=== PATIENT | male | born 1980 | race Caucasian/White ===

== ENCOUNTER → 2018-06-18 16:33 | Outpatient (CLI) | payer MEDICARE, MEDICAID, SELFPAY ==
--- NOTE | 2018-06-18 16:37 | DI.RAD.S_ITS ---
PROCEDURE: XR FOOT RT MIN 3V INDICATIONS: RIGHT FOOT PAIN TECHNIQUE: 3 views of the foot were acquired. COMPARISON: None. FINDINGS: Bones: Slight cortical step-off involving the proximal phalanx of the right fifth toe near the PIP joint suggestive of fracture. However this is not well-visualized on other views and recommend correlation to point tenderness.Diffuse interphalangeal joint degeneration. Soft tissues: Scattered vascular calcifications. IMPRESSION: Possible minimally displaced fracture involving the proximal phalanx of the right fifth toe near PIP joint. Please correlate to point tenderness as discussed above Dictated by: Souleymane Jung M.D. on 06/18/2018 at 16:56 Approved by: Souleymane Jung M.D. on 06/18/2018 at 16:59
== END ==
PROVIDERS: Family Provider Family Medicine; PCP Family Medicine; Visit Provider Family Medicine
DX: M79.671 Pain in right foot (principal)
CPT/HCPCS: 73630

== ENCOUNTER 2018-07-13 20:51 | Emergency (ER) | payer MEDICARE, MEDICAID, SELFPAY ==
[2018-07-13] VITALS (8 sets, daily range): BP systolic 172–215; BP diastolic 95–187; PULSE 92–110; RESP 9–22; TEMP 36.9; O2SAT 93–100; BMI 21.1
--- NOTE | 2018-07-13 22:24 | DI.CT.S_ITS ---
PROCEDURE: CT HEAD/BRAIN WO CON INDICATIONS: HTN emergency TECHNIQUE: Noncontrast 4.5 mm thick angled axial sections acquired from the foramen magnum to the vertex, with coronal and sagittal reformats. For radiation dose reduction, the following was used: automated exposure control, adjustment of mA and/or kV according to patient size. COMPARISON: [facility], CT, CT HEAD WITHOUT CONTRAST, 03/24/2018, 21:59. FINDINGS: Image quality: Excellent. CSF spaces: Basal cisterns are patent. No extra-axial fluid collections. The ventricles are symmetric in size and shape. Brain: No intracranial bleeds or masses. There is mild cerebral volume loss for age, with resultant ventricular and sulcal prominence. There are minimal periventricular and deep white matter chronic small vessel ischemic changes. There is intracranial internal carotid artery and vertebral artery atherosclerosis. Skull and face: Calvarium and visualized facial bones appear intact, without suspicious lesions. Sinuses: Visualized sinuses and mastoids are clear. IMPRESSION: No acute intracranial disease process. Dictated by: Tierra Emmanuel MD, PhD on 07/14/2018 at 7:26 Approved by: Tierra Emmanuel MD, PhD on 07/14/2018 at 7:28
[2018-07-13 22:30] LABS: Add Manual Diff / Slide Review NO; Basophils Absolute Auto 200 /uL (0-100); Basophils Percent Auto 4.7 % (0-2); Eosinophils Absolute Auto 200 /uL (0-450); Hematocrit 38.1 % (41-53); Hemoglobin 12.7 g/dL (13.5-17.5); Lymphocytes Absolute Auto 1000 /uL (1100-4500); Lymphocytes Percent Auto 21.3 % (25-40); Mean Corpuscular HGB Conc 33.5 % (30-36); Mean Corpuscular Hemoglobin 28.9 PG (26-34); Mean Corpuscular Volume 86.3 fL (80-100); Monocytes Absolute Auto 400 /uL (0-900); Monocytes Percent Auto 9.7 % (3-14); Neutrophils Absolute Auto 2800 /uL (1500-7000); Neutrophils Percent Auto 60.3 % (50-75); Platelet Count 317 X10^3/uL (150-400); Red Blood Cell Count 4.41 X10^6/uL (4.5-5.9); Red Cell Distribution Width 15.3 % (11.6-14.8); White Blood Cell Count 4.6 X10^3/uL (4.5-11.0)
[2018-07-13] MEDS: ONDANSETRON 4 MG/2 ML INJ IV (22:33)
[2018-07-13] MEDS: LABETALOL 20 MG/4 ML SYRINGE 10 MG IV (22:33)
[2018-07-13 22:42] LABS: BUN Creatinine Ratio 5.3 (6-22); Blood Urea Nitrogen 36 mg/dL (9-20); Calcium 8.9 mg/dL (8.4-10.2); Carbon Dioxide 29 mmol/L (22-32); Chloride 94 mmol/L (98-107); Estimated Glomerular Filt Rate 9.2 mL/min (>60); Glucose 230 mg/dL (70-100); HEMOLYSIS < 15 (0-50); Potassium 3.7 mmol/L (3.4-5.1); Sodium 132 mmol/L (137-145)
[2018-07-13] MEDS: NICARDIPINE 25 MG in SODIUM CHLORIDE 0.9% 240 ML 50 ML IV (23:26)
[2018-07-14] VITALS (26 sets, daily range): BP systolic 137–189; BP diastolic 86–119; PULSE 99–113; RESP 9–20; O2SAT 95–100
[2018-07-14] MEDS: HYDROMORPHONE 1 MG INJ 0.5 MG IV (00:16)
--- NOTE | 2018-07-14 00:30 | ED.HA ---
HPI - Headache General Chief Complaint: Headache Stated Complaint: MIGRAINE Time Seen by Provider: 07/13/18 20:58 Source: patient and family Mode of arrival: ambulatory Limitations: no limitations History of Present Illness HPI Narrative: 38-year-old male nonsmoker with history of type 1 diabetes and hypertension with relatively new history of peritoneal dialysis presents with 10/10 frontal headache. He's had one headache before and this is much worse. He states it has gradually worsened over the day. He denies any injury nor fever or chills. It is worse with exertion, sitting up and bright lights. He denies any focal neurologic symptoms such as numbness, tingling or weakness. He denies missing any medications. On arrival his BP was in the 200s. His PD is managed by nephrology at [facility] Related Data Home Medications Medication Instructions Recorded Confirmed Humalog U-100 Insulin 0 units SQ SEE INSTRUCTIONS 07/14/18 07/14/18 atorvastatin 10 mg PO DAILY 07/14/18 07/14/18 buspirone 25 mg PO BID 07/14/18 07/14/18 carvedilol 12.5 mg PO BID 07/14/18 07/14/18 cetirizine [Zyrtec] 5 - 10 mg PO DAILY 07/14/18 07/14/18 cholecalciferol (vitamin D3) 5,000 unit PO DAILY 07/14/18 07/14/18 [Vitamin D3] cyclobenzaprine 10 mg PO BID PRN 07/14/18 07/14/18 diphenhydramine HCl 75 mg PO BEDTIME 07/14/18 07/14/18 docusate sodium [DOK] 100 - 200 mg PO DAILY PRN 07/14/18 07/14/18 hydralazine 50 mg PO BID 07/14/18 07/14/18 hydrocodone-acetaminophen 1 tab PO Q6H PRN 07/14/18 07/14/18 insulin lispro [Humalog KwikPen 14 units SUBCUT TID 07/14/18 Insulin] ondansetron 4 mg PO TID PRN 07/14/18 07/14/18 torsemide 40 mg PO DAILY 07/14/18 07/14/18 triamcinolone acetonide [Nasacort] 2 spray INTRANASAL BID 07/14/18 07/14/18 Previous Rx's Medication Instructions Recorded [place] 0 dev SEE INSTRUCTIONS #100 06/10/16 Glucose: Test Strips str 8 TIMES DAY #800 06/11/16 Spacer: Inhaler Spacer Device ea INH SEE INSTRUCTIONS PRN #1 04/24/17 albuterol sulfate [Ventolin HFA] 2 puff INH Q4HP PRN #1 ea 04/24/17 benzonatate 100 mg PO TIDP PRN #30 cap 04/24/17 fluticasone propionate 2 spray INTRANASAL SEE 04/24/17 INSTRUCTIONS #16 gm insulin glargine [Lantus Solostar 0 unit SQ SEE INSTRUCTIONS #1 box 05/04/17 U-100 Insulin] metoprolol succinate 50 mg PO QDAY #30 ter 07/10/17 Allergies Allergy/AdvReac Type Severity Reaction Status Date / Time insulin detemir Allergy Intermediate causes Unverified 07/15/17 12:55 [From LEVEMIR] swelling at injection site Review of Systems Constitutional Denies chills, Denies fever(s), Reports headache(s), Denies lethargy and Denies weakness Eyes Denies change in vision, Denies eye discharge, Denies irritation and Denies loss of vision ENT Ears, Nose, Mouth, and Throat: Denies change in voice, Reports headache(s), Denies neck pain and Denies sore throat Cardiovascular Denies chest pain, Denies irregular heart rhythm, Denies lightheadedness, Denies palpitations, Denies dyspnea, Denies dyspnea on exertion and Denies orthopnea Respiratory Denies cough, Denies dyspnea, Denies dyspnea on exertion and Denies wheezing Gastrointestinal Gastrointestinal: Denies abdominal pain, Denies change in bowel habits, Denies diarrhea, Denies nausea and Denies vomiting Genitourinary Denies hematuria, Denies flank pain, Denies urinary incontinence and Denies urinary urgency Musculoskeletal Denies neck pain Integumentary/Breasts Denies pruritus, Denies erythema, Denies rash and Denies wounds Neurologic Denies confusion, Reports headache(s), Denies loss of vision and Denies weakness Psychiatric Denies anxiety, Denies confusion, Denies depression, Denies homicidal ideation and Denies suicidal ideation Endocrine Denies palpitations Hematologic/Lymphatic Denies easy bruising Allergic/Immunologic Denies wheezing PFSH Surgical History History of cardiac radiofrequency ablation (RFA) History of cataract removal with insertion of prosthetic lens History of cataract removal with insertion of prosthetic lens History of third molar tooth extraction Status post appendectomy Family History (Updated 04/01/16 @ 00:00 by Conversion Provider) Father Age: 63 Diabetes mellitus Essential hypertension High cholesterol Social History Smoking Status: Never smoker Family History Father Age: 63 Diabetes mellitus Essential hypertension High cholesterol Social History Smoking Status: Never smoker Exam Narrative Exam Narrative: GENERAL: 30-year-old male, in obvious distress, moaning in pain, covering his eyes, sitting in a dark room HEAD: Atraumatic. Normocephalic. No temporal or scalp tenderness. EYES: Pupils equal round and reactive. Extraocular motions intact. No scleral icterus. No injection or drainage. ENT: Nose without bleeding, purulent drainage or septal hematoma. Throat without erythema, tonsillar hypertrophy or exudate. Uvula midline. Airway patent. NECK: Trachea midline. No JVD or lymphadenopathy. Supple, nontender, no meningeal signs. CARDIOVASCULAR: Regular rate and rhythm without murmurs, gallops, or rubs. RESPIRATORY: Clear to auscultation. Breath sounds equal bilaterally. No wheezes, rales, or rhonchi. GASTROINTESTINAL: Abdomen soft, non-tender, nondistended. No hepato-splenomegaly, or palpable masses. No guarding. EXTREMITIES: No clubbing, cyanosis, or edema. No joint tenderness, effusion, or edema noted. BACK: Nontender without deformity or crepitance. No flank tenderness. NEURO: AOx3. SKIN: No rash or erythema. Initial Vital Signs Initial Vital Signs: Vital Signs Temperature 98.5 F 07/13/18 21:22 Pulse Rate 109 H 07/13/18 21:22 Respiratory Rate 22 07/13/18 21:22 Blood Pressure 194/136 H 07/13/18 21:22 Pulse Oximetry 100 07/13/18 21:22 Course Orders Ordered: ED Orders 07/14/18 02:39 Magnesium Stat 07/14/18 07:27 Troponin I Stat 07/14/18 07:34 EKG-12 Lead Stat Nicardipine HCl 25 mg/ Sodium (Chloride) 250 mls @ 50 mls/hr IV TITRATE KARINA; Protocol Last Titration: 07/14/18 06:46 Dose: 2.5 mg/hr, 25 mls/hr Titration: 07/14/18 04:08 Dose: 0 mg/hr, 0 mls/hr Titration: 07/14/18 03:42 Dose: 2.5 mg/hr, 25 mls/hr Titration: 07/14/18 02:47 Dose: 3.5 mg/hr, 35 mls/hr Titration: 07/14/18 02:23 Dose: 2.5 mg/hr, 25 mls/hr Titration: 07/14/18 01:04 Dose: 0 mg/hr, 0 mls/hr Titration: 07/14/18 00:31 Dose: 2.5 mg/hr, 25 mls/hr Admin: 07/13/18 23:26 Dose: 5 mg/hr, 50 mls/hr Discontinued Medications Carvedilol (Coreg) 12.5 mg PO NOW ONE Stop: 07/14/18 05:12 Last Admin: 07/14/18 06:02 Dose: 12.5 mg Hydralazine HCl (Apresoline) 10 mg IV NOW ONE Stop: 07/14/18 03:16 Last Admin: 07/14/18 03:37 Dose: 10 mg Hydralazine HCl (Apresoline) 50 mg PO NOW ONE Stop: 07/14/18 05:12 Last Admin: 07/14/18 06:00 Dose: 50 mg Hydromorphone HCl (Dilaudid) 0.5 mg IV NOW ONE Stop: 07/14/18 00:16 Last Admin: 07/14/18 00:16 Dose: 0.5 mg Hydromorphone HCl (Dilaudid) 0.5 mg IV NOW ONE Stop: 07/14/18 03:08 Last Admin: 07/14/18 03:19 Dose: 0.5 mg Ketorolac Tromethamine (Toradol) 15 mg IV NOW ONE Stop: 07/14/18 02:32 Last Admin: 07/14/18 02:45 Dose: 15 mg Labetalol HCl (Trandate) 10 mg IV NOW ONE Stop: 07/13/18 22:24 Last Admin: 07/13/18 22:33 Dose: 10 mg Metoprolol Tartrate (Lopressor) 50 mg PO NOW ONE Stop: 07/14/18 00:31 Last Admin: 07/14/18 01:04 Dose: 50 mg Ondansetron HCl (Zofran) 4 mg IV NOW ONE Stop: 07/13/18 22:28 Last Admin: 07/13/18 22:33 Dose: 4 mg Ondansetron HCl (Zofran) 4 mg IV NOW ONE Stop: 07/14/18 03:17 Last Admin: 07/14/18 03:19 Dose: 4 mg Sumatriptan Succinate (Imitrex) 6 mg SUBCUT NOW ONE Stop: 07/14/18 03:08 Last Admin: 07/14/18 03:19 Dose: 6 mg Reevaluation(s) Reevaluation #1: Patient had minimal response to labetalol through the IV, given his ongoing and worsening pain in a Cardene drip ordered Reevaluation #2: Nicardipine has resulted in improved BP, gradually down to the 160s. His symptoms have improved. Drip turned down to 2.5 and then turned off. He is given metoprolol 50. Reevaluation #3: Metoprolol has been on board for 90 minutes, Nicardipine has been off, his BP is back up to the 180s/110 and his BERNAL is terrible again. Drip back on. Toradol IV given. Imitrex ordered 0315 - Hydralazine ordered. Family going home to obtain PD device and list of recent labs, etc 0545 - Nicardipine had been turned off for quite some time, patient doing much better. BPs in the 160s/100s, but slowly trending up. PO Hydralazine and Coreg ordered (normal meds). Patient feeling well. Plan to demonstrate ongoing improvement and downward trending of BPs and hopeful for DC. 0600 - Hydralazine and Coreg administered 0627 - patient vomited, unclear if it contains pill fragments. BP up to 187/105. Will go back to Nicardipine. start working on calls for transfer again. 0637 - call to [facility]. No current beds. Likely 11ish. Cannot get on queue. Call back after bed meeting at 0800. 0644 - call [facility]. No beds. Maybe late afternoon 0645 - call to Prov. Call back at 0900. They will have a better sense of potential availability of beds. 0647 - call back to [facility]. 0800. Beds are possibly available, but we need to wait a bit. 0653 - call to . They likely have beds and will recontact 0800 - to accept. Patient to ED and will receive bed assignment there. Dr. Price receiving. Consultations Consultation #1: Our hospital has no nephrology and cannot keep PD/HD patients [facility] is completely full and cannot accept patients [facility] is full and cannot accept patients. [facility] is completely full and is potentially expecting discharges at lunch 0315 - call to [facility]. Dr. Falk (ICU) returns call and is happy to discuss patient. They may have a bed. Request that we continue to make attempts at BP control and recontact in 1 hour. Consultation #2: [facility] called back, the bed we may have had is now gone as they just intubated two patients in the ED Time: 06:30 Vital Signs - 8 hr 07/14/18 00:20 07/14/18 01:21 07/14/18 01:39 Pulse Rate 103 H 103 H 102 H Respiratory Rate 14 12 10 L Blood Pressure Blood Pressure [Right Arm] 160/87 H 172/95 H 171/100 H Pulse Oximetry 100 100 99 07/14/18 02:00 07/14/18 02:30 07/14/18 02:45 Pulse Rate 100 H 112 H 113 H Respiratory Rate 12 20 18 Blood Pressure Blood Pressure [Right Arm] 164/91 H 177/119 H 170/100 H Pulse Oximetry 99 100 100 07/14/18 03:00 07/14/18 03:15 07/14/18 03:30 Pulse Rate 113 H 108 H 104 H Respiratory Rate 17 12 9 L Blood Pressure Blood Pressure [Right Arm] 189/100 H 158/94 H 169/88 H Pulse Oximetry 100 97 96 07/14/18 03:37 07/14/18 03:45 07/14/18 04:10 Pulse Rate 104 H 103 H 103 H Respiratory Rate 11 L 10 L Blood Pressure 160/91 H 162/91 H Blood Pressure [Right Arm] 156/96 H 162/91 H Pulse Oximetry 96 97 07/14/18 04:50 07/14/18 04:51 07/14/18 05:00 Pulse Rate 99 H 108 H 102 H Respiratory Rate 10 L 18 12 Blood Pressure Blood Pressure [Right Arm] 177/107 H 177/107 H 163/96 H Pulse Oximetry 95 98 97 07/14/18 05:20 07/14/18 05:30 07/14/18 05:50 Pulse Rate 99 H 99 H 101 H Respiratory Rate 12 Blood Pressure Blood Pressure [Right Arm] 171/96 H 168/99 H 179/97 H Pulse Oximetry 97 98 97 07/14/18 06:00 07/14/18 06:02 07/14/18 06:10 Pulse Rate 103 H 103 H 104 H Respiratory Rate 11 L Blood Pressure 174/102 H 174/102 H Blood Pressure [Right Arm] 181/102 H Pulse Oximetry 98 07/14/18 06:20 07/14/18 06:50 07/14/18 07:20 Pulse Rate 108 H 99 H 99 H Respiratory Rate 13 11 L 11 L Blood Pressure 173/109 H Blood Pressure [Right Arm] 187/106 H 163/99 H 146/95 H Pulse Oximetry 98 98 99 07/14/18 08:00 Pulse Rate 101 H Respiratory Rate 10 L Blood Pressure Blood Pressure [Right Arm] 146/90 H Pulse Oximetry 98 MDM - Headache Medical Records Attestation: I reviewed the patient's medical records. Lab Data Attestation: I reviewed the patient's lab results. Result diagrams: 07/13/18 22:20 07/13/18 22:20 Lab Results 07/13/18 07/13/18 07/13/18 Range/Units 22:20 22:20 22:20 WBC 4.6 (4.5-11.0) X10^3/uL RBC 4.41 L (4.5-5.9) X10^6/uL Hgb 12.7 L (13.5-17.5) g/dL Hct 38.1 L (41-53) % MCV 86.3 (80-100) fL MCH 28.9 (26-34) PG MCHC 33.5 (30-36) % RDW 15.3 H (11.6-14.8) % Plt Count 317 (150-400) X10^3/uL Neut % (Auto) 60.3 (50-75) % Lymph % (Auto) 21.3 L (25-40) % [place] % (Auto) 9.7 (3-14) % Eos % (Auto) 4.0 (2-4) % Baso % (Auto) 4.7 H (0-2) % Neut # (Auto) 2800 (6090-8517) /uL Lymph # (Auto) 1000 L (6863-1099) /uL [place] # (Auto) 400 (0-900) /uL Eos # (Auto) 200 (0-450) /uL Baso # (Auto) 200 H (0-100) /uL Sodium 132 L (137-145) mmol/L Potassium 3.7 (3.4-5.1) mmol/L Chloride 94 L (98-107) mmol/L Carbon Dioxide 29 (22-32) mmol/L BUN 36 H (9-20) mg/dL Creatinine 6.80 H (0.66-1.25) mg/dL Estimated GFR 9.2 L (>60) mL/min BUN/Creatinine Ratio 5.3 L (6-22) Glucose 230 H (70-100) mg/dL Calcium 8.9 (8.4-10.2) mg/dL Magnesium 1.9 (1.6-2.3) mg/dL Troponin I (0.01-0.034) ng/mL 07/13/18 Range/Units 22:20 WBC (4.5-11.0) X10^3/uL RBC (4.5-5.9) X10^6/uL Hgb (13.5-17.5) g/dL Hct (41-53) % MCV (80-100) fL MCH (26-34) PG MCHC (30-36) % RDW (11.6-14.8) % Plt Count (150-400) X10^3/uL Neut % (Auto) (50-75) % Lymph % (Auto) (25-40) % [place] % (Auto) (3-14) % Eos % (Auto) (2-4) % Baso % (Auto) (0-2) % Neut # (Auto) (7738-1127) /uL Lymph # (Auto) (5874-1800) /uL [place] # (Auto) (0-900) /uL Eos # (Auto) (0-450) /uL Baso # (Auto) (0-100) /uL Sodium (137-145) mmol/L Potassium (3.4-5.1) mmol/L Chloride (98-107) mmol/L Carbon Dioxide (22-32) mmol/L BUN (9-20) mg/dL Creatinine (0.66-1.25) mg/dL Estimated GFR (>60) mL/min BUN/Creatinine Ratio (6-22) Glucose (70-100) mg/dL Calcium (8.4-10.2) mg/dL Magnesium (1.6-2.3) mg/dL Troponin I 0.030 (0.01-0.034) ng/mL Imaging Data CT scan - head: Radiologist's impression: [address] [address] [address] Scan Report Signed Patient: Thai Carreon [facility]#: [id number] : 1980Acct:[id number] Age/Sex: 38 / MDate of Service: 07/13/18 Loc: ED Accession Number: [id number] Procedure: CT head/brain wo con Ordering Provider: Cal Hernandez D.O. PROCEDURE: CT HEAD/BRAIN WO CON INDICATIONS: HTN emergency TECHNIQUE: Noncontrast 4.5 mm thick angled axial sections acquired from the foramen magnum to the vertex, with coronal and sagittal reformats. For radiation dose reduction, the following was used: automated exposure control, adjustment of mA and/or kV according to patient size. COMPARISON: [facility], CT, CT HEAD WITHOUT CONTRAST, 03/24/2018, 21:59. FINDINGS: Image quality: Excellent. CSF spaces: Basal cisterns are patent. No extra-axial fluid collections. The ventricles are symmetric in size and shape. Brain: No intracranial bleeds or masses. There is mild cerebral volume loss for age, with resultant ventricular and sulcal prominence. There are minimal periventricular and deep white matter chronic small vessel ischemic changes. There is intracranial internal carotid artery and vertebral artery atherosclerosis. Skull and face: Calvarium and visualized facial bones appear intact, without suspicious lesions. Sinuses: Visualized sinuses and mastoids are clear. IMPRESSION: No acute intracranial disease process. Dictated by: Tierra Emmanuel MD, PhD on 07/14/2018 at 7:26 Approved by: Tierra Emmanuel MD, PhD on 07/14/2018 at 7:28 Discharge Plan Departure Patient Disposition: [facility] Clinical Impression: Hypertensive emergency Headache, migraine Qualifiers: Migraine type: unspecified Status migrainosus presence: without status migrainosus Intractability: not intractable Qualified Code(s): G43.909 - Migraine, unspecified, not intractable, without status migrainosus Prescriptions: No Action Merriman SEE INSTRUCTIONS Qty: 100 RF: 11 Glucose: Test Strips 8 TIMES DAY Qty: 800 RF: 11 benzonatate 100 MG capsule 100 mg PO TIDP PRNQty: 30 RF: 0 albuterol sulfate [Ventolin HFA] 90 MCG/PUFF HFA aerosol inhaler 2 puff INH Q4HP PRNQty: 1 RF: 0 fluticasone propionate 16 GM spray,suspension 2 spray Intranasal SEE INSTRUCTIONS Qty: 16 RF: 0 Spacer: Inhaler Spacer Device INH SEE INSTRUCTIONS PRNQty: 1 RF: 99 insulin glargine [Lantus Solostar U-100 Insulin] 100 UNIT/1 ML insulin pen SQ SEE INSTRUCTIONS Qty: 1 RF: 11 metoprolol succinate 50 MG tablet extended release 24 hr 50 mg PO QDAY Qty: 30 RF: 3 hydrocodone-acetaminophen 10-325 mg Tablet 1 tab PO Q6H PRN (Reason: Pain (Scale Score 7-10)) RF: 0 buspirone 10 mg Tablet 25 mg PO BID RF: 0 triamcinolone acetonide [Nasacort] 55 mcg Aerosol,[place] 2 spray INTRANASAL BID RF: 0 cyclobenzaprine 10 mg Tablet 10 mg PO BID PRN (Reason: Muscle Spasm) RF: 0 carvedilol 25 mg Tablet 12.5 mg PO BID RF: 0 torsemide 20 mg Tablet 40 mg PO DAILY RF: 0 cetirizine [Zyrtec] 10 mg Tablet 5 - 10 mg PO DAILY RF: 0 atorvastatin 10 mg Tablet 10 mg PO DAILY RF: 0 diphenhydramine HCl 25 mg Tablet 75 mg PO BEDTIME RF: 0 docusate sodium [DOK] 100 mg capsule 100 - 200 mg PO DAILY PRN (Reason: Constipation) RF: 0 hydralazine 50 mg Tablet 50 mg PO BID RF: 0 ondansetron 4 mg Tablet,Disintegrating 4 mg PO TID PRN (Reason: Nausea) RF: 0 Humalog KwikPen Insulin 100 unit/mL insulin pen 14 units subcut TID RF: 0 cholecalciferol (vitamin D3) [Vitamin D3] 5,000 unit Tablet 5,000 unit PO DAILY RF: 0 Humalog U-100 Insulin 100 UNIT/1 ML cartridge SQ SEE INSTRUCTIONS RF: 0 Referrals: Jose Multani MD [Primary Care Provider] -
[2018-07-14] MEDS: METOPROLOL IR 50 MG TABLET PO (01:04)
[2018-07-14] MEDS: KETOROLAC 60 MG/2 ML VIAL 15 MG IV (02:45)
[2018-07-14 02:53] LABS: Magnesium 1.9 mg/dL (1.6-2.3)
[2018-07-14] MEDS: SUMAtriptan 6 MG/0.5 ML VIAL SUBCUT (03:19)
[2018-07-14] MEDS: ONDANSETRON 4 MG/2 ML INJ IV ×2 (03:19→08:58)
[2018-07-14] MEDS: HYDROMORPHONE 0.5 MG INJ IV ×2 (03:19→08:58)
[2018-07-14] MEDS: HYDRALAZINE 20 MG/ML VIAL 10 MG IV (03:37)
[2018-07-14] MEDS: HYDRALAZINE 25 MG TABLET 50 MG PO (06:00)
[2018-07-14] MEDS: CARVEDILOL 12.5 MG TABLET PO (06:02)
--- NOTE | 2018-07-14 06:13 | PC.NURSE ---
Dr Hernandez aware of BP, he is at patient's bedside at this time.
--- NOTE | 2018-07-14 06:27 | PC.NURSE ---
patient vomited. it is unsure if he threw up his medication. provider aware and no new orders at this time.
--- NOTE | 2018-07-14 07:20 | PC.NURSE ---
Nicardipine drip settings verified with WAYNE Rankin at shift change.
== END 2018-07-14 09:15 | disposition short-term general hospital (02) ==
PROVIDERS: Emergency Provider Emergency Medicine; Family Provider Family Medicine; PCP Family Medicine
DX: I16.1 Hypertensive emergency (principal); G43.909 Migraine, unspecified, not intractable, without status migrainosus
CPT/HCPCS: 36591; 70450; 80048; 83735; 84484; 85025; 93005; 93010; 96365; 96366; 96375; 96376; 99285; J0360; J1170; J1885; J2405; J3030

== ENCOUNTER → 2018-10-26 10:27 | Outpatient (CLI) | payer MEDICARE, MEDICAID, SELFPAY ==
--- NOTE | 2018-10-26 | DI.RAD.S_ITS ---
PROCEDURE: XR FOOT RT MIN 3V INDICATIONS: RIGHT FOOT PAIN TECHNIQUE: 3 views of the foot were acquired. COMPARISON: [facility], , XR FOOT RT MIN 3V, 06/18/2018, 16:39. FINDINGS: Bones: No fractures or dislocations. No suspicious bony lesions. There is mild/moderate degenerative joint disease in multiple interphalangeal joints. Soft tissues: No tibiotalar joint effusion. Achilles tendon appears normal. IMPRESSION: 1. No definitive fractures. If clinical symptoms persist or clinical suspicion for pathology is high, MRI is suggested for further evaluation. 2. Mild to moderate degenerative joint disease. Dictated by: Cynthia Meier M.D. on 10/26/2018 at 17:04 Approved by: Cynthia Meier M.D. on 10/26/2018 at 17:10
== END ==
PROVIDERS: PCP Family Medicine; Visit Provider Family Medicine
DX: M19.071 Primary osteoarthritis, right ankle and foot (principal)
CPT/HCPCS: 73630

== ENCOUNTER → 2019-01-13 15:58 | Outpatient (CLI) | payer MEDICARE, MEDICAID, SELFPAY ==
--- NOTE | 2019-01-13 16:02 | DI.RAD.S_ITS ---
PROCEDURE: XR HAND LT MIN 3V INDICATIONS: 2nd digit PIP pain and swelling TECHNIQUE: 3 views of the hand(s) acquired. COMPARISON: None. FINDINGS: Bones: No fractures or dislocations. No osseous erosion or periosteal reaction. Carpal bones are normally aligned. No suspicious bony lesions. Soft tissues: No suspicious soft tissue calcifications. Extensive vascular calcifications. IMPRESSION: No acute osseous abnormality. Extensive vascular calcifications. Dictated by: Ang Castillo M.D. on 01/13/2019 at 17:02 Approved by: Ang Castillo M.D. on 01/13/2019 at 17:03
--- NOTE | 2019-01-13 16:02 | DI.RAD.S_ITS ---
PROCEDURE: XR HAND RT MIN 3V INDICATIONS: 2nd and 3rd digit PIP pain and swelling TECHNIQUE: 3 views of the hand(s) acquired. COMPARISON: Same day left hand radiographs. FINDINGS: Bones: No fractures or dislocations. No osseous erosion or periosteal reaction. Carpal bones are normally aligned. No suspicious bony lesions. Soft tissues: No suspicious soft tissue calcifications. Extensive vascular calcifications. IMPRESSION: No acute osseous abnormality. Extensive abnormal vascular calcifications. Dictated by: Ang Castillo M.D. on 01/13/2019 at 17:00 Approved by: Ang Castillo M.D. on 01/13/2019 at 17:02
[2019-01-13 16:43] LABS: Add Manual Diff / Slide Review NO; Basophils Absolute Auto 100 /uL (0-100); Basophils Percent Auto 3.1 % (0-2); Eosinophils Absolute Auto 300 /uL (0-450); Eosinophils Percent Auto 6.5 % (2-4); Hematocrit 34.9 % (41-53); Hemoglobin 11.6 g/dL (13.5-17.5); Lymphocytes Absolute Auto 1100 /uL (1100-4500); Lymphocytes Percent Auto 26.6 % (25-40); Mean Corpuscular HGB Conc 33.1 % (30-36); Mean Corpuscular Hemoglobin 29.3 PG (26-34); Mean Corpuscular Volume 88.6 fL (80-100); Monocytes Absolute Auto 600 /uL (0-900); Monocytes Percent Auto 13.5 % (3-14); Neutrophils Absolute Auto 2100 /uL (1500-7000); Neutrophils Percent Auto 50.3 % (50-75); Platelet Count 299 X10^3/uL (150-400); Red Blood Cell Count 3.94 X10^6/uL (4.5-5.9); Red Cell Distribution Width 14.1 % (11.6-14.8); White Blood Cell Count 4.2 X10^3/uL (4.5-11.0)
[2019-01-13 17:01] LABS: Alanine Aminotransferase 35 IU/L (21-72); Albumin 3.3 g/dL (3.5-5.0); Albumin Globulin Ratio 1.3 (1.0-2.8); Alkaline Phosphatase 109 U/L (38-126); Aspartate Aminotransferase 24 IU/L (17-59); BUN Creatinine Ratio 3.9 (6-22); Bilirubin Total 0.5 mg/dL (0.2-1.3); Blood Urea Nitrogen 34 mg/dL (9-20); Carbon Dioxide 29 mmol/L (22-32); Chloride 92 mmol/L (98-107); Estimated Glomerular Filt Rate 6.8 mL/min (>60); Globulin 2.6 g/dL (1.7-4.1); Glucose 201 mg/dL (70-100); HEMOLYSIS < 15 (0-50); Potassium 4.2 mmol/L (3.4-5.1); Sodium 134 mmol/L (137-145); Total Protein 5.9 g/dL (6.3-8.2)
[2019-01-13 17:02] LABS: C-Reactive Protein Quant < 0.5 mg/dL (<1.0); Erythrocyte Sedimentation Rate 35 MM/HR (0-15); Rheumatoid Factor < 8.6 IU/mL (<12.0)
== END ==
PROVIDERS: PCP Family Medicine; Visit Provider Physician Assistant
DX: M79.644 Pain in right finger(s) (principal); M79.645 Pain in left finger(s); M25.541 Pain in joints of right hand; M25.542 Pain in joints of left hand; M25.441 Effusion, right hand; M25.442 Effusion, left hand
CPT/HCPCS: 36415; 73130; 80053; 85025; 85651; 86140; 86430

== ENCOUNTER 2019-02-17 14:30 | Outpatient (RCR) | payer MEDICARE, MEDICAID, SELFPAY ==
--- NOTE | 2018-09-09 13:00 | PT.OPPOC ---
Current Diagnoses Other acquired deformities of right foot (09/09/18) Other instability, right ankle (09/09/18) Metatarsalgia, right foot (09/09/18) Pain in right foot (09/09/18) Difficulty in walking, not elsewhere classified (09/09/18) Contusion of right foot, initial encounter (09/09/18) Provider Visit Care Team Role Provider Type Jose Multani MD Primary Care Provider Physician Specialty: Family Practice Address: [address] [place] [address], [id number] Email: Heidi Jamison DPM Attending Provider Physician Specialty: Podiatry Address: [address] [place] [address], [address] Email: [email or web address] Plan Of Care PT-OP-T Assessment and Plan Start: 09/09/18 13:00 Freq: Status: Active Protocol: Document 09/09/18 13:00 DLM (Rec: 09/09/18 18:54 DLM [id number]) Physical Therapy Assessment Rehab Potential Rehabilitation Potential Good Evaluation Complexity Number of Personal Factors/Comorbidities 3 or More Number of Body Systems Impaired 3 Clinical Presentation at Evaluation Evolving Impairments Impairments Balance Edema Functional Mobility Gait Pain ROM Sensation Soft Tissue Mobility Strength Goals Four Impairment Hypersensativity right foot Fpc Goal (LTG) Able to touch right foot without pain/tingling LTG Duration 8 weeks Three Impairment Limited ROM Short Term Goal (STG) Right DF to 0 degrees STG Duration 4 weeks Fpc Goal (LTG) Right DF to 5 degrees LTG Duration 8 weeks Two Impairment Decreased Strength Short Term Goal (STG) - Increased right toe ext strength to 4-/5. - Right knee strenght 5/5 STG Duration 4 weeks Fpc Goal (LTG) - Increase right toe flex/ext strength to 4+/5 - Right ankle strength 5/5 LTG Duration 8 weeks One Impairment Limited gait Short Term Goal (STG) Tolerate walking around the house without CAM boot without right foot pain with normal gait pattern STG Duration 4 weeks Fpc Goal (LTG) Tolerate gait in the community without right foot pain with supportive shoes. LTG Duration 8 weeks Assessment Summary Assessment Patient presents with right foot pain following injury to his foot without known cause. He presents with muscular tightness, pain and weakness that impairs his gait and standing ability. He continues to wear a CAM boot on right foot. His case is complicated by his DM-I, prior ligament repair right ankle and hx of trauma to other body areas. He likes to walk and be active and is motivated to return to his normal activity level. He is a good candidate for physical therapy. Physical Therapy Plan Frequency and Duration Frequency of Treatment 2x/wk then 1x/wk Duration of Treatment 8 weeks Plan of Care Start Date 09/09/18 Plan of Care End Date 11/05/18 Therapeutic Interventions Therapeutic Interventions Balance Training Gait Training Home Exercise Program Manual Therapy Neuromuscular Re-education Patient/Caregiver Education Self-Care/Home Management Sensory Integration Soft Tissue Mobilization Taping Therapeutic Activities Therapeutic Exercises Modalities Cold Pack/Ice Massage Other Therapeutic Interventions desensitization right foot Next Visit Focus/Plan Next Note Type Treatment Note Next Visit Plan stationary bike, review stretches, BAPS, ask pt to bring sneaker for right foot for therapy Plan of Care Dates Plan of Care Start Date 09/09/18 Plan of Care End Date 11/05/18 Please Sign and Return: I have reviewed this Plan of Care and certify that the skilled therapy services above are required to meet the patient?s needs. Physician Signature Date Printed Name and Credentials C
--- NOTE | 2018-09-09 13:00 | PT.OIE ---
Current Diagnoses Other acquired deformities of right foot (09/09/18) Other instability, right ankle (09/09/18) Metatarsalgia, right foot (09/09/18) Pain in right foot (09/09/18) Difficulty in walking, not elsewhere classified (09/09/18) Contusion of right foot, initial encounter (09/09/18) Past Medical History (Last Updated 09/09/18 @ 18:19 by Cece Stewart, PT) Back pain (Acute) Depression (Acute) Headache (Acute) Hypertension (Acute) Neck pain (Acute) Renal failure (Acute)- peritoneal dialysis Right ankle sprain (Acute) Type 1 diabetes mellitus (Acute) Past Surgical History (Last Updated 09/09/18 @ 18:21 by Cece Stewart, PT) S/P repair of ligament of ankle (Acute)- right History of cardiac radiofrequency ablation (RFA) History of cataract removal with insertion of prosthetic lens History of cataract removal with insertion of prosthetic lens History of third molar tooth extraction Status post appendectomy Provider Visit Care Team Role Provider Type Jose Multani MD Primary Care Provider Physician Specialty: Family Practice Address: [address] [place] [address], [id number] Email: Heidi Jamison DPM Attending Provider Physician Specialty: Podiatry Address: [address] [place] [address], [facility] Email: [email or web address] Physical Therapy Initial Evaluation PT-OP-A Visit Information Start: 09/09/18 13:00 Freq: Status: Active Protocol: Document 09/09/18 13:00 DLM (Rec: 09/09/18 18:15 DLM [id number]) Out-Patient Physical Therapy Visit Information Visit Information Visit Type Initial Evaluation Visit Start Time 13:00 Visit Stop Time 13:55 Total Visit Minutes 55 Visit Number 1 Number of HOGSHEAD WRECKER Visits 0 Evaluation Information Evaluation Date 09/09/18 Precautions Precautions peritoneal dialysis, DM-I, hx of trauma including back fx, hx right ankle ligamentous repair PT-OP-B Current Condition Start: 09/09/18 13:00 Freq: Status: Active Protocol: Document 09/09/18 13:00 DL (Rec: 09/09/18 18:15 [facility] [id number]) Current Condition History of Current Condition Onset Date Few months ago Current Complaints Right foot pain History of Current Condition A few months ago he was walking and developed pain in his right lateral foot. He reports no known injury to his foot. He was diagnosed with stress fx in right foot (old fx and newer fx). He was placed in a CAM boot for 6 weeks. He is still wearing the CAM boot. He continues to have right lateral foot pain if he tries to walk without the boot. He reports recent start of right lateral hip pain that he thinks is from being in the boot. The hip pain is better if he takes the boot off. He also has mild tingling in his right foot in the same area of his injury. Prior Treatments and Tests x-rays for right foot Future Testing and Treatments Planned Pt reports progression out of CAM boot will depend on therapy Treatment Goals Patient/Caregiver Goals Be able to walk and stand without right foot pain limiting him. Prior Functional Status Baseline Function- ADL's Independent Baseline Function- Mobility Independent Baseline Function- Gait Independent, community distances Baseline Function- Work/School not working Baseline Function- Recreation/Hobbies likes to walk Baseline Function- Other peritoneal dialysis Current Functional Impairments (Reported) Functional Limitations- ADL's Independent, pain in right foot when sleeping Functional Limitations- Mobility/Gait Limited walking due to right foot if not in CAM boot and right hip pain when in CAM boot, right foot pain limits his standing. He can only stand for 15-20 min due to many areas of his body hurting including his foot. Functional Limitations- Work/School not working Functional Limitations- Recreation/ unable at this time Hobbies Functional Limitations- Other he has a multi-podus positioning device for his right foot at night to sleep Personal Factors Other Personal Factors That May Effect LE edema related to dialysis Therapy/Recovery issues PT-OP-C Subjective Start: 09/09/18 13:00 Freq: Status: Active Protocol: Document 09/09/18 13:00 [facility] (Rec: 09/09/18 18:15 [facility] [id number]) Patient Questionnaires Lower Extremity Functional Scale LEFS Score 22.5% LEFS Impairment 20 to 39% Impaired (Score 48- 62) OP-PT Pain Assessment Pain Assessment Grid Paper Pain Assessment Grid Completed Yes: he filled out only in regards to this diagnosis Location Right Lateral Hip Pain Location Details he describes as muscle strain Description Aching Frequency Intermittent Other Pain Aggravating Factors walking with the CAM boot Pain Alleviating Factors Rest Other Pain Alleviating Factors taking CAM boot off Patient Stated Pain Goal he did not rate his pain this visit Right Foot Pain Location Details lateral, 5th MTP and just proximal Description Aching Tingling With Movement Frequency Intermittent Pain Aggravating Factors Standing Walking Pain Alleviating Factors Rest Patient Stated Pain Goal he did not rate his pain this visit Home Pain Medication Use Pain Medications Used Yes: Oxycodone Home Pain Medication Frequency 2x/day Patient Goal Do not like to take the pain medication Pain Behaviors Pain Behaviors Guarding PT-OP-D Balance Start: 09/09/18 13:00 Freq: Status: Active Protocol: Document 09/09/18 13:00 DLM (Rec: 09/09/18 18:25 DLM [id number]) Balance Tests Single Limb Standing Single Limb- Right 3 sec Single Limb- Left 3-6 sec PT-OP-G Mobility & Gait Start: 09/09/18 13:00 Freq: Status: Active Protocol: Document 09/09/18 13:00 DLM (Rec: 09/09/18 18:27 DLM [id number]) OP Mobility Evaluation Bed Mobility Supine to and from Sit independent Transfers Sit to Stand independent without UE support Bed to Chair Transfers Independent OP Gait Assessment Gait Gait Assistance Required: Independent Assistive Devices Assistive Device None Orthotic/Prosthetic Devices or Brace: Yes Gait Deviations General Gait Pattern Antalgic Decreased Stride Length Factors Limiting Gait Function Factors Limiting Gait Function Decreased Strength Limited Range of Motion Pain Comments Gait Comments unable to advance over right foot in stance, right foot externally rotates, pain right lateral foot PT-OP-H Neuro Start: 09/09/18 13:00 Freq: Status: Active Protocol: Document 09/09/18 13:00 DLM (Rec: 09/09/18 18:31 DLM [id number]) Sensation Evaluation Comments Summary Comments tingling right lateral foot to touch especially in same area as his pain PT-OP-J Posture/Palpation/Skin Start: 09/09/18 13:00 Freq: Status: Active Protocol: Document 09/09/18 13:00 DLM (Rec: 09/09/18 18:43 DLM [id number]) Skin Assessment Circumference Measurement 2 Location ankle joint left Measurement (Centimeters) 37.0 Comments edema in left distal LE which is greater than right LE 1 Location ankle joint right Measurement (Centimeters) 36.8 Comments mild edema PT-OP-K Range of Motion Start: 09/09/18 13:00 Freq: Status: Active Protocol: Document 09/09/18 13:00 DLM (Rec: 09/09/18 18:41 [facility] [id number]) Ankle and Foot Goniometric Range of Motion Ankle and Foot Measured in Degrees Left Active Testing Position Supine Dorsiflexion with Knee Extended 5 Plantarflexion 47 Inversion 26 Eversion 10 Right Active Testing Position Supine Dorsiflexion with Knee Extended 10 Plantarflexion 45 Inversion 27 Eversion 13 Ankle and Foot ROM Limitations ROM Limitations Soft Tissue Tightness Pain Comments right DF: lacking 10 degrees of dorsiflexion from neutral Toe Range of Motion Toe Measured in Degrees bilateral Toe ROM WFL Yes PT-OP-M Strength Start: 09/09/18 13:00 Freq: Status: Active Protocol: Document 09/09/18 13:00 DLM (Rec: 09/09/18 18:41 [facility] [id number]) Hip Strength Hip Manual Muscle Testing bilateral Flexion (L2) 5 Normal Knee Strength Knee Manual Muscle Testing Left Flexion (S2) 5 Normal Extension (L3) 5 Normal Right Flexion (S2) 4+ Good+ Extension (L3) 4+ Good+ Ankle/Foot Strength Ankle and Foot Manual Muscle Testing Left Dorsiflexion (L4) 5 Normal Plantarflexion (S1) 4- Good- Inversion 5 Normal Eversion (S1) 5 Normal Right Dorsiflexion (L4) 4+ Good+ Plantarflexion (S1) 3+ Fair+ Inversion 4+ Good+ Eversion (S1) 4+ Good+ Toe Strength Toe Manual Muscle Testing Left Flexion 4+ Good+ Extension 4+ Good+ Right Flexion 4 Good Extension 3 Fair PT-OP-Q Treatments Start: 09/09/18 13:00 Freq: Status: Active Protocol: Document 09/09/18 13:00 DLM (Rec: 09/09/18 18:41 [facility] [id number]) Therapeutic Exercises Sitting Exercises 1 Sitting Exercise Name Sit-Stand Side bilateral Reps/Minutes 10 reps Comments no UE support, to do 1x/day at home Standing Exercises 2 Standing Exercise Name Soleus stretch using wall Side right Reps/Minutes 30 sec hold x 3 reps Comments to do 2x/day at home 1 Standing Exercise Name Gastroc stretch using wall Side right Reps/Minutes 30 sec hold x 3 reps Comments to do 2x/day at home PT-OP-T Assessment and Plan Start: 09/09/18 13:00 Freq: Status: Active Protocol: Document 09/09/18 13:00 DL (Rec: 09/09/18 18:54 DL [id number]) Physical Therapy Assessment Rehab Potential Rehabilitation Potential Good Evaluation Complexity Number of Personal Factors/Comorbidities 3 or More Number of Body Systems Impaired 3 Clinical Presentation at Evaluation Evolving Impairments Impairments Balance Edema Functional Mobility Gait Pain ROM Sensation Soft Tissue Mobility Strength Goals Four Impairment Hypersensativity right foot Cellular Equipment Installer Goal (LTG) Able to touch right foot without pain/tingling LTG Duration 8 weeks Three Impairment Limited ROM Short Term Goal (STG) Right DF to 0 degrees STG Duration 4 weeks Cellular Equipment Installer Goal (LTG) Right DF to 5 degrees LTG Duration 8 weeks Two Impairment Decreased Strength Short Term Goal (STG) - Increased right toe ext strength to 4-/5. - Right knee strenght 5/5 STG Duration 4 weeks Penitentiary Goal (LTG) - Increase right toe flex/ext strength to 4+/5 - Right ankle strength 5/5 LTG Duration 8 weeks One Impairment Limited gait Short Term Goal (STG) Tolerate walking around the house without CAM boot without right foot pain with normal gait pattern STG Duration 4 weeks Cellular Equipment Installer Goal (LTG) Tolerate gait in the community without right foot pain with supportive shoes. LTG Duration 8 weeks Assessment Summary Assessment Patient presents with right foot pain following injury to his foot without known cause. He presents with muscular tightness, pain and weakness that impairs his gait and standing ability. He continues to wear a CAM boot on right foot. His case is complicated by his DM-I, prior ligament repair right ankle and hx of trauma to other body areas. He likes to walk and be active and is motivated to return to his normal activity level. He is a good candidate for physical therapy. Physical Therapy Plan Frequency and Duration Frequency of Treatment 2x/wk then 1x/wk Duration of Treatment 8 weeks Plan of Care Start Date 09/09/18 Plan of Care End Date 11/05/18 Therapeutic Interventions Therapeutic Interventions Balance Training Gait Training Home Exercise Program Manual Therapy Neuromuscular Re-education Patient/Caregiver Education Self-Care/Home Management Sensory Integration Soft Tissue Mobilization Taping Therapeutic Activities Therapeutic Exercises Modalities Cold Pack/Ice Massage Other Therapeutic Interventions desensitization right foot Next Visit Focus/Plan Next Note Type Treatment Note Next Visit Plan stationary bike, review stretches, BAPS, ask pt to bring sneaker for right foot for therapy
--- NOTE | 2018-09-14 11:15 | PT.OTN ---
Current Diagnoses Other acquired deformities of right foot (09/14/18) Other instability, right ankle (09/14/18) Metatarsalgia, right foot (09/14/18) Pain in right foot (09/14/18) Difficulty in walking, not elsewhere classified (09/14/18) Contusion of right foot, initial encounter (09/14/18) Physical Therapy Treatment Note PT-OP-A Visit Information Start: 09/09/18 13:00 Freq: Status: Active Protocol: Document 09/14/18 11:15 DLM (Rec: 09/14/18 12:32 DLM [id number]) Out-Patient Physical Therapy Visit Information Visit Information Visit Type Treatment Note Visit Start Time 11:15 Visit Stop Time 12:00 Total Visit Minutes 45 Visit Number 2 Number of ELECTRICAL AND INSTRUMENT TECHNICIAN Visits 0 Evaluation Information Evaluation Date 09/09/18 Precautions Precautions peritoneal dialysis, DM-I, hx of trauma including back fx, hx right ankle ligamentous repair PT-OP-B Current Condition Start: 09/09/18 13:00 Freq: Status: Active Protocol: Document 09/09/18 13:00 DLM (Rec: 09/09/18 18:15 DLM [id number]) Current Condition History of Current Condition Onset Date Few months ago Current Complaints Right foot pain History of Current Condition A few months ago he was walking and developed pain in his right lateral foot. He reports no known injury to his foot. He was diagnosed with stress fx in right foot (old fx and newer fx). He was placed in a CAM boot for 6 weeks. He is still wearing the CAM boot. He continues to have right lateral foot pain if he tries to walk without the boot. He reports recent start of right lateral hip pain that he thinks is from being in the boot. The hip pain is better if he takes the boot off. He also has mild tingling in his right foot in the same area of his injury. Prior Treatments and Tests x-rays for right foot Future Testing and Treatments Planned Pt reports progression out of CAM boot will depend on therapy Treatment Goals Patient/Caregiver Goals Be able to walk and stand without right foot pain limiting him. Prior Functional Status Baseline Function- ADL's Independent Baseline Function- Mobility Independent Baseline Function- Gait Independent, community distances Baseline Function- Work/School not working Baseline Function- Recreation/Hobbies likes to walk Baseline Function- Other peritoneal dialysis Current Functional Impairments (Reported) Functional Limitations- ADL's Independent, pain in right foot when sleeping Functional Limitations- Mobility/Gait Limited walking due to right foot if not in CAM boot and right hip pain when in CAM boot, right foot pain limits his standing. He can only stand for 15-20 min due to many areas of his body hurting including his foot. Functional Limitations- Work/School not working Functional Limitations- Recreation/ unable at this time Hobbies Functional Limitations- Other he has a multi-podus positioning device for his right foot at night to sleep Personal Factors Other Personal Factors That May Effect LE edema related to dialysis Therapy/Recovery issues PT-OP-C Subjective Start: 09/09/18 13:00 Freq: Status: Active Protocol: Document 09/14/18 11:15 DLM (Rec: 09/14/18 12:32 DLM [id number]) OP-PT Subjective Patient Comments Patient Comments He has been stretching at home PT-OP-D Balance Start: 09/09/18 13:00 Freq: Status: Active Protocol: Document 09/09/18 13:00 DLM (Rec: 09/09/18 18:25 DLM [id number]) Balance Tests Single Limb Standing Single Limb- Right 3 sec Single Limb- Left 3-6 sec PT-OP-G Mobility & Gait Start: 09/09/18 13:00 Freq: Status: Active Protocol: Document 09/09/18 13:00 DLM (Rec: 09/09/18 18:27 DLM [id number]) OP Mobility Evaluation Bed Mobility Supine to and from Sit independent Transfers Sit to Stand independent without UE support Bed to Chair Transfers Independent OP Gait Assessment Gait Gait Assistance Required: Independent Assistive Devices Assistive Device None Orthotic/Prosthetic Devices or Brace: Yes Gait Deviations General Gait Pattern Antalgic Decreased Stride Length Factors Limiting Gait Function Factors Limiting Gait Function Decreased Strength Limited Range of Motion Pain Comments Gait Comments unable to advance over right foot in stance, right foot externally rotates, pain right lateral foot PT-OP-H Neuro Start: 09/09/18 13:00 Freq: Status: Active Protocol: Document 09/09/18 13:00 DLM (Rec: 09/09/18 18:31 DLM [id number]) Sensation Evaluation Comments Summary Comments tingling right lateral foot to touch especially in same area as his pain PT-OP-J Posture/Palpation/Skin Start: 09/09/18 13:00 Freq: Status: Active Protocol: Document 09/09/18 13:00 DLM (Rec: 09/09/18 18:43 DLM [id number]) Skin Assessment Circumference Measurement 2 Location ankle joint left Measurement (Centimeters) 37.0 Comments edema in left distal LE which is greater than right LE 1 Location ankle joint right Measurement (Centimeters) 36.8 Comments mild edema PT-OP-K Range of Motion Start: 09/09/18 13:00 Freq: Status: Active Protocol: Document 09/09/18 13:00 DLM (Rec: 09/09/18 18:41 DLM [id number]) Ankle and Foot Goniometric Range of Motion Ankle and Foot Measured in Degrees Left Active Testing Position Supine Dorsiflexion with Knee Extended 5 Plantarflexion 47 Inversion 26 Eversion 10 Right Active Testing Position Supine Dorsiflexion with Knee Extended 10 Plantarflexion 45 Inversion 27 Eversion 13 Ankle and Foot ROM Limitations ROM Limitations Soft Tissue Tightness Pain Comments right DF: lacking 10 degrees of dorsiflexion from neutral Toe Range of Motion Toe Measured in Degrees bilateral Toe ROM WFL Yes PT-OP-M Strength Start: 09/09/18 13:00 Freq: Status: Active Protocol: Document 09/09/18 13:00 DLM (Rec: 09/09/18 18:41 DLM [id number]) Hip Strength Hip Manual Muscle Testing bilateral Flexion (L2) 5 Normal Knee Strength Knee Manual Muscle Testing Left Flexion (S2) 5 Normal Extension (L3) 5 Normal Right Flexion (S2) 4+ Good+ Extension (L3) 4+ Good+ Ankle/Foot Strength Ankle and Foot Manual Muscle Testing Left Dorsiflexion (L4) 5 Normal Plantarflexion (S1) 4- Good- Inversion 5 Normal Eversion (S1) 5 Normal Right Dorsiflexion (L4) 4+ Good+ Plantarflexion (S1) 3+ Fair+ Inversion 4+ Good+ Eversion (S1) 4+ Good+ Toe Strength Toe Manual Muscle Testing Left Flexion 4+ Good+ Extension 4+ Good+ Right Flexion 4 Good Extension 3 Fair PT-OP-Q Treatments Start: 09/09/18 13:00 Freq: Status: Active Protocol: Document 09/14/18 11:15 DLM (Rec: 09/14/18 12:32 [facility] [id number]) Cardio Equipment Recumbent Bicycle Duration (Minutes) 6 Resistance Level 4 Seat Position 6 Other keep pedal pressure off sore right foot area Therapeutic Exercises Sitting Exercises 6 Sitting Exercise Name BAPS Side right Resistance L2 Reps/Minutes 10 reps each, 2 sets Comments A/P, lateral and circles 5 Sitting Exercise Name toe curls on towel Side right Reps/Minutes 20 reps 4 Sitting Exercise Name picking up marbles with toes Side right Reps/Minutes 10 marbles x 2 sets 3 Sitting Exercise Name Knee extension Side right Resistance L2 exercise band Reps/Minutes 10 reps Comments loop around legs with band 2 Sitting Exercise Name HS curls Side right Resistance L2 exercise band Reps/Minutes 10 reps Comments loop around legs with band 1 Sitting Exercise Name Sit-Stand Side bilateral Reps/Minutes 10 reps Comments no UE support, to do 1x/day at home Standing Exercises 3 Standing Exercise Name Single limb standing Side right Reps/Minutes 5 reps, hold to fatigue 2 Standing Exercise Name Soleus stretch using wall Side right Reps/Minutes 30 sec hold x 3 reps Comments to do 2x/day at home 1 Standing Exercise Name Gastroc stretch using wall Side right Reps/Minutes 30 sec hold x 3 reps Comments to do 2x/day at home Manual Therapy Treatment Soft Tissue Mobilization 1 Body Location right foot and ankle Mobilization Type Strumming Intensity/Depth Moderate Body Position Supine Comments incorporating desensitization also, deep prep cream used Self-Care/Home Management Treatment Education Patient Education Home Exercise Program Other Education pt to bring sneaker for next visit for foot protection PT-OP-T Assessment and Plan Start: 09/09/18 13:00 Freq: Status: Active Protocol: Document 09/14/18 11:15 [facility] (Rec: 09/14/18 12:32 [facility] [id number]) Physical Therapy Assessment Goals Four Impairment Hypersensitivity right foot Detention Goal (LTG) Able to touch right foot without pain/tingling LTG Duration 8 weeks Three Impairment Limited ROM Short Term Goal (STG) Right DF to 0 degrees STG Duration 4 weeks Detention Goal (LTG) Right DF to 5 degrees LTG Duration 8 weeks Two Impairment Decreased Strength Short Term Goal (STG) - Increased right toe ext strength to 4-/5. - Right knee strenght 5/5 STG Duration 4 weeks Screw Machine Operator Goal (LTG) - Increase right toe flex/ext strength to 4+/5 - Right ankle strength 5/5 LTG Duration 8 weeks One Impairment Limited gait Short Term Goal (STG) Tolerate walking around the house without CAM boot without right foot pain with normal gait pattern STG Duration 4 weeks Screw Machine Operator Goal (LTG) Tolerate gait in the community without right foot pain with supportive shoes. LTG Duration 8 weeks Assessment Summary Assessment He tolerated his exerices well with no increase in right foot pain. Less hypersensitivity to touch today. Muscle fatigue noted in right LE with exercises. Pt reports he will miss second visit this week due to schedule conflict for him. Continue to assess his response to treatment next visit. Physical Therapy Plan Frequency and Duration Frequency of Treatment 2x/wk then 1x/wk Duration of Treatment 8 weeks Plan of Care Start Date 09/09/18 Plan of Care End Date 11/05/18 Therapeutic Interventions Therapeutic Interventions Balance Training Gait Training Home Exercise Program Manual Therapy Neuromuscular Re-education Patient/Caregiver Education Self-Care/Home Management Sensory Integration Soft Tissue Mobilization Taping Therapeutic Activities Therapeutic Exercises Modalities Cold Pack/Ice Massage Other Therapeutic Interventions desensitization right foot Next Visit Focus/Plan Next Note Type Treatment Note Next Visit Plan provide written HEP (copy in paper chart), add seated toe extension and seated hip abduction with exercise band, provide exercise band for HEP
--- NOTE | 2018-09-21 18:33 | PT.OTN ---
Current Diagnoses Other acquired deformities of right foot (09/21/18) Other instability, right ankle (09/21/18) Metatarsalgia, right foot (09/21/18) Pain in right foot (09/21/18) Difficulty in walking, not elsewhere classified (09/21/18) Contusion of right foot, initial encounter (09/21/18) Physical Therapy Treatment Note PT-OP-A Visit Information Start: 09/09/18 13:00 Freq: Status: Active Protocol: Document 09/21/18 15:25 HH (Rec: 09/21/18 18:33 HH [email or web address]) Out-Patient Physical Therapy Visit Information Visit Information Visit Type Treatment Note Visit Start Time 15:25 Visit Stop Time 16:00 Total Visit Minutes 45 Visit Number 3 Number of MODEL AND MOLD MAKER Visits 0 PT-OP-B Current Condition Start: 09/09/18 13:00 Freq: Status: Active Protocol: Document 09/09/18 13:00 DLM (Rec: 09/09/18 18:15 DLM [id number]) Current Condition History of Current Condition Onset Date Few months ago Current Complaints Right foot pain History of Current Condition A few months ago he was walking and developed pain in his right lateral foot. He reports no known injury to his foot. He was diagnosed with stress fx in right foot (old fx and newer fx). He was placed in a CAM boot for 6 weeks. He is still wearing the CAM boot. He continues to have right lateral foot pain if he tries to walk without the boot. He reports recent start of right lateral hip pain that he thinks is from being in the boot. The hip pain is better if he takes the boot off. He also has mild tingling in his right foot in the same area of his injury. Prior Treatments and Tests x-rays for right foot Future Testing and Treatments Planned Pt reports progression out of CAM boot will depend on therapy Treatment Goals Patient/Caregiver Goals Be able to walk and stand without right foot pain limiting him. Prior Functional Status Baseline Function- ADL's Independent Baseline Function- Mobility Independent Baseline Function- Gait Independent, community distances Baseline Function- Work/School not working Baseline Function- Recreation/Hobbies likes to walk Baseline Function- Other peritoneal dialysis Current Functional Impairments (Reported) Functional Limitations- ADL's Independent, pain in right foot when sleeping Functional Limitations- Mobility/Gait Limited walking due to right foot if not in CAM boot and right hip pain when in CAM boot, right foot pain limits his standing. He can only stand for 15-20 min due to many areas of his body hurting including his foot. Functional Limitations- Work/School not working Functional Limitations- Recreation/ unable at this time Hobbies Functional Limitations- Other he has a multi-podus positioning device for his right foot at night to sleep Personal Factors Other Personal Factors That May Effect LE edema related to dialysis Therapy/Recovery issues PT-OP-C Subjective Start: 09/09/18 13:00 Freq: Status: Active Protocol: Document 09/21/18 15:25 HH (Rec: 09/21/18 18:33 HH [email or web address]) OP-PT Subjective Patient Comments Patient Comments Diana doing my HEP. Currently off my boot when im at home and the clinic.I am also walking better too. Patient Reported Progress Improving PT-OP-D Balance Start: 09/09/18 13:00 Freq: Status: Active Protocol: Document 09/09/18 13:00 DLM (Rec: 09/09/18 18:25 DLM [id number]) Balance Tests Single Limb Standing Single Limb- Right 3 sec Single Limb- Left 3-6 sec PT-OP-G Mobility & Gait Start: 09/09/18 13:00 Freq: Status: Active Protocol: Document 09/09/18 13:00 DLM (Rec: 09/09/18 18:27 DLM [id number]) OP Mobility Evaluation Bed Mobility Supine to and from Sit independent Transfers Sit to Stand independent without UE support Bed to Chair Transfers Independent OP Gait Assessment Gait Gait Assistance Required: Independent Assistive Devices Assistive Device None Orthotic/Prosthetic Devices or Brace: Yes Gait Deviations General Gait Pattern Antalgic Decreased Stride Length Factors Limiting Gait Function Factors Limiting Gait Function Decreased Strength Limited Range of Motion Pain Comments Gait Comments unable to advance over right foot in stance, right foot externally rotates, pain right lateral foot PT-OP-H Neuro Start: 09/09/18 13:00 Freq: Status: Active Protocol: Document 09/09/18 13:00 DLM (Rec: 09/09/18 18:31 DLM [id number]) Sensation Evaluation Comments Summary Comments tingling right lateral foot to touch especially in same area as his pain PT-OP-J Posture/Palpation/Skin Start: 09/09/18 13:00 Freq: Status: Active Protocol: Document 09/09/18 13:00 DLM (Rec: 09/09/18 18:43 DLM [id number]) Skin Assessment Circumference Measurement 2 Location ankle joint left Measurement (Centimeters) 37.0 Comments edema in left distal LE which is greater than right LE 1 Location ankle joint right Measurement (Centimeters) 36.8 Comments mild edema PT-OP-K Range of Motion Start: 09/09/18 13:00 Freq: Status: Active Protocol: Document 09/09/18 13:00 DLM (Rec: 09/09/18 18:41 DLM [id number]) Ankle and Foot Goniometric Range of Motion Ankle and Foot Left Active Testing Position Supine Dorsiflexion with Knee Extended 5 Plantarflexion 47 Inversion 26 Eversion 10 Right Active Testing Position Supine Dorsiflexion with Knee Extended 10 Plantarflexion 45 Inversion 27 Eversion 13 Ankle and Foot ROM Limitations ROM Limitations Soft Tissue Tightness Pain Comments right DF: lacking 10 degrees of dorsiflexion from neutral Toe Range of Motion Toe bilateral Toe ROM WFL Yes PT-OP-M Strength Start: 09/09/18 13:00 Freq: Status: Active Protocol: Document 09/09/18 13:00 DLM (Rec: 09/09/18 18:41 DLM [id number]) Hip Strength Hip Manual Muscle Testing bilateral Flexion (L2) 5 Normal Knee Strength Knee Manual Muscle Testing Left Flexion (S2) 5 Normal Extension (L3) 5 Normal Right Flexion (S2) 4+ Good+ Extension (L3) 4+ Good+ Ankle/Foot Strength Ankle and Foot Manual Muscle Testing Left Dorsiflexion (L4) 5 Normal Plantarflexion (S1) 4- Good- Inversion 5 Normal Eversion (S1) 5 Normal Right Dorsiflexion (L4) 4+ Good+ Plantarflexion (S1) 3+ Fair+ Inversion 4+ Good+ Eversion (S1) 4+ Good+ Toe Strength Toe Manual Muscle Testing Left Flexion 4+ Good+ Extension 4+ Good+ Right Flexion 4 Good Extension 3 Fair PT-OP-Q Treatments Start: 09/09/18 13:00 Freq: Status: Active Protocol: Document 09/21/18 15:25 HH (Rec: 09/21/18 18:33 HH [email or web address]) Therapeutic Exercises Sitting Exercises seated hip abd Side bilateral Resistance level 2 Equipment Used level 2 band around knees Reps/Minutes 10 x2 Comments for HEP tpp ankle tejon Side right Reps/Minutes 20 reps 5 Sitting Exercise Name toe curls on towel Side right Reps/Minutes 20 reps 4 Sitting Exercise Name picking up marbles with toes Side right Reps/Minutes 10 marbles x 3 sets 1 Sitting Exercise Name Sit-Stand Side bilateral Reps/Minutes 10 reps Comments no UE support, to do 1x/day at home Standing Exercises ankle rocking motion Standing Exercise Name for HEP too Side bilateral Equipment Used chair for support Reps/Minutes 10 mins Comments cues on terminal stance and heel strikes Manual Therapy Treatment Soft Tissue Mobilization 1 Body Location right foot and ankle Mobilization Type Strumming Intensity/Depth Moderate Body Position Supine Comments incorporating desensitization also, deep prep cream used PT-OP-T Assessment and Plan Start: 09/09/18 13:00 Freq: Status: Active Protocol: Document 09/21/18 15:25 HH (Rec: 09/21/18 18:33 [email or web address]) Physical Therapy Assessment Assessment Summary Assessment gi HEP and therex with no increase in R foot pain. Added ankle rocking motion in standing position, ankle circles, seated hip abd and STS. Physical Therapy Plan Next Visit Focus/Plan Next Note Type Treatment Note Next Visit Plan review HEP gait training as gi bilateral/ unilateral balance training as gi foot intrinsic strengthening
--- NOTE | 2018-09-28 17:19 | PT.OTN ---
Current Diagnoses Other acquired deformities of right foot (09/28/18) Other instability, right ankle (09/28/18) Metatarsalgia, right foot (09/28/18) Pain in right foot (09/28/18) Difficulty in walking, not elsewhere classified (09/28/18) Contusion of right foot, initial encounter (09/28/18) Physical Therapy Treatment Note PT-OP-A Visit Information Start: 09/09/18 13:00 Freq: Status: Active Protocol: Document 09/28/18 14:30 GGD (Rec: 09/28/18 17:19 GGD [email or web address]) Out-Patient Physical Therapy Visit Information Visit Information Visit Type Treatment Note Visit Start Time 14:30 Visit Stop Time 15:10 Total Visit Minutes 40 Visit Number 4 Number of CENTRAL STERILIZATION TECHNICIAN Visits 1 Evaluation Information Evaluation Date 09/09/18 PT-OP-B Current Condition Start: 09/09/18 13:00 Freq: Status: Active Protocol: Document 09/09/18 13:00 DLM (Rec: 09/09/18 18:15 DLM [id number]) Current Condition History of Current Condition Onset Date Few months ago Current Complaints Right foot pain History of Current Condition A few months ago he was walking and developed pain in his right lateral foot. He reports no known injury to his foot. He was diagnosed with stress fx in right foot (old fx and newer fx). He was placed in a CAM boot for 6 weeks. He is still wearing the CAM boot. He continues to have right lateral foot pain if he tries to walk without the boot. He reports recent start of right lateral hip pain that he thinks is from being in the boot. The hip pain is better if he takes the boot off. He also has mild tingling in his right foot in the same area of his injury. Prior Treatments and Tests x-rays for right foot Future Testing and Treatments Planned Pt reports progression out of CAM boot will depend on therapy Treatment Goals Patient/Caregiver Goals Be able to walk and stand without right foot pain limiting him. Prior Functional Status Baseline Function- ADL's Independent Baseline Function- Mobility Independent Baseline Function- Gait Independent, community distances Baseline Function- Work/School not working Baseline Function- Recreation/Hobbies likes to walk Baseline Function- Other peritoneal dialysis Current Functional Impairments (Reported) Functional Limitations- ADL's Independent, pain in right foot when sleeping Functional Limitations- Mobility/Gait Limited walking due to right foot if not in CAM boot and right hip pain when in CAM boot, right foot pain limits his standing. He can only stand for 15-20 min due to many areas of his body hurting including his foot. Functional Limitations- Work/School not working Functional Limitations- Recreation/ unable at this time Hobbies Functional Limitations- Other he has a multi-podus positioning device for his right foot at night to sleep Personal Factors Other Personal Factors That May Effect LE edema related to dialysis Therapy/Recovery issues PT-OP-C Subjective Start: 09/09/18 13:00 Freq: Status: Active Protocol: Document 09/28/18 14:30 GGD (Rec: 09/28/18 17:19 GGD [email or web address]) OP-PT Subjective Patient Comments Patient Comments Pt states he fell and hurt is knee, but foot is fine. PT-OP-D Balance Start: 09/09/18 13:00 Freq: Status: Active Protocol: Document 09/09/18 13:00 DLM (Rec: 09/09/18 18:25 DLM [id number]) Balance Tests Single Limb Standing Single Limb- Right 3 sec Single Limb- Left 3-6 sec PT-OP-G Mobility & Gait Start: 09/09/18 13:00 Freq: Status: Active Protocol: Document 09/09/18 13:00 DLM (Rec: 09/09/18 18:27 DLM [id number]) OP Mobility Evaluation Bed Mobility Supine to and from Sit independent Transfers Sit to Stand independent without UE support Bed to Chair Transfers Independent OP Gait Assessment Gait Gait Assistance Required: Independent Assistive Devices Assistive Device None Orthotic/Prosthetic Devices or Brace: Yes Gait Deviations General Gait Pattern Antalgic Decreased Stride Length Factors Limiting Gait Function Factors Limiting Gait Function Decreased Strength Limited Range of Motion Pain Comments Gait Comments unable to advance over right foot in stance, right foot externally rotates, pain right lateral foot PT-OP-H Neuro Start: 09/09/18 13:00 Freq: Status: Active Protocol: Document 09/09/18 13:00 DLM (Rec: 09/09/18 18:31 DLM [id number]) Sensation Evaluation Comments Summary Comments tingling right lateral foot to touch especially in same area as his pain PT-OP-J Posture/Palpation/Skin Start: 09/09/18 13:00 Freq: Status: Active Protocol: Document 09/09/18 13:00 DLM (Rec: 09/09/18 18:43 DLM [id number]) Skin Assessment Circumference Measurement 2 Location ankle joint left Measurement (Centimeters) 37.0 Comments edema in left distal LE which is greater than right LE 1 Location ankle joint right Measurement (Centimeters) 36.8 Comments mild edema PT-OP-K Range of Motion Start: 09/09/18 13:00 Freq: Status: Active Protocol: Document 09/09/18 13:00 DLM (Rec: 09/09/18 18:41 DLM [id number]) Ankle and Foot Goniometric Range of Motion Ankle and Foot Left Active Testing Position Supine Dorsiflexion with Knee Extended 5 Plantarflexion 47 Inversion 26 Eversion 10 Right Active Testing Position Supine Dorsiflexion with Knee Extended 10 Plantarflexion 45 Inversion 27 Eversion 13 Ankle and Foot ROM Limitations ROM Limitations Soft Tissue Tightness Pain Comments right DF: lacking 10 degrees of dorsiflexion from neutral Toe Range of Motion Toe bilateral Toe ROM WFL Yes PT-OP-M Strength Start: 09/09/18 13:00 Freq: Status: Active Protocol: Document 09/09/18 13:00 DLM (Rec: 09/09/18 18:41 DLM [id number]) Hip Strength Hip Manual Muscle Testing bilateral Flexion (L2) 5 Normal Knee Strength Knee Manual Muscle Testing Left Flexion (S2) 5 Normal Extension (L3) 5 Normal Right Flexion (S2) 4+ Good+ Extension (L3) 4+ Good+ Ankle/Foot Strength Ankle and Foot Manual Muscle Testing Left Dorsiflexion (L4) 5 Normal Plantarflexion (S1) 4- Good- Inversion 5 Normal Eversion (S1) 5 Normal Right Dorsiflexion (L4) 4+ Good+ Plantarflexion (S1) 3+ Fair+ Inversion 4+ Good+ Eversion (S1) 4+ Good+ Toe Strength Toe Manual Muscle Testing Left Flexion 4+ Good+ Extension 4+ Good+ Right Flexion 4 Good Extension 3 Fair PT-OP-Q Treatments Start: 09/09/18 13:00 Freq: Status: Active Protocol: Document 09/28/18 14:30 GGD (Rec: 09/28/18 17:19 GGD [email or web address]) Therapeutic Exercises Sitting Exercises seated hip abd Side bilateral Resistance level 2 Equipment Used level 2 band around knees Reps/Minutes 10 x2 Comments for HEP tpp 6 Sitting Exercise Name BAPS Side right Resistance L2 Reps/Minutes 10 reps each, 2 sets Comments A/P, lateral and circles 5 Sitting Exercise Name toe curls on towel Side right Reps/Minutes 20 reps 4 Sitting Exercise Name picking up marbles with toes Side right Reps/Minutes 10 marbles x 3 sets Manual Therapy Treatment Soft Tissue Mobilization 1 Body Location right foot and ankle Mobilization Type Strumming Intensity/Depth Moderate Body Position Supine Comments incorporating desensitization also, deep prep cream used PT-OP-T Assessment and Plan Start: 09/09/18 13:00 Freq: Status: Active Protocol: Document 09/28/18 14:30 GGD (Rec: 09/28/18 17:19 GGD [email or web address]) Physical Therapy Assessment Assessment Summary Assessment Needed to modified exercises to limit knee activity. HE had decrease tenderness with palpation and good tolerance to foot and ankle exercise. Physical Therapy Plan Frequency and Duration Frequency of Treatment 2x/wk then 1x/wk Duration of Treatment 8 weeks Plan of Care Start Date 09/09/18 Plan of Care End Date 11/05/18 Next Visit Focus/Plan Next Note Type Treatment Note Next Visit Plan review HEP gait training as gi bilateral/ unilateral balance training as gi foot intrinsic strengthening
--- NOTE | 2018-10-05 17:19 | PT.OTN ---
Current Diagnoses Other acquired deformities of right foot (10/05/18) Other instability, right ankle (10/05/18) Metatarsalgia, right foot (10/05/18) Pain in right foot (10/05/18) Difficulty in walking, not elsewhere classified (10/05/18) Contusion of right foot, initial encounter (10/05/18) Physical Therapy Treatment Note PT-OP-A Visit Information Start: 09/09/18 13:00 Freq: Status: Active Protocol: Document 10/05/18 14:30 GGD (Rec: 10/05/18 17:18 GGD [email or web address]) Out-Patient Physical Therapy Visit Information Visit Information Visit Type Treatment Note Visit Start Time 14:30 Visit Stop Time 15:10 Total Visit Minutes 40 Visit Number 5 Number of MACHINE LACER Visits 2 Evaluation Information Evaluation Date 09/09/18 PT-OP-B Current Condition Start: 09/09/18 13:00 Freq: Status: Active Protocol: Document 09/09/18 13:00 DLM (Rec: 09/09/18 18:15 DLM [id number]) Current Condition History of Current Condition Onset Date Few months ago Current Complaints Right foot pain History of Current Condition A few months ago he was walking and developed pain in his right lateral foot. He reports no known injury to his foot. He was diagnosed with stress fx in right foot (old fx and newer fx). He was placed in a CAM boot for 6 weeks. He is still wearing the CAM boot. He continues to have right lateral foot pain if he tries to walk without the boot. He reports recent start of right lateral hip pain that he thinks is from being in the boot. The hip pain is better if he takes the boot off. He also has mild tingling in his right foot in the same area of his injury. Prior Treatments and Tests x-rays for right foot Future Testing and Treatments Planned Pt reports progression out of CAM boot will depend on therapy Treatment Goals Patient/Caregiver Goals Be able to walk and stand without right foot pain limiting him. Prior Functional Status Baseline Function- ADL's Independent Baseline Function- Mobility Independent Baseline Function- Gait Independent, community distances Baseline Function- Work/School not working Baseline Function- Recreation/Hobbies likes to walk Baseline Function- Other peritoneal dialysis Current Functional Impairments (Reported) Functional Limitations- ADL's Independent, pain in right foot when sleeping Functional Limitations- Mobility/Gait Limited walking due to right foot if not in CAM boot and right hip pain when in CAM boot, right foot pain limits his standing. He can only stand for 15-20 min due to many areas of his body hurting including his foot. Functional Limitations- Work/School not working Functional Limitations- Recreation/ unable at this time Hobbies Functional Limitations- Other he has a multi-podus positioning device for his right foot at night to sleep Personal Factors Other Personal Factors That May Effect LE edema related to dialysis Therapy/Recovery issues PT-OP-C Subjective Start: 09/09/18 13:00 Freq: Status: Active Protocol: Document 10/05/18 14:30 GGD (Rec: 10/05/18 17:18 GGD [email or web address]) OP-PT Subjective Patient Comments Patient Comments Pt states his foot feeling better, but ankle is still sore. PT-OP-D Balance Start: 09/09/18 13:00 Freq: Status: Active Protocol: Document 09/09/18 13:00 DLM (Rec: 09/09/18 18:25 DLM [id number]) Balance Tests Single Limb Standing Single Limb- Right 3 sec Single Limb- Left 3-6 sec PT-OP-G Mobility & Gait Start: 09/09/18 13:00 Freq: Status: Active Protocol: Document 09/09/18 13:00 DLM (Rec: 09/09/18 18:27 DLM [id number]) OP Mobility Evaluation Bed Mobility Supine to and from Sit independent Transfers Sit to Stand independent without UE support Bed to Chair Transfers Independent OP Gait Assessment Gait Gait Assistance Required: Independent Assistive Devices Assistive Device None Orthotic/Prosthetic Devices or Brace: Yes Gait Deviations General Gait Pattern Antalgic Decreased Stride Length Factors Limiting Gait Function Factors Limiting Gait Function Decreased Strength Limited Range of Motion Pain Comments Gait Comments unable to advance over right foot in stance, right foot externally rotates, pain right lateral foot PT-OP-H Neuro Start: 09/09/18 13:00 Freq: Status: Active Protocol: Document 09/09/18 13:00 DLM (Rec: 09/09/18 18:31 DLM [id number]) Sensation Evaluation Comments Summary Comments tingling right lateral foot to touch especially in same area as his pain PT-OP-J Posture/Palpation/Skin Start: 09/09/18 13:00 Freq: Status: Active Protocol: Document 09/09/18 13:00 DLM (Rec: 09/09/18 18:43 DLM [id number]) Skin Assessment Circumference Measurement 2 Location ankle joint left Measurement (Centimeters) 37.0 Comments edema in left distal LE which is greater than right LE 1 Location ankle joint right Measurement (Centimeters) 36.8 Comments mild edema PT-OP-K Range of Motion Start: 09/09/18 13:00 Freq: Status: Active Protocol: Document 09/09/18 13:00 DLM (Rec: 09/09/18 18:41 DLM [id number]) Ankle and Foot Goniometric Range of Motion Ankle and Foot Left Active Testing Position Supine Dorsiflexion with Knee Extended 5 Plantarflexion 47 Inversion 26 Eversion 10 Right Active Testing Position Supine Dorsiflexion with Knee Extended 10 Plantarflexion 45 Inversion 27 Eversion 13 Ankle and Foot ROM Limitations ROM Limitations Soft Tissue Tightness Pain Comments right DF: lacking 10 degrees of dorsiflexion from neutral Toe Range of Motion Toe bilateral Toe ROM WFL Yes PT-OP-M Strength Start: 09/09/18 13:00 Freq: Status: Active Protocol: Document 09/09/18 13:00 DLM (Rec: 09/09/18 18:41 DLM [id number]) Hip Strength Hip Manual Muscle Testing bilateral Flexion (L2) 5 Normal Knee Strength Knee Manual Muscle Testing Left Flexion (S2) 5 Normal Extension (L3) 5 Normal Right Flexion (S2) 4+ Good+ Extension (L3) 4+ Good+ Ankle/Foot Strength Ankle and Foot Manual Muscle Testing Left Dorsiflexion (L4) 5 Normal Plantarflexion (S1) 4- Good- Inversion 5 Normal Eversion (S1) 5 Normal Right Dorsiflexion (L4) 4+ Good+ Plantarflexion (S1) 3+ Fair+ Inversion 4+ Good+ Eversion (S1) 4+ Good+ Toe Strength Toe Manual Muscle Testing Left Flexion 4+ Good+ Extension 4+ Good+ Right Flexion 4 Good Extension 3 Fair PT-OP-Q Treatments Start: 09/09/18 13:00 Freq: Status: Active Protocol: Document 10/05/18 14:30 GGD (Rec: 10/05/18 17:18 GGD [email or web address]) Cardio Equipment Recumbent Bicycle Duration (Minutes) 6 Resistance Level 4 Seat Position 6 Therapeutic Exercises Sitting Exercises seated hip abd Side bilateral Resistance level 2 Equipment Used level 2 band around knees Reps/Minutes 10 x2 Comments for HEP tpp 6 Sitting Exercise Name BAPS Side right Resistance L2 Reps/Minutes 10 reps each, 2 sets Comments A/P, lateral and circles 4 Sitting Exercise Name picking up marbles with toes Side right Reps/Minutes 10 marbles x 3 sets Standing Exercises heel raises Side bilateral Reps/Minutes 10 3 Standing Exercise Name Single limb standing Side right Reps/Minutes 5 reps, hold to fatigue Manual Therapy Treatment Soft Tissue Mobilization 1 Body Location right foot and ankle Mobilization Type Strumming Intensity/Depth Moderate Body Position Supine Comments incorporating desensitization also, deep prep cream used PT-OP-T Assessment and Plan Start: 09/09/18 13:00 Freq: Status: Active Protocol: Document 10/05/18 14:30 GGD (Rec: 10/05/18 17:18 GGD [email or web address]) Physical Therapy Assessment Assessment Summary Assessment Pt challenged with SLS, but good tolerance to weight bearing. He has decrease tenderness with palpation. Physical Therapy Plan Frequency and Duration Frequency of Treatment 2x/wk then 1x/wk Duration of Treatment 8 weeks Plan of Care Start Date 09/09/18 Plan of Care End Date 11/05/18 Next Visit Focus/Plan Next Note Type Treatment Note Next Visit Plan review HEP gait training as gi bilateral/ unilateral balance training as gi foot intrinsic strengthening
--- NOTE | 2018-10-19 17:07 | PT.OTN ---
Current Diagnoses Other acquired deformities of right foot (10/19/18) Other instability, right ankle (10/19/18) Metatarsalgia, right foot (10/19/18) Pain in right foot (10/19/18) Difficulty in walking, not elsewhere classified (10/19/18) Contusion of right foot, initial encounter (10/19/18) Physical Therapy Treatment Note PT-OP-A Visit Information Start: 09/09/18 13:00 Freq: Status: Active Protocol: Document 10/19/18 16:59 GGD (Rec: 10/19/18 17:07 GGD [email or web address]) Out-Patient Physical Therapy Visit Information Visit Information Visit Type Treatment Note Visit Start Time 15:15 Visit Stop Time 15:55 Total Visit Minutes 40 Visit Number 6 Number of REMOTE 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 He reports no known injury to his foot. He was diagnosed with stress fx in right foot (old fx and newer fx). He was placed in a CAM boot for 6 weeks. He is still wearing the CAM boot. He continues to have right lateral foot pain if he tries to walk without the boot. He reports recent start of right lateral hip pain that he thinks is from being in the boot. The hip pain is better if he takes the boot off. He also has mild tingling in his right foot in the same area of his injury. Prior Treatments and Tests x-rays for right foot Future Testing and Treatments Planned Pt reports progression out of CAM boot will depend on therapy Treatment Goals Patient/Caregiver Goals Be able to walk and stand without right foot pain limiting him. Prior Functional Status Baseline Function- ADL's Independent Baseline Function- Mobility Independent Baseline Function- Gait Independent, community distances Baseline Function- Work/School not working Baseline Function- Recreation/Hobbies likes to walk Baseline Function- Other peritoneal dialysis Current Functional Impairments (Reported) Functional Limitations- ADL's Independent, pain in right foot when sleeping Functional Limitations- Mobility/Gait Limited walking due to right foot if not in CAM boot and right hip pain when in CAM boot, right foot pain limits his standing. He can only stand for 15-20 min due to many areas of his body hurting including his foot. Functional Limitations- Work/School not working Functional Limitations- Recreation/ unable at this time Hobbies Functional Limitations- Other he has a multi-podus positioning device for his right foot at night to sleep Personal Factors Other Personal Factors That May Effect LE edema related to dialysis Therapy/Recovery issues PT-OP-C Subjective Start: 09/09/18 13:00 Freq: Status: Active Protocol: Document 10/19/18 16:59 GGD (Rec: 10/19/18 17:07 GGD [email or web address]) OP-PT Subjective Patient Comments Patient Comments Pt states he not been wearing the boot for about a week. PT-OP-D Balance Start: 09/09/18 13:00 Freq: Status: Active Protocol: Document 09/09/18 13:00 DLM (Rec: 09/09/18 18:25 DLM [id number]) Balance Tests Single Limb Standing Single Limb- Right 3 sec Single Limb- Left 3-6 sec PT-OP-G Mobility & Gait Start: 09/09/18 13:00 Freq: Status: Active Protocol: Document 09/09/18 13:00 DLM (Rec: 09/09/18 18:27 DLM [id number]) OP Mobility Evaluation Bed Mobility Supine to and from Sit independent Transfers Sit to Stand independent without UE support Bed to Chair Transfers Independent OP Gait Assessment Gait Gait Assistance Required: Independent Assistive Devices Assistive Device None Orthotic/Prosthetic Devices or Brace: Yes Gait Deviations General Gait Pattern Antalgic Decreased Stride Length Factors Limiting Gait Function Factors Limiting Gait Function Decreased Strength Limited Range of Motion Pain Comments Gait Comments unable to advance over right foot in stance, right foot externally rotates, pain right lateral foot PT-OP-H Neuro Start: 09/09/18 13:00 Freq: Status: Active Protocol: Document 09/09/18 13:00 DLM (Rec: 09/09/18 18:31 DLM [id number]) Sensation Evaluation Comments Summary Comments tingling right lateral foot to touch especially in same area as his pain PT-OP-J Posture/Palpation/Skin Start: 09/09/18 13:00 Freq: Status: Active Protocol: Document 09/09/18 13:00 DLM (Rec: 09/09/18 18:43 DLM [id number]) Skin Assessment Circumference Measurement 2 Location ankle joint left Measurement (Centimeters) 37.0 Comments edema in left distal LE which is greater than right LE 1 Location ankle joint right Measurement (Centimeters) 36.8 Comments mild edema PT-OP-K Range of Motion Start: 09/09/18 13:00 Freq: Status: Active Protocol: Document 09/09/18 13:00 DLM (Rec: 09/09/18 18:41 DLM [id number]) Ankle and Foot Goniometric Range of Motion Ankle and Foot Left Active Testing Position Supine Dorsiflexion with Knee Extended 5 Plantarflexion 47 Inversion 26 Eversion 10 Right Active Testing Position Supine Dorsiflexion with Knee Extended 10 Plantarflexion 45 Inversion 27 Eversion 13 Ankle and Foot ROM Limitations ROM Limitations Soft Tissue Tightness Pain Comments right DF: lacking 10 degrees of dorsiflexion from neutral Toe Range of Motion Toe bilateral Toe ROM WFL Yes PT-OP-M Strength Start: 09/09/18 13:00 Freq: Status: Active Protocol: Document 09/09/18 13:00 DLM (Rec: 09/09/18 18:41 DLM [id number]) Hip Strength Hip Manual Muscle Testing bilateral Flexion (L2) 5 Normal Knee Strength Knee Manual Muscle Testing Left Flexion (S2) 5 Normal Extension (L3) 5 Normal Right Flexion (S2) 4+ Good+ Extension (L3) 4+ Good+ Ankle/Foot Strength Ankle and Foot Manual Muscle Testing Left Dorsiflexion (L4) 5 Normal Plantarflexion (S1) 4- Good- Inversion 5 Normal Eversion (S1) 5 Normal Right Dorsiflexion (L4) 4+ Good+ Plantarflexion (S1) 3+ Fair+ Inversion 4+ Good+ Eversion (S1) 4+ Good+ Toe Strength Toe Manual Muscle Testing Left Flexion 4+ Good+ Extension 4+ Good+ Right Flexion 4 Good Extension 3 Fair PT-OP-Q Treatments Start: 09/09/18 13:00 Freq: Status: Active Protocol: Document 10/19/18 16:59 GGD (Rec: 10/19/18 17:07 GGD [email or web address]) Cardio Equipment Recumbent Bicycle Duration (Minutes) 6 Resistance Level 4 Seat Position 6 Therapeutic Exercises Sitting Exercises ankle 3 way Sitting Exercise Name ankle EV, IV and DF Side right Resistance Level 1 Equipment Used thera band Reps/Minutes 10 seated hip abd Side bilateral Resistance level 2 Equipment Used level 2 band around knees Reps/Minutes 10 x2 Comments for HEP tpp 6 Sitting Exercise Name BAPS Side right Resistance L3 Reps/Minutes 10 reps each, 2 sets Comments A/P, lateral and circles Standing Exercises heel raises Side bilateral Reps/Minutes 10 3 Standing Exercise Name Single limb standing Side right Reps/Minutes 5 reps, hold to fatigue Manual Therapy Treatment Soft Tissue Mobilization 1 Body Location right foot and gastroc Mobilization Type Strumming Intensity/Depth Moderate Body Position Supine Comments incorporating desensitization also, deep prep cream used PT-OP-T Assessment and Plan Start: 09/09/18 13:00 Freq: Status: Active Protocol: Document 10/19/18 16:59 GGD (Rec: 10/19/18 17:07 [email or web address]) Physical Therapy Assessment Goals Four Impairment Hypersensativity right foot Intermediate Goal (LTG) Able to touch right foot without pain/tingling LTG Duration 8 weeks Three Impairment Limited ROM Short Term Goal (STG) Right DF to 0 degrees STG Duration 4 weeks Intermediate Goal (LTG) Right DF to 5 degrees LTG Duration 8 weeks Two Impairment Decreased Strength Short Term Goal (STG) - Increased right toe ext strength to 4-/5. - Right knee strenght 5/5 STG Duration 4 weeks Intermediate Goal (LTG) - Increase right toe flex/ext strength to 4+/5 - Right ankle strength 5/5 LTG Duration 8 weeks One Impairment Limited gait Short Term Goal (STG) Tolerate walking around the house without CAM boot without right foot pain with normal gait pattern STG Duration 4 weeks [employer] Goal (LTG) Tolerate gait in the community without right foot pain with supportive shoes. LTG Duration 8 weeks Assessment Summary Assessment Pt has decrease tenderness with palpation. He is weak with ankle EV. He improving with ROM. Physical Therapy Plan Next Visit Focus/Plan Next Note Type Treatment Note Next Visit Plan review HEP gait training as gi bilateral/ unilateral balance training as gi foot intrinsic strengthening
--- NOTE | 2018-10-26 12:29 | PT.OTN ---
Current Diagnoses Other acquired deformities of right foot (10/26/18) Other instability, right ankle (10/26/18) Metatarsalgia, right foot (10/26/18) Pain in right foot (10/26/18) Difficulty in walking, not elsewhere classified (10/26/18) Contusion of right foot, initial encounter (10/26/18) Physical Therapy Treatment Note PT-OP-A Visit Information Start: 09/09/18 13:00 Freq: Status: Active Protocol: Document 10/26/18 10:20 GGD (Rec: 10/26/18 12:28 GGD [email or web address]) Out-Patient Physical Therapy Visit Information Visit Information Visit Type Treatment Note Visit Start Time 09:35 Visit Stop Time 10:15 Total Visit Minutes 40 Visit Number 7 Number of DRESSING ROOM PORTER Visits 4 Evaluation Information Evaluation Date 09/09/18 PT-OP-B Current Condition Start: 09/09/18 13:00 Freq: Status: Active Protocol: Document 09/09/18 13:00 DLM (Rec: 09/09/18 18:15 DLM [id number]) Current Condition History of Current Condition Onset Date Few months ago Current Complaints Right foot pain History of Current Condition A few months ago he was walking and developed pain in his right lateral foot. He reports no known injury to his foot. He was diagnosed with stress fx in right foot (old fx and newer fx). He was placed in a CAM boot for 6 weeks. He is still wearing the CAM boot. He continues to have right lateral foot pain if he tries to walk without the boot. He reports recent start of right lateral hip pain that he thinks is from being in the boot. The hip pain is better if he takes the boot off. He also has mild tingling in his right foot in the same area of his injury. Prior Treatments and Tests x-rays for right foot Future Testing and Treatments Planned Pt reports progression out of CAM boot will depend on therapy Treatment Goals Patient/Caregiver Goals Be able to walk and stand without right foot pain limiting him. Prior Functional Status Baseline Function- ADL's Independent Baseline Function- Mobility Independent Baseline Function- Gait Independent, community distances Baseline Function- Work/School not working Baseline Function- Recreation/Hobbies likes to walk Baseline Function- Other peritoneal dialysis Current Functional Impairments (Reported) Functional Limitations- ADL's Independent, pain in right foot when sleeping Functional Limitations- Mobility/Gait Limited walking due to right foot if not in CAM boot and right hip pain when in CAM boot, right foot pain limits his standing. He can only stand for 15-20 min due to many areas of his body hurting including his foot. Functional Limitations- Work/School not working Functional Limitations- Recreation/ unable at this time Hobbies Functional Limitations- Other he has a multi-podus positioning device for his right foot at night to sleep Personal Factors Other Personal Factors That May Effect LE edema related to dialysis Therapy/Recovery issues PT-OP-C Subjective Start: 09/09/18 13:00 Freq: Status: Active Protocol: Document 10/26/18 10:20 GGD (Rec: 10/26/18 12:28 GGD [email or web address]) OP-PT Subjective Patient Comments Patient Comments Pt states he is doing HEP 1x day. PT-OP-D Balance Start: 09/09/18 13:00 Freq: Status: Active Protocol: Document 09/09/18 13:00 DLM (Rec: 09/09/18 18:25 DLM [id number]) Balance Tests Single Limb Standing Single Limb- Right 3 sec Single Limb- Left 3-6 sec PT-OP-G Mobility & Gait Start: 09/09/18 13:00 Freq: Status: Active Protocol: Document 09/09/18 13:00 DLM (Rec: 09/09/18 18:27 DLM [id number]) OP Mobility Evaluation Bed Mobility Supine to and from Sit independent Transfers Sit to Stand independent without UE support Bed to Chair Transfers Independent OP Gait Assessment Gait Gait Assistance Required: Independent Assistive Devices Assistive Device None Orthotic/Prosthetic Devices or Brace: Yes Gait Deviations General Gait Pattern Antalgic Decreased Stride Length Factors Limiting Gait Function Factors Limiting Gait Function Decreased Strength Limited Range of Motion Pain Comments Gait Comments unable to advance over right foot in stance, right foot externally rotates, pain right lateral foot PT-OP-H Neuro Start: 09/09/18 13:00 Freq: Status: Active Protocol: Document 09/09/18 13:00 DLM (Rec: 09/09/18 18:31 DLM [id number]) Sensation Evaluation Comments Summary Comments tingling right lateral foot to touch especially in same area as his pain PT-OP-J Posture/Palpation/Skin Start: 09/09/18 13:00 Freq: Status: Active Protocol: Document 09/09/18 13:00 DLM (Rec: 09/09/18 18:43 DLM [id number]) Skin Assessment Circumference Measurement 2 Location ankle joint left Measurement (Centimeters) 37.0 Comments edema in left distal LE which is greater than right LE 1 Location ankle joint right Measurement (Centimeters) 36.8 Comments mild edema PT-OP-K Range of Motion Start: 09/09/18 13:00 Freq: Status: Active Protocol: Document 09/09/18 13:00 DLM (Rec: 09/09/18 18:41 DLM [id number]) Ankle and Foot Goniometric Range of Motion Ankle and Foot Left Active Testing Position Supine Dorsiflexion with Knee Extended 5 Plantarflexion 47 Inversion 26 Eversion 10 Right Active Testing Position Supine Dorsiflexion with Knee Extended 10 Plantarflexion 45 Inversion 27 Eversion 13 Ankle and Foot ROM Limitations ROM Limitations Soft Tissue Tightness Pain Comments right DF: lacking 10 degrees of dorsiflexion from neutral Toe Range of Motion Toe bilateral Toe ROM WFL Yes PT-OP-M Strength Start: 09/09/18 13:00 Freq: Status: Active Protocol: Document 09/09/18 13:00 DLM (Rec: 09/09/18 18:41 DLM [id number]) Hip Strength Hip Manual Muscle Testing bilateral Flexion (L2) 5 Normal Knee Strength Knee Manual Muscle Testing Left Flexion (S2) 5 Normal Extension (L3) 5 Normal Right Flexion (S2) 4+ Good+ Extension (L3) 4+ Good+ Ankle/Foot Strength Ankle and Foot Manual Muscle Testing Left Dorsiflexion (L4) 5 Normal Plantarflexion (S1) 4- Good- Inversion 5 Normal Eversion (S1) 5 Normal Right Dorsiflexion (L4) 4+ Good+ Plantarflexion (S1) 3+ Fair+ Inversion 4+ Good+ Eversion (S1) 4+ Good+ Toe Strength Toe Manual Muscle Testing Left Flexion 4+ Good+ Extension 4+ Good+ Right Flexion 4 Good Extension 3 Fair PT-OP-Q Treatments Start: 09/09/18 13:00 Freq: Status: Active Protocol: Document 10/26/18 10:20 GGD (Rec: 10/26/18 12:28 GGD [email or web address]) Cardio Equipment Recumbent Bicycle Duration (Minutes) 6 Resistance Level 4 Seat Position 6 Therapeutic Exercises Sitting Exercises ankle 3 way Sitting Exercise Name ankle EV, IV and DF Side right Resistance Level 1 Equipment Used thera band Reps/Minutes 10 seated hip abd Side bilateral Resistance level 2 Equipment Used level 2 band around knees Reps/Minutes 10 x2 Comments for HEP tpp 6 Sitting Exercise Name BAPS Side right Resistance L3 Reps/Minutes 10 reps each, 2 sets Comments A/P, lateral and circles Standing Exercises calf stretch Standing Exercise Name gastroc stretch Side bilateral Equipment Used flaquito Reps/Minutes 1 heel raises Side bilateral Reps/Minutes 10 3 Standing Exercise Name Single limb standing Side right Reps/Minutes 5 reps, hold to fatigue Manual Therapy Treatment Soft Tissue Mobilization 1 Body Location right foot and gastroc Mobilization Type Strumming Intensity/Depth Moderate Body Position Supine Comments incorporating desensitization also, deep prep cream used PT-OP-T Assessment and Plan Start: 09/09/18 13:00 Freq: Status: Active Protocol: Document 10/26/18 10:20 GGD (Rec: 10/26/18 12:28 GGD [email or web address]) Physical Therapy Assessment Assessment Summary Assessment Pt improving slowly with strengthening. He continues to have tenderness with palpation. Physical Therapy Plan Frequency and Duration Frequency of Treatment 2x/wk Duration of Treatment 8 weeks Plan of Care Start Date 09/09/18 Plan of Care End Date 11/05/18 Next Visit Focus/Plan Next Note Type Treatment Note Next Visit Plan gait training as gi bilateral/ unilateral balance training as gi foot intrinsic strengthening
--- NOTE | 2018-11-04 15:12 | PT-OP ANOTE ---
At 1512 today by phone, patient mother stated that patient forgot to call for cancellation as patient is on dialysis appointment. Mother states that they will call back if they want to cont. his PT apointments.
--- NOTE | 2018-11-23 17:02 | PT.OTN ---
Current Diagnoses Other acquired deformities of right foot (11/23/18) Other instability, right ankle (11/23/18) Metatarsalgia, right foot (11/23/18) Pain in right foot (11/23/18) Difficulty in walking, not elsewhere classified (11/23/18) Contusion of right foot, initial encounter (11/23/18) Physical Therapy Treatment Note PT-OP-A Visit Information Start: 09/09/18 13:00 Freq: Status: Active Protocol: Document 11/23/18 16:52 GGD (Rec: 11/23/18 17:02 GGD [email or web address]) Out-Patient Physical Therapy Visit Information Visit Information Visit Type Treatment Note Visit Start Time 16:00 Visit Stop Time 16:40 Total Visit Minutes 40 Visit Number 8 Number of SHIPPING/RECEIVING MANAGER Visits 5 Evaluation Information Evaluation Date 09/09/18 PT-OP-B Current Condition Start: 09/09/18 13:00 Freq: Status: Active Protocol: Document 09/09/18 13:00 DLM (Rec: 09/09/18 18:15 DLM [id number]) Current Condition History of Current Condition Onset Date Few months ago Current Complaints Right foot pain History of Current Condition A few months ago he was walking and developed pain in his right lateral foot. He reports no known injury to his foot. He was diagnosed with stress fx in right foot (old fx and newer fx). He was placed in a CAM boot for 6 weeks. He is still wearing the CAM boot. He continues to have right lateral foot pain if he tries to walk without the boot. He reports recent start of right lateral hip pain that he thinks is from being in the boot. The hip pain is better if he takes the boot off. He also has mild tingling in his right foot in the same area of his injury. Prior Treatments and Tests x-rays for right foot Future Testing and Treatments Planned Pt reports progression out of CAM boot will depend on therapy Treatment Goals Patient/Caregiver Goals Be able to walk and stand without right foot pain limiting him. Prior Functional Status Baseline Function- ADL's Independent Baseline Function- Mobility Independent Baseline Function- Gait Independent, community distances Baseline Function- Work/School not working Baseline Function- Recreation/Hobbies likes to walk Baseline Function- Other peritoneal dialysis Current Functional Impairments (Reported) Functional Limitations- ADL's Independent, pain in right foot when sleeping Functional Limitations- Mobility/Gait Limited walking due to right foot if not in CAM boot and right hip pain when in CAM boot, right foot pain limits his standing. He can only stand for 15-20 min due to many areas of his body hurting including his foot. Functional Limitations- Work/School not working Functional Limitations- Recreation/ unable at this time Hobbies Functional Limitations- Other he has a multi-podus positioning device for his right foot at night to sleep Personal Factors Other Personal Factors That May Effect LE edema related to dialysis Therapy/Recovery issues PT-OP-C Subjective Start: 09/09/18 13:00 Freq: Status: Active Protocol: Document 11/23/18 16:52 GGD (Rec: 11/23/18 17:02 GGD [email or web address]) OP-PT Subjective Patient Comments Patient Comments State he is improving slowly. PT-OP-D Balance Start: 09/09/18 13:00 Freq: Status: Active Protocol: Document 09/09/18 13:00 DLM (Rec: 09/09/18 18:25 DLM [id number]) Balance Tests Single Limb Standing Single Limb- Right 3 sec Single Limb- Left 3-6 sec PT-OP-G Mobility & Gait Start: 09/09/18 13:00 Freq: Status: Active Protocol: Document 09/09/18 13:00 DLM (Rec: 09/09/18 18:27 DLM [id number]) OP Mobility Evaluation Bed Mobility Supine to and from Sit independent Transfers Sit to Stand independent without UE support Bed to Chair Transfers Independent OP Gait Assessment Gait Gait Assistance Required: Independent Assistive Devices Assistive Device None Orthotic/Prosthetic Devices or Brace: Yes Gait Deviations General Gait Pattern Antalgic Decreased Stride Length Factors Limiting Gait Function Factors Limiting Gait Function Decreased Strength Limited Range of Motion Pain Comments Gait Comments unable to advance over right foot in stance, right foot externally rotates, pain right lateral foot PT-OP-H Neuro Start: 09/09/18 13:00 Freq: Status: Active Protocol: Document 09/09/18 13:00 DLM (Rec: 09/09/18 18:31 DLM [id number]) Sensation Evaluation Comments Summary Comments tingling right lateral foot to touch especially in same area as his pain PT-OP-J Posture/Palpation/Skin Start: 09/09/18 13:00 Freq: Status: Active Protocol: Document 09/09/18 13:00 DLM (Rec: 09/09/18 18:43 DLM [id number]) Skin Assessment Circumference Measurement 2 Location ankle joint left Measurement (Centimeters) 37.0 Comments edema in left distal LE which is greater than right LE 1 Location ankle joint right Measurement (Centimeters) 36.8 Comments mild edema PT-OP-K Range of Motion Start: 09/09/18 13:00 Freq: Status: Active Protocol: Document 11/23/18 16:52 GGD (Rec: 11/23/18 17:02 GGD [email or web address]) Ankle and Foot Goniometric Range of Motion Ankle and Foot Right Active Dorsiflexion with Knee Extended 5 PT-OP-M Strength Start: 09/09/18 13:00 Freq: Status: Active Protocol: Document 11/23/18 16:52 GGD (Rec: 11/23/18 17:02 GGD [email or web address]) Knee Strength Knee Manual Muscle Testing Right Flexion (S2) 4+ Good+ Extension (L3) 4- Good- Ankle/Foot Strength Ankle and Foot Manual Muscle Testing Left Dorsiflexion (L4) 5 Normal Plantarflexion (S1) 4- Good- Inversion 5 Normal Eversion (S1) 5 Normal Right Dorsiflexion (L4) 4+ Good+ Plantarflexion (S1) 4- Good- Inversion 4+ Good+ Eversion (S1) 5 Normal PT-OP-Q Treatments Start: 09/09/18 13:00 Freq: Status: Active Protocol: Document 11/23/18 16:52 GGD (Rec: 11/23/18 17:02 GGD [email or web address]) Cardio Equipment Recumbent Bicycle Duration (Minutes) 6 Resistance Level 4 Seat Position 6 Therapeutic Exercises Standing Exercises calf stretch Standing Exercise Name gastroc stretch Side bilateral Equipment Used flaquito Reps/Minutes 1 heel raises Side bilateral Reps/Minutes 10 3 Standing Exercise Name Single limb standing Side right Reps/Minutes 5 reps, hold to fatigue 2 Standing Exercise Name Soleus stretch using wall Side right Reps/Minutes 30 sec hold x 3 reps Comments to do 2x/day at home Manual Therapy Treatment Soft Tissue Mobilization 1 Body Location right foot and gastroc Mobilization Type Strumming Intensity/Depth Moderate Body Position Supine Comments incorporating desensitization also, deep prep cream used PT-OP-T Assessment and Plan Start: 09/09/18 13:00 Freq: Status: Active Protocol: Document 11/23/18 16:52 GGD (Rec: 11/23/18 17:02 [email or web address]) Physical Therapy Assessment Goals Four Impairment Hypersensativity right foot Jail Goal (LTG) Able to touch right foot without pain/tingling 11/23/18 pain level of 5/10 with mod pressure, 0/10 with light pressure. LTG Duration 8 weeks Three Impairment Limited ROM Short Term Goal (STG) Right DF to 0 degrees 11/23/18 lacking 5 degrees of DF STG Duration 4 weeks Jail Goal (LTG) Right DF to 5 degrees LTG Duration 8 weeks Two Impairment Decreased Strength Short Term Goal (STG) - Increased right toe ext strength to 4-/5. - Right knee strength 5/5 11/23/18 toe ext 4-/5, knee strength improve to 4-/5 STG Duration 4 weeks [place] Goal (LTG) - Increase right toe flex/ext strength to 4+/5 - Right ankle strength 5/5 LTG Duration 8 weeks One Impairment Limited gait Short Term Goal (STG) Tolerate walking around the house without CAM boot without right foot pain with normal gait pattern STG Duration 4 weeks Jail Goal (LTG) Tolerate gait in the community without right foot pain with supportive shoes. LTG Duration achieved 11/23/18 Assessment Summary Assessment Pt is improving with DF ROM. He is improving with knee strength and ankle strength. He has difficultly with weight bearing strengthening and balance. Physical Therapy Plan Frequency and Duration Frequency of Treatment 2x/wk Duration of Treatment 8 weeks Plan of Care Start Date 11/23/18 Plan of Care End Date 02/21/19 Next Visit Focus/Plan Next Note Type Treatment Note Next Visit Plan bilateral/ unilateral balance training as gi foot intrinsic strengthening
--- NOTE | 2018-11-26 11:57 | PT.OTRE ---
Current Diagnoses Other acquired deformities of right foot (11/23/18) Other instability, right ankle (11/23/18) Metatarsalgia, right foot (11/23/18) Pain in right foot (11/23/18) Difficulty in walking, not elsewhere classified (11/23/18) Contusion of right foot, initial encounter (11/23/18) Past Medical History (Last Updated 09/09/18 @ 18:19 by Cece Stewart, PT) Back pain (Acute) Depression (Acute) Headache (Acute) Hypertension (Acute) Neck pain (Acute) Renal failure (Acute) Right ankle sprain (Acute) Type 1 diabetes mellitus (Acute) Surgical History (Last Updated 09/09/18 @ 18:21 by Cece Stewart, PT) S/P repair of ligament of ankle (Acute) History of cardiac radiofrequency ablation (RFA) History of cataract removal with insertion of prosthetic lens History of cataract removal with insertion of prosthetic lens History of third molar tooth extraction Status post appendectomy Provider Visit Care Team Role Provider Type Jose Multani MD Primary Care Provider Physician Specialty: Family Practice Address: [address] [place] [address], [address] Email: [email or web address] Heidi Jamison DPM Attending Provider Physician Specialty: Podiatry Address: [address] [place] [address], [address] Email: [email or web address] Re-Evaluation PT-OP-A Visit Information Start: 09/09/18 13:00 Freq: Status: Active Protocol: Document 11/26/18 11:51 HH (Rec: 11/26/18 11:57 [email or web address]) Out-Patient Physical Therapy Visit Information Visit Information Visit Type Re-Evaluation PT-OP-B Current Condition Start: 09/09/18 13:00 Freq: Status: Active Protocol: Document 09/09/18 13:00 DLM (Rec: 09/09/18 18:15 DLM [id number]) Current Condition History of Current Condition Onset Date Few months ago Current Complaints Right foot pain History of Current Condition A few months ago he was walking and developed pain in his right lateral foot. He reports no known injury to his foot. He was diagnosed with stress fx in right foot (old fx and newer fx). He was placed in a CAM boot for 6 weeks. He is still wearing the CAM boot. He continues to have right lateral foot pain if he tries to walk without the boot. He reports recent start of right lateral hip pain that he thinks is from being in the boot. The hip pain is better if he takes the boot off. He also has mild tingling in his right foot in the same area of his injury. Prior Treatments and Tests x-rays for right foot Future Testing and Treatments Planned Pt reports progression out of CAM boot will depend on therapy Treatment Goals Patient/Caregiver Goals Be able to walk and stand without right foot pain limiting him. Prior Functional Status Baseline Function- ADL's Independent Baseline Function- Mobility Independent Baseline Function- Gait Independent, community distances Baseline Function- Work/School not working Baseline Function- Recreation/Hobbies likes to walk Baseline Function- Other peritoneal dialysis Current Functional Impairments (Reported) Functional Limitations- ADL's Independent, pain in right foot when sleeping Functional Limitations- Mobility/Gait Limited walking due to right foot if not in CAM boot and right hip pain when in CAM boot, right foot pain limits his standing. He can only stand for 15-20 min due to many areas of his body hurting including his foot. Functional Limitations- Work/School not working Functional Limitations- Recreation/ unable at this time Hobbies Functional Limitations- Other he has a multi-podus positioning device for his right foot at night to sleep Personal Factors Other Personal Factors That May Effect LE edema related to dialysis Therapy/Recovery issues PT-OP-C Subjective Start: 09/09/18 13:00 Freq: Status: Active Protocol: Document 11/23/18 16:52 GGD (Rec: 11/23/18 17:02 GGD [email or web address]) OP-PT Subjective Patient Comments Patient Comments State he is improving slowly. PT-OP-D Balance Start: 09/09/18 13:00 Freq: Status: Active Protocol: Document 09/09/18 13:00 DLM (Rec: 09/09/18 18:25 DLM [id number]) Balance Tests Single Limb Standing Single Limb- Right 3 sec Single Limb- Left 3-6 sec PT-OP-G Mobility & Gait Start: 09/09/18 13:00 Freq: Status: Active Protocol: Document 09/09/18 13:00 DLM (Rec: 09/09/18 18:27 DLM [id number]) OP Mobility Evaluation Bed Mobility Supine to and from Sit independent Transfers Sit to Stand independent without UE support Bed to Chair Transfers Independent OP Gait Assessment Gait Gait Assistance Required: Independent Assistive Devices Assistive Device None Orthotic/Prosthetic Devices or Brace: Yes Gait Deviations General Gait Pattern Antalgic Decreased Stride Length Factors Limiting Gait Function Factors Limiting Gait Function Decreased Strength Limited Range of Motion Pain Comments Gait Comments unable to advance over right foot in stance, right foot externally rotates, pain right lateral foot PT-OP-H Neuro Start: 09/09/18 13:00 Freq: Status: Active Protocol: Document 09/09/18 13:00 DLM (Rec: 09/09/18 18:31 DLM [id number]) Sensation Evaluation Comments Summary Comments tingling right lateral foot to touch especially in same area as his pain PT-OP-J Posture/Palpation/Skin Start: 09/09/18 13:00 Freq: Status: Active Protocol: Document 09/09/18 13:00 DLM (Rec: 09/09/18 18:43 DLM [id number]) Skin Assessment Circumference Measurement 2 Location ankle joint left Measurement (Centimeters) 37.0 Comments edema in left distal LE which is greater than right LE 1 Location ankle joint right Measurement (Centimeters) 36.8 Comments mild edema PT-OP-K Range of Motion Start: 09/09/18 13:00 Freq: Status: Active Protocol: Document 11/26/18 11:51 HH (Rec: 11/26/18 11:57 [email or web address]) Ankle and Foot Goniometric Range of Motion Ankle and Foot Measured in Degrees Right Active Dorsiflexion with Knee Extended 5 PT-OP-M Strength Start: 09/09/18 13:00 Freq: Status: Active Protocol: Document 11/26/18 11:51 HH (Rec: 11/26/18 11:57 [email or web address]) Knee Strength Knee Manual Muscle Testing Right Flexion (S2) 4+ Good+ Extension (L3) 4- Good- Ankle/Foot Strength Ankle and Foot Manual Muscle Testing Left Dorsiflexion (L4) 5 Normal Plantarflexion (S1) 4- Good- Inversion 5 Normal Eversion (S1) 5 Normal Right Dorsiflexion (L4) 4+ Good+ Plantarflexion (S1) 4- Good- Inversion 4+ Good+ Eversion (S1) 5 Normal PT-OP-Q Treatments Start: 09/09/18 13:00 Freq: Status: Active Protocol: Document 11/23/18 16:52 GGD (Rec: 11/23/18 17:02 GGD [email or web address]) Cardio Equipment Recumbent Bicycle Duration (Minutes) 6 Resistance Level 4 Seat Position 6 Therapeutic Exercises Standing Exercises calf stretch Standing Exercise Name gastroc stretch Side bilateral Equipment Used flaquito Reps/Minutes 1 heel raises Side bilateral Reps/Minutes 10 3 Standing Exercise Name Single limb standing Side right Reps/Minutes 5 reps, hold to fatigue 2 Standing Exercise Name Soleus stretch using wall Side right Reps/Minutes 30 sec hold x 3 reps Comments to do 2x/day at home Manual Therapy Treatment Soft Tissue Mobilization 1 Body Location right foot and gastroc Mobilization Type Strumming Intensity/Depth Moderate Body Position Supine Comments incorporating desensitization also, deep prep cream used PT-OP-T Assessment and Plan Start: 09/09/18 13:00 Freq: Status: Active Protocol: Document 11/26/18 11:51 (Rec: 11/26/18 11:57 [email or web address]) Physical Therapy Assessment Rehab Potential Rehabilitation Potential Excellent Impairments Impairments Activity Tolerance Balance Functional Activities Functional Mobility Gait Pain Posture ROM Soft Tissue Mobility Strength Goals Four Impairment Hypersensativity right foot Alf Goal (LTG) Able to touch right foot without pain/tingling 11/23/18 pain level of 5/10 with mod pressure, 0/10 with light pressure. LTG Duration 8 weeks Three Impairment Limited ROM Short Term Goal (STG) Right DF to 0 degrees 11/23/18 lacking 5 degrees of DF STG Duration 4 weeks Quality Control Microbiologist Goal (LTG) Right DF to 5 degrees LTG Duration 8 weeks Two Impairment Decreased Strength STG Duration 4 weeks Quality Control Microbiologist Goal (LTG) - Increase right toe flex/ext strength to 4+/5 - Right ankle strength 5/5 LTG Duration 8 weeks One Impairment Limited gait Short Term Goal (STG) Tolerate walking around the house without CAM boot without right foot pain with normal gait pattern STG Duration 4 weeks Quality Control Microbiologist Goal (LTG) Tolerate gait in the community without right foot pain with supportive shoes. LTG Duration achived 11/23/18 Progress Towards Goals Progress Towards Goals Progressing Toward Goals Assessment Summary Assessment Per NATIONAL SECRETARY, Pt has been improving since IE regarding his knee strengthm ankle strength and mobility, but WB through R foot is still problematic to pt. Pt will cont required skilled therapy for balance training, mobility training, gait training and B LE strengthening in order to return to PLOF. Will add single leg balance, trunk stability training to POC Physical Therapy Plan Frequency and Duration Frequency of Treatment 2x/wk Duration of Treatment 8 weeks Plan of Care Start Date 11/23/18 Plan of Care End Date 02/21/19 Therapeutic Interventions Therapeutic Interventions Balance Training Gait Training Home Exercise Program Joint Mobilizations Manual Therapy Neuromuscular Re-education Patient/Caregiver Education Self-Care/Home Management Soft Tissue Mobilization Taping Therapeutic Activities Therapeutic Exercises Modalities Cold Pack/Ice Massage Electric Stimulation Hot Packs Infrared Therapy Traction- Mechanical Next Visit Focus/Plan Next Note Type Treatment Note Next Visit Plan bilateral/ unilateral balance training as gi foot intrinsic strengthening
--- NOTE | 2018-11-26 11:57 | PT.OPPOC ---
Current Diagnoses Other acquired deformities of right foot (11/23/18) Other instability, right ankle (11/23/18) Metatarsalgia, right foot (11/23/18) Pain in right foot (11/23/18) Difficulty in walking, not elsewhere classified (11/23/18) Contusion of right foot, initial encounter (11/23/18) Provider Visit Care Team Role Provider Type Jose Multani MD Primary Care Provider Physician Specialty: Family Practice Address: [address] [place] [address], [facility] [place], [address] Email: [email or web address] Heidi Jamison DPM Attending Provider Physician Specialty: Podiatry Address: [address] [place] [address], [place], [address] Email: [email or web address] Plan Of Care PT-OP-T Assessment and Plan Start: 09/09/18 13:00 Freq: Status: Active Protocol: Document 11/26/18 11:51 (Rec: 11/26/18 11:57 [email or web address]) Physical Therapy Assessment Rehab Potential Rehabilitation Potential Excellent Impairments Impairments Activity Tolerance Balance Functional Activities Functional Mobility Gait Pain Posture ROM Soft Tissue Mobility Strength Goals Four Impairment Hypersensativity right foot Chief Human Resources Officer Goal (LTG) Able to touch right foot without pain/tingling 11/23/18 pain level of 5/10 with mod pressure, 0/10 with light pressure. LTG Duration 8 weeks Three Impairment Limited ROM Short Term Goal (STG) Right DF to 0 degrees 11/23/18 lacking 5 degrees of DF STG Duration 4 weeks Care Home Goal (LTG) Right DF to 5 degrees LTG Duration 8 weeks Two Impairment Decreased Strength STG Duration 4 weeks Care Home Goal (LTG) - Increase right toe flex/ext strength to 4+/5 - Right ankle strength 5/5 LTG Duration 8 weeks One Impairment Limited gait Short Term Goal (STG) Tolerate walking around the house without CAM boot without right foot pain with normal gait pattern STG Duration 4 weeks Chief Human Resources Officer Goal (LTG) Tolerate gait in the community without right foot pain with supportive shoes. LTG Duration achived 11/23/18 Progress Towards Goals Progress Towards Goals Progressing Toward Goals Assessment Summary Assessment Per DEVICE REPAIR TECHNICIAN, Pt has been improving since IE regarding his knee strengthm ankle strength and mobility, but WB through R foot is still problematic to pt. Pt will cont required skilled therapy for balance training, mobility training, gait training and B LE strengthening in order to return to PLOF. Will add single leg balance, trunk stability training to POC Physical Therapy Plan Frequency and Duration Frequency of Treatment 2x/wk Duration of Treatment 8 weeks Plan of Care Start Date 11/23/18 Plan of Care End Date 02/21/19 Therapeutic Interventions Therapeutic Interventions Balance Training Gait Training Home Exercise Program Joint Mobilizations Manual Therapy Neuromuscular Re-education Patient/Caregiver Education Self-Care/Home Management Soft Tissue Mobilization Taping Therapeutic Activities Therapeutic Exercises Modalities Cold Pack/Ice Massage Electric Stimulation Hot Packs Infrared Therapy Traction- Mechanical Next Visit Focus/Plan Next Note Type Treatment Note Next Visit Plan bilateral/ unilateral balance training as gi foot intrinsic strengthening Plan of Care Dates Plan of Care Start Date 11/23/18 Plan of Care End Date 02/21/19 Please Sign and Return: I have reviewed this Plan of Care and certify that the skilled therapy services above are required to meet the patient?s needs. Physician Signature Date Printed Name and Credentials Clinical Instructor Signature Printed Name and Credentials
--- NOTE | 2018-12-01 18:45 | PT.OTN ---
Current Diagnoses Other acquired deformities of right foot (12/01/18) Other instability, right ankle (12/01/18) Metatarsalgia, right foot (12/01/18) Pain in right foot (12/01/18) Difficulty in walking, not elsewhere classified (12/01/18) Contusion of right foot, initial encounter (12/01/18) Physical Therapy Treatment Note PT-OP-A Visit Information Start: 09/09/18 13:00 Freq: Status: Active Protocol: Document 12/01/18 14:35 HH (Rec: 12/01/18 18:45 HH [email or web address]) Out-Patient Physical Therapy Visit Information Visit Information Visit Type Treatment Note Visit Start Time 14:35 Visit Stop Time 15:20 Total Visit Minutes 45 Visit Number 9 Number of 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 He reports no known injury to his foot. He was diagnosed with stress fx in right foot (old fx and newer fx). He was placed in a CAM boot for 6 weeks. He is still wearing the CAM boot. He continues to have right lateral foot pain if he tries to walk without the boot. He reports recent start of right lateral hip pain that he thinks is from being in the boot. The hip pain is better if he takes the boot off. He also has mild tingling in his right foot in the same area of his injury. Prior Treatments and Tests x-rays for right foot Future Testing and Treatments Planned Pt reports progression out of CAM boot will depend on therapy Treatment Goals Patient/Caregiver Goals Be able to walk and stand without right foot pain limiting him. Prior Functional Status Baseline Function- ADL's Independent Baseline Function- Mobility Independent Baseline Function- Gait Independent, community distances Baseline Function- Work/School not working Baseline Function- Recreation/Hobbies likes to walk Baseline Function- Other peritoneal dialysis Current Functional Impairments (Reported) Functional Limitations- ADL's Independent, pain in right foot when sleeping Functional Limitations- Mobility/Gait Limited walking due to right foot if not in CAM boot and right hip pain when in CAM boot, right foot pain limits his standing. He can only stand for 15-20 min due to many areas of his body hurting including his foot. Functional Limitations- Work/School not working Functional Limitations- Recreation/ unable at this time Hobbies Functional Limitations- Other he has a multi-podus positioning device for his right foot at night to sleep Personal Factors Other Personal Factors That May Effect LE edema related to dialysis Therapy/Recovery issues PT-OP-C Subjective Start: 09/09/18 13:00 Freq: Status: Active Protocol: Document 12/01/18 14:35 HH (Rec: 12/01/18 18:45 HH [email or web address]) OP-PT Subjective Patient Comments Patient Comments Im doing pretty good now but my ankle tends to roll inward and feels like twisting my ankle easily sometimes on uneven surface. PT-OP-D Balance Start: 09/09/18 13:00 Freq: Status: Active Protocol: Document 09/09/18 13:00 DLM (Rec: 09/09/18 18:25 DLM [id number]) Balance Tests Single Limb Standing Single Limb- Right 3 sec Single Limb- Left 3-6 sec PT-OP-G Mobility & Gait Start: 09/09/18 13:00 Freq: Status: Active Protocol: Document 09/09/18 13:00 DLM (Rec: 09/09/18 18:27 DLM [id number]) OP Mobility Evaluation Bed Mobility Supine to and from Sit independent Transfers Sit to Stand independent without UE support Bed to Chair Transfers Independent OP Gait Assessment Gait Gait Assistance Required: Independent Assistive Devices Assistive Device None Orthotic/Prosthetic Devices or Brace: Yes Gait Deviations General Gait Pattern Antalgic,Decreased Stride Length Factors Limiting Gait Function Factors Limiting Gait Function Decreased Strength,Limited Range of Motion,Pain Comments Gait Comments unable to advance over right foot in stance, right foot externally rotates, pain right lateral foot PT-OP-H Neuro Start: 09/09/18 13:00 Freq: Status: Active Protocol: Document 09/09/18 13:00 DLM (Rec: 09/09/18 18:31 DLM [id number]) Sensation Evaluation Comments Summary Comments tingling right lateral foot to touch especially in same area as his pain PT-OP-J Posture/Palpation/Skin Start: 09/09/18 13:00 Freq: Status: Active Protocol: Document 09/09/18 13:00 DLM (Rec: 09/09/18 18:43 DLM [id number]) Skin Assessment Circumference Measurement 2 Location ankle joint left Measurement (Centimeters) 37.0 Comments edema in left distal LE which is greater than right LE 1 Location ankle joint right Measurement (Centimeters) 36.8 Comments mild edema PT-OP-K Range of Motion Start: 09/09/18 13:00 Freq: Status: Active Protocol: Document 11/26/18 11:51 HH (Rec: 11/26/18 11:57 [id number]) Ankle and Foot Goniometric Range of Motion Ankle and Foot Right Active Dorsiflexion with Knee Extended 5 PT-OP-M Strength Start: 09/09/18 13:00 Freq: Status: Active Protocol: Document 11/26/18 11:51 HH (Rec: 11/26/18 11:57 [email or web address]) Knee Strength Knee Manual Muscle Testing Right Flexion (S2) 4+ Good+ Extension (L3) 4- Good- Ankle/Foot Strength Ankle and Foot Manual Muscle Testing Left Dorsiflexion (L4) 5 Normal Plantarflexion (S1) 4- Good- Inversion 5 Normal Eversion (S1) 5 Normal Right Dorsiflexion (L4) 4+ Good+ Plantarflexion (S1) 4- Good- Inversion 4+ Good+ Eversion (S1) 5 Normal PT-OP-Q Treatments Start: 09/09/18 13:00 Freq: Status: Active Protocol: Document 12/01/18 14:35 HH (Rec: 12/01/18 18:45 HH [email or web address]) Therapeutic Exercises Standing Exercises MTP extension Standing Exercise Name with towel underneath R big toe Side bilateral Equipment Used towel Reps/Minutes 10 Comments nose to wall weight shift anteriorly calf stretch Standing Exercise Name gastroc stretch Side bilateral Equipment Used flaquito Reps/Minutes 1 heel raises Side bilateral Reps/Minutes 10 Manual Therapy Treatment Soft Tissue Mobilization 1 Body Location right foot and gastroc Mobilization Type Strumming Intensity/Depth Moderate Body Position Supine Comments incorporating desensitization also, deep prep cream used Neuro Re-Education Treatment Balance Activities hurdles 2 Details step over Surface ground level Equipment within //bar, hurdles Reps/Duration 4 rounds x 4 Comments cues on heel strikes hurdles Details step to Surface ground level Equipment within //bar , hurdles Reps/Duration 4 rounds x 4 Comments cues on heel strikes single leg stance Surface ground level Equipment wall bar if needed Reps/Duration SLS as gi x 10 on each side PT-OP-T Assessment and Plan Start: 09/09/18 13:00 Freq: Status: Active Protocol: Document 12/01/18 14:35 HH (Rec: 12/01/18 18:45 HH [email or web address]) Physical Therapy Assessment Goals Four Impairment Hypersensativity right foot Speech Language Pathologist Travel Goal (LTG) Able to touch right foot without pain/tingling 11/23/18 pain level of 5/10 with mod pressure, 0/10 with light pressure. LTG Duration 8 weeks Three Impairment Limited ROM Short Term Goal (STG) Right DF to 0 degrees 11/23/18 lacking 5 degrees of DF STG Duration 4 weeks Care Home Goal (LTG) Right DF to 5 degrees LTG Duration 8 weeks Two Impairment Decreased Strength STG Duration 4 weeks Care Home Goal (LTG) - Increase right toe flex/ext strength to 4+/5 - Right ankle strength 5/5 LTG Duration 8 weeks One Impairment Limited gait Short Term Goal (STG) Tolerate walking around the house without CAM boot without right foot pain with normal gait pattern STG Duration 4 weeks Care Home Goal (LTG) Tolerate gait in the community without right foot pain with supportive shoes. LTG Duration achived 11/23/18 Assessment Summary Assessment Progressed to focus on single leg balance / gait training today. Pt's currently SLS is 3s for both L and R. Needed cues for heel strike on R LE during initial contact. Physical Therapy Plan Next Visit Focus/Plan Next Note Type Treatment Note Next Visit Plan overall LE strengthening gait training bilateral/ unilateral balance training as gi foot intrinsic strengthening
--- NOTE | 2018-12-13 16:42 | PT.OTN ---
Current Diagnoses Other acquired deformities of right foot (12/13/18) Other instability, right ankle (12/13/18) Metatarsalgia, right foot (12/13/18) Pain in right foot (12/13/18) Difficulty in walking, not elsewhere classified (12/13/18) Contusion of right foot, initial encounter (12/13/18) Physical Therapy Treatment Note PT-OP-A Visit Information Start: 09/09/18 13:00 Freq: Status: Active Protocol: Document 12/13/18 14:28 SAK (Rec: 12/13/18 15:18 SAK [id number]) Out-Patient Physical Therapy Visit Information Visit Information Visit Type Treatment Note Visit Start Time 14:35 Visit Stop Time 15:20 Total Visit Minutes 45 Visit Number 10 Number of [employer]AME [employer]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 He reports no known injury to his foot. He was diagnosed with stress fx in right foot (old fx and newer fx). He was placed in a CAM boot for 6 weeks. He is still wearing the CAM boot. He continues to have right lateral foot pain if he tries to walk without the boot. He reports recent start of right lateral hip pain that he thinks is from being in the boot. The hip pain is better if he takes the boot off. He also has mild tingling in his right foot in the same area of his injury. Prior Treatments and Tests x-rays for right foot Future Testing and Treatments Planned Pt reports progression out of CAM boot will depend on therapy Treatment Goals Patient/Caregiver Goals Be able to walk and stand without right foot pain limiting him. Prior Functional Status Baseline Function- ADL's Independent Baseline Function- Mobility Independent Baseline Function- Gait Independent, community distances Baseline Function- Work/School not working Baseline Function- Recreation/Hobbies likes to walk Baseline Function- Other peritoneal dialysis Current Functional Impairments (Reported) Functional Limitations- ADL's Independent, pain in right foot when sleeping Functional Limitations- Mobility/Gait Limited walking due to right foot if not in CAM boot and right hip pain when in CAM boot, right foot pain limits his standing. He can only stand for 15-20 min due to many areas of his body hurting including his foot. Functional Limitations- Work/School not working Functional Limitations- Recreation/ unable at this time Hobbies Functional Limitations- Other he has a multi-podus positioning device for his right foot at night to sleep Personal Factors Other Personal Factors That May Effect LE edema related to dialysis Therapy/Recovery issues PT-OP-C Subjective Start: 09/09/18 13:00 Freq: Status: Active Protocol: Document 12/13/18 14:28 SAK (Rec: 12/13/18 15:18 SAK [id number]) OP-PT Subjective Patient Comments Patient Comments Reports he thinks he stepped wrong a few days ago and pain increased. HEP going ok. Using boot at night. PT-OP-D Balance Start: 09/09/18 13:00 Freq: Status: Active Protocol: Document 09/09/18 13:00 DLM (Rec: 09/09/18 18:25 DLM [id number]) Balance Tests Single Limb Standing Single Limb- Right 3 sec Single Limb- Left 3-6 sec PT-OP-G Mobility & Gait Start: 09/09/18 13:00 Freq: Status: Active Protocol: Document 09/09/18 13:00 DLM (Rec: 09/09/18 18:27 DLM [id number]) OP Mobility Evaluation Bed Mobility Supine to and from Sit independent Transfers Sit to Stand independent without UE support Bed to Chair Transfers Independent OP Gait Assessment Gait Gait Assistance Required: Independent Assistive Devices Assistive Device None Orthotic/Prosthetic Devices or Brace: Yes Gait Deviations General Gait Pattern Antalgic,Decreased Stride Length Factors Limiting Gait Function Factors Limiting Gait Function Decreased Strength,Limited Range of Motion,Pain Comments Gait Comments unable to advance over right foot in stance, right foot externally rotates, pain right lateral foot PT-OP-H Neuro Start: 09/09/18 13:00 Freq: Status: Active Protocol: Document 09/09/18 13:00 DLM (Rec: 09/09/18 18:31 DLM [id number]) Sensation Evaluation Comments Summary Comments tingling right lateral foot to touch especially in same area as his pain PT-OP-J Posture/Palpation/Skin Start: 09/09/18 13:00 Freq: Status: Active Protocol: Document 09/09/18 13:00 DLM (Rec: 09/09/18 18:43 DLM [id number]) Skin Assessment Circumference Measurement 2 Location ankle joint left Measurement (Centimeters) 37.0 Comments edema in left distal LE which is greater than right LE 1 Location ankle joint right Measurement (Centimeters) 36.8 Comments mild edema PT-OP-K Range of Motion Start: 09/09/18 13:00 Freq: Status: Active Protocol: Document 11/26/18 11:51 HH (Rec: 11/26/18 11:57 HH [email or web address]) Ankle and Foot Goniometric Range of Motion Ankle and Foot Right Active Dorsiflexion with Knee Extended 5 PT-OP-M Strength Start: 09/09/18 13:00 Freq: Status: Active Protocol: Document 11/26/18 11:51 HH (Rec: 11/26/18 11:57 HH [id number]) Knee Strength Knee Manual Muscle Testing Right Flexion (S2) 4+ Good+ Extension (L3) 4- Good- Ankle/Foot Strength Ankle and Foot Manual Muscle Testing Left Dorsiflexion (L4) 5 Normal Plantarflexion (S1) 4- Good- Inversion 5 Normal Eversion (S1) 5 Normal Right Dorsiflexion (L4) 4+ Good+ Plantarflexion (S1) 4- Good- Inversion 4+ Good+ Eversion (S1) 5 Normal PT-OP-Q Treatments Start: 09/09/18 13:00 Freq: Status: Active Protocol: Document 12/13/18 14:28 SAK (Rec: 12/13/18 15:18 SAK [id number]) Cardio Equipment Recumbent Bicycle Duration (Minutes) 6 Resistance Level 4 Seat Position 6 Therapeutic Exercises Sitting Exercises short foot Side bilateral Reps/Minutes 10x 6 Sitting Exercise Name BAPS Side right Resistance L3 Reps/Minutes 10 reps each, 2 sets Comments A/P, lateral and circles 1 Sitting Exercise Name Sit-Stand Reps/Minutes 10x Standing Exercises toe ext Reps/Minutes 10x MTP extension Standing Exercise Name with towel underneath R big toe Side bilateral Equipment Used towel Reps/Minutes 10 Comments nose to wall weight shift anteriorly calf stretch Standing Exercise Name gastroc stretch Side bilateral Equipment Used flaquito Reps/Minutes 1 heel raises Side bilateral Reps/Minutes 10 ankle rocking motion Side bilateral Equipment Used chair for support Reps/Minutes 10 x Comments cues on terminal stance and heel strikes 2 Standing Exercise Name Soleus stretch using wall 1 Standing Exercise Name Gastroc stretch using wall Side right Reps/Minutes 30 sec hold x 3 reps Comments to do 2x/day at home Gait Training Gait Activity level surface Description emphasis on mechanics with mirror for visual feedback Distance/Duration 3 min Manual Therapy Treatment Soft Tissue Mobilization 1 Body Location right foot and gastroc Mobilization Type Strumming Intensity/Depth Moderate Body Position Supine Comments incorporating desensitization also, deep prep cream used Neuro Re-Education Treatment Balance Activities single leg stance Surface ground level Equipment wall bar if needed Reps/Duration SLS as gi x 2 on each side PT-OP-R Modalities Start: 09/09/18 13:00 Freq: Status: Active Protocol: Document 12/13/18 14:28 [facility] (Rec: 12/13/18 16:39 [facility] [id number]) Hot Pack/Cold Pack Treatment Cold Pack Location right foot Patient Position Hooklying Treatment Duration (minutes) 10 Patient Tolerance Good PT-OP-T Assessment and Plan Start: 09/09/18 13:00 Freq: Status: Active Protocol: Document 12/13/18 14:28 [facility] (Rec: 12/13/18 15:18 [facility] [id number]) Physical Therapy Assessment Goals Four Impairment Hypersensativity right foot [facility] Goal (LTG) Able to touch right foot without pain/tingling 11/23/18 pain level of 5/10 with mod pressure, 0/10 with light pressure. 12/13/18: decreasing hypersensitivity with good tolerance for moderate pressure today LTG Duration 8 weeks Three Impairment Limited ROM Short Term Goal (STG) Right DF to 0 degrees 11/23/18 lacking 5 degrees of DF 12/13/18: still lacks 5 degrees DF STG Duration 4 weeks [facility] Goal (LTG) Right DF to 5 degrees LTG Duration 8 weeks Two Impairment Decreased Strength STG Duration 4 weeks Jumbo Operator Goal (LTG) - Increase right toe flex/ext strength to 4+/5 - Right ankle strength 5/5 12/13/18: some goal progress LTG Duration 8 weeks One Impairment Limited gait Short Term Goal (STG) Tolerate walking around the house without CAM boot without right foot pain with normal gait pattern 12/13/18: some goal progress STG Duration 4 weeks [facility] Goal (LTG) Tolerate gait in the community without right foot pain with supportive shoes. LTG Duration achived 11/23/18 Assessment Summary Assessment Patient requires cues for gait due to excessive lateral weight-bearing through initial contact and push-off. Overall decreased standing ex due to increased pain/soreness . Ice after treatment today. Demonstrated good understanding of short foot exercise and was issued written handout Physical Therapy Plan Frequency and Duration Frequency of Treatment 2x/wk Duration of Treatment 8 weeks Plan of Care Start Date 11/23/18 Plan of Care End Date 02/21/19 Therapeutic Interventions Therapeutic Interventions Balance Training,Gait Training ,Home Exercise Program,Joint Mobilizations,Manual Therapy, Neuromuscular Re-education, Patient/Caregiver Education, Self-Care/Home Management,Soft Tissue Mobilization,Taping, Therapeutic Activities, Therapeutic Exercises Modalities Cold Pack/Ice Massage,Electric Stimulation,Hot Packs, Infrared Therapy,Traction- Mechanical Next Visit Focus/Plan Next Note Type Treatment Note Next Visit Plan Review short foot ex, continue gait training, balance, strengtghening, desensitization as tolerated.
--- NOTE | 2018-12-20 14:26 | PT-OP ANOTE ---
Patient cancelled PT appointment via caregiver who reported patient not doing well today.
--- NOTE | 2018-12-29 17:13 | PT.OTN ---
Current Diagnoses Other acquired deformities of right foot (12/29/18) Other instability, right ankle (12/29/18) Metatarsalgia, right foot (12/29/18) Pain in right foot (12/29/18) Difficulty in walking, not elsewhere classified (12/29/18) Contusion of right foot, initial encounter (12/29/18) Physical Therapy Treatment Note PT-OP-A Visit Information Start: 09/09/18 13:00 Freq: Status: Active Protocol: Document 12/29/18 16:57 AW (Rec: 12/29/18 17:00 AW [email or web address]) Out-Patient Physical Therapy Visit Information Visit Information Visit Type Treatment Note Visit Start Time 14:32 Visit Stop Time 15:12 Total Visit Minutes 40 Visit Number 11 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 He reports no known injury to his foot. He was diagnosed with stress fx in right foot (old fx and newer fx). He was placed in a CAM boot for 6 weeks. He is still wearing the CAM boot. He continues to have right lateral foot pain if he tries to walk without the boot. He reports recent start of right lateral hip pain that he thinks is from being in the boot. The hip pain is better if he takes the boot off. He also has mild tingling in his right foot in the same area of his injury. Prior Treatments and Tests x-rays for right foot Future Testing and Treatments Planned Pt reports progression out of CAM boot will depend on therapy Treatment Goals Patient/Caregiver Goals Be able to walk and stand without right foot pain limiting him. Prior Functional Status Baseline Function- ADL's Independent Baseline Function- Mobility Independent Baseline Function- Gait Independent, community distances Baseline Function- Work/School not working Baseline Function- Recreation/Hobbies likes to walk Baseline Function- Other peritoneal dialysis Current Functional Impairments (Reported) Functional Limitations- ADL's Independent, pain in right foot when sleeping Functional Limitations- Mobility/Gait Limited walking due to right foot if not in CAM boot and right hip pain when in CAM boot, right foot pain limits his standing. He can only stand for 15-20 min due to many areas of his body hurting including his foot. Functional Limitations- Work/School not working Functional Limitations- Recreation/ unable at this time Hobbies Functional Limitations- Other he has a multi-podus positioning device for his right foot at night to sleep Personal Factors Other Personal Factors That May Effect LE edema related to dialysis Therapy/Recovery issues PT-OP-C Subjective Start: 09/09/18 13:00 Freq: Status: Active Protocol: Document 12/29/18 16:57 AW (Rec: 12/29/18 17:00 AW [email or web address]) OP-PT Subjective Patient Comments Patient Comments Pt reports he was briefly hospitalized at [facility] last week for colitis . He has a referral for GI. PT-OP-D Balance Start: 09/09/18 13:00 Freq: Status: Active Protocol: Document 09/09/18 13:00 DLM (Rec: 09/09/18 18:25 DLM [id number]) Balance Tests Single Limb Standing Single Limb- Right 3 sec Single Limb- Left 3-6 sec PT-OP-G Mobility & Gait Start: 09/09/18 13:00 Freq: Status: Active Protocol: Document 09/09/18 13:00 DLM (Rec: 09/09/18 18:27 DLM [id number]) OP Mobility Evaluation Bed Mobility Supine to and from Sit independent Transfers Sit to Stand independent without UE support Bed to Chair Transfers Independent OP Gait Assessment Gait Gait Assistance Required: Independent Assistive Devices Assistive Device None Orthotic/Prosthetic Devices or Brace: Yes Gait Deviations General Gait Pattern Antalgic,Decreased Stride Length Factors Limiting Gait Function Factors Limiting Gait Function Decreased Strength,Limited Range of Motion,Pain Comments Gait Comments unable to advance over right foot in stance, right foot externally rotates, pain right lateral foot PT-OP-H Neuro Start: 09/09/18 13:00 Freq: Status: Active Protocol: Document 09/09/18 13:00 DLM (Rec: 09/09/18 18:31 DLM [id number]) Sensation Evaluation Comments Summary Comments tingling right lateral foot to touch especially in same area as his pain PT-OP-J Posture/Palpation/Skin Start: 09/09/18 13:00 Freq: Status: Active Protocol: Document 09/09/18 13:00 DLM (Rec: 09/09/18 18:43 DLM [id number]) Skin Assessment Circumference Measurement 2 Location ankle joint left Measurement (Centimeters) 37.0 Comments edema in left distal LE which is greater than right LE 1 Location ankle joint right Measurement (Centimeters) 36.8 Comments mild edema PT-OP-K Range of Motion Start: 09/09/18 13:00 Freq: Status: Active Protocol: Document 11/26/18 11:51 HH (Rec: 11/26/18 11:57 HH [id number]) Ankle and Foot Goniometric Range of Motion Ankle and Foot Right Active Dorsiflexion with Knee Extended 5 PT-OP-M Strength Start: 09/09/18 13:00 Freq: Status: Active Protocol: Document 11/26/18 11:51 HH (Rec: 11/26/18 11:57 HH [email or web address]) Knee Strength Knee Manual Muscle Testing Right Flexion (S2) 4+ Good+ Extension (L3) 4- Good- Ankle/Foot Strength Ankle and Foot Manual Muscle Testing Left Dorsiflexion (L4) 5 Normal Plantarflexion (S1) 4- Good- Inversion 5 Normal Eversion (S1) 5 Normal Right Dorsiflexion (L4) 4+ Good+ Plantarflexion (S1) 4- Good- Inversion 4+ Good+ Eversion (S1) 5 Normal PT-OP-Q Treatments Start: 09/09/18 13:00 Freq: Status: Active Protocol: Document 12/29/18 16:57 AW (Rec: 12/29/18 17:13 AW [email or web address]) Therapeutic Exercises Sitting Exercises ankle 3 way Sitting Exercise Name ankle EV, IV and DF Side right Resistance Level 1 Equipment Used thera band Reps/Minutes 2x10 reps Standing Exercises MTP extension Standing Exercise Name with towel underneath R big toe Side bilateral Equipment Used towel Reps/Minutes 10 calf stretch Standing Exercise Name gastroc and soleus stretch Side bilateral Equipment Used flaquito Reps/Minutes 2 minutes heel raises Standing Exercise Name heel raises Side bilateral Reps/Minutes 10 Comments weak eversion with heel raise Manual Therapy Treatment Soft Tissue Mobilization 1 Body Location right foot and gastroc Mobilization Type Strumming,Sustained Pressure, Trigger Point Release Intensity/Depth Moderate Body Position Hooklying Comments deep prep cream used; focus on plantar surface and TP release in medial gastroc Joint Mobilizations 1 Joint MTP 1-5 Direction dorsal/plantar Grade III Body Position Hooklying Reps/Duration 6 minutes Comments resistance met almost immediately Neuro Re-Education Treatment Balance Activities hurdles 2 Details step over Surface ground level Equipment hurdles Reps/Duration 8 rounds x 6 hurdles Comments cues for heel strike PT-OP-R Modalities Start: 09/09/18 13:00 Freq: Status: Active Protocol: Document 12/13/18 14:28 SAK (Rec: 12/13/18 16:39 SAK [id number]) Hot Pack/Cold Pack Treatment Cold Pack Location right foot Patient Position Hooklying Treatment Duration (minutes) 10 Patient Tolerance Good PT-OP-T Assessment and Plan Start: 09/09/18 13:00 Freq: Status: Active Protocol: Document 12/29/18 16:57 AW (Rec: 12/29/18 17:13 AW [email or web address]) Physical Therapy Assessment Goals Four Impairment Hypersensativity right foot Salon Professional Goal (LTG) Able to touch right foot without pain/tingling 11/23/18 pain level of 5/10 with mod pressure, 0/10 with light pressure. 12/13/18: decreasing hypersensitivity with good tolerance for moderate pressure today LTG Duration 8 weeks Three Impairment Limited ROM Short Term Goal (STG) Right DF to 0 degrees 11/23/18 lacking 5 degrees of DF 12/13/18: still lacks 5 degrees DF STG Duration 4 weeks [employer] Professional Goal (LTG) Right DF to 5 degrees LTG Duration 8 weeks Two Impairment Decreased Strength STG Duration 4 weeks Correction Goal (LTG) - Increase right toe flex/ext strength to 4+/5 - Right ankle strength 5/5 12/13/18: some goal progress LTG Duration 8 weeks One Impairment Limited gait Short Term Goal (STG) Tolerate walking around the house without CAM boot without right foot pain with normal gait pattern 12/13/18: some goal progress STG Duration 4 weeks [employer] Professional Goal (LTG) Tolerate gait in the community without right foot pain with supportive shoes. LTG Duration achived 11/23/18 Assessment Summary Assessment Pt had difficulty performing short foot exercise in weightbearing position, but could manage in seated. Right foot is stiff. A/P grade III mobs at MTP joints 1-5 tolerated well. Physical Therapy Plan Frequency and Duration Frequency of Treatment 2x/wk Duration of Treatment 8 weeks Plan of Care Start Date 11/23/18 Plan of Care End Date 02/21/19 Therapeutic Interventions Therapeutic Interventions Balance Training,Gait Training ,Home Exercise Program,Joint Mobilizations,Manual Therapy, Neuromuscular Re-education, Patient/Caregiver Education, Self-Care/Home Management,Soft Tissue Mobilization,Taping, Therapeutic Activities, Therapeutic Exercises Modalities Cold Pack/Ice Massage,Electric Stimulation,Hot Packs, Infrared Therapy,Traction- Mechanical Next Visit Focus/Plan Next Note Type Treatment Note Next Visit Plan Review short foot ex, continue gait training, balance, strengtghening, desensitization as tolerated.
--- NOTE | 2019-01-03 17:32 | PT.OTN ---
Current Diagnoses Other acquired deformities of right foot (01/03/19) Other instability, right ankle (01/03/19) Metatarsalgia, right foot (01/03/19) Pain in right foot (01/03/19) Difficulty in walking, not elsewhere classified (01/03/19) Contusion of right foot, initial encounter (01/03/19) Physical Therapy Treatment Note PT-OP-A Visit Information Start: 09/09/18 13:00 Freq: Status: Active Protocol: Document 01/03/19 17:21 AW (Rec: 01/03/19 17:32 AW [email or web address]) Out-Patient Physical Therapy Visit Information Visit Information Visit Type Treatment Note Visit Start Time 14:30 Visit Stop Time 15:10 Total Visit Minutes 40 Visit Number 12 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 He reports no known injury to his foot. He was diagnosed with stress fx in right foot (old fx and newer fx). He was placed in a CAM boot for 6 weeks. He is still wearing the CAM boot. He continues to have right lateral foot pain if he tries to walk without the boot. He reports recent start of right lateral hip pain that he thinks is from being in the boot. The hip pain is better if he takes the boot off. He also has mild tingling in his right foot in the same area of his injury. Prior Treatments and Tests x-rays for right foot Future Testing and Treatments Planned Pt reports progression out of CAM boot will depend on therapy Treatment Goals Patient/Caregiver Goals Be able to walk and stand without right foot pain limiting him. Prior Functional Status Baseline Function- ADL's Independent Baseline Function- Mobility Independent Baseline Function- Gait Independent, community distances Baseline Function- Work/School not working Baseline Function- Recreation/Hobbies likes to walk Baseline Function- Other peritoneal dialysis Current Functional Impairments (Reported) Functional Limitations- ADL's Independent, pain in right foot when sleeping Functional Limitations- Mobility/Gait Limited walking due to right foot if not in CAM boot and right hip pain when in CAM boot, right foot pain limits his standing. He can only stand for 15-20 min due to many areas of his body hurting including his foot. Functional Limitations- Work/School not working Functional Limitations- Recreation/ unable at this time Hobbies Functional Limitations- Other he has a multi-podus positioning device for his right foot at night to sleep Personal Factors Other Personal Factors That May Effect LE edema related to dialysis Therapy/Recovery issues PT-OP-C Subjective Start: 09/09/18 13:00 Freq: Status: Active Protocol: Document 01/03/19 17:21 AW (Rec: 01/03/19 17:32 AW [email or web address]) OP-PT Subjective Patient Comments Patient Comments Pt has not been to GI physician yet. Reports no fever or other systemic signs of infection. He observes he is having less pain today PT-OP-D Balance Start: 09/09/18 13:00 Freq: Status: Active Protocol: Document 09/09/18 13:00 DLM (Rec: 09/09/18 18:25 DLM [id number]) Balance Tests Single Limb Standing Single Limb- Right 3 sec Single Limb- Left 3-6 sec PT-OP-G Mobility & Gait Start: 09/09/18 13:00 Freq: Status: Active Protocol: Document 09/09/18 13:00 DLM (Rec: 09/09/18 18:27 DLM [id number]) OP Mobility Evaluation Bed Mobility Supine to and from Sit independent Transfers Sit to Stand independent without UE support Bed to Chair Transfers Independent OP Gait Assessment Gait Gait Assistance Required: Independent Assistive Devices Assistive Device None Orthotic/Prosthetic Devices or Brace: Yes Gait Deviations General Gait Pattern Antalgic,Decreased Stride Length Factors Limiting Gait Function Factors Limiting Gait Function Decreased Strength,Limited Range of Motion,Pain Comments Gait Comments unable to advance over right foot in stance, right foot externally rotates, pain right lateral foot PT-OP-H Neuro Start: 09/09/18 13:00 Freq: Status: Active Protocol: Document 09/09/18 13:00 DLM (Rec: 09/09/18 18:31 DLM [id number]) Sensation Evaluation Comments Summary Comments tingling right lateral foot to touch especially in same area as his pain PT-OP-J Posture/Palpation/Skin Start: 09/09/18 13:00 Freq: Status: Active Protocol: Document 09/09/18 13:00 DLM (Rec: 09/09/18 18:43 DLM [id number]) Skin Assessment Circumference Measurement 2 Location ankle joint left Measurement (Centimeters) 37.0 Comments edema in left distal LE which is greater than right LE 1 Location ankle joint right Measurement (Centimeters) 36.8 Comments mild edema PT-OP-K Range of Motion Start: 09/09/18 13:00 Freq: Status: Active Protocol: Document 11/26/18 11:51 HH (Rec: 11/26/18 11:57 HH [id number]) Ankle and Foot Goniometric Range of Motion Ankle and Foot Right Active Dorsiflexion with Knee Extended 5 PT-OP-M Strength Start: 09/09/18 13:00 Freq: Status: Active Protocol: Document 11/26/18 11:51 HH (Rec: 11/26/18 11:57 HH [id number]) Knee Strength Knee Manual Muscle Testing Right Flexion (S2) 4+ Good+ Extension (L3) 4- Good- Ankle/Foot Strength Ankle and Foot Manual Muscle Testing Left Dorsiflexion (L4) 5 Normal Plantarflexion (S1) 4- Good- Inversion 5 Normal Eversion (S1) 5 Normal Right Dorsiflexion (L4) 4+ Good+ Plantarflexion (S1) 4- Good- Inversion 4+ Good+ Eversion (S1) 5 Normal PT-OP-Q Treatments Start: 09/09/18 13:00 Freq: Status: Active Protocol: Document 01/03/19 17:21 AW (Rec: 01/03/19 17:32 AW [email or web address]) Gym Equipment Shuttle Balance 1 Details SLS - bilateral Reps/Duration 3 minutes Comments blue chains Therapeutic Exercises Sitting Exercises short foot Sitting Exercise Name short foot Side bilateral Reps/Minutes 10x Comments able in sitting; unable in weightbearing ankle 3 way Sitting Exercise Name ankle EV, IV and DF Side right Resistance Level 2 Equipment Used thera band Reps/Minutes 2x10 reps Standing Exercises step up to bosu ball Standing Exercise Name step up to bosu ball Side bilateral Reps/Minutes 2x10 reps bilat Comments UE support on railings as needed MTP extension Standing Exercise Name with towel underneath R big toe Side bilateral Equipment Used towel Reps/Minutes 10 calf stretch Standing Exercise Name gastroc and soleus stretch Side bilateral Equipment Used flaquito Reps/Minutes 2 minutes heel raises Standing Exercise Name heel raises Side bilateral Reps/Minutes 2x10 reps Comments weak eversion with heel raise Manual Therapy Treatment Soft Tissue Mobilization 1 Body Location right foot and gastroc Mobilization Type Strumming,Sustained Pressure, Trigger Point Release Intensity/Depth Moderate Body Position Hooklying Comments deep prep cream used; focus on plantar surface; TP in medial gastroc not noted today Joint Mobilizations 2 Joint tibiotalar Direction posterior Grade III Body Position Standing Reps/Duration 2 minutes Comments in weightbearing position as pt lunged onto 12 step 1 Joint MTP 1-5 Direction dorsal/plantar Grade III Body Position Hooklying Reps/Duration 6 minutes Comments resistance met almost immediately Neuro Re-Education Treatment Balance Activities hurdles 2 Details step over Surface ground level Equipment hurdles Reps/Duration 8 rounds x 6 hurdles Comments cues for heel strike PT-OP-R Modalities Start: 09/09/18 13:00 Freq: Status: Active Protocol: Document 12/13/18 14:28 SAK (Rec: 12/13/18 16:39 SAK [id number]) Hot Pack/Cold Pack Treatment Cold Pack Location right foot Patient Position Hooklying Treatment Duration (minutes) 10 Patient Tolerance Good PT-OP-T Assessment and Plan Start: 09/09/18 13:00 Freq: Status: Active Protocol: Document 01/03/19 17:21 AW (Rec: 01/03/19 17:32 AW [email or web address]) Physical Therapy Assessment Goals Four Impairment Hypersensativity right foot [employer]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 12/13/18: decreasing hypersensitivity with good tolerance for moderate pressure today LTG Duration 8 weeks Three Impairment Limited ROM Short Term Goal (STG) Right DF to 0 degrees 11/23/18 lacking 5 degrees of DF 12/13/18: still lacks 5 degrees DF STG Duration 4 weeks [employer] Construction Worker Goal (LTG) Right DF to 5 degrees LTG Duration 8 weeks Two Impairment Decreased Strength STG Duration 4 weeks Snf Goal (LTG) - Increase right toe flex/ext strength to 4+/5 - Right ankle strength 5/5 12/13/18: some goal progress LTG Duration 8 weeks One Impairment Limited gait Short Term Goal (STG) Tolerate walking around the house without CAM boot without right foot pain with normal gait pattern 12/13/18: some goal progress STG Duration 4 weeks Snf Goal (LTG) Tolerate gait in the community without right foot pain with supportive shoes. LTG Duration achived 11/23/18 Assessment Summary Assessment Pt demonstrated slightly improved R great toe extension after manual therapy and improved R ankle DF after talar mobs. Physical Therapy Plan Frequency and Duration Frequency of Treatment 2x/wk Duration of Treatment 8 weeks Plan of Care Start Date 11/23/18 Plan of Care End Date 02/21/19 Therapeutic Interventions Therapeutic Interventions Balance Training,Gait Training ,Home Exercise Program,Joint Mobilizations,Manual Therapy, Neuromuscular Re-education, Patient/Caregiver Education, Self-Care/Home Management,Soft Tissue Mobilization,Taping, Therapeutic Activities, Therapeutic Exercises Modalities Cold Pack/Ice Massage,Electric Stimulation,Hot Packs, Infrared Therapy,Traction- Mechanical Next Visit Focus/Plan Next Note Type Treatment Note Next Visit Plan Continue gait training, balance, strengthening, manual therapy, and desensitization as tolerated.
--- NOTE | 2019-01-05 14:50 | PT-OP ANOTE ---
Pt called last minute to say he forgot/could not make it in today. No show.
--- NOTE | 2019-01-12 16:07 | PT.OTN ---
Current Diagnoses Other acquired deformities of right foot (01/12/19) Other instability, right ankle (01/12/19) Metatarsalgia, right foot (01/12/19) Pain in right foot (01/12/19) Difficulty in walking, not elsewhere classified (01/12/19) Contusion of right foot, initial encounter (01/12/19) Physical Therapy Treatment Note PT-OP-A Visit Information Start: 09/09/18 13:00 Freq: Status: Active Protocol: Document 01/12/19 15:30 GGD (Rec: 01/12/19 16:07 GGD [email or web address]) Out-Patient Physical Therapy Visit Information Visit Information Visit Type Treatment Note Visit Start Time 14:40 Visit Stop Time 15:20 Total Visit Minutes 40 Visit Number 13 Number of ANALYSIS EVALUATOR Visits 1 PT-OP-B Current Condition Start: 09/09/18 13:00 Freq: Status: Active Protocol: Document 09/09/18 13:00 DLM (Rec: 09/09/18 18:15 DLM [id number]) Current Condition History of Current Condition Onset Date Few months ago Current Complaints Right foot pain History of Current Condition A few months ago he was walking and developed pain in his right lateral foot. He reports no known injury to his foot. He was diagnosed with stress fx in right foot (old fx and newer fx). He was placed in a CAM boot for 6 weeks. He is still wearing the CAM boot. He continues to have right lateral foot pain if he tries to walk without the boot. He reports recent start of right lateral hip pain that he thinks is from being in the boot. The hip pain is better if he takes the boot off. He also has mild tingling in his right foot in the same area of his injury. Prior Treatments and Tests x-rays for right foot Future Testing and Treatments Planned Pt reports progression out of CAM boot will depend on therapy Treatment Goals Patient/Caregiver Goals Be able to walk and stand without right foot pain limiting him. Prior Functional Status Baseline Function- ADL's Independent Baseline Function- Mobility Independent Baseline Function- Gait Independent, community distances Baseline Function- Work/School not working Baseline Function- Recreation/Hobbies likes to walk Baseline Function- Other peritoneal dialysis Current Functional Impairments (Reported) Functional Limitations- ADL's Independent, pain in right foot when sleeping Functional Limitations- Mobility/Gait Limited walking due to right foot if not in CAM boot and right hip pain when in CAM boot, right foot pain limits his standing. He can only stand for 15-20 min due to many areas of his body hurting including his foot. Functional Limitations- Work/School not working Functional Limitations- Recreation/ unable at this time Hobbies Functional Limitations- Other he has a multi-podus positioning device for his right foot at night to sleep Personal Factors Other Personal Factors That May Effect LE edema related to dialysis Therapy/Recovery issues PT-OP-C Subjective Start: 09/09/18 13:00 Freq: Status: Active Protocol: Document 01/12/19 15:30 GGD (Rec: 01/12/19 16:07 GGD [email or web address]) OP-PT Subjective Patient Comments Patient Comments PT states that he had some soreness today. PT-OP-D Balance Start: 09/09/18 13:00 Freq: Status: Active Protocol: Document 09/09/18 13:00 DLM (Rec: 09/09/18 18:25 DLM [id number]) Balance Tests Single Limb Standing Single Limb- Right 3 sec Single Limb- Left 3-6 sec PT-OP-G Mobility & Gait Start: 09/09/18 13:00 Freq: Status: Active Protocol: Document 09/09/18 13:00 DLM (Rec: 09/09/18 18:27 DLM [id number]) OP Mobility Evaluation Bed Mobility Supine to and from Sit independent Transfers Sit to Stand independent without UE support Bed to Chair Transfers Independent OP Gait Assessment Gait Gait Assistance Required: Independent Assistive Devices Assistive Device None Orthotic/Prosthetic Devices or Brace: Yes Gait Deviations General Gait Pattern Antalgic,Decreased Stride Length Factors Limiting Gait Function Factors Limiting Gait Function Decreased Strength,Limited Range of Motion,Pain Comments Gait Comments unable to advance over right foot in stance, right foot externally rotates, pain right lateral foot PT-OP-H Neuro Start: 09/09/18 13:00 Freq: Status: Active Protocol: Document 09/09/18 13:00 DLM (Rec: 09/09/18 18:31 DLM [id number]) Sensation Evaluation Comments Summary Comments tingling right lateral foot to touch especially in same area as his pain PT-OP-J Posture/Palpation/Skin Start: 09/09/18 13:00 Freq: Status: Active Protocol: Document 09/09/18 13:00 DLM (Rec: 09/09/18 18:43 DLM [id number]) Skin Assessment Circumference Measurement 2 Location ankle joint left Measurement (Centimeters) 37.0 Comments edema in left distal LE which is greater than right LE 1 Location ankle joint right Measurement (Centimeters) 36.8 Comments mild edema PT-OP-K Range of Motion Start: 09/09/18 13:00 Freq: Status: Active Protocol: Document 11/26/18 11:51 HH (Rec: 11/26/18 11:57 HH [id number]) Ankle and Foot Goniometric Range of Motion Ankle and Foot Right Active Dorsiflexion with Knee Extended 5 PT-OP-M Strength Start: 09/09/18 13:00 Freq: Status: Active Protocol: Document 11/26/18 11:51 HH (Rec: 11/26/18 11:57 HH [email or web address]) Knee Strength Knee Manual Muscle Testing Right Flexion (S2) 4+ Good+ Extension (L3) 4- Good- Ankle/Foot Strength Ankle and Foot Manual Muscle Testing Left Dorsiflexion (L4) 5 Normal Plantarflexion (S1) 4- Good- Inversion 5 Normal Eversion (S1) 5 Normal Right Dorsiflexion (L4) 4+ Good+ Plantarflexion (S1) 4- Good- Inversion 4+ Good+ Eversion (S1) 5 Normal PT-OP-Q Treatments Start: 09/09/18 13:00 Freq: Status: Active Protocol: Document 01/12/19 15:30 GGD (Rec: 01/12/19 16:07 GGD [email or web address]) Gym Equipment Shuttle Balance 1 Details SLS - bilateral, tandom Reps/Duration 3 minutes Comments blue chains Therapeutic Exercises Sitting Exercises short foot Sitting Exercise Name short foot Side bilateral Reps/Minutes 10x Comments able in sitting; unable in weightbearing ankle 3 way Sitting Exercise Name ankle EV, IV and DF Side right Resistance Level 2 Equipment Used thera band Reps/Minutes 2x10 reps Standing Exercises step up to bosu ball Standing Exercise Name step up to bosu ball Side bilateral Reps/Minutes 2x10 reps bilat Comments UE support on railings as needed calf stretch Standing Exercise Name gastroc and soleus stretch Side bilateral Equipment Used flaquito Reps/Minutes 2 minutes heel raises Standing Exercise Name heel raises Side bilateral Reps/Minutes 2x10 reps Comments weak eversion with heel raise Manual Therapy Treatment Soft Tissue Mobilization 1 Body Location right foot and gastroc Mobilization Type Strumming,Sustained Pressure, Trigger Point Release Intensity/Depth Moderate Body Position Hooklying Comments deep prep cream used; focus on plantar surface Joint Mobilizations 2 Joint tibiotalar Direction posterior Grade III Body Position Standing Reps/Duration 2 minutes Comments in weightbearing position as pt lunged onto 12 step 1 Joint MTP 1-5 Direction dorsal/plantar Grade III Body Position Hooklying Reps/Duration 6 minutes Comments resistance met almost immediately Neuro Re-Education Treatment Balance Activities semi tandem Details eyes closed Surface firm single leg stance Surface ground level Equipment wall bar if needed Reps/Duration SLS as gi x 2 on each side PT-OP-R Modalities Start: 09/09/18 13:00 Freq: Status: Active Protocol: Document 12/13/18 14:28 SAK (Rec: 12/13/18 16:39 SAK [id number]) Hot Pack/Cold Pack Treatment Cold Pack Location right foot Patient Position Hooklying Treatment Duration (minutes) 10 Patient Tolerance Good PT-OP-T Assessment and Plan Start: 09/09/18 13:00 Freq: Status: Active Protocol: Document 01/12/19 15:30 GGD (Rec: 01/12/19 16:07 GGD [email or web address]) Physical Therapy Assessment Goals Four Impairment Hypersensativity right foot Halfway Goal (LTG) Able to touch right foot without pain/tingling 11/23/18 pain level of 5/10 with mod pressure, 0/10 with light pressure. 12/13/18: decreasing hypersensitivity with good tolerance for moderate pressure today LTG Duration 8 weeks Three Impairment Limited ROM Short Term Goal (STG) Right DF to 0 degrees 11/23/18 lacking 5 degrees of DF 12/13/18: still lacks 5 degrees DF STG Duration 4 weeks Scientific Affairs Manager Goal (LTG) Right DF to 5 degrees LTG Duration 8 weeks Two Impairment Decreased Strength STG Duration 4 weeks Scientific Affairs Manager Goal (LTG) - Increase right toe flex/ext strength to 4+/5 - Right ankle strength 5/5 12/13/18: some goal progress LTG Duration 8 weeks One Impairment Limited gait Short Term Goal (STG) Tolerate walking around the house without CAM boot without right foot pain with normal gait pattern 12/13/18: some goal progress STG Duration 4 weeks Halfway Goal (LTG) Tolerate gait in the community without right foot pain with supportive shoes. LTG Duration achived 11/23/18 Assessment Summary Assessment Pt challenged with balance activities. He is improving with strengthening. He is limited in talar mobility. Physical Therapy Plan Frequency and Duration Frequency of Treatment 2x/wk Duration of Treatment 8 weeks Plan of Care Start Date 11/23/18 Plan of Care End Date 02/21/19 Next Visit Focus/Plan Next Note Type Treatment Note Next Visit Plan Continue gait training, balance, strengthening, manual therapy.
--- NOTE | 2019-01-20 18:35 | PT.OTN ---
Current Diagnoses Other acquired deformities of right foot (01/20/19) Other instability, right ankle (01/20/19) Metatarsalgia, right foot (01/20/19) Pain in right foot (01/20/19) Difficulty in walking, not elsewhere classified (01/20/19) Contusion of right foot, initial encounter (01/20/19) Physical Therapy Treatment Note PT-OP-A Visit Information Start: 09/09/18 13:00 Freq: Status: Active Protocol: Document 01/20/19 18:29 GGD (Rec: 01/20/19 18:35 GGD [email or web address]) Out-Patient Physical Therapy Visit Information Visit Information Visit Type Treatment Note Visit Start Time 16:50 Visit Stop Time 17:30 Total Visit Minutes 40 Visit Number 14 Number of PHYSICAL AERODYNAMICIST Visits 2 PT-OP-B Current Condition Start: 09/09/18 13:00 Freq: Status: Active Protocol: Document 09/09/18 13:00 DLM (Rec: 09/09/18 18:15 DLM [id number]) Current Condition History of Current Condition Onset Date Few months ago Current Complaints Right foot pain History of Current Condition A few months ago he was walking and developed pain in his right lateral foot. He reports no known injury to his foot. He was diagnosed with stress fx in right foot (old fx and newer fx). He was placed in a CAM boot for 6 weeks. He is still wearing the CAM boot. He continues to have right lateral foot pain if he tries to walk without the boot. He reports recent start of right lateral hip pain that he thinks is from being in the boot. The hip pain is better if he takes the boot off. He also has mild tingling in his right foot in the same area of his injury. Prior Treatments and Tests x-rays for right foot Future Testing and Treatments Planned Pt reports progression out of CAM boot will depend on therapy Treatment Goals Patient/Caregiver Goals Be able to walk and stand without right foot pain limiting him. Prior Functional Status Baseline Function- ADL's Independent Baseline Function- Mobility Independent Baseline Function- Gait Independent, community distances Baseline Function- Work/School not working Baseline Function- Recreation/Hobbies likes to walk Baseline Function- Other peritoneal dialysis Current Functional Impairments (Reported) Functional Limitations- ADL's Independent, pain in right foot when sleeping Functional Limitations- Mobility/Gait Limited walking due to right foot if not in CAM boot and right hip pain when in CAM boot, right foot pain limits his standing. He can only stand for 15-20 min due to many areas of his body hurting including his foot. Functional Limitations- Work/School not working Functional Limitations- Recreation/ unable at this time Hobbies Functional Limitations- Other he has a multi-podus positioning device for his right foot at night to sleep Personal Factors Other Personal Factors That May Effect LE edema related to dialysis Therapy/Recovery issues PT-OP-C Subjective Start: 09/09/18 13:00 Freq: Status: Active Protocol: Document 01/20/19 18:29 GGD (Rec: 01/20/19 18:35 GGD [email or web address]) OP-PT Subjective Patient Comments Patient Comments Pt states he doing his HEP. PT-OP-D Balance Start: 09/09/18 13:00 Freq: Status: Active Protocol: Document 09/09/18 13:00 DLM (Rec: 09/09/18 18:25 DLM [id number]) Balance Tests Single Limb Standing Single Limb- Right 3 sec Single Limb- Left 3-6 sec PT-OP-G Mobility & Gait Start: 09/09/18 13:00 Freq: Status: Active Protocol: Document 09/09/18 13:00 DLM (Rec: 09/09/18 18:27 DLM [id number]) OP Mobility Evaluation Bed Mobility Supine to and from Sit independent Transfers Sit to Stand independent without UE support Bed to Chair Transfers Independent OP Gait Assessment Gait Gait Assistance Required: Independent Assistive Devices Assistive Device None Orthotic/Prosthetic Devices or Brace: Yes Gait Deviations General Gait Pattern Antalgic,Decreased Stride Length Factors Limiting Gait Function Factors Limiting Gait Function Decreased Strength,Limited Range of Motion,Pain Comments Gait Comments unable to advance over right foot in stance, right foot externally rotates, pain right lateral foot PT-OP-H Neuro Start: 09/09/18 13:00 Freq: Status: Active Protocol: Document 09/09/18 13:00 DLM (Rec: 09/09/18 18:31 DLM [id number]) Sensation Evaluation Comments Summary Comments tingling right lateral foot to touch especially in same area as his pain PT-OP-J Posture/Palpation/Skin Start: 09/09/18 13:00 Freq: Status: Active Protocol: Document 09/09/18 13:00 DLM (Rec: 09/09/18 18:43 DLM [id number]) Skin Assessment Circumference Measurement 2 Location ankle joint left Measurement (Centimeters) 37.0 Comments edema in left distal LE which is greater than right LE 1 Location ankle joint right Measurement (Centimeters) 36.8 Comments mild edema PT-OP-K Range of Motion Start: 09/09/18 13:00 Freq: Status: Active Protocol: Document 11/26/18 11:51 HH (Rec: 11/26/18 11:57 HH [id number]) Ankle and Foot Goniometric Range of Motion Ankle and Foot Right Active Dorsiflexion with Knee Extended 5 PT-OP-M Strength Start: 09/09/18 13:00 Freq: Status: Active Protocol: Document 11/26/18 11:51 HH (Rec: 11/26/18 11:57 HH [id number]) Knee Strength Knee Manual Muscle Testing Right Flexion (S2) 4+ Good+ Extension (L3) 4- Good- Ankle/Foot Strength Ankle and Foot Manual Muscle Testing Left Dorsiflexion (L4) 5 Normal Plantarflexion (S1) 4- Good- Inversion 5 Normal Eversion (S1) 5 Normal Right Dorsiflexion (L4) 4+ Good+ Plantarflexion (S1) 4- Good- Inversion 4+ Good+ Eversion (S1) 5 Normal PT-OP-Q Treatments Start: 09/09/18 13:00 Freq: Status: Active Protocol: Document 01/20/19 18:29 GGD (Rec: 01/20/19 18:35 GGD [email or web address]) Gym Equipment Shuttle Balance 1 Details SLS - bilateral, tandom Reps/Duration 3 minutes Comments blue chains Therapeutic Exercises Sitting Exercises short foot Sitting Exercise Name short foot Side bilateral Reps/Minutes 10x Comments able in sitting; unable in weightbearing ankle 3 way Sitting Exercise Name ankle EV, IV and DF Side right Resistance Level 2 Equipment Used thera band Reps/Minutes 2x10 reps Standing Exercises step up to bosu ball Standing Exercise Name step up to bosu ball Side bilateral Reps/Minutes 2x10 reps bilat Comments UE support on railings as needed calf stretch Standing Exercise Name gastroc and soleus stretch Side bilateral Equipment Used flaquito Reps/Minutes 2 minutes heel raises Standing Exercise Name heel raises Side bilateral Reps/Minutes 2x10 reps Comments weak eversion with heel raise Manual Therapy Treatment Soft Tissue Mobilization 1 Body Location right foot and gastroc Mobilization Type Strumming,Sustained Pressure, Trigger Point Release Intensity/Depth Moderate Body Position Hooklying Comments deep prep cream used; focus on plantar surface Joint Mobilizations 2 Joint tibiotalar Direction posterior Grade III Body Position Standing Reps/Duration 2 minutes Comments in weightbearing position as pt lunged onto 12 step 1 Joint MTP 1-5 Direction dorsal/plantar Grade III Body Position Hooklying Reps/Duration 6 minutes Comments resistance met almost immediately Neuro Re-Education Treatment Balance Activities semi tandem Details eyes closed Surface firm single leg stance Surface ground level Equipment wall bar if needed Reps/Duration SLS as gi x 2 on each side PT-OP-R Modalities Start: 09/09/18 13:00 Freq: Status: Active Protocol: Document 12/13/18 14:28 SAK (Rec: 12/13/18 16:39 SAK [id number]) Hot Pack/Cold Pack Treatment Cold Pack Location right foot Patient Position Hooklying Treatment Duration (minutes) 10 Patient Tolerance Good PT-OP-T Assessment and Plan Start: 09/09/18 13:00 Freq: Status: Active Protocol: Document 01/20/19 18:29 GGD (Rec: 01/20/19 18:35 GGD [email or web address]) Physical Therapy Assessment Goals Four Impairment Hypersensativity right foot Bean Sprout Laborer Goal (LTG) Able to touch right foot without pain/tingling 11/23/18 pain level of 5/10 with mod pressure, 0/10 with light pressure. 12/13/18: decreasing hypersensitivity with good tolerance for moderate pressure today LTG Duration 8 weeks Three Impairment Limited ROM Short Term Goal (STG) Right DF to 0 degrees 11/23/18 lacking 5 degrees of DF 12/13/18: still lacks 5 degrees DF STG Duration 4 weeks Bean Sprout Laborer Goal (LTG) Right DF to 5 degrees LTG Duration 8 weeks Two Impairment Decreased Strength STG Duration 4 weeks Residential Goal (LTG) - Increase right toe flex/ext strength to 4+/5 - Right ankle strength 5/5 12/13/18: some goal progress LTG Duration 8 weeks One Impairment Limited gait Short Term Goal (STG) Tolerate walking around the house without CAM boot without right foot pain with normal gait pattern 12/13/18: some goal progress STG Duration 4 weeks Bean Sprout Laborer Goal (LTG) Tolerate gait in the community without right foot pain with supportive shoes. LTG Duration achived 11/23/18 Assessment Summary Assessment PT improving with balance tandem and SLS. He improved with joint mobility. Physical Therapy Plan Frequency and Duration Frequency of Treatment 2x/wk then 1x/wk Next Visit Focus/Plan Next Note Type Treatment Note Next Visit Plan Continue gait training, balance, strengthening, manual therapy.
--- NOTE | 2019-02-10 17:49 | PT.OTN ---
Current Diagnoses Other acquired deformities of right foot (02/10/19) Other instability, right ankle (02/10/19) Metatarsalgia, right foot (02/10/19) Pain in right foot (02/10/19) Difficulty in walking, not elsewhere classified (02/10/19) Contusion of right foot, initial encounter (02/10/19) Physical Therapy Treatment Note PT-OP-A Visit Information Start: 09/09/18 13:00 Freq: Status: Active Protocol: Document 02/10/19 17:31 GGD (Rec: 02/10/19 17:44 GGD [id number]) Out-Patient Physical Therapy Visit Information Visit Information Visit Type Treatment Note Visit Start Time 16:00 Visit Stop Time 16:40 Total Visit Minutes 40 Visit Number 15 Number of TILE ROOFER Visits 3 PT-OP-B Current Condition Start: 09/09/18 13:00 Freq: Status: Active Protocol: Document 09/09/18 13:00 DLM (Rec: 09/09/18 18:15 DLM [id number]) Current Condition History of Current Condition Onset Date Few months ago Current Complaints Right foot pain History of Current Condition A few months ago he was walking and developed pain in his right lateral foot. He reports no known injury to his foot. He was diagnosed with stress fx in right foot (old fx and newer fx). He was placed in a CAM boot for 6 weeks. He is still wearing the CAM boot. He continues to have right lateral foot pain if he tries to walk without the boot. He reports recent start of right lateral hip pain that he thinks is from being in the boot. The hip pain is better if he takes the boot off. He also has mild tingling in his right foot in the same area of his injury. Prior Treatments and Tests x-rays for right foot Future Testing and Treatments Planned Pt reports progression out of CAM boot will depend on therapy Treatment Goals Patient/Caregiver Goals Be able to walk and stand without right foot pain limiting him. Prior Functional Status Baseline Function- ADL's Independent Baseline Function- Mobility Independent Baseline Function- Gait Independent, community distances Baseline Function- Work/School not working Baseline Function- Recreation/Hobbies likes to walk Baseline Function- Other peritoneal dialysis Current Functional Impairments (Reported) Functional Limitations- ADL's Independent, pain in right foot when sleeping Functional Limitations- Mobility/Gait Limited walking due to right foot if not in CAM boot and right hip pain when in CAM boot, right foot pain limits his standing. He can only stand for 15-20 min due to many areas of his body hurting including his foot. Functional Limitations- Work/School not working Functional Limitations- Recreation/ unable at this time Hobbies Functional Limitations- Other he has a multi-podus positioning device for his right foot at night to sleep Personal Factors Other Personal Factors That May Effect LE edema related to dialysis Therapy/Recovery issues PT-OP-C Subjective Start: 09/09/18 13:00 Freq: Status: Active Protocol: Document 02/10/19 17:31 GGD (Rec: 02/10/19 17:44 GGD [email or web address]) OP-PT Subjective Patient Comments Patient Comments Pt states he not done as much has he has been in hospital. PT-OP-D Balance Start: 09/09/18 13:00 Freq: Status: Active Protocol: Document 09/09/18 13:00 DLM (Rec: 09/09/18 18:25 DLM [id number]) Balance Tests Single Limb Standing Single Limb- Right 3 sec Single Limb- Left 3-6 sec PT-OP-G Mobility & Gait Start: 09/09/18 13:00 Freq: Status: Active Protocol: Document 09/09/18 13:00 DLM (Rec: 09/09/18 18:27 DLM [id number]) OP Mobility Evaluation Bed Mobility Supine to and from Sit independent Transfers Sit to Stand independent without UE support Bed to Chair Transfers Independent OP Gait Assessment Gait Gait Assistance Required: Independent Assistive Devices Assistive Device None Orthotic/Prosthetic Devices or Brace: Yes Gait Deviations General Gait Pattern Antalgic,Decreased Stride Length Factors Limiting Gait Function Factors Limiting Gait Function Decreased Strength,Limited Range of Motion,Pain Comments Gait Comments unable to advance over right foot in stance, right foot externally rotates, pain right lateral foot PT-OP-H Neuro Start: 09/09/18 13:00 Freq: Status: Active Protocol: Document 09/09/18 13:00 DLM (Rec: 09/09/18 18:31 DLM [id number]) Sensation Evaluation Comments Summary Comments tingling right lateral foot to touch especially in same area as his pain PT-OP-J Posture/Palpation/Skin Start: 09/09/18 13:00 Freq: Status: Active Protocol: Document 09/09/18 13:00 DLM (Rec: 09/09/18 18:43 DLM [id number]) Skin Assessment Circumference Measurement 2 Location ankle joint left Measurement (Centimeters) 37.0 Comments edema in left distal LE which is greater than right LE 1 Location ankle joint right Measurement (Centimeters) 36.8 Comments mild edema PT-OP-K Range of Motion Start: 09/09/18 13:00 Freq: Status: Active Protocol: Document 11/26/18 11:51 HH (Rec: 11/26/18 11:57 HH [id number]) Ankle and Foot Goniometric Range of Motion Ankle and Foot Right Active Dorsiflexion with Knee Extended 5 PT-OP-M Strength Start: 09/09/18 13:00 Freq: Status: Active Protocol: Document 11/26/18 11:51 HH (Rec: 11/26/18 11:57 HH [id number]) Knee Strength Knee Manual Muscle Testing Right Flexion (S2) 4+ Good+ Extension (L3) 4- Good- Ankle/Foot Strength Ankle and Foot Manual Muscle Testing Left Dorsiflexion (L4) 5 Normal Plantarflexion (S1) 4- Good- Inversion 5 Normal Eversion (S1) 5 Normal Right Dorsiflexion (L4) 4+ Good+ Plantarflexion (S1) 4- Good- Inversion 4+ Good+ Eversion (S1) 5 Normal PT-OP-Q Treatments Start: 09/09/18 13:00 Freq: Status: Active Protocol: Document 02/10/19 17:31 GGD (Rec: 02/10/19 17:44 GGD [id number]) Gym Equipment Shuttle Balance 1 Details SLS - bilateral, tandom Reps/Duration 3 minutes Comments blue chains Therapeutic Exercises Sitting Exercises ankle 3 way Sitting Exercise Name ankle EV, IV and DF Side right Resistance Level 2 Equipment Used thera band Reps/Minutes 2x10 reps Standing Exercises step up to bosu ball Standing Exercise Name step up to bosu ball Side bilateral Reps/Minutes 2x10 reps bilat Comments UE support on railings as needed calf stretch Standing Exercise Name gastroc and soleus stretch Side bilateral Equipment Used flaquito Reps/Minutes 2 minutes heel raises Standing Exercise Name heel raises Side bilateral Reps/Minutes 2x10 reps Comments weak eversion with heel raise Manual Therapy Treatment Soft Tissue Mobilization 1 Body Location right foot and gastroc Mobilization Type Strumming,Sustained Pressure, Trigger Point Release Intensity/Depth Moderate Body Position Hooklying Comments deep prep cream used; focus on plantar surface Joint Mobilizations 2 Joint tibiotalar Direction posterior Grade III Body Position Standing Reps/Duration 2 minutes Comments in weightbearing position as pt lunged onto 12 step 1 Joint MTP 1-5 Direction dorsal/plantar Grade III Body Position Hooklying Reps/Duration 6 minutes Comments resistance met almost immediately Neuro Re-Education Treatment Balance Activities semi tandem Details eyes closed Surface firm single leg stance Surface ground level Equipment wall bar if needed Reps/Duration SLS as gi x 2 on each side PT-OP-R Modalities Start: 09/09/18 13:00 Freq: Status: Active Protocol: Document 12/13/18 14:28 SAK (Rec: 12/13/18 16:39 SAK [id number]) Hot Pack/Cold Pack Treatment Cold Pack Location right foot Patient Position Hooklying Treatment Duration (minutes) 10 Patient Tolerance Good PT-OP-T Assessment and Plan Start: 09/09/18 13:00 Freq: Status: Active Protocol: Document 02/10/19 17:31 GGD (Rec: 02/10/19 17:44 GGD [email or web address]) Physical Therapy Assessment Goals Four Impairment Hypersensativity right foot Fpc Goal (LTG) Able to touch right foot without pain/tingling 11/23/18 pain level of 5/10 with mod pressure, 0/10 with light pressure. 12/13/18: decreasing hypersensitivity with good tolerance for moderate pressure today LTG Duration 8 weeks Three Impairment Limited ROM Short Term Goal (STG) Right DF to 0 degrees 11/23/18 lacking 5 degrees of DF 12/13/18: still lacks 5 degrees DF STG Duration 4 weeks Fpc Goal (LTG) Right DF to 5 degrees LTG Duration 8 weeks Two Impairment Decreased Strength STG Duration 4 weeks Fpc Goal (LTG) - Increase right toe flex/ext strength to 4+/5 - Right ankle strength 5/5 12/13/18: some goal progress LTG Duration 8 weeks One Impairment Limited gait Short Term Goal (STG) Tolerate walking around the house without CAM boot without right foot pain with normal gait pattern 12/13/18: some goal progress STG Duration 4 weeks Fpc Goal (LTG) Tolerate gait in the community without right foot pain with supportive shoes. LTG Duration achived 11/23/18 Assessment Summary Assessment Pt able to SLS balance 4 second. He improved with tandem with EC. Pt had increase in gastroc tightness. Physical Therapy Plan Frequency and Duration Frequency of Treatment 2x/wk Duration of Treatment 8 weeks Plan of Care Start Date 11/23/18 Plan of Care End Date 02/21/19 Next Visit Focus/Plan Next Note Type Treatment Note Next Visit Plan Continue gait training, balance, strengthening, manual therapy.
--- NOTE | 2019-02-17 15:15 | PT.OTN ---
Current Diagnoses Other acquired deformities of right foot (02/17/19) Other instability, right ankle (02/17/19) Metatarsalgia, right foot (02/17/19) Pain in right foot (02/17/19) Difficulty in walking, not elsewhere classified (02/17/19) Contusion of right foot, initial encounter (02/17/19) Physical Therapy Treatment Note PT-OP-A Visit Information Start: 09/09/18 13:00 Freq: Status: Active Protocol: Document 02/17/19 14:30 DCW (Rec: 02/17/19 15:15 DCW [id number]) Out-Patient Physical Therapy Visit Information Visit Information Visit Type Treatment Note Visit Start Time 14:30 Visit Stop Time 15:15 Total Visit Minutes 45 Visit Number 16 Number of INVENTORY TAKER Visits 0 PT-OP-B Current Condition Start: 09/09/18 13:00 Freq: Status: Active Protocol: Document 09/09/18 13:00 DLM (Rec: 09/09/18 18:15 DLM [id number]) Current Condition History of Current Condition Onset Date Few months ago Current Complaints Right foot pain History of Current Condition A few months ago he was walking and developed pain in his right lateral foot. He reports no known injury to his foot. He was diagnosed with stress fx in right foot (old fx and newer fx). He was placed in a CAM boot for 6 weeks. He is still wearing the CAM boot. He continues to have right lateral foot pain if he tries to walk without the boot. He reports recent start of right lateral hip pain that he thinks is from being in the boot. The hip pain is better if he takes the boot off. He also has mild tingling in his right foot in the same area of his injury. Prior Treatments and Tests x-rays for right foot Future Testing and Treatments Planned Pt reports progression out of CAM boot will depend on therapy Treatment Goals Patient/Caregiver Goals Be able to walk and stand without right foot pain limiting him. Prior Functional Status Baseline Function- ADL's Independent Baseline Function- Mobility Independent Baseline Function- Gait Independent, community distances Baseline Function- Work/School not working Baseline Function- Recreation/Hobbies likes to walk Baseline Function- Other peritoneal dialysis Current Functional Impairments (Reported) Functional Limitations- ADL's Independent, pain in right foot when sleeping Functional Limitations- Mobility/Gait Limited walking due to right foot if not in CAM boot and right hip pain when in CAM boot, right foot pain limits his standing. He can only stand for 15-20 min due to many areas of his body hurting including his foot. Functional Limitations- Work/School not working Functional Limitations- Recreation/ unable at this time Hobbies Functional Limitations- Other he has a multi-podus positioning device for his right foot at night to sleep Personal Factors Other Personal Factors That May Effect LE edema related to dialysis Therapy/Recovery issues PT-OP-C Subjective Start: 09/09/18 13:00 Freq: Status: Active Protocol: Document 02/17/19 14:30 DCW (Rec: 02/17/19 15:15 DCW [id number]) OP-PT Subjective Patient Comments Patient Comments Pt reports he is a little bit sore right now, but overall has been doping well. PT-OP-D Balance Start: 09/09/18 13:00 Freq: Status: Active Protocol: Document 09/09/18 13:00 DLM (Rec: 09/09/18 18:25 DLM [id number]) Balance Tests Single Limb Standing Single Limb- Right 3 sec Single Limb- Left 3-6 sec PT-OP-G Mobility & Gait Start: 09/09/18 13:00 Freq: Status: Active Protocol: Document 09/09/18 13:00 DLM (Rec: 09/09/18 18:27 DLM [id number]) OP Mobility Evaluation Bed Mobility Supine to and from Sit independent Transfers Sit to Stand independent without UE support Bed to Chair Transfers Independent OP Gait Assessment Gait Gait Assistance Required: Independent Assistive Devices Assistive Device None Orthotic/Prosthetic Devices or Brace: Yes Gait Deviations General Gait Pattern Antalgic,Decreased Stride Length Factors Limiting Gait Function Factors Limiting Gait Function Decreased Strength,Limited Range of Motion,Pain Comments Gait Comments unable to advance over right foot in stance, right foot externally rotates, pain right lateral foot PT-OP-H Neuro Start: 09/09/18 13:00 Freq: Status: Active Protocol: Document 09/09/18 13:00 DLM (Rec: 09/09/18 18:31 DLM [id number]) Sensation Evaluation Comments Summary Comments tingling right lateral foot to touch especially in same area as his pain PT-OP-J Posture/Palpation/Skin Start: 09/09/18 13:00 Freq: Status: Active Protocol: Document 09/09/18 13:00 DLM (Rec: 09/09/18 18:43 DLM [id number]) Skin Assessment Circumference Measurement 2 Location ankle joint left Measurement (Centimeters) 37.0 Comments edema in left distal LE which is greater than right LE 1 Location ankle joint right Measurement (Centimeters) 36.8 Comments mild edema PT-OP-K Range of Motion Start: 09/09/18 13:00 Freq: Status: Active Protocol: Document 11/26/18 11:51 HH (Rec: 11/26/18 11:57 HH [id number]) Ankle and Foot Goniometric Range of Motion Ankle and Foot Right Active Dorsiflexion with Knee Extended 5 PT-OP-M Strength Start: 09/09/18 13:00 Freq: Status: Active Protocol: Document 11/26/18 11:51 HH (Rec: 11/26/18 11:57 HH [id number]) Knee Strength Knee Manual Muscle Testing Right Flexion (S2) 4+ Good+ Extension (L3) 4- Good- Ankle/Foot Strength Ankle and Foot Manual Muscle Testing Left Dorsiflexion (L4) 5 Normal Plantarflexion (S1) 4- Good- Inversion 5 Normal Eversion (S1) 5 Normal Right Dorsiflexion (L4) 4+ Good+ Plantarflexion (S1) 4- Good- Inversion 4+ Good+ Eversion (S1) 5 Normal PT-OP-Q Treatments Start: 09/09/18 13:00 Freq: Status: Active Protocol: Document 02/17/19 14:30 DCW (Rec: 02/17/19 15:15 DCW [id number]) Gym Equipment Shuttle Recovery Bilateral Heel Raises Resistance 75# Shuttle Balance 1 Details SLS - bilateral, tandem Comments blue chains Therapeutic Exercises Sitting Exercises ankle 3 way Sitting Exercise Name ankle EV, IV, PF, and DF Side right Resistance Level 3 Equipment Used thera band Reps/Minutes 2x15 reps Standing Exercises step up to bosu ball Standing Exercise Name step up to bosu ball Side bilateral Reps/Minutes 2x10 reps bilat Comments UE support on railings as needed calf stretch Standing Exercise Name gastroc and soleus stretch Side bilateral Equipment Used flaquito Reps/Minutes 2 minutes heel raises Standing Exercise Name heel raises Side bilateral Reps/Minutes 2x10 reps Comments weak eversion with heel raise Manual Therapy Treatment Soft Tissue Mobilization 1 Body Location right foot and gastroc Mobilization Type Strumming,Sustained Pressure, Trigger Point Release Intensity/Depth Moderate Body Position Hooklying Comments deep prep cream used; focus on plantar surface Joint Mobilizations 2 Joint tibiotalar Direction posterior Grade III Body Position Standing Reps/Duration 2 minutes Comments in weightbearing position as pt lunged onto 12 step 1 Joint MTP 1-5 Direction dorsal/plantar Grade III Body Position Hooklying Reps/Duration 6 minutes Comments resistance met almost immediately PT-OP-R Modalities Start: 09/09/18 13:00 Freq: Status: Active Protocol: Document 12/13/18 14:28 SAK (Rec: 12/13/18 16:39 SAK [id number]) Hot Pack/Cold Pack Treatment Cold Pack Location right foot Patient Position Hooklying Treatment Duration (minutes) 10 Patient Tolerance Good PT-OP-T Assessment and Plan Start: 09/09/18 13:00 Freq: Status: Active Protocol: Document 02/17/19 14:30 DCW (Rec: 02/17/19 15:15 DCW [id number]) Physical Therapy Assessment Goals Four Impairment Hypersensativity right foot Halfway Goal (LTG) Able to touch right foot without pain/tingling 11/23/18 pain level of 5/10 with mod pressure, 0/10 with light pressure. 12/13/18: decreasing hypersensitivity with good tolerance for moderate pressure today LTG Duration 8 weeks Three Impairment Limited ROM Short Term Goal (STG) Right DF to 0 degrees 11/23/18 lacking 5 degrees of DF 12/13/18: still lacks 5 degrees DF STG Duration 4 weeks Halfway Goal (LTG) Right DF to 5 degrees LTG Duration 8 weeks Two Impairment Decreased Strength STG Duration 4 weeks Set Up Inspector Goal (LTG) - Increase right toe flex/ext strength to 4+/5 - Right ankle strength 5/5 12/13/18: some goal progress LTG Duration 8 weeks One Impairment Limited gait Short Term Goal (STG) Tolerate walking around the house without CAM boot without right foot pain with normal gait pattern 12/13/18: some goal progress STG Duration 4 weeks Set Up Inspector Goal (LTG) Tolerate gait in the community without right foot pain with supportive shoes. LTG Duration achieved 8/20/19 Assessment Summary Assessment Pt improving overall with balance and ankle mobility. Decrease in difficulty with gait, tolerating treatment very well. Reassessment next visit Physical Therapy Plan Frequency and Duration Frequency of Treatment 2x/wk Duration of Treatment 8 weeks Plan of Care Start Date 11/23/18 Plan of Care End Date 02/21/19 Next Visit Focus/Plan Next Note Type Progress Note Next Visit Plan Continue gait training, balance, strengthening, manual therapy.
--- NOTE | 2019-06-21 11:15 | PT.OTN ---
Current Diagnoses Other acquired deformities of right foot (02/17/19) Other instability, right ankle (02/17/19) Metatarsalgia, right foot (02/17/19) Pain in right foot (02/17/19) Difficulty in walking, not elsewhere classified (02/17/19) Contusion of right foot, initial encounter (02/17/19) Physical Therapy Treatment Note PT-OP-A Visit Information Start: 09/09/18 13:00 Freq: Status: Active Protocol: Document 06/21/19 11:14 SAK (Rec: 06/21/19 11:15 SAK [id number]) Out-Patient Physical Therapy Visit Information Visit Information Visit Type Discharge Summary Visit Note Patient not seen for PT since 02/17/19. Will be discharged from PT. PT-OP-B Current Condition Start: 09/09/18 13:00 Freq: Status: Active Protocol: Document 09/09/18 13:00 DLM (Rec: 09/09/18 18:15 DLM [id number]) Current Condition History of Current Condition Onset Date Few months ago Current Complaints Right foot pain History of Current Condition A few months ago he was walking and developed pain in his right lateral foot. He reports no known injury to his foot. He was diagnosed with stress fx in right foot (old fx and newer fx). He was placed in a CAM boot for 6 weeks. He is still wearing the CAM boot. He continues to have right lateral foot pain if he tries to walk without the boot. He reports recent start of right lateral hip pain that he thinks is from being in the boot. The hip pain is better if he takes the boot off. He also has mild tingling in his right foot in the same area of his injury. Prior Treatments and Tests x-rays for right foot Future Testing and Treatments Planned Pt reports progression out of CAM boot will depend on therapy Treatment Goals Patient/Caregiver Goals Be able to walk and stand without right foot pain limiting him. Prior Functional Status Baseline Function- ADL's Independent Baseline Function- Mobility Independent Baseline Function- Gait Independent, community distances Baseline Function- Work/School not working Baseline Function- Recreation/Hobbies likes to walk Baseline Function- Other peritoneal dialysis Current Functional Impairments (Reported) Functional Limitations- ADL's Independent, pain in right foot when sleeping Functional Limitations- Mobility/Gait Limited walking due to right foot if not in CAM boot and right hip pain when in CAM boot, right foot pain limits his standing. He can only stand for 15-20 min due to many areas of his body hurting including his foot. Functional Limitations- Work/School not working Functional Limitations- Recreation/ unable at this time Hobbies Functional Limitations- Other he has a multi-podus positioning device for his right foot at night to sleep Personal Factors Other Personal Factors That May Effect LE edema related to dialysis Therapy/Recovery issues PT-OP-C Subjective Start: 09/09/18 13:00 Freq: Status: Active Protocol: Document 02/17/19 14:30 DCW (Rec: 02/17/19 15:15 DCW [id number]) OP-PT Subjective Patient Comments Patient Comments Pt reports he is a little bit sore right now, but overall has been doping well. PT-OP-D Balance Start: 09/09/18 13:00 Freq: Status: Active Protocol: Document 09/09/18 13:00 DLM (Rec: 09/09/18 18:25 DLM [id number]) Balance Tests Single Limb Standing Single Limb- Right 3 sec Single Limb- Left 3-6 sec PT-OP-G Mobility & Gait Start: 09/09/18 13:00 Freq: Status: Active Protocol: Document 09/09/18 13:00 DLM (Rec: 09/09/18 18:27 DLM [id number]) OP Mobility Evaluation Bed Mobility Supine to and from Sit independent Transfers Sit to Stand independent without UE support Bed to Chair Transfers Independent OP Gait Assessment Gait Gait Assistance Required: Independent Assistive Devices Assistive Device None Orthotic/Prosthetic Devices or Brace: Yes Gait Deviations General Gait Pattern Antalgic,Decreased Stride Length Factors Limiting Gait Function Factors Limiting Gait Function Decreased Strength,Limited Range of Motion,Pain Comments Gait Comments unable to advance over right foot in stance, right foot externally rotates, pain right lateral foot PT-OP-H Neuro Start: 09/09/18 13:00 Freq: Status: Active Protocol: Document 09/09/18 13:00 DLM (Rec: 09/09/18 18:31 DLM [id number]) Sensation Evaluation Comments Summary Comments tingling right lateral foot to touch especially in same area as his pain PT-OP-J Posture/Palpation/Skin Start: 09/09/18 13:00 Freq: Status: Active Protocol: Document 09/09/18 13:00 DLM (Rec: 09/09/18 18:43 DLM [id number]) Skin Assessment Circumference Measurement 2 Location ankle joint left Measurement (Centimeters) 37.0 Comments edema in left distal LE which is greater than right LE 1 Location ankle joint right Measurement (Centimeters) 36.8 Comments mild edema PT-OP-K Range of Motion Start: 09/09/18 13:00 Freq: Status: Active Protocol: Document 11/26/18 11:51 HH (Rec: 11/26/18 11:57 HH [id number]) Ankle and Foot Goniometric Range of Motion Ankle and Foot Right Active Dorsiflexion with Knee Extended 5 PT-OP-M Strength Start: 09/09/18 13:00 Freq: Status: Active Protocol: Document 11/26/18 11:51 HH (Rec: 11/26/18 11:57 HH [id number]) Knee Strength Knee Manual Muscle Testing Right Flexion (S2) 4+ Good+ Extension (L3) 4- Good- Ankle/Foot Strength Ankle and Foot Manual Muscle Testing Left Dorsiflexion (L4) 5 Normal Plantarflexion (S1) 4- Good- Inversion 5 Normal Eversion (S1) 5 Normal Right Dorsiflexion (L4) 4+ Good+ Plantarflexion (S1) 4- Good- Inversion 4+ Good+ Eversion (S1) 5 Normal PT-OP-Q Treatments Start: 09/09/18 13:00 Freq: Status: Active Protocol: Document 02/17/19 14:30 DCW (Rec: 02/17/19 15:15 DCW [id number]) Gym Equipment Shuttle Recovery Bilateral Heel Raises Resistance 75# Shuttle Balance 1 Details SLS - bilateral, tandem Comments blue chains Therapeutic Exercises Sitting Exercises ankle 3 way Sitting Exercise Name ankle EV, IV, PF, and DF Side right Resistance Level 3 Equipment Used thera band Reps/Minutes 2x15 reps Standing Exercises step up to bosu ball Standing Exercise Name step up to bosu ball Side bilateral Reps/Minutes 2x10 reps bilat Comments UE support on railings as needed calf stretch Standing Exercise Name gastroc and soleus stretch Side bilateral Equipment Used flaquito Reps/Minutes 2 minutes heel raises Standing Exercise Name heel raises Side bilateral Reps/Minutes 2x10 reps Comments weak eversion with heel raise Manual Therapy Treatment Soft Tissue Mobilization 1 Body Location right foot and gastroc Mobilization Type Strumming,Sustained Pressure, Trigger Point Release Intensity/Depth Moderate Body Position Hooklying Comments deep prep cream used; focus on plantar surface Joint Mobilizations 2 Joint tibiotalar Direction posterior Grade III Body Position Standing Reps/Duration 2 minutes Comments in weightbearing position as pt lunged onto 12 step 1 Joint MTP 1-5 Direction dorsal/plantar Grade III Body Position Hooklying Reps/Duration 6 minutes Comments resistance met almost immediately PT-OP-R Modalities Start: 09/09/18 13:00 Freq: Status: Active Protocol: Document 12/13/18 14:28 [facility] (Rec: 12/13/18 16:39 [facility] [id number]) Hot Pack/Cold Pack Treatment Cold Pack Location right foot Patient Position Hooklying Treatment Duration (minutes) 10 Patient Tolerance Good PT-OP-T Assessment and Plan Start: 09/09/18 13:00 Freq: Status: Active Protocol: Document 06/21/19 11:14 [facility] (Rec: 06/21/19 11:15 [facility] [id number]) Physical Therapy Plan Discharge Physical Therapy Discharge Reasons No Longer Attending PT
== END 2019-06-22 08:21 ==
LOC: PHYS 14:30
PROVIDERS: PCP Family Medicine; Visit Provider Podiatrist
DX: M77.41 Metatarsalgia, right foot (principal); S90.31XA Contusion of right foot, initial encounter; M21.6X1 Other acquired deformities of right foot; M25.371 Other instability, right ankle; M79.671 Pain in right foot; R26.2 Difficulty in walking, not elsewhere classified
CPT/HCPCS: 97010; 97110; 97112; 97140; 97162

== ENCOUNTER → 2019-09-01 07:35 | Outpatient (CLI) | payer MEDICARE, MEDICAID, SELFPAY ==
--- NOTE | 2019-09-01 | DI.MRI.S_ITS ---
PROCEDURE: MR LUMBAR SPINE WO CON INDICATIONS: Low back pain TECHNIQUE: Noncontrast sagittal T1 spin echo and T2 fast echo, sagittal STIR, axial T1 and T2 fast spin echo through the lumbar spine. In cases with scoliosis, additional coronal T2 fast spin echo may be performed. COMPARISON: [facility], MR, MR LUMBAR SPINE WITHOUT CONTRAST, 06/07/2019, 9:46. [facility], CR, XR LUMBAR SPINE WITH OLBIQUES PLUS FLEXION EXTENSION, 01/21/2019, 13:28. FINDINGS: Image quality: Excellent. Alignment and Curvature: 5 lumbar type vertebral bodies are present by plain film. There is loss of normal lumbar lordosis. Mild grade 1 retrolisthesis of L3 on L4. Bone Marrow: Marrow is of normal overall signal. No acute vertebral body compression fractures. Moderate chronic wedging of L5, as before. Spinal Cord: Conus medullaris terminates at the L1-L2 disc space level. Visualized cord demonstrates normal signal and size. Paraspinous Soft Tissues: No paravertebral masses. Mild renal atrophy bilaterally. L1-L2: Mild disc desiccation. No significant canal, nor foraminal stenosis. No change. L2-L3: Mild facet and ligament flavum hypertrophy. No significant canal, nor foraminal stenosis. No change. L3-L4: Mild disc height loss. Moderate disc desiccation. Mild diffuse disc bulge with superimposed central broad-based protrusion. Mild epidural lipomatosis. Moderate canal stenosis. Mild bilateral foraminal stenosis. No change. L4-L5: Mild disc height loss and desiccation. Mild diffuse disc bulge with superimposed small central protrusion. Mild facet hypertrophy bilaterally. Mild canal stenosis. Mild bilateral foraminal stenosis. No change. L5-S1: Mild disc height loss and desiccation. Mild diffuse disc bulge. Mild bilateral facet hypertrophy. Epidural lipomatosis. Mild canal stenosis. stenosis. Mild bilateral foraminal stenosis. No change. IMPRESSION: 1. Multilevel degenerative disc and facet disease, as well as ligamentum flavum hypertrophy and epidural lipomatosis. 2. Multilevel canal stenoses, worst at L3-L4, where there is moderate canal stenosis. 3. Mild multilevel foraminal stenoses. Dictated by: Felicity Mejia M.D. on 09/01/2019 at 9:55 Approved by: Felicity Mejia M.D. on 09/01/2019 at 10:02
== END ==
PROVIDERS: PCP Family Medicine; Referring Provider Physical Medicine & Rehabilitation; Visit Provider Physical Medicine & Rehabilitation
DX: M54.5 Low back pain (principal); M51.36 Other intervertebral disc degeneration, lumbar region; M51.37 Other intervertebral disc degeneration, lumbosacral region; M48.061 Spinal stenosis, lumbar region without neurogenic claudication; M48.07 Spinal stenosis, lumbosacral region; E88.2 Lipomatosis, not elsewhere classified
CPT/HCPCS: 72148

== ENCOUNTER 2019-09-27 15:01 | Emergency (ER) | payer MEDICARE, MEDICAID, SELFPAY ==
[2019-09-27] VITALS (7 sets, daily range): BP systolic 121–200; BP diastolic 76–119; PULSE 90–99; RESP 14–18; TEMP 36.2–36.8; O2SAT 97–100; BMI 21.1
--- NOTE | 2019-09-27 15:14 | DI.CT.S_ITS ---
PROCEDURE: CT ABDOMEN PELVIS W CON INDICATIONS: LLQ pain TECHNIQUE: After the administration of oral and intravenous contrast, 5 mm thick sections acquired from the diaphragms to the symphysis. 5 mm thick coronal and sagittal reformats were performed. For radiation dose reduction, the following was used: automated exposure control, adjustment of mA and/or kV according to patient size. COMPARISON: Located [facility], CT, CT ABDOMEN PELVIS WITHOUT CONTRAST, 12/23/2018, 19:33. Located [facility], CT, CT ABDOMEN PELVIS WITHOUT CONTRAST, 12/23/2017, 20:10. Located Within [facility], CT, CT KUB, 10/20/2017, 8:58. FINDINGS: Image quality: Diagnostic. ABDOMEN: Lung bases: Lung bases are clear. Heart size is normal. Solid organs: The liver is measuring within the upper limits of normal for size at approximately 19 cm in craniocaudal dimension. No focal liver lesions are identified. The spleen is within normal limits. The adrenals and pancreas are unremarkable. Mild cortical thinning appears to be present involving both kidneys. No cystic or solid renal lesion is evident. Vascular calcifications appear to be present bilaterally. There is no hydronephrosis. Peritoneum and bowel: The stomach is unremarkable. The small bowel loops are nondilated. However, mucosal enhancement of the small bowel is evident. There is also mild mucosal enhancement involving portions of the colon aerated moderate amount of residual stool is evident throughout the colon. The appendix is not definitively identified. A large amount of ascites is seen within the abdomen. A peritoneal dialysis catheter is evident that is coiled within the right lower quadrant and enters the peritoneal cavity at the level of the umbilicus. Nodes and vessels: No retroperitoneal or mesenteric adenopathy. Aorta and inferior vena cava are normal in caliber. Aortic atherosclerosis is noted. There also is atherosclerosis involving multiple small arteries of the abdomen and pelvis. Bones: No acute fracture or suspicious osseous lesion is identified. The degree of degenerative changes are similar to the previous exam. Compression deformities are noted involving the L2, L3, and L5 vertebra. There is posterior disc osteophyte complex irregularity evident at the L3-4 level that is unchanged and probably results in central canal stenosis. PELVIS: Genitourinary: Moderate thickening of the urinary bladder wall is present. The prostate is not enlarged. Miscellaneous: No inguinal hernias or adenopathy. Free fluid is seen within the pelvis. There is no loculated fluid collection or free air. Bones: No suspicious bony lesions. No acute pelvic fractures are identified. IMPRESSION: 1. No definite acute abnormality is appreciated within the abdomen or pelvis. 2. Patchy areas of bowel wall enhancement is nonspecific and may be within normal limits given the patient's chronic renal failure on peritoneal dialysis. However, the possibility of enterocolitis cannot be completely excluded and clinical correlation is recommended. 3. Possible constipation. 4. Moderate ascites throughout the abdomen and pelvis. No drainable or loculated fluid collections. 5. Borderline hepatomegaly. 6. Parenchymal thinning of both kidneys is suggestive of chronic medical renal disease. 7. Nonspecific wall thickening of the urinary bladder. Please correlate clinically to exclude cystitis. Dictated by: John Pinon M.D. on 09/27/2019 at 15:01 Approved by: John Pinon M.D. on 09/27/2019 at 15:15
[2019-09-27 15:24] LABS: Add Manual Diff / Slide Review NO; Basophils Absolute Auto 100 /uL (0-100); Basophils Percent Auto 1.1 % (0-2); Eosinophils Absolute Auto 700 /uL (0-450); Eosinophils Percent Auto 7.1 % (2-4); Hematocrit 30.6 % (41-53); Hemoglobin 10.5 g/dL (13.5-17.5); Lymphocytes Absolute Auto 1100 /uL (1100-4500); Lymphocytes Percent Auto 10.8 % (25-40); Mean Corpuscular HGB Conc 34.2 % (30-36); Mean Corpuscular Hemoglobin 30.9 PG (26-34); Mean Corpuscular Volume 90.5 fL (80-100); Monocytes Absolute Auto 900 /uL (0-900); Monocytes Percent Auto 8.7 % (3-14); Neutrophils Absolute Auto 7200 /uL (1500-7000); Neutrophils Percent Auto 72.3 % (50-75); Platelet Count 293 X10^3/uL (150-400); Red Blood Cell Count 3.38 X10^6/uL (4.5-5.9)
[2019-09-27] MEDS: SODIUM CHLORIDE 0.9% 1,000 ML 150 ML IV (15:25)
[2019-09-27] MEDS: DEXTROSE 10 % IN WATER 1,000 ML 150 ML IV (15:26)
[2019-09-27 15:29] LABS: Alanine Aminotransferase 107 IU/L (<50); Albumin 3.6 g/dL (3.5-5.0); Albumin Globulin Ratio 1.3 (1.0-2.8); Alkaline Phosphatase 119 U/L (38-126); Aspartate Aminotransferase 52 IU/L (17-59); BUN Creatinine Ratio 5.6 (6-22); Bilirubin Total 0.6 mg/dL (0.2-1.3); Blood Urea Nitrogen 43 mg/dL (9-20); Calcium 9.5 mg/dL (8.4-10.2); Carbon Dioxide 28 mmol/L (22-32); Chloride 91 mmol/L (98-107); Globulin 2.7 g/dL (1.7-4.1); HEMOLYSIS < 15 (0-50); Lipase 12 U/L (23-300); Potassium 3.5 mmol/L (3.4-5.1); Sodium 132 mmol/L (137-145); Total Protein 6.3 g/dL (6.3-8.2)
--- NOTE | 2019-09-27 15:29 | ED_ITS ---
HPI - Abdominal Pain General Chief Complaint: Abdominal Pain Stated Complaint: L Abd Pain Time Seen by Provider: 09/27/19 15:08 Source: patient Mode of arrival: EMS Limitations: no limitations History of Present Illness HPI narrative: Patient is a 39-year-old insulin-dependent diabetic currently on transplant list for kidney and pancreas due to his complications of diabetes. He is also currently on peritoneal dialysis presenting today with sudden onset of sharp left abdominal pain. He denies any fever or chills he has no nausea or vomiting. pain comes and goes in waves. Pain seems to radiate down around his his lower abdomen into his right lower quadrant. He denies any fever. He states that he checks his peritoneal fluid regularly for infection he says it has remained clear. He says when there is infection is cloudy. He denies any having regular bowel movements MD complaint: abdominal pain Radiation: LLQ, RLQ and suprapubic Related Data Home Medications Medication Instructions Recorded Confirmed atorvastatin 10 mg PO DAILY 07/14/18 09/27/19 cetirizine [Zyrtec] 5 - 10 mg PO DAILY 07/14/18 09/27/19 cholecalciferol (vitamin D3) 5,000 unit PO DAILY 07/14/18 09/27/19 [Vitamin D3] ondansetron 4 mg PO TID PRN 07/14/18 09/27/19 clonidine HCl 0.1 mg tablet 0.1 mg PO BID 05/31/19 09/27/19 cyclobenzaprine 10 mg tablet 10 mg PO TID PRN tab 08/10/19 09/27/19 insulin NPH isoph U-100 human 100 See Rx Instructions SUBCUT DAILY 09/14/19 09/14/19 unit/mL (3 mL) subcutaneous pen insulin lispro 100 unit/mL See Rx Instructions SUBCUT SEE 09/14/19 09/14/19 subcutaneous cartridge INSTRUCTIONS labetalol 200 mg tablet 100 mg PO BID tab 09/14/19 09/27/19 azithromycin 250 mg PO DAILY 09/27/19 09/27/19 buspirone 60 mg PO BID 09/27/19 09/27/19 docusate sodium [Colace] 100 mg PO DAILY 09/27/19 09/27/19 doxycycline hyclate 50 mg PO BID 09/27/19 09/27/19 doxylamine succinate 25 mg PO BEDTIME PRN 09/27/19 09/27/19 duloxetine 30 mg PO DAILY 09/27/19 09/27/19 famotidine 20 mg PO BID 09/27/19 09/27/19 mirtazapine 7.5 mg PO BEDTIME 09/27/19 09/27/19 nystatin-triamcinolone 1 applic TOPICAL BID 09/27/19 09/27/19 oxycodone 5 mg PO QID PRN 09/27/19 09/27/19 promethazine 12.5 mg PO BID PRN 09/27/19 09/27/19 topiramate 75 mg PO BID 09/27/19 09/27/19 Previous Rx's Medication Instructions Recorded [facility] 0 dev SEE INSTRUCTIONS #100 06/10/16 atomoxetine 40 mg capsule 40 mg PO QAM #30 cap 09/14/19 Allergies Allergy/AdvReac Type Severity Reaction Status Date / Time insulin detemir Allergy Intermediate causes Verified 09/27/19 17:37 [From [facility]] swelling at injection site nifedipine Allergy Intermediate neck and Verified 09/27/19 17:37 arms swell Review of Systems Review of Systems ROS Unobtainable: All systems reviewed & are unremarkable except as noted in HPI and below Constitutional Constitutional: Denies chills, Denies fever(s), Denies lethargy and Denies weakness Eyes Eyes: Denies change in vision, Denies eye discharge, Denies irritation and Denies loss of vision Cardiovascular Cardiovascular: Denies chest pain, Denies irregular heart rhythm, Denies lightheadedness, Denies palpitations, Denies dyspnea, Denies dyspnea on exertion and Denies orthopnea Respiratory Respiratory: Denies cough, Denies dyspnea, Denies dyspnea on exertion and Denies wheezing Gastrointestinal Gastrointestinal: Reports as per HPI Integumentary/Breasts Skin/Breast: Denies pruritus, Denies erythema, Denies rash and Denies wounds Neurologic Neurologic: Denies loss of vision and Denies weakness Endocrine Endocrine: Denies palpitations Allergic/Immunologic Allergic/Immunologic: Denies wheezing Patient History Medical History ADHD (attention deficit hyperactivity disorder), inattentive type (Acute) Back pain (Acute) Depression (Acute) Dyslexia (Acute) Headache (Acute) Hypertension (Acute) Major depressive disorder, recurrent, severe w/o psychotic behavior (Acute) Neck pain (Acute) Renal failure (Acute) Right ankle sprain (Acute) Type 1 diabetes mellitus (09/26/15) Type 1 diabetes mellitus (Acute) Surgical History History of cardiac radiofrequency ablation (RFA) History of cataract removal with insertion of prosthetic lens History of cataract removal with insertion of prosthetic lens History of third molar tooth extraction S/P repair of ligament of ankle (Acute) Status post appendectomy Family History Father Age: 64 Diabetes mellitus Essential hypertension High cholesterol Social History Smoking Status: Former smoker (quit in 2011 - smoked for 10 years, ) Smoking Status: Former smoker (quit in 2011 - smoked for 10 years, ) alcohol intake frequency: other Substance Use Type: marijuana Exam Initial Vital Signs Initial Vital Signs: Vital Signs Temperature 97.9 F 09/27/19 15:05 Pulse Rate 99 H 09/27/19 15:05 Respiratory Rate 17 09/27/19 15:05 Blood Pressure 200/119 H 09/27/19 15:05 Pulse Oximetry 99 09/27/19 15:05 GENERAL: Alert chronically ill young male appears in pain HEENT: Head atraumatic,EOMI, pupils reactive, face symmetric CARDIOVASCULAR: Regular rate and rhythm without murmurs, rubs or gallops. RESPIRATORY: Breath sounds equal bilaterally, no wheezes rales or rhonchi. ABDOMEN: Soft, tender left upper quadrant no guarding no rebound no ascites peritoneal diet analysis catheter is noted site does not appear infected EXTREMITIES: Normal range of motion, no clubbing or edema. Neurovascularly intact NEUROLOGICAL: Alert and oriented x4.Normal gait and speech SKIN: Warm, dry, no laceration, no petechiae, no rashes or lesions. Course Orders Ordered: ED Orders 09/27/19 14:50 Complete Blood Count AUTO DIFF Stat Comprehensive Metabolic Panel Stat Lipase Stat Procalcitonin Stat 09/27/19 15:12 Lactate (Lactic Acid) Stat 09/27/19 15:14 CT abdomen pelvis w con Stat 09/27/19 15:29 Blood Culture Stat 09/27/19 18:00 Body Fluid Culture Stat Sodium Chloride (Normal Saline 0.9%) 1,000 mls @ 150 mls/hr IV CONT KARINA Last Infusion: 09/27/19 18:38 Dose: 0 mls/hr Documented by: Admin: 09/27/19 15:25 Dose: 150 mls/hr Documented by: LIZ Dextrose (D10w) 1,000 mls @ 150 mls/hr IV CONT KARINA Last Infusion: 09/27/19 18:54 Dose: 75 mls/hr Documented by: Admin: 09/27/19 15:26 Dose: 150 mls/hr Documented by: LIZ Discontinued Medications Hydromorphone HCl (Dilaudid) 1 mg IV Q15MIN PRN PRN Reason: Pain, Severe (7-10) Last Admin: 09/27/19 17:09 Dose: 1 mg Documented by: Admin: 09/27/19 15:34 Dose: 1 mg Documented by: SABRA Hydromorphone HCl (Dilaudid) 1 mg IV NOW ONE Stop: 09/27/19 16:55 Last Admin: 09/27/19 17:25 Dose: 1 mg Documented by: LIZ Piperacillin/Tazobactam/Dextrose (Zosyn) 3.375 gm in 50 mls @ 100 mls/hr IV NOW ONE Stop: 09/27/19 17:35 Last Infusion: 09/27/19 18:38 Dose: 0 mls/hr Documented by: Infusion: 09/27/19 18:16 Dose: 100 mls/hr Documented by: Infusion: 09/27/19 17:32 Dose: 0 mls/hr Documented by: Admin: 09/27/19 17:23 Dose: 100 mls/hr Documented by: LIZ Ketorolac Tromethamine (Toradol) 15 mg IV NOW ONE Stop: 09/27/19 18:56 Last Admin: 09/27/19 19:00 Dose: 15 mg Documented by: LIZ Metoclopramide HCl (Reglan) 10 mg IV NOW ONE Stop: 09/27/19 19:02 Ondansetron HCl (Zofran) 4 mg IV NOW ONE Stop: 09/27/19 15:29 Last Admin: 09/27/19 15:34 Dose: 4 mg Documented by: SABRA Consultations Consultation #1: Dr. Ahuja, nephrology updated patient's symptoms test results, agrees with transfer and recommends admitting to hospitalist Time: 19:01 Vital Signs Vital signs: Vital Signs - 8 hr 09/27/19 15:05 09/27/19 16:37 09/27/19 17:11 Temperature 97.9 F 97.1 F L Pulse Rate 99 H 95 H 98 H Respiratory Rate 17 18 18 Blood Pressure 200/119 H Blood Pressure [Right Arm] 172/91 H 170/96 H Pulse Oximetry 99 99 98 09/27/19 18:00 09/27/19 19:01 Temperature Pulse Rate 99 H 94 H Respiratory Rate 17 18 Blood Pressure Blood Pressure [Right Arm] 121/76 122/78 Pulse Oximetry 97 MDM - Abdominal Pain Lab Data Attestation: I reviewed the patient's lab results. Result diagrams: 09/27/19 14:50 09/27/19 14:50 Labs: Lab Results 09/27/19 09/27/19 09/27/19 Range/Units 14:50 14:50 14:50 WBC 10.0 (4.5-11.0) X10^3/uL RBC 3.38 L (4.5-5.9) X10^6/uL Hgb 10.5 L (13.5-17.5) g/dL Hct 30.6 L (41-53) % MCV 90.5 (80-100) fL MCH 30.9 (26-34) PG MCHC 34.2 (30-36) % RDW 14.0 (11.6-14.8) % Plt Count 293 (150-400) X10^3/uL Neut % (Auto) 72.3 (50-75) % Lymph % (Auto) 10.8 L (25-40) % [place] % (Auto) 8.7 (3-14) % Eos % (Auto) 7.1 H (2-4) % Baso % (Auto) 1.1 (0-2) % Neut # (Auto) 7200 H (2480-7955) /uL Lymph # (Auto) 1100 (3115-7178) /uL [place] # (Auto) 900 (0-900) /uL Eos # (Auto) 700 H (0-450) /uL Baso # (Auto) 100 (0-100) /uL Sodium 132 L (137-145) mmol/L Potassium 3.5 (3.4-5.1) mmol/L Chloride 91 L (98-107) mmol/L Carbon Dioxide 28 (22-32) mmol/L BUN 43 H (9-20) mg/dL Creatinine 7.62 H* (0.66-1.25) mg/dL Estimated GFR 8.0 L (>60) mL/min BUN/Creatinine Ratio 5.6 L (6-22) Glucose 40 L* (70-100) mg/dL Lactate (0.7-2.1) mmol/L Calcium 9.5 (8.4-10.2) mg/dL Total Bilirubin 0.6 (0.2-1.3) mg/dL AST 52 (17-59) IU/L ALT 107 H (<50) IU/L Alkaline Phosphatase 119 (38-126) U/L Total Protein 6.3 (6.3-8.2) g/dL Albumin 3.6 (3.5-5.0) g/dL Globulin 2.7 (1.7-4.1) g/dL Albumin/Globulin Ratio 1.3 (1.0-2.8) Lipase 12 L (23-300) U/L Procalcitonin 2.86 H (<0.5) ng/mL 09/27/19 Range/Units 15:12 WBC (4.5-11.0) X10^3/uL RBC (4.5-5.9) X10^6/uL Hgb (13.5-17.5) g/dL Hct (41-53) % MCV (80-100) fL MCH (26-34) PG MCHC (30-36) % RDW (11.6-14.8) % Plt Count (150-400) X10^3/uL Neut % (Auto) (50-75) % Lymph % (Auto) (25-40) % [place] % (Auto) (3-14) % Eos % (Auto) (2-4) % Baso % (Auto) (0-2) % Neut # (Auto) (6069-3677) /uL Lymph # (Auto) (9261-6542) /uL [place] # (Auto) (0-900) /uL Eos # (Auto) (0-450) /uL Baso # (Auto) (0-100) /uL Sodium (137-145) mmol/L Potassium (3.4-5.1) mmol/L Chloride (98-107) mmol/L Carbon Dioxide (22-32) mmol/L BUN (9-20) mg/dL Creatinine (0.66-1.25) mg/dL Estimated GFR (>60) mL/min BUN/Creatinine Ratio (6-22) Glucose (70-100) mg/dL Lactate 0.8 (0.7-2.1) mmol/L Calcium (8.4-10.2) mg/dL Total Bilirubin (0.2-1.3) mg/dL AST (17-59) IU/L ALT (<50) IU/L Alkaline Phosphatase (38-126) U/L Total Protein (6.3-8.2) g/dL Albumin (3.5-5.0) g/dL Globulin (1.7-4.1) g/dL Albumin/Globulin Ratio (1.0-2.8) Lipase (23-300) U/L Procalcitonin (<0.5) ng/mL Point of care testing: Point of Care Testing Glucose POC [address] scan - abdomen/pelvis: Radiologist's Impression: PROCEDURE: CT ABDOMEN PELVIS W CON INDICATIONS: LLQ pain TECHNIQUE: After the administration of oral and intravenous contrast, 5 mm thick sections acquired from the diaphragms to the symphysis. 5 mm thick coronal and sagittal reformats were performed. For radiation dose reduction, the following was used: automated exposure control, adjustment of mA and/or kV according to patient size. COMPARISON: [facility], CT, CT ABDOMEN PELVIS WITHOUT CONTRAST, 12/23/2018, 19:33. [facility], CT, CT ABDOMEN PELVIS WITHOUT CONTRAST, 12/23/2017, 20:10. [facility], CT, CT KUB, 10/20/2017, 8:58. FINDINGS: Image quality: Diagnostic. ABDOMEN: Lung bases: Lung bases are clear. Heart size is normal. Solid organs: The liver is measuring within the upper limits of normal for size at approximately 19 cm in craniocaudal dimension. No focal liver lesions are ident ified. The spleen is within normal limits. The adrenals and pancreas are unremarkable. Mild cortical thinning appears to be present involving both kidneys. No cystic or solid renal lesion is evident. Vascular calcifications appear to be present bilaterally. There is no hydronephrosis. Peritoneum and bowel: The stomach is unremarkable. The small bowel loops are nondilated. However, mucosal enhancement of the small bowel is evident. There is also mild mucosal enhancement involving portions of the colon aerated moderate amount of residual stool is evident throughout the colon. The appendix is not definitively identified. A large amount of ascites is seen within the abdomen. A peritoneal dialysis catheter is evident that is coiled within the right lower quadrant and enters the peritoneal cavity at the level of the umbilicus. Nodes and vessels: No retroperitoneal or mesenteric adenopathy. Aorta and inferior vena cava are normal in caliber. Aortic atherosclerosis is noted. There also is atherosclerosis involving multiple small arteries of the abdomen and pelvis. Bones: No acute fracture or suspicious osseous lesion is identified. The degree of degenerative changes are similar to the previous exam. Compression deformities are noted involving the L2, L3, and L5 vertebra. There is posterior disc osteophyte complex irregularity evident at the L3-4 level that is unchanged and probably results in central canal stenosis. PELVIS: Genitourinary: Moderate thickening of the urinary bladder wall is present. The prostate is not enlarged. Miscellaneous: No inguinal hernias or adenopathy. Free fluid is seen within the pelvis. There is no loculated fluid collection or free air. Bones: No suspicious bony lesions. No acute pelvic fractures are identified. IMPRESSION: 1. No definite acute abnormality is appreciated within the abdomen or pelvis. 2. Patchy areas of bowel wall enhancement is nonspecific and may be within normal limits given the patient's chronic renal failure on peritoneal dialysis. However, the possibility of enterocolitis cannot be completely excluded and clinical correlation is recommended. 3. Possible constipation. 4. Moderate ascites throughout the abdomen and pelvis. No drainable or loculated fluid collections. 5. Borderline hepatomegaly. 6. Parenchymal thinning of both kidneys is suggestive of chronic medical renal disease. 7. Nonspecific wall thickening of the urinary bladder. Please correlate clinically to exclude cystitis. Dictated by: John Pinon M.D. on 09/27/2019 at 15:01 Approved by: John Pinon M.D. on 09/27/2019 at 15:15 [facility] Narrative Medical decision making narrative: Patient initial glucose is quite low. He was given D10 20 mL by EMS. He does have significant pain in the left upper quadrant which is radiating around. Abdominal CT shows possibility of enterocolitis, his procalcitonin is slightly elevated Signed out to Dr. Ang awaiting hospitalist at [facility]. Discharge Plan Departure Prescriptions: No Action clonidine HCl 0.1 mg tablet 0.1 mg PO BID RF: 0 Humulin N NPH Insulin KwikPen 100 unit/mL (3 mL) insulin pen See Rx Instructions SUBCUT DAILY RF: 0 labetalol 200 mg tablet 100 mg PO BID RF: 0 atomoxetine 40 mg capsule 40 mg PO QAM Qty: 30 RF: 3 [facility] 0 dev SEE INSTRUCTIONS Qty: 100 RF: 11 azithromycin 250 mg Tablet 250 mg PO DAILY RF: 0 doxycycline hyclate 50 mg Capsule 50 mg PO BID RF: 0 topiramate 25 mg Tablet 75 mg PO BID RF: 0 famotidine 20 mg Tablet 20 mg PO BID RF: 0 promethazine 25 mg Tablet 12.5 mg PO BID PRN (Reason: nausea /vomiting) RF: 0 nystatin-triamcinolone 100,000-0.1 unit/g-% Cream 1 applic TOPICAL BID RF: 0 docusate sodium [Colace] 100 mg Capsule 100 mg PO DAILY RF: 0 doxylamine succinate 25 mg Tablet 25 mg PO BEDTIME PRN (Reason: Insomnia) RF: 0 oxycodone 5 mg Tablet 5 mg PO QID PRN (Reason: Pain (Scale Score 7-10)) RF: 0 duloxetine 30 mg Capsule,Delayed Release(Dr/Ec) 30 mg PO DAILY RF: 0 buspirone 30 mg tablet 60 mg PO BID RF: 0 mirtazapine 15 mg tablet 7.5 mg PO BEDTIME RF: 0 cetirizine [Zyrtec] 10 mg Tablet 5 - 10 mg PO DAILY RF: 0 atorvastatin 10 mg Tablet 10 mg PO DAILY RF: 0 ondansetron 4 mg Tablet,Disintegrating 4 mg PO TID PRN (Reason: Nausea) RF: 0 cholecalciferol (vitamin D3) [Vitamin D3] 5,000 unit Tablet 5,000 unit PO DAILY RF: 0 cyclobenzaprine 10 mg tablet 10 mg PO TID PRN (Reason: Muscle Spasm) RF: 0 Humalog U-100 Insulin 100 unit/mL cartridge See Rx Instructions SUBCUT SEE INSTRUCTIONS RF: 0
[2019-09-27 15:32] LABS: Glucose 40 mg/dL (70-100)
[2019-09-27] MEDS: HYDROMORPHONE 1 MG INJ IV ×3 (15:34→17:25)
[2019-09-27] MEDS: ONDANSETRON 4 MG/2 ML INJ IV (15:34)
[2019-09-27 16:15] LABS: Procalcitonin 2.86 ng/mL (<0.5)
[2019-09-27] MEDS: PIPERACILLIN-TAZO 3.375 GM/50 ML FROZ.PIGGY IV (17:23)
--- NOTE | 2019-09-27 17:52 | PC.NURSE ---
Pt took NPH insulin 7 units this am and Humalog 2 units this am
[2019-09-27 18:25] LABS: Lactate (Lactic Acid) 0.8 mmol/L (0.7-2.1)
[2019-09-27] MEDS: KETOROLAC 60 MG/2 ML VIAL 15 MG IV (19:00)
[2019-09-27] MEDS: METOCLOPRAMIDE 10 MG/2 ML INJ IV (20:09)
== END 2019-09-27 21:30 | disposition short-term general hospital (02) ==
PROVIDERS: Emergency Medicine; Emergency Provider Emergency Medicine; PCP Family Medicine
DX: R10.32 Left lower quadrant pain (principal); E10.649 Type 1 diabetes mellitus with hypoglycemia without coma; Z79.4 Long term (current) use of insulin; R79.89 Other specified abnormal findings of blood chemistry
CPT/HCPCS: 36415; 74177; 80053; 82962; 83605; 83690; 84145; 85025; 87040; 87070; 87075; 87077; 87205; 96361; 96365; 96375; 96376; 99284; 99285; J1170; J1885; J2405; J2543; J2765; Q9967

== ENCOUNTER → 2020-01-12 16:12 | Outpatient (CLI) | payer MEDICARE, MEDICAID, SELFPAY ==
--- NOTE | 2020-01-12 | DI.RAD.S_ITS ---
PROCEDURE: XR CHEST 2V INDICATIONS: RIB PAIN TECHNIQUE: 2 views of the chest were acquired. COMPARISON: None. FINDINGS: Surgical changes and devices: None. Lungs and pleura: Lungs are clear. No pleural effusions or pneumothorax. Mediastinum: Mediastinal contours are normal. Heart size is normal. Bones and chest wall: No suspicious bony abnormalities. Soft tissues appear unremarkable. IMPRESSION: No acute cardiopulmonary process demonstrated radiographically. Dictated by: Samson Hernández M.D. on 01/12/2020 at 16:47 Approved by: Samson Hernández M.D. on 01/12/2020 at 16:48
== END ==
PROVIDERS: PCP Family Medicine; Referring Provider Family Medicine; Visit Provider Family Medicine
DX: R07.81 Pleurodynia (principal)
CPT/HCPCS: 71046

== ENCOUNTER → 2020-04-13 16:31 | Outpatient (CLI) | payer MEDICARE, MEDICAID, SELFPAY ==
--- NOTE | 2020-04-13 17:09 | DI.RAD.S_ITS ---
PROCEDURE: XR HAND LT MIN 3V INDICATIONS: left hand pain TECHNIQUE: 3 views of the hand(s) acquired. COMPARISON: [facility], CR, XR HAND RT MIN 3V, 01/13/2019, 16:00. FINDINGS: Bones: No fractures or dislocations. Carpal bones are normally aligned. No suspicious bony lesions. Scattered degenerative subchondral sclerosis and spurring. Soft tissues: Numerous scattered vascular calcifications. IMPRESSION: Mild degenerative changes. If the patient's pain or other symptoms persist, consider further evaluation with MRI Dictated by: Souleymane Jung M.D. on 04/13/2020 at 17:48 Approved by: Souleymane Jung M.D. on 04/13/2020 at 17:50
[2020-04-13 17:59] LABS: Add Manual Diff / Slide Review NO; Basophils Absolute Auto 100 /uL (0-100); Basophils Percent Auto 1.8 % (0-2); Eosinophils Absolute Auto 400 /uL (0-450); Eosinophils Percent Auto 6.5 % (2-4); Hematocrit 37.2 % (41-53); Hemoglobin 12.2 g/dL (13.5-17.5); Lymphocytes Absolute Auto 1100 /uL (1100-4500); Lymphocytes Percent Auto 17.2 % (25-40); Mean Corpuscular HGB Conc 32.9 % (30-36); Mean Corpuscular Hemoglobin 31.3 PG (26-34); Mean Corpuscular Volume 95.2 fL (80-100); Monocytes Absolute Auto 900 /uL (0-900); Monocytes Percent Auto 13.7 % (3-14); Neutrophils Absolute Auto 4000 /uL (1500-7000); Neutrophils Percent Auto 60.8 % (50-75); Platelet Count 220 X10^3/uL (150-400); Red Blood Cell Count 3.91 X10^6/uL (4.5-5.9); Red Cell Distribution Width 14.6 % (11.6-14.8); White Blood Cell Count 6.6 X10^3/uL (4.5-11.0)
[2020-04-13 18:27] LABS: Erythrocyte Sedimentation Rate 37 MM/HR (0-15)
== END ==
PROVIDERS: Referring Provider Nurse Practitioner Family; Visit Provider Nurse Practitioner Family
DX: M79.645 Pain in left finger(s) (principal)
CPT/HCPCS: 36415; 73130; 85025; 85651

== ENCOUNTER → 2020-05-07 14:09 | Outpatient (CLI) | payer MEDICARE, MEDICAID, SELFPAY ==
--- NOTE | 2020-05-07 14:13 | DI.RAD.S_ITS ---
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 COMPARISON: None. FINDINGS: Bones: No fractures or dislocations to the T1 level. The lateral masses of C1 appear intact on the odontoid view. No suspicious bony lesions. Soft tissues: No prevertebral soft tissue swelling. IMPRESSION: Normal for age, source of current symptoms is not seen. MR scanning without and with contrast may be warranted if intrinsic lesion is suspected involving the spinal cord. Dictated by: Erwin Morales M.D. on 05/07/2020 at 14:27 Approved by: Erwin Morales M.D. on 05/07/2020 at 14:27
== END ==
PROVIDERS: Referring Provider Nurse Practitioner Family; Visit Provider Nurse Practitioner Family
DX: M62.81 Muscle weakness (generalized) (principal)
CPT/HCPCS: 72040

== ENCOUNTER 2020-05-24 13:45 | Outpatient (RCR) | payer MEDICARE, MEDICAID, SELFPAY ==
--- NOTE | 2019-11-07 14:30 | PT.OIE ---
Current Diagnoses Foot drop, right foot (11/07/19) Other acquired deformities of right foot (11/07/19) Stiffness of right ankle, not elsewhere classified (11/07/19) Stiffness of left ankle, not elsewhere classified (11/07/19) Muscle weakness (generalized) (11/07/19) Plantar fascial fibromatosis (11/07/19) Other abnormalities of gait and mobility (11/07/19) Chronic fatigue, unspecified (11/07/19) Past Medical History (Last Reviewed 09/27/19 @ 15:32 by Courtney Mead DO) ADHD (attention deficit hyperactivity disorder), inattentive type (Acute) Back pain (Acute) Depression (Acute) Dyslexia (Acute) Headache (Acute) Hypertension (Acute) Major depressive disorder, recurrent, severe w/o psychotic behavior (Acute) Neck pain (Acute) Renal failure (Acute) Right ankle sprain (Acute) Type 1 diabetes mellitus (09/26/15) Type 1 diabetes mellitus (Acute) Past Surgical History (Last Reviewed 09/27/19 @ 15:32 by Courtney Mead DO) History of cardiac radiofrequency ablation (RFA) History of cataract removal with insertion of prosthetic lens History of cataract removal with insertion of prosthetic lens History of third molar tooth extraction S/P repair of ligament of ankle (Acute) Status post appendectomy Visit Care Team Role Provider Type Jose Multani MD Primary Care Provider Physician Specialty: Family Practice Address: [address] [place] [address], [id number] Email: [email or web address] Attending Provider Physician Referring Provider Specialty: Podiatry Address: [address] [place] [address], [id number] Email: [email or web address] Physical Therapy Initial Evaluation PT-OP-A Visit Information Start: 11/07/19 16:21 Freq: Status: Active Protocol: Document 11/07/19 13:45 DCW (Rec: 11/08/19 09:47 DCW [id number]) Out-Patient Physical Therapy Visit Information Visit Information Visit Type Initial Evaluation Visit Start Time 13:45 Visit Stop Time 14:30 Total Visit Minutes 45 Visit Number 1 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 Evaluation Information Evaluation Date 11/07/19 PT-OP-B Current Condition Start: 11/07/19 16:21 Freq: Status: Active Protocol: Document 11/07/19 13:45 DCW (Rec: 11/08/19 11:15 DCW [id number]) Current Condition History of Current Condition Onset Date Multi-year history Current Complaints Fatigue, weakness, gait difficulty, balance disorders History of Current Condition Pt is a 39 year old male presenting with a highly complex history, including DM type I, multiple orthopedic injuries (Hx 11 vertebral fractures, pelvic fractures, ankle reconstruction), neuropathy, kidney failure requiring dialysis, and is on the transplant list for both a kidney and a pancreas. Pt reports he has had worsening foot drop over the past few months, causing him to catch his foot during swing phase. This has recently been corrected by bilateral AFOs. Pt describes it as he would bring his foot up, he would be unable to dorsiflex his ankle , but could keep it in neutral during lift-off, but would then suddenly drop into plantarflexion mid-swing phase . Pt reports he had a recent EMG, which showed severely limited nerve conduction below his knees, they believe it is more likely secondary to neuropathy due to his diabetes vs from his previous spinal injuries. Pt admits that although his AFOs make walking easier, his is still very wobbly when standing secondary to blood pressure variations due to dialysis. Pt also notes that lisa broke his fifth metatarsal in his right foot last year, and due to the way his right foot in constantly inverted, he feels like he is always standing directly on the fracture, and that although it did heal, it is still the most painful thing about standing, especially in his AFO. Pt notes that he fatigues when walking more than two minutes, and typically cannot ascend a flight of stairs without needing to stop and take a break. Even if I could walk five minutes without stopping, that'd be so great. Pt has a caregiver and his mother able to assist him with most activities as needed. Pt occasionally uses a walker or wheelchair, but is afraid that was the reason [facility] does not think he is robust enough for his transplant. Treatment Goals Patient/Caregiver Goals Pt's goal is to increase his leg strength and activity tolerance Prior Functional Status Baseline Function- ADL's Needs Assist Baseline Function- Mobility Needs Assist PT-OP-C Subjective Start: 11/07/19 16:21 Freq: Status: Active Protocol: Document 11/07/19 13:45 DCW (Rec: 11/08/19 09:47 DCW [id number]) OP-PT Subjective Patient Comments Patient Comments [facility] told me I wasn't 'robust' to be active on their transplant list, so I really need to work to build up some strength and stamina. Patient Questionnaires Foot & Ankle Ability Measure- ADL and Sports FAAM-ADL Score /84 = 29.76% FAAM-ADL Impairment 60 to 79% Impaired (Score 16- 32) FAAM-Sport Score 05/03 = 3.57% FAAM-Sport Impairment 80 to 99% Impaired (Score 1-5) Lower Extremity Functional Scale LEFS Score = 23.75% OP-PT Pain Assessment Pain Assessment Grid Paper Pain Assessment Grid Completed Yes: Multiple locations, see chart PT-OP-E Functional Tests Start: 11/07/19 16:21 Freq: Status: Active Protocol: Document 11/07/19 13:45 DCW (Rec: 11/08/19 16:29 [facility] [id number]) Functional Tests 2 Minute Walk Test Distance 187 Device Used none Comments 1.56 ft/sec, one standing rest break PT-OP-G Mobility & Gait Start: 11/07/19 16:21 Freq: Status: Active Protocol: Document 11/07/19 13:45 DCW (Rec: 11/08/19 16:29 DC [id number]) OP Gait Assessment Gait Gait Assistance Required: Standby Assistance Distance (Feet) 187 Able to Maintain Weight Bearing Status Yes During Gait Assistive Devices Assistive Device Gait Belt Orthotic/Prosthetic Devices or Brace: Yes Gait Deviations General Gait Pattern Ataxic,Decreased Stride Length ,Decreased Feet Clearance, Flexed Trunk Factors Limiting Gait Function Factors Limiting Gait Function Abnormal Tonal Influences, Decreased Activity Tolerance, Decreased Sensation,Decreased Strength,Limited Range of Motion,Poor Balance Comments Gait Comments Pt fatigues very quickly, unable to ambulate two minutes without a rest break. No foot drop when using AFOs. PT-OP-K Range of Motion Start: 11/07/19 16:21 Freq: Status: Active Protocol: Document 11/07/19 13:45 DCW (Rec: 11/08/19 16:29 DCW [id number]) Ankle and Foot Goniometric Range of Motion Ankle and Foot Left Active Testing Position Sitting Dorsiflexion with Knee Extended 2 Plantarflexion 40 Inversion 12 Eversion 4 Right Active Testing Position Sitting Plantarflexion 36 Inversion 18 Eversion 0 Ankle and Foot ROM Limitations Comments right DF: lacking 10 degrees of dorsiflexion from neutral PT-OP-M Strength Start: 11/07/19 16:21 Freq: Status: Active Protocol: Document 11/07/19 13:45 DCW (Rec: 11/08/19 16:29 DCW [id number]) Hip Strength Hip Manual Muscle Testing Right Flexion (L2) 4- Good- Extension (S1) 4 Good Abduction 4- Good- Adduction 4- Good- External Rotation 4 Good Internal Rotation 4 Good Left Flexion (L2) 4- Good- Extension (S1) 4 Good Abduction 4- Good- Adduction 4- Good- External Rotation 4 Good Internal Rotation 4 Good Knee Strength Knee Manual Muscle Testing Right Flexion (S2) 4 Good Extension (L3) 4 Good Left Flexion (S2) 4 Good Extension (L3) 4 Good Ankle/Foot Strength Ankle and Foot Manual Muscle Testing Right Dorsiflexion (L4) 2- Poor- Plantarflexion (S1) 2- Poor- Inversion 3 Fair Eversion (S1) 2- Poor- Left Dorsiflexion (L4) 2+ Poor+ Plantarflexion (S1) 3- Fair- Inversion 2+ Poor+ Eversion (S1) 2+ Poor+ PT-OP-T Assessment and Plan Start: 11/07/19 16:21 Freq: Status: Active Protocol: Document 11/07/19 13:45 DCW (Rec: 11/07/19 18:07 DCW [id number]) Physical Therapy Assessment Rehab Potential Rehabilitation Potential Fair Evaluation Complexity Number of Personal Factors/Comorbidities 3 or More Number of Body Systems Impaired 4 or More Clinical Presentation at Evaluation Unstable Impairments Impairments Activity Tolerance,Balance, Functional Activities, Functional Mobility,Gait,Pain, ROM,Soft Tissue Mobility, Strength Goals Four Impairment R ankle inversion at rest due to substantial tone through posterior tib Fci Goal (LTG) Pt to demonstrate decreased tone in right posterior tib to enable him to return right foot to neutral at rest. LTG Duration 01/07/20 Three Impairment Pt ambulates with a gait speed of 1.56 ft/sec during 2 minute walk test Short Term Goal (STG) A gait speed less than 1.97 ft /sec can be indicative of further functional decline in the future. Pt will ambulate > 237' during the 2 MWT STG Duration 12/08/19 [employer] Goal (LTG) Pt currently unable to tolerate 2 minute walk test without a standing rest break. Pt will be able to tolerate a 6 MWT with only one standing rest break to demonstrate increased activity tolerance LTG Duration 01/07/20 Two Impairment Significant weakness (<3/5) in bilateral ankles Fci Goal (LTG) Pt to demonstrate increased strength an bilateral eversion and inversion to 3/5 LTG Duration 01/07/20 One Impairment Pt does not have an appropriate home exercise program Short Term Goal (STG) Pt to be independent and compliant with an appropriate HEP STG Duration 12/08/19 Assessment Summary Assessment Pt presents with a highly complex history, including DM type I, multiple orthopedic injuries (Hx 11 vertebral fractures, pelvic fractures, ankle reconstruction), neuropathy, kidney failure requiring dialysis, and is on the transplant list for both a kidney and a pancreas. Pt exhibits bilateral foot drop secondary to ankle weakness and limited ROM due to previous injuries combined with neuropathy. Pt has limited activity tolerance, requiring a standing rest break during a two minute walk test, has been catching his feet and tripping on smooth ground ( which has gotten less frequent since obtaining bilateral AFOs two weeks ago). Pt displays hypertonia in right posterior tibialis, which leads him to have excessive inversion on the right side, with his other ankle muscles too weak to act as antagonists . Pt should benefit from skilled therapy focusing on improving activity tolerance, LE strength, balance, ankle ROM, gait training, and stair training. Physical Therapy Plan Frequency and Duration Frequency of Treatment 2x/Week Duration of Treatment 10 weeks Plan of Care Start Date 11/07/19 Plan of Care End Date 01/16/20 Therapeutic Interventions Therapeutic Interventions Balance Training,Coordination Training,Gait Training,Home Exercise Program,Joint Mobilizations,Manual Therapy, Neuromuscular Re-education, Orthotic/Prosthetic Management ,Patient/Caregiver Education, Self-Care/Home Management,Soft Tissue Mobilization, Therapeutic Activities, Therapeutic Exercises Modalities Electric Stimulation Next Visit Focus/Plan Next Note Type Treatment Note Next Visit Plan Ankle strengthening, ankle mobility, activity tolerance, gait training
--- NOTE | 2019-11-07 14:30 | PT.OPPOC ---
Physical, Occupational & Speech Therapy At [facility] Current Diagnoses Foot drop, right foot (11/07/19) Other acquired deformities of right foot (11/07/19) Stiffness of right ankle, not elsewhere classified (11/07/19) Stiffness of left ankle, not elsewhere classified (11/07/19) Muscle weakness (generalized) (11/07/19) Plantar fascial fibromatosis (11/07/19) Other abnormalities of gait and mobility (11/07/19) Chronic fatigue, unspecified (11/07/19) Visit Care Team Role Provider Type Jose Multani MD Primary Care Provider Physician Specialty: Family Practice Address: [address] [place] [address], [id number] Email: [email or web address] Attending Provider Physician Referring Provider Specialty: Podiatry Address: [address] [place] [address], [address] Email: [email or web address] Plan Of Care PT-OP-T Assessment and Plan Start: 11/07/19 16:21 Freq: Status: Active Protocol: Document 11/07/19 13:45 DCW (Rec: 11/07/19 18:07 DCW [id number]) Physical Therapy Assessment Rehab Potential Rehabilitation Potential Fair Evaluation Complexity Number of Personal Factors/Comorbidities 3 or More Number of Body Systems Impaired 4 or More Clinical Presentation at Evaluation Unstable Impairments Impairments Activity Tolerance,Balance, Functional Activities, Functional Mobility,Gait,Pain, ROM,Soft Tissue Mobility, Strength Goals Four Impairment R ankle inversion at rest due to substantial tone through posterior tib Fpc Goal (LTG) Pt to demonstrate decreased tone in right posterior tib to enable him to return right foot to neutral at rest. LTG Duration 01/07/20 Three Impairment Pt ambulates with a gait speed of 1.56 ft/sec during 2 minute walk test Short Term Goal (STG) A gait speed less than 1.97 ft /sec can be indicative of further functional decline in the future. Pt will ambulate > 237' during the 2 MWT STG Duration 12/08/19 Fpc Goal (LTG) Pt currently unable to tolerate 2 minute walk test without a standing rest break. Pt will be able to tolerate a 6 MWT with only one standing rest break to demonstrate increased activity tolerance LTG Duration 01/07/20 Two Impairment Significant weakness (<3/5) in bilateral ankles Wedger Machine Goal (LTG) Pt to demonstrate increased strength an bilateral eversion and inversion to 3/5 LTG Duration 01/07/20 One Impairment Pt does not have an appropriate home exercise program Short Term Goal (STG) Pt to be independent and compliant with an appropriate HEP STG Duration 12/08/19 Assessment Summary Assessment Pt presents with a highly complex history, including DM type I, multiple orthopedic injuries (Hx 11 vertebral fractures, pelvic fractures, ankle reconstruction), neuropathy, kidney failure requiring dialysis, and is on the transplant list for both a kidney and a pancreas. Pt exhibits bilateral foot drop secondary to ankle weakness and limited ROM due to previous injuries combined with neuropathy. Pt has limited activity tolerance, requiring a standing rest break during a two minute walk test, has been catching his feet and tripping on smooth ground ( which has gotten less frequent since obtaining bilateral AFOs two weeks ago). Pt displays hypertonia in right posterior tibialis, which leads him to have excessive inversion on the right side, with his other ankle muscles too weak to act as antagonists . Pt should benefit from skilled therapy focusing on improving activity tolerance, LE strength, balance, ankle ROM, gait training, and stair training. Physical Therapy Plan Frequency and Duration Frequency of Treatment 2x/Week Duration of Treatment 10 weeks Plan of Care Start Date 11/07/19 Plan of Care End Date 01/16/20 Therapeutic Interventions Therapeutic Interventions Balance Training,Coordination Training,Gait Training,Home Exercise Program,Joint Mobilizations,Manual Therapy, Neuromuscular Re-education, Orthotic/Prosthetic Management ,Patient/Caregiver Education, Self-Care/Home Management,Soft Tissue Mobilization, Therapeutic Activities, Therapeutic Exercises Modalities Electric Stimulation Next Visit Focus/Plan Next Note Type Treatment Note Next Visit Plan Ankle strengthening, ankle mobility, activity tolerance, gait training Plan of Care Dates Plan of Care Start Date 11/07/19 Plan of Care End Date 01/16/20 Electronically Signed by: Volodymyr Andrews, PT 11/08/19 0850 Please Sign and Return: I have reviewed this Plan of Care and certify that the skilled therapy services above are required to meet the patient?s needs. Physician Signature Date Printed Name and Credentials Clinical Instructor Signature Printed Name and Credentials
--- NOTE | 2019-11-11 14:26 | PT.OTN ---
Current Diagnoses Foot drop, right foot (11/11/19) Other acquired deformities of right foot (11/11/19) Stiffness of right ankle, not elsewhere classified (11/11/19) Stiffness of left ankle, not elsewhere classified (11/11/19) Muscle weakness (generalized) (11/11/19) Plantar fascial fibromatosis (11/11/19) Other abnormalities of gait and mobility (11/11/19) Chronic fatigue, unspecified (11/11/19) Physical Therapy Treatment Note PT-OP-A Visit Information Start: 11/07/19 16:21 Freq: Status: Active Protocol: Document 11/11/19 13:47 DCW (Rec: 11/11/19 14:26 DCW [id number]) Out-Patient Physical Therapy Visit Information Visit Information Visit Type Treatment Note Visit Start Time 13:47 Visit Stop Time 14:30 Total Visit Minutes 43 Visit Number 2 Number of MEDICAL DOCTOR NUCLEAR MEDICINE Visits 0 Evaluation Information Evaluation Date 11/07/19 PT-OP-B Current Condition Start: 11/07/19 16:21 Freq: Status: Active Protocol: Document 11/07/19 13:45 DCW (Rec: 11/08/19 11:15 DCW [id number]) Current Condition History of Current Condition Onset Date Multi-year history Current Complaints Fatigue, weakness, gait difficulty, balance disorders History of Current Condition Pt is a 39 year old male presenting with a highly complex history, including DM type I, multiple orthopedic injuries (Hx 11 vertebral fractures, pelvic fractues, ankle reconstruction), neuropathy, kidney failure requiring dialysis, and is on the transplant list for both a kidney and a pancreas. Pt reports he has had worsening foot drop over the past few months, causing him to catch his foot during swing phase. This has recently been corrected by bilateral AFOs. Pt describes it as he would bring his foot up, he would be unable to dorsiflex his ankle , but could keep it in neutral during lift-off, but would then suddenly drop into plantarflexion mid-swing phase . Pt reports he had a recent EMG, which showed severely limited nerve conduction below his knees, they believe it is more likely secondary to neuropathy due to his diabetes vs from his previous spinal injuries. Pt admits that although his AFOs make walking easier, his is still very wobbly when standing secondary to blood pressure variations due to dialysis. Pt also notes that lisa broke his fifth metatarsal in his right foot last year, and due to the way his right foot in constantly inverted, he feels like he is always standing directly on the fracture, and that although it did heal, it is still the most painful thing about standing, especially in his AFO. Pt notes that he fatigues when walking more than two minutes, and typically cannot ascend a flight of stairs without needing to stop and take a break. Even if I could walk five minutes without stopping, that'd be so great. Pt has a caregiver and his mother able to assist him with most activities as needed. Pt occasionally uses a walker or wheelchair, but is afraid that was the reason [facility] does not think he is robust enough for his transplant. Treatment Goals Patient/Caregiver Goals Pt's goal is to increase his leg strength and activity tolerance Prior Functional Status Baseline Function- ADL's Needs Assist Baseline Function- Mobility Needs Assist PT-OP-C Subjective Start: 11/07/19 16:21 Freq: Status: Active Protocol: Document 11/11/19 13:47 DCW (Rec: 11/11/19 14:26 DCW [id number]) OP-PT Subjective Patient Comments Patient Comments I'm doing alright. PT-OP-E Functional Tests Start: 11/07/19 16:21 Freq: Status: Active Protocol: Document 11/07/19 13:45 DCW (Rec: 11/08/19 16:29 DCW [id number]) Functional Tests 2 Minute Walk Test Distance 187 Device Used none Comments 1.56 ft/sec, one standing rest break PT-OP-G Mobility & Gait Start: 11/07/19 16:21 Freq: Status: Active Protocol: Document 11/07/19 13:45 DCW (Rec: 11/08/19 16:29 DCW [id number]) OP Gait Assessment Gait Gait Assistance Required: Standby Assistance Distance (Feet) 187 Able to Maintain Weight Bearing Status Yes During Gait Assistive Devices Assistive Device Gait Belt Orthotic/Prosthetic Devices or Brace: Yes Gait Deviations General Gait Pattern Ataxic,Decreased Stride Length ,Decreased Feet Clearance, Flexed Trunk Factors Limiting Gait Function Factors Limiting Gait Function Abnormal Tonal Influences, Decreased Activity Tolerance, Decreased Sensation,Decreased Strength,Limited Range of Motion,Poor Balance Comments Gait Comments Pt fatigues very quickly, unable to ambulate two minutes without a rest break. No foot drop when using AFOs. PT-OP-K Range of Motion Start: 11/07/19 16:21 Freq: Status: Active Protocol: Document 11/07/19 13:45 DCW (Rec: 11/08/19 16:29 DCW [id number]) Ankle and Foot Goniometric Range of Motion Ankle and Foot Left Active Testing Position Sitting Dorsiflexion with Knee Extended 2 Plantarflexion 40 Inversion 12 Eversion 4 Right Active Testing Position Sitting Plantarflexion 36 Inversion 18 Eversion 0 Ankle and Foot ROM Limitations Comments right DF: lacking 10 degrees of dorsiflexion from neutral PT-OP-M Strength Start: 11/07/19 16:21 Freq: Status: Active Protocol: Document 11/07/19 13:45 DCW (Rec: 11/08/19 16:29 DCW [id number]) Hip Strength Hip Manual Muscle Testing Right Flexion (L2) 4- Good- Extension (S1) 4 Good Abduction 4- Good- Adduction 4- Good- External Rotation 4 Good Internal Rotation 4 Good Left Flexion (L2) 4- Good- Extension (S1) 4 Good Abduction 4- Good- Adduction 4- Good- External Rotation 4 Good Internal Rotation 4 Good Knee Strength Knee Manual Muscle Testing Right Flexion (S2) 4 Good Extension (L3) 4 Good Left Flexion (S2) 4 Good Extension (L3) 4 Good Ankle/Foot Strength Ankle and Foot Manual Muscle Testing Right Dorsiflexion (L4) 2- Poor- Plantarflexion (S1) 2- Poor- Inversion 3 Fair Eversion (S1) 2- Poor- Left Dorsiflexion (L4) 2+ Poor+ Plantarflexion (S1) 3- Fair- Inversion 2+ Poor+ Eversion (S1) 2+ Poor+ PT-OP-Q Treatments Start: 11/07/19 16:21 Freq: Status: Active Protocol: Document 11/11/19 13:47 DCW (Rec: 11/11/19 14:26 DCW [id number]) Cardio Equipment Recumbent Elliptical (Biodex) Duration (Minutes) 3 Resistance 1 Seat Position 12 Gym Equipment Shuttle Recovery Unilateral Heel Raises Resistance 25# Shuttle Recovery Platform Stable Reps/Time 1x5 each Bilateral Squats Resistance 62#->50# Shuttle Recovery Platform Stable Reps/Time 2x5 Therapeutic Exercises Sitting Exercises 4 Sitting Exercise Name picking up marbles with toes Side left Reps/Minutes 10 marbles x 3 sets Manual Therapy Treatment Soft Tissue Mobilization 1 Body Location Posterior tib Mobilization Type Strumming,Sustained Pressure, Trigger Point Release Intensity/Depth Moderate Body Position Sitting Joint Mobilizations 2 Joint tibiotalar Direction posterior Grade III Body Position Sitting 1 Joint MTP 1-5 Direction dorsal/plantar Grade III Body Position Sitting PT-OP-T Assessment and Plan Start: 11/07/19 16:21 Freq: Status: Active Protocol: Document 11/11/19 13:47 DCW (Rec: 11/11/19 14:26 DCW [id number]) Physical Therapy Assessment Impairments Impairments Activity Tolerance,Balance, Functional Activities, Functional Mobility,Gait,Pain, ROM,Soft Tissue Mobility, Strength Goals Four Impairment R ankle inversion at rest due to substantial tone through posterior tib Communications Department Chair Goal (LTG) Pt to demonstrate decreased tone in right posterior tib to enable him to return right foot to neutral at rest. LTG Duration 01/07/20 Three Impairment Pt ambulates with a gait speed of 1.56 ft/sec during 2 minute walk test Short Term Goal (STG) A gait speed less than 1.97 ft /sec can be indicative of further functional decline in the future. Pt will ambulate > 237' during the 2 MWT STG Duration 12/08/19 Communications Department Chair Goal (LTG) Pt currently unable to tolerate 2 minute walk test without a standing rest break. Pt will be able to tolerate a 6 MWT with only one standing rest break to demonstrate increased activity tolerance LTG Duration 01/07/20 Two Impairment Significant weakness (<3/5) in bilateral ankles Longterm Goal (LTG) Pt to demonstrate increased strength an bilateral eversion and inversion to 3/5 LTG Duration 01/07/20 One Impairment Pt does not have an appropriate home exercise program Short Term Goal (STG) Pt to be independent and compliant with an appropriate HEP STG Duration 12/08/19 Assessment Summary Assessment Pt fatigues very quickly with all activities, needs continued work on activity tolerance. Minimal ability to flex right toes, unable to perform marble pick-up on that side, but did well on left. R post tib very hpyertonic, pt reports he will try to work on it at home with a rolling pin . Physical Therapy Plan Frequency and Duration Frequency of Treatment 2x/Week Duration of Treatment 10 weeks Plan of Care Start Date 11/07/19 Plan of Care End Date 01/16/20 Therapeutic Interventions Therapeutic Interventions Balance Training,Coordination Training,Gait Training,Home Exercise Program,Joint Mobilizations,Manual Therapy, Neuromuscular Re-education, Orthotic/Prosthetic Management ,Patient/Caregiver Education, Self-Care/Home Management,Soft Tissue Mobilization, Therapeutic Activities, Therapeutic Exercises Modalities Electric Stimulation Next Visit Focus/Plan Next Note Type Treatment Note Next Visit Plan Ankle strengthening, ankle mobility, activity tolerance, gait training
--- NOTE | 2019-11-15 14:27 | PT.OTN ---
Current Diagnoses Foot drop, right foot (11/15/19) Other acquired deformities of right foot (11/15/19) Stiffness of right ankle, not elsewhere classified (11/15/19) Stiffness of left ankle, not elsewhere classified (11/15/19) Muscle weakness (generalized) (11/15/19) Plantar fascial fibromatosis (11/15/19) Other abnormalities of gait and mobility (11/15/19) Chronic fatigue, unspecified (11/15/19) Physical Therapy Treatment Note PT-OP-A Visit Information Start: 11/07/19 16:21 Freq: Status: Active Protocol: Document 11/15/19 13:51 DCW (Rec: 11/15/19 14:27 DCW [id number]) Out-Patient Physical Therapy Visit Information Visit Information Visit Type Treatment Note Visit Note 6 min late Visit Start Time 13:51 Visit Stop Time 14:30 Total Visit Minutes 39 Visit Number 3 Number of CFO Visits 0 Evaluation Information Evaluation Date 11/07/19 PT-OP-B Current Condition Start: 11/07/19 16:21 Freq: Status: Active Protocol: Document 11/07/19 13:45 DCW (Rec: 11/08/19 11:15 DCW [id number]) Current Condition History of Current Condition Onset Date Multi-year history Current Complaints Fatigue, weakness, gait difficulty, balance disorders History of Current Condition Pt is a 39 year old male presenting with a highly complex history, including DM type I, multiple orthopedic injuries (Hx 11 vertebral fractures, pelvic fractues, ankle reconstruction), neuropathy, kidney failure requiring dialysis, and is on the transplant list for both a kidney and a pancreas. Pt reports he has had worsening foot drop over the past few months, causing him to catch his foot during swing phase. This has recently been corrected by bilateral AFOs. Pt describes it as he would bring his foot up, he would be unable to dorsiflex his ankle , but could keep it in neutral during lift-off, but would then suddenly drop into plantarflexion mid-swing phase . Pt reports he had a recent EMG, which showed severely limited nerve conduction below his knees, they believe it is more likely secondary to neuropathy due to his diabetes vs from his previous spinal injuries. Pt admits that although his AFOs make walking easier, his is still very wobbly when standing secondary to blood pressure variations due to dialysis. Pt also notes that lisa broke his fifth metatarsal in his right foot last year, and due to the way his right foot in constantly inverted, he feels like he is always standing directly on the fracture, and that although it did heal, it is still the most painful thing about standing, especially in his AFO. Pt notes that he fatigues when walking more than two minutes, and typically cannot ascend a flight of stairs without needing to stop and take a break. Even if I could walk five minutes without stopping, that'd be so great. Pt has a caregiver and his mother able to assist him with most activities as needed. Pt occasionally uses a walker or wheelchair, but is afraid that was the reason [facility] does not think he is robust enough for his transplant. Treatment Goals Patient/Caregiver Goals Pt's goal is to increase his leg strength and activity tolerance Prior Functional Status Baseline Function- ADL's Needs Assist Baseline Function- Mobility Needs Assist PT-OP-C Subjective Start: 11/07/19 16:21 Freq: Status: Active Protocol: Document 11/15/19 13:51 DCW (Rec: 11/15/19 14:27 DCW [id number]) OP-PT Subjective Patient Comments Patient Comments I'm in a lot of pain today. I 'm having a lot of gastroparesis pain and discomfort today. PT-OP-E Functional Tests Start: 11/07/19 16:21 Freq: Status: Active Protocol: Document 11/07/19 13:45 DCW (Rec: 11/08/19 16:29 DCW [id number]) Functional Tests 2 Minute Walk Test Distance 187 Device Used none Comments 1.56 ft/sec, one standing rest break PT-OP-G Mobility & Gait Start: 11/07/19 16:21 Freq: Status: Active Protocol: Document 11/07/19 13:45 DCW (Rec: 11/08/19 16:29 DCW [id number]) OP Gait Assessment Gait Gait Assistance Required: Standby Assistance Distance (Feet) 187 Able to Maintain Weight Bearing Status Yes During Gait Assistive Devices Assistive Device Gait Belt Orthotic/Prosthetic Devices or Brace: Yes Gait Deviations General Gait Pattern Ataxic,Decreased Stride Length ,Decreased Feet Clearance, Flexed Trunk Factors Limiting Gait Function Factors Limiting Gait Function Abnormal Tonal Influences, Decreased Activity Tolerance, Decreased Sensation,Decreased Strength,Limited Range of Motion,Poor Balance Comments Gait Comments Pt fatigues very quickly, unable to ambulate two minutes without a rest break. No foot drop when using AFOs. PT-OP-K Range of Motion Start: 11/07/19 16:21 Freq: Status: Active Protocol: Document 11/07/19 13:45 DCW (Rec: 11/08/19 16:29 DCW [id number]) Ankle and Foot Goniometric Range of Motion Ankle and Foot Left Active Testing Position Sitting Dorsiflexion with Knee Extended 2 Plantarflexion 40 Inversion 12 Eversion 4 Right Active Testing Position Sitting Plantarflexion 36 Inversion 18 Eversion 0 Ankle and Foot ROM Limitations Comments right DF: lacking 10 degrees of dorsiflexion from neutral PT-OP-M Strength Start: 11/07/19 16:21 Freq: Status: Active Protocol: Document 11/07/19 13:45 DCW (Rec: 11/08/19 16:29 DCW [id number]) Hip Strength Hip Manual Muscle Testing Right Flexion (L2) 4- Good- Extension (S1) 4 Good Abduction 4- Good- Adduction 4- Good- External Rotation 4 Good Internal Rotation 4 Good Left Flexion (L2) 4- Good- Extension (S1) 4 Good Abduction 4- Good- Adduction 4- Good- External Rotation 4 Good Internal Rotation 4 Good Knee Strength Knee Manual Muscle Testing Right Flexion (S2) 4 Good Extension (L3) 4 Good Left Flexion (S2) 4 Good Extension (L3) 4 Good Ankle/Foot Strength Ankle and Foot Manual Muscle Testing Right Dorsiflexion (L4) 2- Poor- Plantarflexion (S1) 2- Poor- Inversion 3 Fair Eversion (S1) 2- Poor- Left Dorsiflexion (L4) 2+ Poor+ Plantarflexion (S1) 3- Fair- Inversion 2+ Poor+ Eversion (S1) 2+ Poor+ PT-OP-Q Treatments Start: 11/07/19 16:21 Freq: Status: Active Protocol: Document 11/15/19 13:51 DCW (Rec: 11/15/19 14:27 DCW [id number]) Cardio Equipment Recumbent Elliptical (Biodex) Duration (Minutes) 4 Resistance 1 Seat Position 11 Gym Equipment Shuttle Recovery Unilateral Heel Raises Resistance 25# Shuttle Recovery Platform Stable Reps/Time x10 each Bilateral Squats Resistance 50# Shuttle Recovery Platform Stable Reps/Time x10 Therapeutic Ball 1 Exercise Details Hip/knee flexion vs resistance Ball Size/Color Red - 55 cm Lv 1 T-band Body Position Supine Reps/Duration x10 Therapeutic Exercises Supine Exercises 1 Supine Exercise Name Bridging Reps/Minutes x10 Sidelying Exercises 3 Sidelying Exercise Name Reverse Clamshell 2 Sidelying Exercise Name Clamshell Side bilateral Reps/Minutes x10 1 Sidelying Exercise Name Hip Abduction Side bilateral Reps/Minutes x10 Manual Therapy Treatment Soft Tissue Mobilization 1 Body Location Posterior tib Mobilization Type Strumming,Sustained Pressure, Trigger Point Release Intensity/Depth Moderate Body Position Prone Joint Mobilizations 2 Joint tibiotalar Direction posterior Grade III Body Position Prone 1 Joint MTP 1-5 Direction dorsal/plantar Grade III Body Position Prone PT-OP-T Assessment and Plan Start: 11/07/19 16:21 Freq: Status: Active Protocol: Document 11/15/19 13:51 DCW (Rec: 11/15/19 14:27 DCW [id number]) Physical Therapy Assessment Impairments Impairments Activity Tolerance,Balance, Functional Activities, Functional Mobility,Gait,Pain, ROM,Soft Tissue Mobility, Strength Goals Four Impairment R ankle inversion at rest due to substantial tone through posterior tib Halfway Goal (LTG) Pt to demonstrate decreased tone in right posterior tib to enable him to return right foot to neutral at rest. LTG Duration 01/07/20 Three Impairment Pt ambulates with a gait speed of 1.56 ft/sec during 2 minute walk test Short Term Goal (STG) A gait speed less than 1.97 ft /sec can be indicative of further functional decline in the future. Pt will ambulate > 237' during the 2 MWT STG Duration 12/08/19 Halfway Goal (LTG) Pt currently unable to tolerate 2 minute walk test without a standing rest break. Pt will be able to tolerate a 6 MWT with only one standing rest break to demonstrate increased activity tolerance LTG Duration 01/07/20 Two Impairment Significant weakness (<3/5) in bilateral ankles Halfway Goal (LTG) Pt to demonstrate increased strength an bilateral eversion and inversion to 3/5 LTG Duration 01/07/20 One Impairment Pt does not have an appropriate home exercise program Short Term Goal (STG) Pt to be independent and compliant with an appropriate HEP STG Duration 12/08/19 Assessment Summary Assessment Pt tolerated activity better today, able to participate in more TherEx before fatigue. Showed improvement in gait and stability Physical Therapy Plan Frequency and Duration Frequency of Treatment 2x/Week Duration of Treatment 10 weeks Plan of Care Start Date 11/07/19 Plan of Care End Date 01/16/20 Therapeutic Interventions Therapeutic Interventions Balance Training,Coordination Training,Gait Training,Home Exercise Program,Joint Mobilizations,Manual Therapy, Neuromuscular Re-education, Orthotic/Prosthetic Management ,Patient/Caregiver Education, Self-Care/Home Management,Soft Tissue Mobilization, Therapeutic Activities, Therapeutic Exercises Modalities Electric Stimulation Next Visit Focus/Plan Next Note Type Treatment Note Next Visit Plan Ankle strengthening, ankle mobility, activity tolerance, gait training
--- NOTE | 2019-11-18 14:38 | PT.OTN ---
Current Diagnoses Foot drop, right foot (11/18/19) Other acquired deformities of right foot (11/18/19) Stiffness of right ankle, not elsewhere classified (11/18/19) Stiffness of left ankle, not elsewhere classified (11/18/19) Muscle weakness (generalized) (11/18/19) Plantar fascial fibromatosis (11/18/19) Other abnormalities of gait and mobility (11/18/19) Chronic fatigue, unspecified (11/18/19) Physical Therapy Treatment Note PT-OP-A Visit Information Start: 11/07/19 16:21 Freq: Status: Active Protocol: Document 11/18/19 13:45 TP (Rec: 11/18/19 16:16 TP [id number]) Out-Patient Physical Therapy Visit Information Visit Information Visit Type Treatment Note Visit Note Student NICHOLAS Fine supervised by NICHOLAS Carballo Visit Start Time 13:45 Visit Stop Time 14:38 Total Visit Minutes 53 Visit Number 4 Number of SPECIMEN TRANSPORTER Visits 1 PT-OP-B Current Condition Start: 11/07/19 16:21 Freq: Status: Active Protocol: Document 11/07/19 13:45 DCW (Rec: 11/08/19 11:15 DCW [id number]) Current Condition History of Current Condition Onset Date Multi-year history Current Complaints Fatigue, weakness, gait difficulty, balance disorders History of Current Condition Pt is a 39 year old male presenting with a highly complex history, including DM type I, multiple orthopedic injuries (Hx 11 vertebral fractures, pelvic fractues, ankle reconstruction), neuropathy, kidney failure requiring dialysis, and is on the transplant list for both a kidney and a pancreas. Pt reports he has had worsening foot drop over the past few months, causing him to catch his foot during swing phase. This has recently been corrected by bilateral AFOs. Pt describes it as he would bring his foot up, he would be unable to dorsiflex his ankle , but could keep it in neutral during lift-off, but would then suddenly drop into plantarflexion mid-swing phase . Pt reports he had a recent EMG, which showed severely limited nerve conduction below his knees, they believe it is more likely secondary to neuropathy due to his diabetes vs from his previous spinal injuries. Pt admits that although his AFOs make walking easier, his is still very wobbly when standing secondary to blood pressure variations due to dialysis. Pt also notes that lisa broke his fifth metatarsal in his right foot last year, and due to the way his right foot in constantly inverted, he feels like he is always standing directly on the fracture, and that although it did heal, it is still the most painful thing about standing, especially in his AFO. Pt notes that he fatigues when walking more than two minutes, and typically cannot ascend a flight of stairs without needing to stop and take a break. Even if I could walk five minutes without stopping, that'd be so great. Pt has a caregiver and his mother able to assist him with most activities as needed. Pt occasionally uses a walker or wheelchair, but is afraid that was the reason [facility] does not think he is robust enough for his transplant. Treatment Goals Patient/Caregiver Goals Pt's goal is to increase his leg strength and activity tolerance Prior Functional Status Baseline Function- ADL's Needs Assist Baseline Function- Mobility Needs Assist PT-OP-C Subjective Start: 11/07/19 16:21 Freq: Status: Active Protocol: Document 11/18/19 13:45 TP (Rec: 11/18/19 16:16 TP [id number]) OP-PT Subjective Patient Comments Patient Comments Feeling tired today. Has to be careful with back due to needle TPR yesterday. PT-OP-E Functional Tests Start: 11/07/19 16:21 Freq: Status: Active Protocol: Document 11/07/19 13:45 DCW (Rec: 11/08/19 16:29 DCW [id number]) Functional Tests 2 Minute Walk Test Distance 187 Device Used none Comments 1.56 ft/sec, one standing rest break PT-OP-G Mobility & Gait Start: 11/07/19 16:21 Freq: Status: Active Protocol: Document 11/07/19 13:45 DCW (Rec: 11/08/19 16:29 DCW [id number]) OP Gait Assessment Gait Gait Assistance Required: Standby Assistance Distance (Feet) 187 Able to Maintain Weight Bearing Status Yes During Gait Assistive Devices Assistive Device Gait Belt Orthotic/Prosthetic Devices or Brace: Yes Gait Deviations General Gait Pattern Ataxic,Decreased Stride Length ,Decreased Feet Clearance, Flexed Trunk Factors Limiting Gait Function Factors Limiting Gait Function Abnormal Tonal Influences, Decreased Activity Tolerance, Decreased Sensation,Decreased Strength,Limited Range of Motion,Poor Balance Comments Gait Comments Pt fatigues very quickly, unable to ambulate two minutes without a rest break. No foot drop when using AFOs. PT-OP-K Range of Motion Start: 11/07/19 16:21 Freq: Status: Active Protocol: Document 11/07/19 13:45 DCW (Rec: 11/08/19 16:29 DCW [id number]) Ankle and Foot Goniometric Range of Motion Ankle and Foot Left Active Testing Position Sitting Dorsiflexion with Knee Extended 2 Plantarflexion 40 Inversion 12 Eversion 4 Right Active Testing Position Sitting Plantarflexion 36 Inversion 18 Eversion 0 Ankle and Foot ROM Limitations Comments right DF: lacking 10 degrees of dorsiflexion from neutral PT-OP-M Strength Start: 11/07/19 16:21 Freq: Status: Active Protocol: Document 11/07/19 13:45 DCW (Rec: 11/08/19 16:29 DCW [id number]) Hip Strength Hip Manual Muscle Testing Right Flexion (L2) 4- Good- Extension (S1) 4 Good Abduction 4- Good- Adduction 4- Good- External Rotation 4 Good Internal Rotation 4 Good Left Flexion (L2) 4- Good- Extension (S1) 4 Good Abduction 4- Good- Adduction 4- Good- External Rotation 4 Good Internal Rotation 4 Good Knee Strength Knee Manual Muscle Testing Right Flexion (S2) 4 Good Extension (L3) 4 Good Left Flexion (S2) 4 Good Extension (L3) 4 Good Ankle/Foot Strength Ankle and Foot Manual Muscle Testing Right Dorsiflexion (L4) 2- Poor- Plantarflexion (S1) 2- Poor- Inversion 3 Fair Eversion (S1) 2- Poor- Left Dorsiflexion (L4) 2+ Poor+ Plantarflexion (S1) 3- Fair- Inversion 2+ Poor+ Eversion (S1) 2+ Poor+ PT-OP-Q Treatments Start: 11/07/19 16:21 Freq: Status: Active Protocol: Document 11/18/19 13:45 TP (Rec: 11/18/19 16:16 TP [id number]) Cardio Equipment Recumbent Elliptical (Biodex) Duration (Minutes) 1 Resistance 1 Seat Position 11 Other Terminated after 1min due to fatigue Gym Equipment Shuttle Recovery Unilateral squat Resistance 25# Shuttle Recovery Platform Stable Reps/Time 20x each side Bilateral Squats Resistance 50#, 37.5# Shuttle Recovery Platform Stable Reps/Time x10 Therapeutic Ball 1 Exercise Details Hip/knee flexion vs resistance Ball Size/Color Red - 55 cm Lv 1 T-band Body Position Supine Reps/Duration 10 reps w/o resistance, 10reps x 2sets w/TB Comments Pt noted less bouncy this time, experiencing improved hip flexor control Therapeutic Exercises Supine Exercises 1 Supine Exercise Name Bridging Reps/Minutes x10 Comments cues for increased kneed flexion Sidelying Exercises 3 Sidelying Exercise Name Reverse Clamshell Side bilateral Reps/Minutes x10 2 Sidelying Exercise Name Clamshell Side bilateral Reps/Minutes x10 Comments cues for smaller range for pelvis stability 1 Sidelying Exercise Name Hip Abduction Side bilateral Reps/Minutes x10 Sitting Exercises foam roll Sitting Exercise Name foam roll for hamstring/calf Side bilateral Equipment Used king foam roll Reps/Minutes 2min Comments cues for myofascial release and TPR for posterior BLE Manual Therapy Treatment Joint Mobilizations knee Joint knee Direction P->A Grade II Body Position Hooklying 2 Joint tibiotalar Direction posterior Grade III Body Position Supine Comments Ankle propped on foam roll. PT-OP-T Assessment and Plan Start: 11/07/19 16:21 Freq: Status: Active Protocol: Document 11/18/19 13:45 TP (Rec: 11/18/19 16:16 TP [id number]) Physical Therapy Assessment Goals Four Impairment R ankle inversion at rest due to substantial tone through posterior tib Echocardiographer Goal (LTG) Pt to demonstrate decreased tone in right posterior tib to enable him to return right foot to neutral at rest. LTG Duration 01/07/20 Three Impairment Pt ambulates with a gait speed of 1.56 ft/sec during 2 minute walk test Short Term Goal (STG) A gait speed less than 1.97 ft /sec can be indicative of further functional decline in the future. Pt will ambulate > 237' during the 2 MWT STG Duration 12/08/19 Echocardiographer Goal (LTG) Pt currently unable to tolerate 2 minute walk test without a standing rest break. Pt will be able to tolerate a 6 MWT with only one standing rest break to demonstrate increased activity tolerance LTG Duration 01/07/20 Two Impairment Significant weakness (<3/5) in bilateral ankles Half-Way Goal (LTG) Pt to demonstrate increased strength an bilateral eversion and inversion to 3/5 LTG Duration 01/07/20 One Impairment Pt does not have an appropriate home exercise program Short Term Goal (STG) Pt to be independent and compliant with an appropriate HEP STG Duration 12/08/19 Assessment Summary Assessment Pt required use of wall for balance today when getting up from chair in waiting room. Impairment in standing and dynamic balance during gait to gym. Pt fatigued easily after 1 min of using the [employer] bike with resistance 1. Shuttle Recovery required decrease in weight from 50# to 37.5# during bilateral squats due to fatigue. Reviewed HEP of bridge, clamshells, reverse clamshells, and sidelying hip abduction. Provided education for use of foam roller at home for myofascial release and TPR of B hamstring and calf, performed unilaterally also provides contralateral ankle mobility. Continue PT to improve BLE strength, endurance and activity tolerance for safe mobility. Skilled PT required for improve standing dynamic balance. Pt demonstrated increased stability when stood up from chair and ambulated to door. Physical Therapy Plan Frequency and Duration Frequency of Treatment 2x/Week Duration of Treatment 10 weeks Plan of Care Start Date 11/07/19 Plan of Care End Date 01/16/20 Therapeutic Interventions Therapeutic Interventions Balance Training,Coordination Training,Gait Training,Home Exercise Program,Joint Mobilizations,Manual Therapy, Neuromuscular Re-education, Orthotic/Prosthetic Management ,Patient/Caregiver Education, Self-Care/Home Management,Soft Tissue Mobilization, Therapeutic Activities, Therapeutic Exercises Modalities Electric Stimulation Next Visit Focus/Plan Next Note Type Treatment Note Next Visit Plan Assess response to previous tx . Review HEP. Add exercises on therapy ball for HEP if pt has purchased ball, progress as tolerated. Ankle strengthening, ankle mobility, activity tolerance, gait training
--- NOTE | 2019-11-24 12:48 | PT-OP ANOTE ---
Pt cancelled late am same day appt, reported having problems with gastroparesis and dialysis, won't be able to attend today's scheduled appt. Next appt scheduled 11/29/19 with GRAVEDIGGER.
--- NOTE | 2019-11-29 14:34 | PT-OP ANOTE ---
Pt cancelled same day appt, needing to reschedule today due to wanting to get in to see pain physician. Unable to reschedule today's appt sooner than scheduled 12/01 next appt.
--- NOTE | 2019-12-02 14:30 | PT.OTN ---
Current Diagnoses Foot drop, right foot (12/02/19) Other acquired deformities of right foot (12/02/19) Stiffness of right ankle, not elsewhere classified (12/02/19) Stiffness of left ankle, not elsewhere classified (12/02/19) Muscle weakness (generalized) (12/02/19) Plantar fascial fibromatosis (12/02/19) Other abnormalities of gait and mobility (12/02/19) Chronic fatigue, unspecified (12/02/19) Physical Therapy Treatment Note PT-OP-A Visit Information Start: 11/07/19 16:21 Freq: Status: Active Protocol: Document 12/02/19 13:47 SP (Rec: 12/02/19 14:34 SP [id number]) Out-Patient Physical Therapy Visit Information Visit Information Visit Type Treatment Note Visit Start Time 13:47 Visit Stop Time 14:30 Total Visit Minutes 43 Visit Number 5 Number of PLEATER HAND Visits 2 PT-OP-B Current Condition Start: 11/07/19 16:21 Freq: Status: Active Protocol: Document 11/07/19 13:45 DCW (Rec: 11/08/19 11:15 DCW [id number]) Current Condition History of Current Condition Onset Date Multi-year history Current Complaints Fatigue, weakness, gait difficulty, balance disorders History of Current Condition Pt is a 39 year old male presenting with a highly complex history, including DM type I, multiple orthopedic injuries (Hx 11 vertebral fractures, pelvic fractues, ankle reconstruction), neuropathy, kidney failure requiring dialysis, and is on the transplant list for both a kidney and a pancreas. Pt reports he has had worsening foot drop over the past few months, causing him to catch his foot during swing phase. This has recently been corrected by bilateral AFOs. Pt describes it as he would bring his foot up, he would be unable to dorsiflex his ankle , but could keep it in neutral during lift-off, but would then suddenly drop into plantarflexion mid-swing phase . Pt reports he had a recent EMG, which showed severely limited nerve conduction below his knees, they believe it is more likely secondary to neuropathy due to his diabetes vs from his previous spinal injuries. Pt admits that although his AFOs make walking easier, his is still very wobbly when standing secondary to blood pressure variations due to dialysis. Pt also notes that lisa broke his fifth metatarsal in his right foot last year, and due to the way his right foot in constantly inverted, he feels like he is always standing directly on the fracture, and that although it did heal, it is still the most painful thing about standing, especially in his AFO. Pt notes that he fatigues when walking more than two minutes, and typically cannot ascend a flight of stairs without needing to stop and take a break. Even if I could walk five minutes without stopping, that'd be so great. Pt has a caregiver and his mother able to assist him with most activities as needed. Pt occasionally uses a walker or wheelchair, but is afraid that was the reason [facility] does not think he is robust enough for his transplant. Treatment Goals Patient/Caregiver Goals Pt's goal is to increase his leg strength and activity tolerance Prior Functional Status Baseline Function- ADL's Needs Assist Baseline Function- Mobility Needs Assist PT-OP-C Subjective Start: 11/07/19 16:21 Freq: Status: Active Protocol: Document 12/02/19 13:47 SP (Rec: 12/02/19 14:34 SP [id number]) OP-PT Subjective Patient Comments Patient Comments I am doing ok today. Sorshadi didn't feel well 2 appts ago and had 2 other appts needed to attend during last tx. I felt pretty tired after 11/17 tx and lasted into next day. Unsure if was to much activity knowing trying to ncreaesed strength and endurance level balance. PT-OP-E Functional Tests Start: 11/07/19 16:21 Freq: Status: Active Protocol: Document 11/07/19 13:45 DCW (Rec: 11/08/19 16:29 DCW [id number]) Functional Tests 2 Minute Walk Test Distance 187 Device Used none Comments 1.56 ft/sec, one standing rest break PT-OP-G Mobility & Gait Start: 11/07/19 16:21 Freq: Status: Active Protocol: Document 11/07/19 13:45 DCW (Rec: 11/08/19 16:29 DCW [id number]) OP Gait Assessment Gait Gait Assistance Required: Standby Assistance Distance (Feet) 187 Able to Maintain Weight Bearing Status Yes During Gait Assistive Devices Assistive Device Gait Belt Orthotic/Prosthetic Devices or Brace: Yes Gait Deviations General Gait Pattern Ataxic,Decreased Stride Length ,Decreased Feet Clearance, Flexed Trunk Factors Limiting Gait Function Factors Limiting Gait Function Abnormal Tonal Influences, Decreased Activity Tolerance, Decreased Sensation,Decreased Strength,Limited Range of Motion,Poor Balance Comments Gait Comments Pt fatigues very quickly, unable to ambulate two minutes without a rest break. No foot drop when using AFOs. PT-OP-K Range of Motion Start: 11/07/19 16:21 Freq: Status: Active Protocol: Document 11/07/19 13:45 DCW (Rec: 11/08/19 16:29 DCW [id number]) Ankle and Foot Goniometric Range of Motion Ankle and Foot Left Active Testing Position Sitting Dorsiflexion with Knee Extended 2 Plantarflexion 40 Inversion 12 Eversion 4 Right Active Testing Position Sitting Plantarflexion 36 Inversion 18 Eversion 0 Ankle and Foot ROM Limitations Comments right DF: lacking 10 degrees of dorsiflexion from neutral PT-OP-M Strength Start: 11/07/19 16:21 Freq: Status: Active Protocol: Document 11/07/19 13:45 DCW (Rec: 11/08/19 16:29 DCW [id number]) Hip Strength Hip Manual Muscle Testing Right Flexion (L2) 4- Good- Extension (S1) 4 Good Abduction 4- Good- Adduction 4- Good- External Rotation 4 Good Internal Rotation 4 Good Left Flexion (L2) 4- Good- Extension (S1) 4 Good Abduction 4- Good- Adduction 4- Good- External Rotation 4 Good Internal Rotation 4 Good Knee Strength Knee Manual Muscle Testing Right Flexion (S2) 4 Good Extension (L3) 4 Good Left Flexion (S2) 4 Good Extension (L3) 4 Good Ankle/Foot Strength Ankle and Foot Manual Muscle Testing Right Dorsiflexion (L4) 2- Poor- Plantarflexion (S1) 2- Poor- Inversion 3 Fair Eversion (S1) 2- Poor- Left Dorsiflexion (L4) 2+ Poor+ Plantarflexion (S1) 3- Fair- Inversion 2+ Poor+ Eversion (S1) 2+ Poor+ PT-OP-Q Treatments Start: 11/07/19 16:21 Freq: Status: Active Protocol: Document 12/02/19 13:47 SP (Rec: 12/02/19 14:34 SP [id number]) Cardio Equipment Recumbent Elliptical ([employer]) Duration (Minutes) 3 Resistance 1 Seat Position 11 (no carbon fiber AFOs donned) Other challenging, required UE support but toleranted well. Gym Equipment Shuttle Recovery Unilateral squat Resistance 25# Shuttle Recovery Platform Stable Reps/Time 20x each side Unilateral Heel Raises Details L small range, R no muscle facilitation Resistance 25# Shuttle Recovery Platform Stable Reps/Time x10 each (no to successful with AFOs donned) Bilateral Squats Resistance 50# Shuttle Recovery Platform Stable Reps/Time x10 Therapeutic Ball LTR Exercise Details L/S rotation core obliques Ball Size/Color 55cm Body Position Hooklying Reps/Duration 2x5 Comments cue PPT slow controlled movement while allowing pelvic lift 1 Exercise Details Hip/knee flexion vs resistance Ball Size/Color Red - 55 cm Lv 1 T-band Body Position Supine Reps/Duration 10 reps w/o resistance, 10reps x 2sets w/TB Comments Pt noted less bouncy this time, experiencing improved hip flexor control Neuro Re-Education Treatment Balance Activities hurdles Details forward/side stepping hurdles Surface stable floor Equipment 6 Reps/Duration 2 laps each x20 ft Comments CGA, step to patterning, decreased stabiltiy leading LLE than R. PT-OP-T Assessment and Plan Start: 11/07/19 16:21 Freq: Status: Active Protocol: Document 12/02/19 13:47 SP (Rec: 12/02/19 14:34 SP [id number]) Physical Therapy Assessment Goals Four Impairment R ankle inversion at rest due to substantial tone through posterior tib Correction Goal (LTG) Pt to demonstrate decreased tone in right posterior tib to enable him to return right foot to neutral at rest. LTG Duration 01/07/20 Three Impairment Pt ambulates with a gait speed of 1.56 ft/sec during 2 minute walk test Short Term Goal (STG) A gait speed less than 1.97 ft /sec can be indicative of further functional decline in the future. Pt will ambulate > 237' during the 2 MWT STG Duration 12/08/19 Ordnance Truck Installation Mechanic Goal (LTG) Pt currently unable to tolerate 2 minute walk test without a standing rest break. Pt will be able to tolerate a 6 MWT with only one standing rest break to demonstrate increased activity tolerance LTG Duration 01/07/20 Two Impairment Significant weakness (<3/5) in bilateral ankles Correction Goal (LTG) Pt to demonstrate increased strength an bilateral eversion and inversion to 3/5 LTG Duration 01/07/20 One Impairment Pt does not have an appropriate home exercise program Short Term Goal (STG) Pt to be independent and compliant with an appropriate HEP STG Duration 12/08/19 Assessment Summary Assessment Pt reported R Vastus Lateralis firing during biodex tolerant 3 min only but pretty challenging. Pt improved with ankle core stability step to patterning during payal balance activity at rail CGA, no challenge step over step. Reviewed HEP supine. Pt reported not to tired end of tx, think good balance of activity. Physical Therapy Plan Frequency and Duration Frequency of Treatment 2x/Week Duration of Treatment 10 weeks Plan of Care Start Date 11/07/19 Plan of Care End Date 01/16/20 Therapeutic Interventions Therapeutic Interventions Balance Training,Coordination Training,Gait Training,Home Exercise Program,Joint Mobilizations,Manual Therapy, Neuromuscular Re-education, Orthotic/Prosthetic Management ,Patient/Caregiver Education, Self-Care/Home Management,Soft Tissue Mobilization, Therapeutic Activities, Therapeutic Exercises Modalities Electric Stimulation Next Visit Focus/Plan Next Note Type Treatment Note Next Visit Plan Assess response to previous tx : review HEP biodex very challenging, shuttle recovery better control, therapy ball coming soon to perform at at home. Continue Ankle strengthening, ankle mobility, activity tolerance, gait training
--- NOTE | 2019-12-09 15:13 | PT.OTN ---
Current Diagnoses Foot drop, right foot (12/09/19) Other acquired deformities of right foot (12/09/19) Stiffness of right ankle, not elsewhere classified (12/09/19) Stiffness of left ankle, not elsewhere classified (12/09/19) Muscle weakness (generalized) (12/09/19) Plantar fascial fibromatosis (12/09/19) Other abnormalities of gait and mobility (12/09/19) Chronic fatigue, unspecified (12/09/19) Physical Therapy Treatment Note PT-OP-A Visit Information Start: 11/07/19 16:21 Freq: Status: Active Protocol: Document 12/09/19 14:30 DCW (Rec: 12/09/19 15:13 DCW [id number]) Out-Patient Physical Therapy Visit Information Visit Information Visit Type Treatment Note Visit Start Time 14:30 Visit Stop Time 15:15 Total Visit Minutes 45 Visit Number 6 Number of MANAGEMENT TECH Visits 0 Evaluation Information Evaluation Date 11/07/19 PT-OP-B Current Condition Start: 11/07/19 16:21 Freq: Status: Active Protocol: Document 11/07/19 13:45 DCW (Rec: 11/08/19 11:15 DCW [id number]) Current Condition History of Current Condition Onset Date Multi-year history Current Complaints Fatigue, weakness, gait difficulty, balance disorders History of Current Condition Pt is a 39 year old male presenting with a highly complex history, including DM type I, multiple orthopedic injuries (Hx 11 vertebral fractures, pelvic fractues, ankle reconstruction), neuropathy, kidney failure requiring dialysis, and is on the transplant list for both a kidney and a pancreas. Pt reports he has had worsening foot drop over the past few months, causing him to catch his foot during swing phase. This has recently been corrected by bilateral AFOs. Pt describes it as he would bring his foot up, he would be unable to dorsiflex his ankle , but could keep it in neutral during lift-off, but would then suddenly drop into plantarflexion mid-swing phase . Pt reports he had a recent EMG, which showed severely limited nerve conduction below his knees, they believe it is more likely secondary to neuropathy due to his diabetes vs from his previous spinal injuries. Pt admits that although his AFOs make walking easier, his is still very wobbly when standing secondary to blood pressure variations due to dialysis. Pt also notes that lisa broke his fifth metatarsal in his right foot last year, and due to the way his right foot in constantly inverted, he feels like he is always standing directly on the fracture, and that although it did heal, it is still the most painful thing about standing, especially in his AFO. Pt notes that he fatigues when walking more than two minutes, and typically cannot ascend a flight of stairs without needing to stop and take a break. Even if I could walk five minutes without stopping, that'd be so great. Pt has a caregiver and his mother able to assist him with most activities as needed. Pt occasionally uses a walker or wheelchair, but is afraid that was the reason [facility] does not think he is robust enough for his transplant. Treatment Goals Patient/Caregiver Goals Pt's goal is to increase his leg strength and activity tolerance Prior Functional Status Baseline Function- ADL's Needs Assist Baseline Function- Mobility Needs Assist PT-OP-C Subjective Start: 11/07/19 16:21 Freq: Status: Active Protocol: Document 12/09/19 14:30 DCW (Rec: 12/09/19 15:13 DCW [id number]) OP-PT Subjective Patient Comments Patient Comments Pt reports he was exhausted following his last visit, took a while to recover and he needed to up his muscle relaxors. Would like to decrease intensity today. PT-OP-E Functional Tests Start: 11/07/19 16:21 Freq: Status: Active Protocol: Document 11/07/19 13:45 DCW (Rec: 11/08/19 16:29 DCW [id number]) Functional Tests 2 Minute Walk Test Distance 187 Device Used none Comments 1.56 ft/sec, one standing rest break PT-OP-G Mobility & Gait Start: 11/07/19 16:21 Freq: Status: Active Protocol: Document 11/07/19 13:45 DCW (Rec: 11/08/19 16:29 DCW [id number]) OP Gait Assessment Gait Gait Assistance Required: Standby Assistance Distance (Feet) 187 Able to Maintain Weight Bearing Status Yes During Gait Assistive Devices Assistive Device Gait Belt Orthotic/Prosthetic Devices or Brace: Yes Gait Deviations General Gait Pattern Ataxic,Decreased Stride Length ,Decreased Feet Clearance, Flexed Trunk Factors Limiting Gait Function Factors Limiting Gait Function Abnormal Tonal Influences, Decreased Activity Tolerance, Decreased Sensation,Decreased Strength,Limited Range of Motion,Poor Balance Comments Gait Comments Pt fatigues very quickly, unable to ambulate two minutes without a rest break. No foot drop when using AFOs. PT-OP-K Range of Motion Start: 11/07/19 16:21 Freq: Status: Active Protocol: Document 11/07/19 13:45 DCW (Rec: 11/08/19 16:29 DCW [id number]) Ankle and Foot Goniometric Range of Motion Ankle and Foot Left Active Testing Position Sitting Dorsiflexion with Knee Extended 2 Plantarflexion 40 Inversion 12 Eversion 4 Right Active Testing Position Sitting Plantarflexion 36 Inversion 18 Eversion 0 Ankle and Foot ROM Limitations Comments right DF: lacking 10 degrees of dorsiflexion from neutral PT-OP-M Strength Start: 11/07/19 16:21 Freq: Status: Active Protocol: Document 11/07/19 13:45 DCW (Rec: 11/08/19 16:29 DCW [id number]) Hip Strength Hip Manual Muscle Testing Right Flexion (L2) 4- Good- Extension (S1) 4 Good Abduction 4- Good- Adduction 4- Good- External Rotation 4 Good Internal Rotation 4 Good Left Flexion (L2) 4- Good- Extension (S1) 4 Good Abduction 4- Good- Adduction 4- Good- External Rotation 4 Good Internal Rotation 4 Good Knee Strength Knee Manual Muscle Testing Right Flexion (S2) 4 Good Extension (L3) 4 Good Left Flexion (S2) 4 Good Extension (L3) 4 Good Ankle/Foot Strength Ankle and Foot Manual Muscle Testing Right Dorsiflexion (L4) 2- Poor- Plantarflexion (S1) 2- Poor- Inversion 3 Fair Eversion (S1) 2- Poor- Left Dorsiflexion (L4) 2+ Poor+ Plantarflexion (S1) 3- Fair- Inversion 2+ Poor+ Eversion (S1) 2+ Poor+ PT-OP-Q Treatments Start: 11/07/19 16:21 Freq: Status: Active Protocol: Document 12/09/19 14:30 DCW (Rec: 12/09/19 15:13 DCW [id number]) Cardio Equipment Recumbent Elliptical (Biodex) Duration (Minutes) 4 Resistance 2 Seat Position 11 Gym Equipment Shuttle Recovery Unilateral squat Resistance 25# Shuttle Recovery Platform Stable Reps/Time 20x each side Bilateral Squats Resistance 50# Shuttle Recovery Platform Stable Reps/Time 2x10 Manual Therapy Treatment Soft Tissue Mobilization 1 Body Location Posterior tib Mobilization Type Strumming,Sustained Pressure, Trigger Point Release Intensity/Depth Moderate Body Position Prone Joint Mobilizations 2 Joint tibiotalar Direction posterior Grade III Body Position Supine Comments Ankle propped on foam roll. 1 Joint MTP 1-5 Direction dorsal/plantar Grade III Body Position Prone PT-OP-T Assessment and Plan Start: 11/07/19 16:21 Freq: Status: Active Protocol: Document 12/09/19 14:30 DCW (Rec: 12/09/19 15:13 DCW [id number]) Physical Therapy Assessment Impairments Impairments Activity Tolerance,Balance, Functional Activities, Functional Mobility,Gait,Pain, ROM,Soft Tissue Mobility, Strength Goals Four Impairment R ankle inversion at rest due to substantial tone through posterior tib Intermediate Goal (LTG) Pt to demonstrate decreased tone in right posterior tib to enable him to return right foot to neutral at rest. LTG Duration 01/07/20 Three Impairment Pt ambulates with a gait speed of 1.56 ft/sec during 2 minute walk test Short Term Goal (STG) A gait speed less than 1.97 ft /sec can be indicative of further functional decline in the future. Pt will ambulate > 237' during the 2 MWT STG Duration 12/08/19 Manager Of Merchandising Goal (LTG) Pt currently unable to tolerate 2 minute walk test without a standing rest break. Pt will be able to tolerate a 6 MWT with only one standing rest break to demonstrate increased activity tolerance LTG Duration 01/07/20 Two Impairment Significant weakness (<3/5) in bilateral ankles Intermediate Goal (LTG) Pt to demonstrate increased strength an bilateral eversion and inversion to 3/5 LTG Duration 01/07/20 One Impairment Pt does not have an appropriate home exercise program Short Term Goal (STG) Pt to be independent and compliant with an appropriate HEP STG Duration 12/08/19 Assessment Summary Assessment Pt tolerating treatment better today, able to tolerate activity on Biodex on level two for 5 minutes for the first time, and able to do two sets on the leg press. Improved stability up walking around. Continue treatment focusing on strength, STM, and activity tolerance. Physical Therapy Plan Frequency and Duration Frequency of Treatment 2x/Week Duration of Treatment 10 weeks Plan of Care Start Date 11/07/19 Plan of Care End Date 01/16/20 Therapeutic Interventions Therapeutic Interventions Balance Training,Coordination Training,Gait Training,Home Exercise Program,Joint Mobilizations,Manual Therapy, Neuromuscular Re-education, Orthotic/Prosthetic Management ,Patient/Caregiver Education, Self-Care/Home Management,Soft Tissue Mobilization, Therapeutic Activities, Therapeutic Exercises Modalities Electric Stimulation Next Visit Focus/Plan Next Note Type Treatment Note Next Visit Plan Assess response to previous tx : review HEP biodex very challenging, shuttle recovery better control, therapy ball coming soon to perform at at home. Continue Ankle strengthening, ankle mobility, activity tolerance, gait training
--- NOTE | 2019-12-13 15:15 | PT.OTN ---
Current Diagnoses Foot drop, right foot (12/13/19) Other acquired deformities of right foot (12/13/19) Stiffness of right ankle, not elsewhere classified (12/13/19) Stiffness of left ankle, not elsewhere classified (12/13/19) Muscle weakness (generalized) (12/13/19) Plantar fascial fibromatosis (12/13/19) Other abnormalities of gait and mobility (12/13/19) Chronic fatigue, unspecified (12/13/19) Physical Therapy Treatment Note PT-OP-A Visit Information Start: 11/07/19 16:21 Freq: Status: Active Protocol: Document 12/13/19 14:32 DCW (Rec: 12/13/19 15:15 DCW [id number]) Out-Patient Physical Therapy Visit Information Visit Information Visit Type Treatment Note Visit Start Time 14:32 Visit Stop Time 15:15 Total Visit Minutes 43 Visit Number 7 Number of BAG SHAKER Visits 0 Evaluation Information Evaluation Date 11/07/19 PT-OP-B Current Condition Start: 11/07/19 16:21 Freq: Status: Active Protocol: Document 11/07/19 13:45 DCW (Rec: 11/08/19 11:15 DCW [id number]) Current Condition History of Current Condition Onset Date Multi-year history Current Complaints Fatigue, weakness, gait difficulty, balance disorders History of Current Condition Pt is a 39 year old male presenting with a highly complex history, including DM type I, multiple orthopedic injuries (Hx 11 vertebral fractures, pelvic fractues, ankle reconstruction), neuropathy, kidney failure requiring dialysis, and is on the transplant list for both a kidney and a pancreas. Pt reports he has had worsening foot drop over the past few months, causing him to catch his foot during swing phase. This has recently been corrected by bilateral AFOs. Pt describes it as he would bring his foot up, he would be unable to dorsiflex his ankle , but could keep it in neutral during lift-off, but would then suddenly drop into plantarflexion mid-swing phase . Pt reports he had a recent EMG, which showed severely limited nerve conduction below his knees, they believe it is more likely secondary to neuropathy due to his diabetes vs from his previous spinal injuries. Pt admits that although his AFOs make walking easier, his is still very wobbly when standing secondary to blood pressure variations due to dialysis. Pt also notes that lisa broke his fifth metatarsal in his right foot last year, and due to the way his right foot in constantly inverted, he feels like he is always standing directly on the fracture, and that although it did heal, it is still the most painful thing about standing, especially in his AFO. Pt notes that he fatigues when walking more than two minutes, and typically cannot ascend a flight of stairs without needing to stop and take a break. Even if I could walk five minutes without stopping, that'd be so great. Pt has a caregiver and his mother able to assist him with most activities as needed. Pt occasionally uses a walker or wheelchair, but is afraid that was the reason [facility] does not think he is robust enough for his transplant. Treatment Goals Patient/Caregiver Goals Pt's goal is to increase his leg strength and activity tolerance Prior Functional Status Baseline Function- ADL's Needs Assist Baseline Function- Mobility Needs Assist PT-OP-C Subjective Start: 11/07/19 16:21 Freq: Status: Active Protocol: Document 12/13/19 14:32 DCW (Rec: 12/13/19 15:15 DCW [id number]) OP-PT Subjective Patient Comments Patient Comments I'm actually doing pretty good today. PT-OP-E Functional Tests Start: 11/07/19 16:21 Freq: Status: Active Protocol: Document 11/07/19 13:45 DCW (Rec: 11/08/19 16:29 DCW [id number]) Functional Tests 2 Minute Walk Test Distance 187 Device Used none Comments 1.56 ft/sec, one standing rest break PT-OP-G Mobility & Gait Start: 11/07/19 16:21 Freq: Status: Active Protocol: Document 11/07/19 13:45 DCW (Rec: 11/08/19 16:29 DCW [id number]) OP Gait Assessment Gait Gait Assistance Required: Standby Assistance Distance (Feet) 187 Able to Maintain Weight Bearing Status Yes During Gait Assistive Devices Assistive Device Gait Belt Orthotic/Prosthetic Devices or Brace: Yes Gait Deviations General Gait Pattern Ataxic,Decreased Stride Length ,Decreased Feet Clearance, Flexed Trunk Factors Limiting Gait Function Factors Limiting Gait Function Abnormal Tonal Influences, Decreased Activity Tolerance, Decreased Sensation,Decreased Strength,Limited Range of Motion,Poor Balance Comments Gait Comments Pt fatigues very quickly, unable to ambulate two minutes without a rest break. No foot drop when using AFOs. PT-OP-K Range of Motion Start: 11/07/19 16:21 Freq: Status: Active Protocol: Document 11/07/19 13:45 DCW (Rec: 11/08/19 16:29 DCW [id number]) Ankle and Foot Goniometric Range of Motion Ankle and Foot Left Active Testing Position Sitting Dorsiflexion with Knee Extended 2 Plantarflexion 40 Inversion 12 Eversion 4 Right Active Testing Position Sitting Plantarflexion 36 Inversion 18 Eversion 0 Ankle and Foot ROM Limitations Comments right DF: lacking 10 degrees of dorsiflexion from neutral PT-OP-M Strength Start: 11/07/19 16:21 Freq: Status: Active Protocol: Document 11/07/19 13:45 DCW (Rec: 11/08/19 16:29 DCW [id number]) Hip Strength Hip Manual Muscle Testing Right Flexion (L2) 4- Good- Extension (S1) 4 Good Abduction 4- Good- Adduction 4- Good- External Rotation 4 Good Internal Rotation 4 Good Left Flexion (L2) 4- Good- Extension (S1) 4 Good Abduction 4- Good- Adduction 4- Good- External Rotation 4 Good Internal Rotation 4 Good Knee Strength Knee Manual Muscle Testing Right Flexion (S2) 4 Good Extension (L3) 4 Good Left Flexion (S2) 4 Good Extension (L3) 4 Good Ankle/Foot Strength Ankle and Foot Manual Muscle Testing Right Dorsiflexion (L4) 2- Poor- Plantarflexion (S1) 2- Poor- Inversion 3 Fair Eversion (S1) 2- Poor- Left Dorsiflexion (L4) 2+ Poor+ Plantarflexion (S1) 3- Fair- Inversion 2+ Poor+ Eversion (S1) 2+ Poor+ PT-OP-Q Treatments Start: 11/07/19 16:21 Freq: Status: Active Protocol: Document 12/13/19 14:32 DCW (Rec: 12/13/19 15:15 DCW [id number]) Cardio Equipment Recumbent Elliptical (Biodex) Duration (Minutes) 5 Resistance 2 Seat Position 11 Gym Equipment Shuttle Recovery Unilateral squat Resistance 25# Shuttle Recovery Platform Stable Reps/Time 20x each side Bilateral Squats Resistance 62#->50# Shuttle Recovery Platform Stable Reps/Time x10 at each weight Therapeutic Ball LTR Exercise Details L/S rotation core obliques Ball Size/Color 55cm Body Position Hooklying Comments VCs for core contraction 1 Exercise Details Hip/knee flexion vs resistance Ball Size/Color Red - 55 cm Lv 1 T-band Body Position Supine Reps/Duration 2x10 Manual Therapy Treatment Soft Tissue Mobilization 1 Body Location Posterior tib Mobilization Type Strumming,Sustained Pressure, Trigger Point Release Intensity/Depth Moderate Body Position Prone Joint Mobilizations 2 Joint tibiotalar Direction posterior Grade III Body Position Supine Comments Ankle propped on foam roll. 1 Joint MTP 1-5 Direction dorsal/plantar Grade III Body Position Prone PT-OP-T Assessment and Plan Start: 11/07/19 16:21 Freq: Status: Active Protocol: Document 12/13/19 14:32 DCW (Rec: 12/13/19 15:15 DCW [id number]) Physical Therapy Assessment Impairments Impairments Activity Tolerance,Balance, Functional Activities, Functional Mobility,Gait,Pain, ROM,Soft Tissue Mobility, Strength Goals Four Impairment R ankle inversion at rest due to substantial tone through posterior tib Nursing Home Goal (LTG) Pt to demonstrate decreased tone in right posterior tib to enable him to return right foot to neutral at rest. LTG Duration 01/07/20 Three Impairment Pt ambulates with a gait speed of 1.56 ft/sec during 2 minute walk test Short Term Goal (STG) A gait speed less than 1.97 ft /sec can be indicative of further functional decline in the future. Pt will ambulate > 237' during the 2 MWT STG Duration 12/08/19 Wall And Floor Tiler Goal (LTG) Pt currently unable to tolerate 2 minute walk test without a standing rest break. Pt will be able to tolerate a 6 MWT with only one standing rest break to demonstrate increased activity tolerance LTG Duration 01/07/20 Two Impairment Significant weakness (<3/5) in bilateral ankles Wall And Floor Tiler Goal (LTG) Pt to demonstrate increased strength an bilateral eversion and inversion to 3/5 LTG Duration 01/07/20 One Impairment Pt does not have an appropriate home exercise program Short Term Goal (STG) Pt to be independent and compliant with an appropriate HEP STG Duration 12/08/19 Assessment Summary Assessment Pt continuing to tolerate increased resistance and demonstrates improved activity tolerance during PT session. Physical Therapy Plan Frequency and Duration Frequency of Treatment 2x/Week Duration of Treatment 10 weeks Plan of Care Start Date 11/07/19 Plan of Care End Date 01/16/20 Therapeutic Interventions Therapeutic Interventions Balance Training,Coordination Training,Gait Training,Home Exercise Program,Joint Mobilizations,Manual Therapy, Neuromuscular Re-education, Orthotic/Prosthetic Management ,Patient/Caregiver Education, Self-Care/Home Management,Soft Tissue Mobilization, Therapeutic Activities, Therapeutic Exercises Modalities Electric Stimulation Next Visit Focus/Plan Next Note Type Treatment Note Next Visit Plan Assess response to previous tx : review HEP biodex very challenging, shuttle recovery better control, therapy ball coming soon to perform at at home. Continue Ankle strengthening, ankle mobility, activity tolerance, gait training
--- NOTE | 2019-12-15 15:19 | PT.OTN ---
Current Diagnoses Foot drop, right foot (12/15/19) Other acquired deformities of right foot (12/15/19) Stiffness of right ankle, not elsewhere classified (12/15/19) Stiffness of left ankle, not elsewhere classified (12/15/19) Muscle weakness (generalized) (12/15/19) Plantar fascial fibromatosis (12/15/19) Other abnormalities of gait and mobility (12/15/19) Chronic fatigue, unspecified (12/15/19) Physical Therapy Treatment Note PT-OP-A Visit Information Start: 11/07/19 16:21 Freq: Status: Active Protocol: Document 12/15/19 14:40 DCW (Rec: 12/15/19 15:19 DCW [id number]) Out-Patient Physical Therapy Visit Information Visit Information Visit Type Treatment Note Visit Note 10 min late Visit Start Time 14:40 Visit Stop Time 15:15 Total Visit Minutes 35 Visit Number 8 Number of MANAGER OF INVESTIGATIONS Visits 0 Evaluation Information Evaluation Date 11/07/19 PT-OP-B Current Condition Start: 11/07/19 16:21 Freq: Status: Active Protocol: Document 11/07/19 13:45 DCW (Rec: 11/08/19 11:15 DCW [id number]) Current Condition History of Current Condition Onset Date Multi-year history Current Complaints Fatigue, weakness, gait difficulty, balance disorders History of Current Condition Pt is a 39 year old male presenting with a highly complex history, including DM type I, multiple orthopedic injuries (Hx 11 vertebral fractures, pelvic fractues, ankle reconstruction), neuropathy, kidney failure requiring dialysis, and is on the transplant list for both a kidney and a pancreas. Pt reports he has had worsening foot drop over the past few months, causing him to catch his foot during swing phase. This has recently been corrected by bilateral AFOs. Pt describes it as he would bring his foot up, he would be unable to dorsiflex his ankle , but could keep it in neutral during lift-off, but would then suddenly drop into plantarflexion mid-swing phase . Pt reports he had a recent EMG, which showed severely limited nerve conduction below his knees, they believe it is more likely secondary to neuropathy due to his diabetes vs from his previous spinal injuries. Pt admits that although his AFOs make walking easier, his is still very wobbly when standing secondary to blood pressure variations due to dialysis. Pt also notes that lsia broke his fifth metatarsal in his right foot last year, and due to the way his right foot in constantly inverted, he feels like he is always standing directly on the fracture, and that although it did heal, it is still the most painful thing about standing, especially in his AFO. Pt notes that he fatigues when walking more than two minutes, and typically cannot ascend a flight of stairs without needing to stop and take a break. Even if I could walk five minutes without stopping, that'd be so great. Pt has a caregiver and his mother able to assist him with most activities as needed. Pt occasionally uses a walker or wheelchair, but is afraid that was the reason [facility] does not think he is robust enough for his transplant. Treatment Goals Patient/Caregiver Goals Pt's goal is to increase his leg strength and activity tolerance Prior Functional Status Baseline Function- ADL's Needs Assist Baseline Function- Mobility Needs Assist PT-OP-C Subjective Start: 11/07/19 16:21 Freq: Status: Active Protocol: Document 12/15/19 14:40 DCW (Rec: 12/15/19 15:19 DCW [id number]) OP-PT Subjective Patient Comments Patient Comments Pt apologizes for being late, his car nearly ran out of gas, so he had to stop to fill it up. PT-OP-E Functional Tests Start: 11/07/19 16:21 Freq: Status: Active Protocol: Document 11/07/19 13:45 DCW (Rec: 11/08/19 16:29 DCW [id number]) Functional Tests 2 Minute Walk Test Distance 187 Device Used none Comments 1.56 ft/sec, one standing rest break PT-OP-G Mobility & Gait Start: 11/07/19 16:21 Freq: Status: Active Protocol: Document 11/07/19 13:45 DCW (Rec: 11/08/19 16:29 DCW [id number]) OP Gait Assessment Gait Gait Assistance Required: Standby Assistance Distance (Feet) 187 Able to Maintain Weight Bearing Status Yes During Gait Assistive Devices Assistive Device Gait Belt Orthotic/Prosthetic Devices or Brace: Yes Gait Deviations General Gait Pattern Ataxic,Decreased Stride Length ,Decreased Feet Clearance, Flexed Trunk Factors Limiting Gait Function Factors Limiting Gait Function Abnormal Tonal Influences, Decreased Activity Tolerance, Decreased Sensation,Decreased Strength,Limited Range of Motion,Poor Balance Comments Gait Comments Pt fatigues very quickly, unable to ambulate two minutes without a rest break. No foot drop when using AFOs. PT-OP-K Range of Motion Start: 11/07/19 16:21 Freq: Status: Active Protocol: Document 11/07/19 13:45 DCW (Rec: 11/08/19 16:29 DCW [id number]) Ankle and Foot Goniometric Range of Motion Ankle and Foot Left Active Testing Position Sitting Dorsiflexion with Knee Extended 2 Plantarflexion 40 Inversion 12 Eversion 4 Right Active Testing Position Sitting Plantarflexion 36 Inversion 18 Eversion 0 Ankle and Foot ROM Limitations Comments right DF: lacking 10 degrees of dorsiflexion from neutral PT-OP-M Strength Start: 11/07/19 16:21 Freq: Status: Active Protocol: Document 11/07/19 13:45 DCW (Rec: 11/08/19 16:29 DCW [id number]) Hip Strength Hip Manual Muscle Testing Right Flexion (L2) 4- Good- Extension (S1) 4 Good Abduction 4- Good- Adduction 4- Good- External Rotation 4 Good Internal Rotation 4 Good Left Flexion (L2) 4- Good- Extension (S1) 4 Good Abduction 4- Good- Adduction 4- Good- External Rotation 4 Good Internal Rotation 4 Good Knee Strength Knee Manual Muscle Testing Right Flexion (S2) 4 Good Extension (L3) 4 Good Left Flexion (S2) 4 Good Extension (L3) 4 Good Ankle/Foot Strength Ankle and Foot Manual Muscle Testing Right Dorsiflexion (L4) 2- Poor- Plantarflexion (S1) 2- Poor- Inversion 3 Fair Eversion (S1) 2- Poor- Left Dorsiflexion (L4) 2+ Poor+ Plantarflexion (S1) 3- Fair- Inversion 2+ Poor+ Eversion (S1) 2+ Poor+ PT-OP-Q Treatments Start: 11/07/19 16:21 Freq: Status: Active Protocol: Document 12/15/19 14:40 DCW (Rec: 12/15/19 15:19 DCW [id number]) Gym Equipment Shuttle Recovery Unilateral squat Resistance 25# Shuttle Recovery Platform Stable Reps/Time 20x each side Bilateral Squats Resistance 62#->50# Shuttle Recovery Platform Stable Reps/Time x10 at each weight Shuttle Balance 1 Details Red Comments Wide FRANKIE, Staggered Stance Manual Therapy Treatment Soft Tissue Mobilization 1 Body Location Posterior tib Mobilization Type Strumming,Sustained Pressure, Trigger Point Release Intensity/Depth Moderate Body Position Prone Joint Mobilizations 2 Joint tibiotalar Direction posterior Grade III Body Position Supine Comments Ankle propped on foam roll. 1 Joint MTP 1-5 Direction dorsal/plantar Grade III Body Position Prone PT-OP-T Assessment and Plan Start: 11/07/19 16:21 Freq: Status: Active Protocol: Document 12/15/19 14:40 DCW (Rec: 12/15/19 15:19 DCW [id number]) Physical Therapy Assessment Impairments Impairments Activity Tolerance,Balance, Functional Activities, Functional Mobility,Gait,Pain, ROM,Soft Tissue Mobility, Strength Goals Four Impairment R ankle inversion at rest due to substantial tone through posterior tib Marzipan Molder Goal (LTG) Pt to demonstrate decreased tone in right posterior tib to enable him to return right foot to neutral at rest. LTG Duration 01/07/20 Three Impairment Pt ambulates with a gait speed of 1.56 ft/sec during 2 minute walk test Short Term Goal (STG) A gait speed less than 1.97 ft /sec can be indicative of further functional decline in the future. Pt will ambulate > 237' during the 2 MWT STG Duration 12/08/19 Marzipan Molder Goal (LTG) Pt currently unable to tolerate 2 minute walk test without a standing rest break. Pt will be able to tolerate a 6 MWT with only one standing rest break to demonstrate increased activity tolerance LTG Duration 01/07/20 Two Impairment Significant weakness (<3/5) in bilateral ankles Marzipan Molder Goal (LTG) Pt to demonstrate increased strength an bilateral eversion and inversion to 3/5 LTG Duration 01/07/20 One Impairment Pt does not have an appropriate home exercise program Short Term Goal (STG) Pt to be independent and compliant with an appropriate HEP STG Duration 12/08/19 Assessment Summary Assessment Pt continuing to show small improvements, less overall fatigue and much better gait and stability. Physical Therapy Plan Frequency and Duration Frequency of Treatment 2x/Week Duration of Treatment 10 weeks Plan of Care Start Date 11/07/19 Plan of Care End Date 01/16/20 Therapeutic Interventions Therapeutic Interventions Balance Training,Coordination Training,Gait Training,Home Exercise Program,Joint Mobilizations,Manual Therapy, Neuromuscular Re-education, Orthotic/Prosthetic Management ,Patient/Caregiver Education, Self-Care/Home Management,Soft Tissue Mobilization, Therapeutic Activities, Therapeutic Exercises Modalities Electric Stimulation Next Visit Focus/Plan Next Note Type Treatment Note Next Visit Plan Assess response to previous tx : review HEP, therapy ball coming soon to perform at at home. Continue Ankle strengthening, ankle mobility, activity tolerance, gait training
--- NOTE | 2019-12-20 15:14 | PT.OTN ---
Current Diagnoses Foot drop, right foot (12/20/19) Other acquired deformities of right foot (12/20/19) Stiffness of right ankle, not elsewhere classified (12/20/19) Stiffness of left ankle, not elsewhere classified (12/20/19) Muscle weakness (generalized) (12/20/19) Plantar fascial fibromatosis (12/20/19) Other abnormalities of gait and mobility (12/20/19) Chronic fatigue, unspecified (12/20/19) Physical Therapy Treatment Note PT-OP-A Visit Information Start: 11/07/19 16:21 Freq: Status: Active Protocol: Document 12/20/19 14:30 DCW (Rec: 12/20/19 15:14 DCW [id number]) Out-Patient Physical Therapy Visit Information Visit Information Visit Type Treatment Note Visit Start Time 14:30 Visit Stop Time 15:15 Total Visit Minutes 45 Visit Number 9 Number of ENGRAVER AUTOMATIC Visits 0 Evaluation Information Evaluation Date 11/07/19 PT-OP-B Current Condition Start: 11/07/19 16:21 Freq: Status: Active Protocol: Document 11/07/19 13:45 DCW (Rec: 11/08/19 11:15 DCW [id number]) Current Condition History of Current Condition Onset Date Multi-year history Current Complaints Fatigue, weakness, gait difficulty, balance disorders History of Current Condition Pt is a 39 year old male presenting with a highly complex history, including DM type I, multiple orthopedic injuries (Hx 11 vertebral fractures, pelvic fractues, ankle reconstruction), neuropathy, kidney failure requiring dialysis, and is on the transplant list for both a kidney and a pancreas. Pt reports he has had worsening foot drop over the past few months, causing him to catch his foot during swing phase. This has recently been corrected by bilateral AFOs. Pt describes it as he would bring his foot up, he would be unable to dorsiflex his ankle , but could keep it in neutral during lift-off, but would then suddenly drop into plantarflexion mid-swing phase . Pt reports he had a recent EMG, which showed severely limited nerve conduction below his knees, they believe it is more likely secondary to neuropathy due to his diabetes vs from his previous spinal injuries. Pt admits that although his AFOs make walking easier, his is still very wobbly when standing secondary to blood pressure variations due to dialysis. Pt also notes that lisa broke his fifth metatarsal in his right foot last year, and due to the way his right foot in constantly inverted, he feels like he is always standing directly on the fracture, and that although it did heal, it is still the most painful thing about standing, especially in his AFO. Pt notes that he fatigues when walking more than two minutes, and typically cannot ascend a flight of stairs without needing to stop and take a break. Even if I could walk five minutes without stopping, that'd be so great. Pt has a caregiver and his mother able to assist him with most activities as needed. Pt occasionally uses a walker or wheelchair, but is afraid that was the reason [facility] does not think he is robust enough for his transplant. Treatment Goals Patient/Caregiver Goals Pt's goal is to increase his leg strength and activity tolerance Prior Functional Status Baseline Function- ADL's Needs Assist Baseline Function- Mobility Needs Assist PT-OP-C Subjective Start: 11/07/19 16:21 Freq: Status: Active Protocol: Document 12/20/19 14:30 DCW (Rec: 12/20/19 15:14 DCW [id number]) OP-PT Subjective Patient Comments Patient Comments Pt doing well today, notes he is a little sore and a little tired, but thats more of a kidney failure issue. Other than that, everything seems to be rolling along, getting better. PT-OP-E Functional Tests Start: 11/07/19 16:21 Freq: Status: Active Protocol: Document 11/07/19 13:45 DCW (Rec: 11/08/19 16:29 DCW [id number]) Functional Tests 2 Minute Walk Test Distance 187 Device Used none Comments 1.56 ft/sec, one standing rest break PT-OP-G Mobility & Gait Start: 11/07/19 16:21 Freq: Status: Active Protocol: Document 11/07/19 13:45 DCW (Rec: 11/08/19 16:29 DCW [id number]) OP Gait Assessment Gait Gait Assistance Required: Standby Assistance Distance (Feet) 187 Able to Maintain Weight Bearing Status Yes During Gait Assistive Devices Assistive Device Gait Belt Orthotic/Prosthetic Devices or Brace: Yes Gait Deviations General Gait Pattern Ataxic,Decreased Stride Length ,Decreased Feet Clearance, Flexed Trunk Factors Limiting Gait Function Factors Limiting Gait Function Abnormal Tonal Influences, Decreased Activity Tolerance, Decreased Sensation,Decreased Strength,Limited Range of Motion,Poor Balance Comments Gait Comments Pt fatigues very quickly, unable to ambulate two minutes without a rest break. No foot drop when using AFOs. PT-OP-K Range of Motion Start: 11/07/19 16:21 Freq: Status: Active Protocol: Document 11/07/19 13:45 DCW (Rec: 11/08/19 16:29 DCW [id number]) Ankle and Foot Goniometric Range of Motion Ankle and Foot Left Active Testing Position Sitting Dorsiflexion with Knee Extended 2 Plantarflexion 40 Inversion 12 Eversion 4 Right Active Testing Position Sitting Plantarflexion 36 Inversion 18 Eversion 0 Ankle and Foot ROM Limitations Comments right DF: lacking 10 degrees of dorsiflexion from neutral PT-OP-M Strength Start: 11/07/19 16:21 Freq: Status: Active Protocol: Document 11/07/19 13:45 DCW (Rec: 11/08/19 16:29 DCW [id number]) Hip Strength Hip Manual Muscle Testing Right Flexion (L2) 4- Good- Extension (S1) 4 Good Abduction 4- Good- Adduction 4- Good- External Rotation 4 Good Internal Rotation 4 Good Left Flexion (L2) 4- Good- Extension (S1) 4 Good Abduction 4- Good- Adduction 4- Good- External Rotation 4 Good Internal Rotation 4 Good Knee Strength Knee Manual Muscle Testing Right Flexion (S2) 4 Good Extension (L3) 4 Good Left Flexion (S2) 4 Good Extension (L3) 4 Good Ankle/Foot Strength Ankle and Foot Manual Muscle Testing Right Dorsiflexion (L4) 2- Poor- Plantarflexion (S1) 2- Poor- Inversion 3 Fair Eversion (S1) 2- Poor- Left Dorsiflexion (L4) 2+ Poor+ Plantarflexion (S1) 3- Fair- Inversion 2+ Poor+ Eversion (S1) 2+ Poor+ PT-OP-Q Treatments Start: 11/07/19 16:21 Freq: Status: Active Protocol: Document 12/20/19 14:30 DCW (Rec: 12/20/19 15:14 DCW [id number]) Cardio Equipment Recumbent Elliptical (Biodex) Duration (Minutes) 5 Resistance 3 Seat Position 11 Gym Equipment Shuttle Recovery Unilateral squat Resistance 25# Shuttle Recovery Platform Stable Reps/Time 20x each side Bilateral Squats Resistance 62#->50# Shuttle Recovery Platform Stable Reps/Time x10 at each weight Therapeutic Exercises Standing Exercises 1 Standing Exercise Name Lunges Equipment Used Blue BOSU Other Exercises 1 Other Exercise Name Resisted side-stepping Resistance Yellow Equipment Used T-band Manual Therapy Treatment Soft Tissue Mobilization 1 Body Location Posterior tib Mobilization Type Strumming,Sustained Pressure, Trigger Point Release Intensity/Depth Moderate Body Position Sitting Joint Mobilizations 2 Joint tibiotalar Direction posterior Grade III Body Position Sitting Comments Ankle propped on foam roll. 1 Joint MTP 1-5 Direction dorsal/plantar Grade III Body Position Sitting PT-OP-T Assessment and Plan Start: 11/07/19 16:21 Freq: Status: Active Protocol: Document 12/20/19 14:30 DCW (Rec: 12/20/19 15:14 DCW [id number]) Physical Therapy Assessment Assessment Summary Assessment Overall posterior tib decreasing in tone bilaterally , still fatigues with activity but able to tolerate more before needing rest break. Physical Therapy Plan Frequency and Duration Frequency of Treatment 2x/Week Duration of Treatment 10 weeks Plan of Care Start Date 11/07/19 Plan of Care End Date 01/16/20 Therapeutic Interventions Therapeutic Interventions Balance Training,Coordination Training,Gait Training,Home Exercise Program,Joint Mobilizations,Manual Therapy, Neuromuscular Re-education, Orthotic/Prosthetic Management ,Patient/Caregiver Education, Self-Care/Home Management,Soft Tissue Mobilization, Therapeutic Activities, Therapeutic Exercises Modalities Electric Stimulation Next Visit Focus/Plan Next Note Type Treatment Note Next Visit Plan Assess response to previous tx : review HEP, therapy ball coming soon to perform at at home. Continue Ankle strengthening, ankle mobility, activity tolerance, gait training
--- NOTE | 2019-12-22 14:38 | PT-OP ANOTE ---
Pt arrived for his scheduled visit today, however he was in substantial pain following a steroid injection in his low back yesterday, and his blood sugar was way out of wack, resulting in him needing an insulin injection. Patient and therapist decided pt would likely be better off canceling today's appointment.
--- NOTE | 2020-01-25 14:30 | PT.OTN ---
Current Diagnoses Foot drop, right foot (01/25/20) Other acquired deformities of right foot (01/25/20) Stiffness of right ankle, not elsewhere classified (01/25/20) Stiffness of left ankle, not elsewhere classified (01/25/20) Muscle weakness (generalized) (01/25/20) Plantar fascial fibromatosis (01/25/20) Other abnormalities of gait and mobility (01/25/20) Chronic fatigue, unspecified (01/25/20) Physical Therapy Treatment Note PT-OP-A Visit Information Start: 11/07/19 16:21 Freq: Status: Active Protocol: Document 01/25/20 14:30 DLM (Rec: 01/26/20 20:25 DLM [id number]) Out-Patient Physical Therapy Visit Information Visit Information Visit Type Treatment Note Visit Start Time 14:30 Visit Stop Time 15:15 Total Visit Minutes 45 Visit Number 10 Number of TEXTILE SCREEN MAKER Visits 0 Evaluation Information Evaluation Date 11/07/19 Precautions Precautions dialysis, bilateral AFO's PT-OP-B Current Condition Start: 11/07/19 16:21 Freq: Status: Active Protocol: Document 11/07/19 13:45 DCW (Rec: 11/08/19 11:15 DCW [id number]) Current Condition History of Current Condition Onset Date Multi-year history Current Complaints Fatigue, weakness, gait difficulty, balance disorders History of Current Condition Pt is a 39 year old male presenting with a highly complex history, including DM type I, multiple orthopedic injuries (Hx 11 vertebral fractures, pelvic fractues, ankle reconstruction), neuropathy, kidney failure requiring dialysis, and is on the transplant list for both a kidney and a pancreas. Pt reports he has had worsening foot drop over the past few months, causing him to catch his foot during swing phase. This has recently been corrected by bilateral AFOs. Pt describes it as he would bring his foot up, he would be unable to dorsiflex his ankle , but could keep it in neutral during lift-off, but would then suddenly drop into plantarflexion mid-swing phase . Pt reports he had a recent EMG, which showed severely limited nerve conduction below his knees, they believe it is more likely secondary to neuropathy due to his diabetes vs from his previous spinal injuries. Pt admits that although his AFOs make walking easier, his is still very wobbly when standing secondary to blood pressure variations due to dialysis. Pt also notes that lisa broke his fifth metatarsal in his right foot last year, and due to the way his right foot in constantly inverted, he feels like he is always standing directly on the fracture, and that although it did heal, it is still the most painful thing about standing, especially in his AFO. Pt notes that he fatigues when walking more than two minutes, and typically cannot ascend a flight of stairs without needing to stop and take a break. Even if I could walk five minutes without stopping, that'd be so great. Pt has a caregiver and his mother able to assist him with most activities as needed. Pt occasionally uses a walker or wheelchair, but is afraid that was the reason [facility] does not think he is robust enough for his transplant. Treatment Goals Patient/Caregiver Goals Pt's goal is to increase his leg strength and activity tolerance Prior Functional Status Baseline Function- ADL's Needs Assist Baseline Function- Mobility Needs Assist PT-OP-C Subjective Start: 11/07/19 16:21 Freq: Status: Active Protocol: Document 01/25/20 14:30 DLM (Rec: 01/26/20 20:27 DLM [id number]) OP-PT Subjective Patient Comments Patient Comments He is a little sore. He has been trying to do exercises at home. His exercise ball is not inflated yet at home. He can not walk fast; tried and ended up falling. PT-OP-E Functional Tests Start: 11/07/19 16:21 Freq: Status: Active Protocol: Document 01/25/20 14:30 DLM (Rec: 01/27/20 12:29 DLM [email or web address]) Functional Tests 2 Minute Walk Test Distance 345.7 Ft, 296.2 Ft Device Used Bilateral AFO's Comments mild shortness of breath, good recovery with rest PT-OP-G Mobility & Gait Start: 11/07/19 16:21 Freq: Status: Active Protocol: Document 01/25/20 14:30 DLM (Rec: 01/27/20 12:32 DLM [email or web address]) OP Gait Assessment Gait Gait Assistance Required: Independent Distance (Feet) 300 Able to Maintain Weight Bearing Status Yes During Gait Assistive Devices Assistive Device None Orthotic/Prosthetic Devices or Brace: Yes Gait Deviations General Gait Pattern Decreased Stride Length Factors Limiting Gait Function Factors Limiting Gait Function Abnormal Tonal Influences, Decreased Activity Tolerance, Decreased Strength,Limited Range of Motion Comments Gait Comments wearing bilateral AFO's with improved feet clearance and improved posture PT-OP-K Range of Motion Start: 11/07/19 16:21 Freq: Status: Active Protocol: Document 11/07/19 13:45 DCW (Rec: 11/08/19 16:29 DCW [id number]) Ankle and Foot Goniometric Range of Motion Ankle and Foot Left Active Testing Position Sitting Dorsiflexion with Knee Extended 2 Plantarflexion 40 Inversion 12 Eversion 4 Right Active Testing Position Sitting Plantarflexion 36 Inversion 18 Eversion 0 Ankle and Foot ROM Limitations Comments right DF: lacking 10 degrees of dorsiflexion from neutral PT-OP-M Strength Start: 11/07/19 16:21 Freq: Status: Active Protocol: Document 01/25/20 14:30 DLM (Rec: 01/27/20 12:29 DLM [email or web address]) Ankle/Foot Strength Ankle and Foot Manual Muscle Testing Right Inversion 5 Normal Eversion (S1) 3+ Fair+ Comments manual assessment shows decreased tone in post tib and improved ability to get ankle in neutral position but not past it Left Inversion 4 Good Eversion (S1) 3+ Fair+ PT-OP-Q Treatments Start: 11/07/19 16:21 Freq: Status: Active Protocol: Document 01/25/20 14:30 DLM (Rec: 01/27/20 12:29 DLM [email or web address]) Therapeutic Exercises Sitting Exercises Hamstring Stretch Sitting Exercise Name single limb long sitting Side bilateral Resistance passive Equipment Used seated edge of mat table Reps/Minutes 3 reps each side Standing Exercises calf stretch Standing Exercise Name gastroc and soleus stretch Side bilateral Equipment Used RODRIGO Reps/Minutes 2 minutes Gait Training Gait Activity level surface Description with bilateral AFO's Device Used none Surface level Comments education to decrease fall risks Self-Care/Home Management Treatment Education Patient Education Fall Risk,Home Exercise Program Other Education reviewed HEP PT-OP-T Assessment and Plan Start: 11/07/19 16:21 Freq: Status: Active Protocol: Document 01/25/20 14:30 DLM (Rec: 01/27/20 12:29 DLM [email or web address]) Physical Therapy Assessment Impairments Impairments Activity Tolerance,Balance, Functional Activities, Functional Mobility,Gait,Pain, ROM,Soft Tissue Mobility, Strength Goals Four Impairment R ankle inversion at rest due to substantial tone through posterior tib Shooting Gallery Operator Goal (LTG) Pt to demonstrate decreased tone in right posterior tib to enable him to return right foot to neutral at rest.- Improving LTG Duration 02/25/20 Three Impairment Pt ambulates with a gait speed of 1.56 ft/sec during 2 minute walk test Short Term Goal (STG) A gait speed less than 1.97 ft /sec can be indicative of further functional decline in the future. Pt will ambulate > 237' during the 2 MWT -Met STG Duration 12/08/19, Met Custodial Goal (LTG) Pt currently unable to tolerate 2 minute walk test without a standing rest break. Pt will be able to tolerate a 6 MWT with only one standing rest break to demonstrate increased activity tolerance LTG Duration 02/25/20 Two Impairment Significant weakness (<3/5) in bilateral ankles Shooting Gallery Operator Goal (LTG) Pt to demonstrate increased strength an bilateral eversion and inversion to 3/5 -Met LTG Duration 01/07/20, Met One Impairment Pt does not have an appropriate home exercise program Short Term Goal (STG) Pt to be independent and compliant with an appropriate HEP -improving STG Duration 02/25/20 Progress Towards Goals Progress Towards Goals Progressing Toward Goals Progress Comments see notes on goals above, extending time on Plan of care Assessment Summary Assessment He has attended 10 physical therapy sessions since his evaluation on 11/07/19. He has missed appointments in part due to his other medical conditions and appointments. He verbalizes good motivation to continue with physical therapy. He wants to be strong enough to get a transplant. He has shown progress in all areas since evaluation but has not met his prison goals yet. Will extend treatment plan for 4 more weeks. Physical Therapy Plan Frequency and Duration Frequency of Treatment 2x/Week Duration of Treatment 4 more weeks Plan of Care Start Date 01/25/20 Plan of Care End Date 02/25/20 Therapeutic Interventions Therapeutic Interventions Balance Training,Coordination Training,Gait Training,Home Exercise Program,Joint Mobilizations,Manual Therapy, Neuromuscular Re-education, Orthotic/Prosthetic Management ,Patient/Caregiver Education, Self-Care/Home Management,Soft Tissue Mobilization, Therapeutic Activities, Therapeutic Exercises Modalities Electric Stimulation Next Visit Focus/Plan Next Note Type Treatment Note Next Visit Plan continue strengthening and gait training, increase activity tolerance
--- NOTE | 2020-01-25 15:00 | PT.OPPN ---
Current Diagnoses Foot drop, right foot (01/25/20) Other acquired deformities of right foot (01/25/20) Stiffness of right ankle, not elsewhere classified (01/25/20) Stiffness of left ankle, not elsewhere classified (01/25/20) Muscle weakness (generalized) (01/25/20) Plantar fascial fibromatosis (01/25/20) Other abnormalities of gait and mobility (01/25/20) Chronic fatigue, unspecified (01/25/20) Physical Therapy Progress Note PT-OP-A Visit Information Start: 11/07/19 16:21 Freq: Status: Active Protocol: Document 01/25/20 14:30 DLM (Rec: 01/26/20 20:25 DLM [id number]) Out-Patient Physical Therapy Visit Information Visit Information Visit Type Treatment Note Visit Start Time 14:30 Visit Stop Time 15:15 Total Visit Minutes 45 Visit Number 10 Number of SLING OPERATOR Visits 0 Evaluation Information Evaluation Date 11/07/19 Precautions Precautions dialysis, bilateral AFO's PT-OP-B Current Condition Start: 11/07/19 16:21 Freq: Status: Active Protocol: Document 11/07/19 13:45 DCW (Rec: 11/08/19 11:15 DCW [id number]) Current Condition History of Current Condition Onset Date Multi-year history Current Complaints Fatigue, weakness, gait difficulty, balance disorders History of Current Condition Pt is a 39 year old male presenting with a highly complex history, including DM type I, multiple orthopedic injuries (Hx 11 vertebral fractures, pelvic fractues, ankle reconstruction), neuropathy, kidney failure requiring dialysis, and is on the transplant list for both a kidney and a pancreas. Pt reports he has had worsening foot drop over the past few months, causing him to catch his foot during swing phase. This has recently been corrected by bilateral AFOs. Pt describes it as he would bring his foot up, he would be unable to dorsiflex his ankle , but could keep it in neutral during lift-off, but would then suddenly drop into plantarflexion mid-swing phase . Pt reports he had a recent EMG, which showed severely limited nerve conduction below his knees, they believe it is more likely secondary to neuropathy due to his diabetes vs from his previous spinal injuries. Pt admits that although his AFOs make walking easier, his is still very wobbly when standing secondary to blood pressure variations due to dialysis. Pt also notes that lisa broke his fifth metatarsal in his right foot last year, and due to the way his right foot in constantly inverted, he feels like he is always standing directly on the fracture, and that although it did heal, it is still the most painful thing about standing, especially in his AFO. Pt notes that he fatigues when walking more than two minutes, and typically cannot ascend a flight of stairs without needing to stop and take a break. Even if I could walk five minutes without stopping, that'd be so great. Pt has a caregiver and his mother able to assist him with most activities as needed. Pt occasionally uses a walker or wheelchair, but is afraid that was the reason [facility] does not think he is robust enough for his transplant. Treatment Goals Patient/Caregiver Goals Pt's goal is to increase his leg strength and activity tolerance Prior Functional Status Baseline Function- ADL's Needs Assist Baseline Function- Mobility Needs Assist PT-OP-C Subjective Start: 11/07/19 16:21 Freq: Status: Active Protocol: Document 01/25/20 14:30 DLM (Rec: 01/26/20 20:27 DLM [id number]) OP-PT Subjective Patient Comments Patient Comments He is a little sore. He has been trying to do exercises at home. His exercise ball is not inflated yet at home. He can not walk fast; tried and ended up falling. PT-OP-E Functional Tests Start: 11/07/19 16:21 Freq: Status: Active Protocol: Document 01/25/20 14:30 DLM (Rec: 01/27/20 12:29 DLM [email or web address]) Functional Tests 2 Minute Walk Test Distance 345.7 Ft, 296.2 Ft Device Used Bilateral AFO's Comments mild shortness of breath, good recovery with rest PT-OP-G Mobility & Gait Start: 11/07/19 16:21 Freq: Status: Active Protocol: Document 01/25/20 14:30 DLM (Rec: 01/27/20 12:32 DLM [email or web address]) OP Gait Assessment Gait Gait Assistance Required: Independent Distance (Feet) 300 Able to Maintain Weight Bearing Status Yes During Gait Assistive Devices Assistive Device None Orthotic/Prosthetic Devices or Brace: Yes Gait Deviations General Gait Pattern Decreased Stride Length Factors Limiting Gait Function Factors Limiting Gait Function Abnormal Tonal Influences, Decreased Activity Tolerance, Decreased Strength,Limited Range of Motion Comments Gait Comments wearing bilateral AFO's with improved feet clearance and improved posture PT-OP-K Range of Motion Start: 11/07/19 16:21 Freq: Status: Active Protocol: Document 11/07/19 13:45 DCW (Rec: 11/08/19 16:29 DCW [id number]) Ankle and Foot Goniometric Range of Motion Ankle and Foot Measured in Degrees Left Active Testing Position Sitting Dorsiflexion with Knee Extended 2 Plantarflexion 40 Inversion 12 Eversion 4 Right Active Testing Position Sitting Plantarflexion 36 Inversion 18 Eversion 0 Ankle and Foot ROM Limitations Comments right DF: lacking 10 degrees of dorsiflexion from neutral PT-OP-M Strength Start: 11/07/19 16:21 Freq: Status: Active Protocol: Document 01/25/20 14:30 DLM (Rec: 01/27/20 12:29 DLM [email or web address]) Ankle/Foot Strength Ankle and Foot Manual Muscle Testing Right Inversion 5 Normal Eversion (S1) 3+ Fair+ Comments manual assessment shows decreased tone in post tib and improved ability to get ankle in neutral position but not past it Left Inversion 4 Good Eversion (S1) 3+ Fair+ PT-OP-T Assessment and Plan Start: 11/07/19 16:21 Freq: Status: Active Protocol: Document 01/25/20 14:30 DLM (Rec: 01/27/20 12:29 DLM [email or web address]) Physical Therapy Assessment Impairments Impairments Activity Tolerance,Balance, Functional Activities, Functional Mobility,Gait,Pain, ROM,Soft Tissue Mobility, Strength Goals Four Impairment R ankle inversion at rest due to substantial tone through posterior tib Online Producer Goal (LTG) Pt to demonstrate decreased tone in right posterior tib to enable him to return right foot to neutral at rest.- Improving LTG Duration 02/25/20 Three Impairment Pt ambulates with a gait speed of 1.56 ft/sec during 2 minute walk test Short Term Goal (STG) A gait speed less than 1.97 ft /sec can be indicative of further functional decline in the future. Pt will ambulate > 237' during the 2 MWT -Met STG Duration 12/08/19, Met Senior Care Goal (LTG) Pt currently unable to tolerate 2 minute walk test without a standing rest break. Pt will be able to tolerate a 6 MWT with only one standing rest break to demonstrate increased activity tolerance LTG Duration 02/25/20 Two Impairment Significant weakness (<3/5) in bilateral ankles Online Producer Goal (LTG) Pt to demonstrate increased strength an bilateral eversion and inversion to 3/5 -Met LTG Duration 01/07/20, Met One Impairment Pt does not have an appropriate home exercise program Short Term Goal (STG) Pt to be independent and compliant with an appropriate HEP -improving STG Duration 02/25/20 Progress Towards Goals Progress Towards Goals Progressing Toward Goals Progress Comments see notes on goals above, extending time on Plan of care Assessment Summary Assessment He has attended 10 physical therapy sessions since his evaluation on 11/07/19. He has missed appointments in part due to his other medical conditions and appointments. He verbalizes good motivation to continue with physical therapy. He wants to be strong enough to get a transplant. 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 Will extend treatment plan for 4 more weeks. Physical Therapy Plan Frequency and Duration Frequency of Treatment 2x/Week Duration of Treatment 4 more weeks Plan of Care Start Date 01/25/20 Plan of Care End Date 02/25/20 Therapeutic Interventions Therapeutic Interventions Balance Training,Coordination Training,Gait Training,Home Exercise Program,Joint Mobilizations,Manual Therapy, Neuromuscular Re-education, Orthotic/Prosthetic Management ,Patient/Caregiver Education, Self-Care/Home Management,Soft Tissue Mobilization, Therapeutic Activities, Therapeutic Exercises Modalities Electric Stimulation Next Visit Focus/Plan Next Note Type Treatment Note Next Visit Plan continue strengthening and gait training, increase activity tolerance
--- NOTE | 2020-01-25 15:00 | PT.OPPOC ---
Physical, Occupational & Speech Therapy At [facility] Current Diagnoses Foot drop, right foot (01/25/20) Other acquired deformities of right foot (01/25/20) Stiffness of right ankle, not elsewhere classified (01/25/20) Stiffness of left ankle, not elsewhere classified (01/25/20) Muscle weakness (generalized) (01/25/20) Plantar fascial fibromatosis (01/25/20) Other abnormalities of gait and mobility (01/25/20) Chronic fatigue, unspecified (01/25/20) Visit Care Team Role Provider Type Jose Multani MD Primary Care Provider Physician Specialty: Family Practice Address: [address] [place] [address], [facility] [place], [address] Email: [email or web address] Heidi Jamison DPM Attending Provider Physician Referring Provider Specialty: Podiatry Address: [address] [place] [address], [address] Email: [email or web address] Plan Of Care PT-OP-T Assessment and Plan Start: 11/07/19 16:21 Freq: Status: Active Protocol: Document 01/25/20 14:30 DLM (Rec: 01/27/20 12:29 DLM [email or web address]) Physical Therapy Assessment Impairments Impairments Activity Tolerance,Balance, Functional Activities, Functional Mobility,Gait,Pain, ROM,Soft Tissue Mobility, Strength Goals Four Impairment R ankle inversion at rest due to substantial tone through posterior tib Customs Director Goal (LTG) Pt to demonstrate decreased tone in right posterior tib to enable him to return right foot to neutral at rest.- Improving LTG Duration 02/25/20 Three Impairment Pt ambulates with a gait speed of 1.56 ft/sec during 2 minute walk test Short Term Goal (STG) A gait speed less than 1.97 ft /sec can be indicative of further functional decline in the future. Pt will ambulate > 237' during the 2 MWT -Met STG Duration 12/08/19, Met Snf Goal (LTG) Pt currently unable to tolerate 2 minute walk test without a standing rest break. Pt will be able to tolerate a 6 MWT with only one standing rest break to demonstrate increased activity tolerance LTG Duration 02/25/20 Two Impairment Significant weakness (<3/5) in bilateral ankles Customs Director Goal (LTG) Pt to demonstrate increased strength an bilateral eversion and inversion to 3/5 -Met LTG Duration 01/07/20, Met One Impairment Pt does not have an appropriate home exercise program Short Term Goal (STG) Pt to be independent and compliant with an appropriate HEP -improving STG Duration 02/25/20 Progress Towards Goals Progress Towards Goals Progressing Toward Goals Progress Comments see notes on goals above, extending time on Plan of care Assessment Summary Assessment He has attended 10 physical therapy sessions since his evaluation on 11/07/19. He has missed appointments in part due to his other medical conditions and appointments. He verbalizes good motivation to continue with physical therapy. He wants to be strong enough to get a transplant. 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 Will extend treatment plan for 4 more weeks. Physical Therapy Plan Frequency and Duration Frequency of Treatment 2x/Week Duration of Treatment 4 more weeks Plan of Care Start Date 01/25/20 Plan of Care End Date 02/25/20 Therapeutic Interventions Therapeutic Interventions Balance Training,Coordination Training,Gait Training,Home Exercise Program,Joint Mobilizations,Manual Therapy, Neuromuscular Re-education, Orthotic/Prosthetic Management ,Patient/Caregiver Education, Self-Care/Home Management,Soft Tissue Mobilization, Therapeutic Activities, Therapeutic Exercises Modalities Electric Stimulation Next Visit Focus/Plan Next Note Type Treatment Note Next Visit Plan continue strengthening and gait training, increase activity tolerance Plan of Care Dates Plan of Care Start Date 01/25/20 Plan of Care End Date 02/25/20 Electronically Signed by: Cece Stewart, PT 01/27/20 [id number] Please Sign and Return: I have reviewed this Plan of Care and certify that the skilled therapy services above are required to meet the patient?s needs. Physician Signature Date Printed Name and Credentials C
--- NOTE | 2020-01-31 15:59 | PT.OTN ---
Current Diagnoses Foot drop, right foot (01/31/20) Other acquired deformities of right foot (01/31/20) Stiffness of right ankle, not elsewhere classified (01/31/20) Stiffness of left ankle, not elsewhere classified (01/31/20) Muscle weakness (generalized) (01/31/20) Plantar fascial fibromatosis (01/31/20) Other abnormalities of gait and mobility (01/31/20) Chronic fatigue, unspecified (01/31/20) Physical Therapy Treatment Note PT-OP-A Visit Information Start: 11/07/19 16:21 Freq: Status: Active Protocol: Document 01/31/20 15:15 DCW (Rec: 01/31/20 15:58 DCW [id number]) Out-Patient Physical Therapy Visit Information Visit Information Visit Type Treatment Note Visit Start Time 15:15 Visit Stop Time 16:00 Total Visit Minutes 45 Visit Number 11 Number of 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 Evaluation Information Evaluation Date 11/07/19 Precautions Precautions dialysis, bilateral AFO's PT-OP-B Current Condition Start: 11/07/19 16:21 Freq: Status: Active Protocol: Document 11/07/19 13:45 DCW (Rec: 11/08/19 11:15 DCW [id number]) Current Condition History of Current Condition Onset Date Multi-year history Current Complaints Fatigue, weakness, gait difficulty, balance disorders History of Current Condition Pt is a 39 year old male presenting with a highly complex history, including DM type I, multiple orthopedic injuries (Hx 11 vertebral fractures, pelvic fractues, ankle reconstruction), neuropathy, kidney failure requiring dialysis, and is on the transplant list for both a kidney and a pancreas. Pt reports he has had worsening foot drop over the past few months, causing him to catch his foot during swing phase. This has recently been corrected by bilateral AFOs. Pt describes it as he would bring his foot up, he would be unable to dorsiflex his ankle , but could keep it in neutral during lift-off, but would then suddenly drop into plantarflexion mid-swing phase . Pt reports he had a recent EMG, which showed severely limited nerve conduction below his knees, they believe it is more likely secondary to neuropathy due to his diabetes vs from his previous spinal injuries. Pt admits that although his AFOs make walking easier, his is still very wobbly when standing secondary to blood pressure variations due to dialysis. Pt also notes that lisa broke his fifth metatarsal in his right foot last year, and due to the way his right foot in constantly inverted, he feels like he is always standing directly on the fracture, and that although it did heal, it is still the most painful thing about standing, especially in his AFO. Pt notes that he fatigues when walking more than two minutes, and typically cannot ascend a flight of stairs without needing to stop and take a break. Even if I could walk five minutes without stopping, that'd be so great. Pt has a caregiver and his mother able to assist him with most activities as needed. Pt occasionally uses a walker or wheelchair, but is afraid that was the reason does not think he is robust enough for his transplant. Treatment Goals Patient/Caregiver Goals Pt's goal is to increase his leg strength and activity tolerance Prior Functional Status Baseline Function- ADL's Needs Assist Baseline Function- Mobility Needs Assist PT-OP-C Subjective Start: 11/07/19 16:21 Freq: Status: Active Protocol: Document 01/31/20 15:15 DCW (Rec: 01/31/20 15:58 DCW [id number]) OP-PT Subjective Patient Comments Patient Comments I've been moving around a bit more, a little bit easier. Stairs are still pretty tiring , but distances are better. Pt was seen at , reports they were very happy with his current level of function. They would like a few more tests run, and if those are passed, he will be changed to active on the transplant list. PT-OP-E Functional Tests Start: 11/07/19 16:21 Freq: Status: Active Protocol: Document 01/25/20 14:30 DLM (Rec: 01/27/20 12:29 DLM [email or web address]) Functional Tests 2 Minute Walk Test Distance 345.7 Ft, 296.2 Ft Device Used Bilateral AFO's Comments mild shortness of breath, good recovery with rest PT-OP-G Mobility & Gait Start: 11/07/19 16:21 Freq: Status: Active Protocol: Document 01/25/20 14:30 DLM (Rec: 01/27/20 12:32 DLM [email or web address]) OP Gait Assessment Gait Gait Assistance Required: Independent Distance (Feet) 300 Able to Maintain Weight Bearing Status Yes During Gait Assistive Devices Assistive Device None Orthotic/Prosthetic Devices or Brace: Yes Gait Deviations General Gait Pattern Decreased Stride Length Factors Limiting Gait Function Factors Limiting Gait Function Abnormal Tonal Influences, Decreased Activity Tolerance, Decreased Strength,Limited Range of Motion Comments Gait Comments wearing bilateral AFO's with improved feet clearance and improved posture PT-OP-K Range of Motion Start: 11/07/19 16:21 Freq: Status: Active Protocol: Document 11/07/19 13:45 DCW (Rec: 11/08/19 16:29 DCW [id number]) Ankle and Foot Goniometric Range of Motion Ankle and Foot Left Active Testing Position Sitting Dorsiflexion with Knee Extended 2 Plantarflexion 40 Inversion 12 Eversion 4 Right Active Testing Position Sitting Plantarflexion 36 Inversion 18 Eversion 0 Ankle and Foot ROM Limitations Comments right DF: lacking 10 degrees of dorsiflexion from neutral PT-OP-M Strength Start: 11/07/19 16:21 Freq: Status: Active Protocol: Document 01/25/20 14:30 DLM (Rec: 01/27/20 12:29 DLM [email or web address]) Ankle/Foot Strength Ankle and Foot Manual Muscle Testing Right Inversion 5 Normal Eversion (S1) 3+ Fair+ Comments manual assessment shows decreased tone in post tib and improved ability to get ankle in neutral position but not past it Left Inversion 4 Good Eversion (S1) 3+ Fair+ PT-OP-Q Treatments Start: 11/07/19 16:21 Freq: Status: Active Protocol: Document 01/31/20 15:15 DCW (Rec: 01/31/20 15:58 DCW [id number]) Cardio Equipment Recumbent Elliptical (Biodex) Duration (Minutes) 5 Resistance 4 Seat Position 11 Gym Equipment Shuttle Recovery Unilateral squat Resistance 25# Shuttle Recovery Platform Stable Reps/Time x10 each Bilateral Squats Resistance 50# Shuttle Recovery Platform Stable Reps/Time 2x10 Manual Therapy Treatment Soft Tissue Mobilization 1 Body Location Posterior tib Mobilization Type Strumming,Sustained Pressure, Trigger Point Release Intensity/Depth Moderate Body Position Sitting Joint Mobilizations 2 Joint tibiotalar Direction posterior Grade III Body Position Sitting Comments Ankle propped on foam roll. 1 Joint MTP 1-5 Direction dorsal/plantar Grade III Body Position Sitting PT-OP-T Assessment and Plan Start: 11/07/19 16:21 Freq: Status: Active Protocol: Document 01/31/20 15:15 DCW (Rec: 01/31/20 15:58 DCW [id number]) Physical Therapy Assessment Impairments Impairments Activity Tolerance,Balance, Functional Activities, Functional Mobility,Gait,Pain, ROM,Soft Tissue Mobility, Strength Goals Four Impairment R ankle inversion at rest due to substantial tone through posterior tib Alf Goal (LTG) Pt to demonstrate decreased tone in right posterior tib to enable him to return right foot to neutral at rest.- Improving LTG Duration 02/25/20 Three Impairment Pt ambulates with a gait speed of 1.56 ft/sec during 2 minute walk test Short Term Goal (STG) A gait speed less than 1.97 ft /sec can be indicative of further functional decline in the future. Pt will ambulate > 237' during the 2 MWT -Met STG Duration 12/08/19, Met Alf Goal (LTG) Pt currently unable to tolerate 2 minute walk test without a standing rest break. Pt will be able to tolerate a 6 MWT with only one standing rest break to demonstrate increased activity tolerance LTG Duration 02/25/20 Two Impairment Significant weakness (<3/5) in bilateral ankles Physician Practice Manager Goal (LTG) Pt to demonstrate increased strength an bilateral eversion and inversion to 3/5 -Met LTG Duration 01/07/20, Met One Impairment Pt does not have an appropriate home exercise program Short Term Goal (STG) Pt to be independent and compliant with an appropriate HEP -improving STG Duration 02/25/20 Progress Towards Goals Progress Towards Goals Progressing Toward Goals Progress Comments see notes on goals above, extending time on Plan of care Assessment Summary Assessment Pt continues to progress with activity tolerance and strength. Pt able to ambulate with increased stability and not relying on assistive devices. Physical Therapy Plan Frequency and Duration Frequency of Treatment 2x/Week Duration of Treatment 4 more weeks Plan of Care Start Date 01/25/20 Plan of Care End Date 02/25/20 Therapeutic Interventions Therapeutic Interventions Balance Training,Coordination Training,Gait Training,Home Exercise Program,Joint Mobilizations,Manual Therapy, Neuromuscular Re-education, Orthotic/Prosthetic Management ,Patient/Caregiver Education, Self-Care/Home Management,Soft Tissue Mobilization, Therapeutic Activities, Therapeutic Exercises Modalities Electric Stimulation Next Visit Focus/Plan Next Note Type Treatment Note Next Visit Plan continue strengthening and gait training, increase activity tolerance
--- NOTE | 2020-02-07 16:01 | PT.OTN ---
Current Diagnoses Foot drop, right foot (02/07/20) Other acquired deformities of right foot (02/07/20) Stiffness of right ankle, not elsewhere classified (02/07/20) Stiffness of left ankle, not elsewhere classified (02/07/20) Muscle weakness (generalized) (02/07/20) Plantar fascial fibromatosis (02/07/20) Other abnormalities of gait and mobility (02/07/20) Chronic fatigue, unspecified (02/07/20) Physical Therapy Treatment Note PT-OP-A Visit Information Start: 11/07/19 16:21 Freq: Status: Active Protocol: Document 02/07/20 15:20 DCW (Rec: 02/07/20 16:01 DCW [id number]) Out-Patient Physical Therapy Visit Information Visit Information Visit Type Treatment Note Visit Start Time 15:20 Visit Stop Time 16:00 Total Visit Minutes 40 Visit Number 12 Number of [employer] 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 0 Evaluation Information Evaluation Date 11/07/19 Precautions Precautions dialysis, bilateral AFO's PT-OP-B Current Condition Start: 11/07/19 16:21 Freq: Status: Active Protocol: Document 11/07/19 13:45 DCW (Rec: 11/08/19 11:15 DCW [id number]) Current Condition History of Current Condition Onset Date Multi-year history Current Complaints Fatigue, weakness, gait difficulty, balance disorders History of Current Condition Pt is a 39 year old male presenting with a highly complex history, including DM type I, multiple orthopedic injuries (Hx 11 vertebral fractures, pelvic fractues, ankle reconstruction), neuropathy, kidney failure requiring dialysis, and is on the transplant list for both a kidney and a pancreas. Pt reports he has had worsening foot drop over the past few months, causing him to catch his foot during swing phase. This has recently been corrected by bilateral AFOs. Pt describes it as he would bring his foot up, he would be unable to dorsiflex his ankle , but could keep it in neutral during lift-off, but would then suddenly drop into plantarflexion mid-swing phase . Pt reports he had a recent EMG, which showed severely limited nerve conduction below his knees, they believe it is more likely secondary to neuropathy due to his diabetes vs from his previous spinal injuries. Pt admits that although his AFOs make walking easier, his is still very wobbly when standing secondary to blood pressure variations due to dialysis. Pt also notes that lisa broke his fifth metatarsal in his right foot last year, and due to the way his right foot in constantly inverted, he feels like he is always standing directly on the fracture, and that although it did heal, it is still the most painful thing about standing, especially in his AFO. Pt notes that he fatigues when walking more than two minutes, and typically cannot ascend a flight of stairs without needing to stop and take a break. Even if I could walk five minutes without stopping, that'd be so great. Pt has a caregiver and his mother able to assist him with most activities as needed. Pt occasionally uses a walker or wheelchair, but is afraid that was the reason [facility] does not think he is robust enough for his transplant. Treatment Goals Patient/Caregiver Goals Pt's goal is to increase his leg strength and activity tolerance Prior Functional Status Baseline Function- ADL's Needs Assist Baseline Function- Mobility Needs Assist PT-OP-C Subjective Start: 11/07/19 16:21 Freq: Status: Active Protocol: Document 02/07/20 15:20 DCW (Rec: 02/07/20 16:01 DCW [id number]) OP-PT Subjective Patient Comments Patient Comments Pt doing well at the moment, feels he is at the point where he can get up and walk for a little bit of distance, even going out with caregiver for some grocery shopping. Also notices not having as much difficulty with temperature changes right now. PT-OP-E Functional Tests Start: 11/07/19 16:21 Freq: Status: Active Protocol: Document 01/25/20 14:30 DLM (Rec: 01/27/20 12:29 DLM [email or web address]) Functional Tests 2 Minute Walk Test Distance 345.7 Ft, 296.2 Ft Device Used Bilateral AFO's Comments mild shortness of breath, good recovery with rest PT-OP-G Mobility & Gait Start: 11/07/19 16:21 Freq: Status: Active Protocol: Document 01/25/20 14:30 DLM (Rec: 01/27/20 12:32 DLM [email or web address]) OP Gait Assessment Gait Gait Assistance Required: Independent Distance (Feet) 300 Able to Maintain Weight Bearing Status Yes During Gait Assistive Devices Assistive Device None Orthotic/Prosthetic Devices or Brace: Yes Gait Deviations General Gait Pattern Decreased Stride Length Factors Limiting Gait Function Factors Limiting Gait Function Abnormal Tonal Influences, Decreased Activity Tolerance, Decreased Strength,Limited Range of Motion Comments Gait Comments wearing bilateral AFO's with improved feet clearance and improved posture PT-OP-K Range of Motion Start: 11/07/19 16:21 Freq: Status: Active Protocol: Document 11/07/19 13:45 DCW (Rec: 11/08/19 16:29 DCW [id number]) Ankle and Foot Goniometric Range of Motion Ankle and Foot Left Active Testing Position Sitting Dorsiflexion with Knee Extended 2 Plantarflexion 40 Inversion 12 Eversion 4 Right Active Testing Position Sitting Plantarflexion 36 Inversion 18 Eversion 0 Ankle and Foot ROM Limitations Comments right DF: lacking 10 degrees of dorsiflexion from neutral PT-OP-M Strength Start: 11/07/19 16:21 Freq: Status: Active Protocol: Document 01/25/20 14:30 DLM (Rec: 01/27/20 12:29 DLM [email or web address]) Ankle/Foot Strength Ankle and Foot Manual Muscle Testing Right Inversion 5 Normal Eversion (S1) 3+ Fair+ Comments manual assessment shows decreased tone in post tib and improved ability to get ankle in neutral position but not past it Left Inversion 4 Good Eversion (S1) 3+ Fair+ PT-OP-Q Treatments Start: 11/07/19 16:21 Freq: Status: Active Protocol: Document 02/07/20 15:20 DCW (Rec: 02/07/20 16:01 DCW [id number]) Cardio Equipment Recumbent Elliptical (Biodex) Duration (Minutes) 5 Resistance 4 Seat Position 12 Gym Equipment Shuttle Recovery Unilateral squat Resistance 25# Shuttle Recovery Platform Stable Reps/Time x10 each Bilateral Squats Resistance 50# Shuttle Recovery Platform Stable Reps/Time 2x5 Manual Therapy Treatment Soft Tissue Mobilization 1 Body Location Posterior tib Mobilization Type Strumming,Sustained Pressure, Trigger Point Release Intensity/Depth Moderate Body Position Sitting Joint Mobilizations 2 Joint tibiotalar Direction posterior Grade III Body Position Sitting Comments Ankle propped on foam roll. 1 Joint MTP 1-5 Direction dorsal/plantar Grade III Body Position Sitting Neuro Re-Education Treatment Balance Activities semi tandem Details eyes closed Surface firm hurdles Details forward/side stepping hurdles Surface stable floor Equipment 6 Reps/Duration 2 laps each x20 ft Comments CGA, step to patterning, decreased stabiltiy leading LLE than R. single leg stance Surface ground level Equipment wall bar if needed Reps/Duration SLS as gi x 2 on each side PT-OP-T Assessment and Plan Start: 11/07/19 16:21 Freq: Status: Active Protocol: Document 02/07/20 15:20 DCW (Rec: 02/07/20 16:01 DCW [id number]) Physical Therapy Assessment Impairments Impairments Activity Tolerance,Balance, Functional Activities, Functional Mobility,Gait,Pain, ROM,Soft Tissue Mobility, Strength Goals Four Impairment R ankle inversion at rest due to substantial tone through posterior tib Bakery Worker Conveyor Line Goal (LTG) Pt to demonstrate decreased tone in right posterior tib to enable him to return right foot to neutral at rest.- Improving LTG Duration 02/25/20 Three Impairment Pt ambulates with a gait speed of 1.56 ft/sec during 2 minute walk test Short Term Goal (STG) A gait speed less than 1.97 ft /sec can be indicative of further functional decline in the future. Pt will ambulate > 237' during the 2 MWT -Met STG Duration 12/08/19, Met Bakery Worker Conveyor Line Goal (LTG) Pt currently unable to tolerate 2 minute walk test without a standing rest break. Pt will be able to tolerate a 6 MWT with only one standing rest break to demonstrate increased activity tolerance LTG Duration 02/25/20 Two Impairment Significant weakness (<3/5) in bilateral ankles Halfway Goal (LTG) Pt to demonstrate increased strength an bilateral eversion and inversion to 3/5 -Met LTG Duration 01/07/20, Met One Impairment Pt does not have an appropriate home exercise program Short Term Goal (STG) Pt to be independent and compliant with an appropriate HEP -improving STG Duration 02/25/20 Progress Towards Goals Progress Towards Goals Progressing Toward Goals Progress Comments see notes on goals above, extending time on Plan of care Assessment Summary Assessment Pt showing improvement with balance and mobility, gait is much more stable than it was when he began therapy. Physical Therapy Plan Frequency and Duration Frequency of Treatment 2x/Week Duration of Treatment 4 more weeks Plan of Care Start Date 01/25/20 Plan of Care End Date 02/25/20 Therapeutic Interventions Therapeutic Interventions Balance Training,Coordination Training,Gait Training,Home Exercise Program,Joint Mobilizations,Manual Therapy, Neuromuscular Re-education, Orthotic/Prosthetic Management ,Patient/Caregiver Education, Self-Care/Home Management,Soft Tissue Mobilization, Therapeutic Activities, Therapeutic Exercises Modalities Electric Stimulation Next Visit Focus/Plan Next Note Type Treatment Note Next Visit Plan continue strengthening and gait training, increase activity tolerance
--- NOTE | 2020-02-21 15:46 | PT.OTN ---
Current Diagnoses Foot drop, right foot (02/21/20) Other acquired deformities of right foot (02/21/20) Stiffness of right ankle, not elsewhere classified (02/21/20) Stiffness of left ankle, not elsewhere classified (02/21/20) Muscle weakness (generalized) (02/21/20) Plantar fascial fibromatosis (02/21/20) Other abnormalities of gait and mobility (02/21/20) Chronic fatigue, unspecified (02/21/20) Physical Therapy Treatment Note PT-OP-A Visit Information Start: 11/07/19 16:21 Freq: Status: Active Protocol: Document 02/21/20 15:15 DCW (Rec: 02/21/20 15:46 DCW [id number]) Out-Patient Physical Therapy Visit Information Visit Information Visit Type Treatment Note Visit Note Leave early - conflicting appt Visit Start Time 15:15 Visit Stop Time 15:45 Total Visit Minutes 30 Visit Number 13 Number of TEST TUBE MAKER Visits 0 Evaluation Information Evaluation Date 11/07/19 Precautions Precautions dialysis, bilateral AFO's PT-OP-B Current Condition Start: 11/07/19 16:21 Freq: Status: Active Protocol: Document 11/07/19 13:45 DCW (Rec: 11/08/19 11:15 DCW [id number]) Current Condition History of Current Condition Onset Date Multi-year history Current Complaints Fatigue, weakness, gait difficulty, balance disorders History of Current Condition Pt is a 39 year old male presenting with a highly complex history, including DM type I, multiple orthopedic injuries (Hx 11 vertebral fractures, pelvic fractues, ankle reconstruction), neuropathy, kidney failure requiring dialysis, and is on the transplant list for both a kidney and a pancreas. Pt reports he has had worsening foot drop over the past few months, causing him to catch his foot during swing phase. This has recently been corrected by bilateral AFOs. Pt describes it as he would bring his foot up, he would be unable to dorsiflex his ankle , but could keep it in neutral during lift-off, but would then suddenly drop into plantarflexion mid-swing phase . Pt reports he had a recent EMG, which showed severely limited nerve conduction below his knees, they believe it is more likely secondary to neuropathy due to his diabetes vs from his previous spinal injuries. Pt admits that although his AFOs make walking easier, his is still very wobbly when standing secondary to blood pressure variations due to dialysis. Pt also notes that lisa broke his fifth metatarsal in his right foot last year, and due to the way his right foot in constantly inverted, he feels like he is always standing directly on the fracture, and that although it did heal, it is still the most painful thing about standing, especially in his AFO. Pt notes that he fatigues when walking more than two minutes, and typically cannot ascend a flight of stairs without needing to stop and take a break. Even if I could walk five minutes without stopping, that'd be so great. Pt has a caregiver and his mother able to assist him with most activities as needed. Pt occasionally uses a walker or wheelchair, but is afraid that was the reason [facility] does not think he is robust enough for his transplant. Treatment Goals Patient/Caregiver Goals Pt's goal is to increase his leg strength and activity tolerance Prior Functional Status Baseline Function- ADL's Needs Assist Baseline Function- Mobility Needs Assist PT-OP-C Subjective Start: 11/07/19 16:21 Freq: Status: Active Protocol: Document 02/21/20 15:15 DCW (Rec: 02/21/20 15:46 DCW [id number]) OP-PT Subjective Patient Comments Patient Comments Pt apologizes for missing a few appointments, notes his blood sugar was low for a few days and he was unable to stabilize it. Also notes he has an appointment elsewhere at 4 pm, so will need to leave early today. PT-OP-E Functional Tests Start: 11/07/19 16:21 Freq: Status: Active Protocol: Document 01/25/20 14:30 DLM (Rec: 01/27/20 12:29 DLM [id number]) Functional Tests 2 Minute Walk Test Distance 345.7 Ft, 296.2 Ft Device Used Bilateral AFO's Comments mild shortness of breath, good recovery with rest PT-OP-G Mobility & Gait Start: 11/07/19 16:21 Freq: Status: Active Protocol: Document 01/25/20 14:30 DLM (Rec: 01/27/20 12:32 DLM [id number]) OP Gait Assessment Gait Gait Assistance Required: Independent Distance (Feet) 300 Able to Maintain Weight Bearing Status Yes During Gait Assistive Devices Assistive Device None Orthotic/Prosthetic Devices or Brace: Yes Gait Deviations General Gait Pattern Decreased Stride Length Factors Limiting Gait Function Factors Limiting Gait Function Abnormal Tonal Influences, Decreased Activity Tolerance, Decreased Strength,Limited Range of Motion Comments Gait Comments wearing bilateral AFO's with improved feet clearance and improved posture PT-OP-K Range of Motion Start: 11/07/19 16:21 Freq: Status: Active Protocol: Document 11/07/19 13:45 DCW (Rec: 11/08/19 16:29 DCW [id number]) Ankle and Foot Goniometric Range of Motion Ankle and Foot Left Active Testing Position Sitting Dorsiflexion with Knee Extended 2 Plantarflexion 40 Inversion 12 Eversion 4 Right Active Testing Position Sitting Plantarflexion 36 Inversion 18 Eversion 0 Ankle and Foot ROM Limitations Comments right DF: lacking 10 degrees of dorsiflexion from neutral PT-OP-M Strength Start: 11/07/19 16:21 Freq: Status: Active Protocol: Document 01/25/20 14:30 DLM (Rec: 01/27/20 12:29 DLM [id number]) Ankle/Foot Strength Ankle and Foot Manual Muscle Testing Right Inversion 5 Normal Eversion (S1) 3+ Fair+ Comments manual assessment shows decreased tone in post tib and improved ability to get ankle in neutral position but not past it Left Inversion 4 Good Eversion (S1) 3+ Fair+ PT-OP-Q Treatments Start: 11/07/19 16:21 Freq: Status: Active Protocol: Document 02/21/20 15:15 DCW (Rec: 02/21/20 15:46 DCW [id number]) Cardio Equipment Recumbent Elliptical (Biodex) Duration (Minutes) 5 Resistance 4 Seat Position 12 Manual Therapy Treatment Soft Tissue Mobilization 1 Body Location Posterior tib Mobilization Type Strumming,Sustained Pressure, Trigger Point Release Intensity/Depth Moderate Body Position Sitting Joint Mobilizations 2 Joint tibiotalar Direction posterior Grade III Body Position Sitting Comments Ankle propped on foam roll. 1 Joint MTP 1-5 Direction dorsal/plantar Grade III Body Position Sitting PT-OP-T Assessment and Plan Start: 11/07/19 16:21 Freq: Status: Active Protocol: Document 02/21/20 15:15 DCW (Rec: 02/21/20 15:46 DCW [id number]) Physical Therapy Assessment Impairments Impairments Activity Tolerance,Balance, Functional Activities, Functional Mobility,Gait,Pain, ROM,Soft Tissue Mobility, Strength Goals Four Impairment R ankle inversion at rest due to substantial tone through posterior tib Licensed Nuclear Operator Goal (LTG) Pt to demonstrate decreased tone in right posterior tib to enable him to return right foot to neutral at rest.- Improving LTG Duration 02/25/20 Three Impairment Pt ambulates with a gait speed of 1.56 ft/sec during 2 minute walk test Short Term Goal (STG) A gait speed less than 1.97 ft /sec can be indicative of further functional decline in the future. Pt will ambulate > 237' during the 2 MWT -Met STG Duration 12/08/19, Met Licensed Nuclear Operator Goal (LTG) Pt currently unable to tolerate 2 minute walk test without a standing rest break. Pt will be able to tolerate a 6 MWT with only one standing rest break to demonstrate increased activity tolerance LTG Duration 02/25/20 Two Impairment Significant weakness (<3/5) in bilateral ankles Jail Goal (LTG) Pt to demonstrate increased strength an bilateral eversion and inversion to 3/5 -Met LTG Duration 01/07/20, Met One Impairment Pt does not have an appropriate home exercise program Short Term Goal (STG) Pt to be independent and compliant with an appropriate HEP -improving STG Duration 02/25/20 Progress Towards Goals Progress Towards Goals Progressing Toward Goals Assessment Summary Assessment Shortened treatment session today, focused mainly on STM to decrease posterior tib tone . Physical Therapy Plan Frequency and Duration Frequency of Treatment 2x/Week Duration of Treatment 4 weeks Plan of Care Start Date 01/25/20 Plan of Care End Date 02/25/20 Therapeutic Interventions Therapeutic Interventions Balance Training,Coordination Training,Gait Training,Home Exercise Program,Joint Mobilizations,Manual Therapy, Neuromuscular Re-education, Orthotic/Prosthetic Management ,Patient/Caregiver Education, Self-Care/Home Management,Soft Tissue Mobilization, Therapeutic Activities, Therapeutic Exercises Modalities Electric Stimulation Next Visit Focus/Plan Next Note Type Progress Note Next Visit Plan continue strengthening and gait training, increase activity tolerance
--- NOTE | 2020-02-23 16:16 | PT.OTN ---
Current Diagnoses Foot drop, right foot (02/23/20) Other acquired deformities of right foot (02/23/20) Stiffness of right ankle, not elsewhere classified (02/23/20) Stiffness of left ankle, not elsewhere classified (02/23/20) Muscle weakness (generalized) (02/23/20) Plantar fascial fibromatosis (02/23/20) Other abnormalities of gait and mobility (02/23/20) Chronic fatigue, unspecified (02/23/20) Physical Therapy Treatment Note PT-OP-A Visit Information Start: 11/07/19 16:21 Freq: Status: Active Protocol: Document 02/23/20 15:16 DCW (Rec: 02/23/20 16:16 DCW [id number]) Out-Patient Physical Therapy Visit Information Visit Information Visit Type Progress Note Visit Note Leave early - conflicting appt Visit Start Time 15:16 Visit Stop Time 16:00 Total Visit Minutes 44 Visit Number 14 Number of RADIO DISPATCHER Visits 0 Evaluation Information Evaluation Date 11/07/19 Precautions Precautions dialysis, bilateral AFO's PT-OP-B Current Condition Start: 11/07/19 16:21 Freq: Status: Active Protocol: Document 11/07/19 13:45 DCW (Rec: 11/08/19 11:15 DCW [id number]) Current Condition History of Current Condition Onset Date Multi-year history Current Complaints Fatigue, weakness, gait difficulty, balance disorders History of Current Condition Pt is a 39 year old male presenting with a highly complex history, including DM type I, multiple orthopedic injuries (Hx 11 vertebral fractures, pelvic fractues, ankle reconstruction), neuropathy, kidney failure requiring dialysis, and is on the transplant list for both a kidney and a pancreas. Pt reports he has had worsening foot drop over the past few months, causing him to catch his foot during swing phase. This has recently been corrected by bilateral AFOs. Pt describes it as he would bring his foot up, he would be unable to dorsiflex his ankle , but could keep it in neutral during lift-off, but would then suddenly drop into plantarflexion mid-swing phase . Pt reports he had a recent EMG, which showed severely limited nerve conduction below his knees, they believe it is more likely secondary to neuropathy due to his diabetes vs from his previous spinal injuries. Pt admits that although his AFOs make walking easier, his is still very wobbly when standing secondary to blood pressure variations due to dialysis. Pt also notes that lisa broke his fifth metatarsal in his right foot last year, and due to the way his right foot in constantly inverted, he feels like he is always standing directly on the fracture, and that although it did heal, it is still the most painful thing about standing, especially in his AFO. Pt notes that he fatigues when walking more than two minutes, and typically cannot ascend a flight of stairs without needing to stop and take a break. Even if I could walk five minutes without stopping, that'd be so great. Pt has a caregiver and his mother able to assist him with most activities as needed. Pt occasionally uses a walker or wheelchair, but is afraid that was the reason [facility] does not think he is robust enough for his transplant. Treatment Goals Patient/Caregiver Goals Pt's goal is to increase his leg strength and activity tolerance Prior Functional Status Baseline Function- ADL's Needs Assist Baseline Function- Mobility Needs Assist PT-OP-C Subjective Start: 11/07/19 16:21 Freq: Status: Active Protocol: Document 02/23/20 15:16 DCW (Rec: 02/23/20 16:16 DCW [id number]) OP-PT Subjective Patient Comments Patient Comments Pt reports he has been feeling very hopeful about the possibility of a transplant at some point if all his tests went well at [facility]. PT-OP-E Functional Tests Start: 11/07/19 16:21 Freq: Status: Active Protocol: Document 02/23/20 15:16 DCW (Rec: 02/23/20 15:36 DCW [id number]) Functional Tests 2 Minute Walk Test Distance 358' Device Used Bilateral AFO's Comments 2.98 ft/sec PT-OP-G Mobility & Gait Start: 11/07/19 16:21 Freq: Status: Active Protocol: Document 02/23/20 15:16 DCW (Rec: 02/23/20 15:36 DCW [id number]) OP Gait Assessment Gait Gait Assistance Required: Independent Distance (Feet) 358 Able to Maintain Weight Bearing Status Yes During Gait Assistive Devices Assistive Device None Orthotic/Prosthetic Devices or Brace: Yes Gait Deviations General Gait Pattern Within Normal Limits Factors Limiting Gait Function Factors Limiting Gait Function Abnormal Tonal Influences, Decreased Activity Tolerance, Decreased Strength,Limited Range of Motion PT-OP-K Range of Motion Start: 11/07/19 16:21 Freq: Status: Active Protocol: Document 02/23/20 15:16 DCW (Rec: 02/23/20 15:36 DCW [id number]) Ankle and Foot Goniometric Range of Motion Ankle and Foot Left Active Testing Position Sitting Dorsiflexion with Knee Extended 5 Plantarflexion 45 Inversion 20 Eversion 5 Right Active Testing Position Sitting Plantarflexion 40 Inversion 30 Eversion 4 Ankle and Foot ROM Limitations Comments right DF: lacking 5 degrees of dorsiflexion from neutral PT-OP-M Strength Start: 11/07/19 16:21 Freq: Status: Active Protocol: Document 02/23/20 15:16 DCW (Rec: 02/23/20 15:36 DCW [id number]) Ankle/Foot Strength Ankle and Foot Manual Muscle Testing Right Dorsiflexion (L4) 3- Fair- Plantarflexion (S1) 2 Poor Inversion 4+ Good+ Eversion (S1) 3 Fair Left Dorsiflexion (L4) 3- Fair- Plantarflexion (S1) 3 Fair Inversion 4 Good Eversion (S1) 3+ Fair+ PT-OP-Q Treatments Start: 11/07/19 16:21 Freq: Status: Active Protocol: Document 02/23/20 15:16 DCW (Rec: 02/23/20 16:16 DCW [id number]) Manual Therapy Treatment Soft Tissue Mobilization 1 Body Location Posterior tib Mobilization Type Strumming,Sustained Pressure, Trigger Point Release Intensity/Depth Moderate Body Position Sitting Joint Mobilizations 2 Joint tibiotalar Direction posterior Grade III Body Position Sitting Comments Ankle propped on foam roll. 1 Joint MTP 1-5 Direction dorsal/plantar Grade III Body Position Sitting PT-OP-T Assessment and Plan Start: 11/07/19 16:21 Freq: Status: Active Protocol: Document 02/23/20 15:16 DCW (Rec: 02/23/20 16:16 DCW [id number]) Physical Therapy Assessment Impairments Impairments Activity Tolerance,Balance, Functional Activities, Functional Mobility,Gait,Pain, ROM,Soft Tissue Mobility, Strength Goals Four Impairment R ankle inversion at rest due to substantial tone through posterior tib Penitentiary Goal (LTG) Pt to demonstrate decreased tone in right posterior tib to enable him to return right foot to neutral at rest.- Improving LTG Duration 04/24/20 Three Impairment Pt ambulates with a gait speed of 1.56 ft/sec during 2 minute walk test Short Term Goal (STG) A gait speed less than 1.97 ft /sec can be indicative of further functional decline in the future. Pt will ambulate > 237' during the 2 MWT -Met STG Duration Met Woods Manager Goal (LTG) Pt currently unable to tolerate 2 minute walk test without a standing rest break. Pt will be able to tolerate a 6 MWT with only one standing rest break to demonstrate increased activity tolerance LTG Duration 04/24/20 Two Impairment Significant weakness (<3/5) in bilateral ankles Short Term Goal (STG) Pt to demonstrate increased strength an bilateral eversion and inversion to 3/5 STG Duration Met Woods Manager Goal (LTG) Pt to display MMT of 3/5 or greater in bilateral ankle dorsiflexion LTG Duration 04/24/20 One Impairment Pt does not have an appropriate home exercise program Short Term Goal (STG) Pt to be independent and compliant with an appropriate HEP STG Duration Met Progress Towards Goals Progress Towards Goals Progressing Toward Goals Assessment Summary Assessment Pt has made excellent progress with gait and activity tolerance since beginning therapy. He nearly double his walking distance during the 2 MWT, improving from 187'->358' , and no longer needed a standing rest break. Would like to continue therapy to focus on decreasing posterior tib tone, increasing ankle ROM ,. improving LE strength, and continue to focus on improving activity tolerance. Physical Therapy Plan Frequency and Duration Frequency of Treatment 2x/Week Duration of Treatment 2 months Plan of Care Start Date 02/23/20 Plan of Care End Date 04/24/20 Therapeutic Interventions Therapeutic Interventions Balance Training,Coordination Training,Gait Training,Home Exercise Program,Joint Mobilizations,Manual Therapy, Neuromuscular Re-education, Orthotic/Prosthetic Management ,Patient/Caregiver Education, Self-Care/Home Management,Soft Tissue Mobilization, Therapeutic Activities, Therapeutic Exercises Modalities Electric Stimulation Next Visit Focus/Plan Next Note Type Treatment Note Next Visit Plan continue strengthening and gait training, increase activity tolerance
--- NOTE | 2020-02-23 16:17 | PT.OPPOC ---
Physical, Occupational & Speech Therapy At [facility] Current Diagnoses Foot drop, right foot (02/23/20) Other acquired deformities of right foot (02/23/20) Stiffness of right ankle, not elsewhere classified (02/23/20) Stiffness of left ankle, not elsewhere classified (02/23/20) Muscle weakness (generalized) (02/23/20) Plantar fascial fibromatosis (02/23/20) Other abnormalities of gait and mobility (02/23/20) Chronic fatigue, unspecified (02/23/20) Visit Care Team Role Provider Type Jose Multani MD Primary Care Provider Physician Specialty: Family Practice Address: [address] [place] [address] [place], [address] Email: [email or web address] Attending Provider Physician Referring Provider Specialty: Podiatry Address: [address] [place] [address], [address] Email: [email or web address] Plan Of Care PT-OP-T Assessment and Plan Start: 11/07/19 16:21 Freq: Status: Active Protocol: Document 02/23/20 15:16 DCW (Rec: 02/23/20 16:16 DCW [id number]) Physical Therapy Assessment Impairments Impairments Activity Tolerance,Balance, Functional Activities, Functional Mobility,Gait,Pain, ROM,Soft Tissue Mobility, Strength Goals Four Impairment R ankle inversion at rest due to substantial tone through posterior tib Custodial Goal (LTG) Pt to demonstrate decreased tone in right posterior tib to enable him to return right foot to neutral at rest.- Improving LTG Duration 04/24/20 Three Impairment Pt ambulates with a gait speed of 1.56 ft/sec during 2 minute walk test Short Term Goal (STG) A gait speed less than 1.97 ft /sec can be indicative of further functional decline in the future. Pt will ambulate > 237' during the 2 MWT -Met STG Duration Met Dryer Operator Goal (LTG) Pt currently unable to tolerate 2 minute walk test without a standing rest break. Pt will be able to tolerate a 6 MWT with only one standing rest break to demonstrate increased activity tolerance LTG Duration 04/24/20 Two Impairment Significant weakness (<3/5) in bilateral ankles Short Term Goal (STG) Pt to demonstrate increased strength an bilateral eversion and inversion to 3/5 STG Duration Met Custodial Goal (LTG) Pt to display MMT of 3/5 or greater in bilateral ankle dorsiflexion LTG Duration 04/24/20 One Impairment Pt does not have an appropriate home exercise program Short Term Goal (STG) Pt to be independent and compliant with an appropriate HEP STG Duration Met Progress Towards Goals Progress Towards Goals Progressing Toward Goals Assessment Summary Assessment Pt has made excellent progress with gait and activity tolerance since beginning therapy. He nearly double his walking distance during the 2 MWT, improving from 187'->358' , and no longer needed a standing rest break. Would like to continue therapy to focus on decreasing posterior tib tone, increasing ankle ROM ,. improving LE strength, and continue to focus on improving activity tolerance. Physical Therapy Plan Frequency and Duration Frequency of Treatment 2x/Week Duration of Treatment 2 months Plan of Care Start Date 02/23/20 Plan of Care End Date 04/24/20 Therapeutic Interventions Therapeutic Interventions Balance Training,Coordination Training,Gait Training,Home Exercise Program,Joint Mobilizations,Manual Therapy, Neuromuscular Re-education, Orthotic/Prosthetic Management ,Patient/Caregiver Education, Self-Care/Home Management,Soft Tissue Mobilization, Therapeutic Activities, Therapeutic Exercises Modalities Electric Stimulation Next Visit Focus/Plan Next Note Type Treatment Note Next Visit Plan continue strengthening and gait training, increase activity tolerance Plan of Care Dates Plan of Care Start Date 02/23/20 Plan of Care End Date 04/24/20 Electronically Signed by: Volodymyr Andrews, PT 02/23/20 1160 Please Sign and Return: I have reviewed this Plan of Care and certify that the skilled therapy services above are required to meet the patient?s needs. Physician Signature Date Printed Name and Credentials Clinical Instructor Signature Printed Name and Credentials
--- NOTE | 2020-04-05 15:15 | PT.OTN ---
Current Diagnoses Foot drop, right foot (04/05/20) Other acquired deformities of right foot (04/05/20) Stiffness of right ankle, not elsewhere classified (04/05/20) Stiffness of left ankle, not elsewhere classified (04/05/20) Muscle weakness (generalized) (04/05/20) Plantar fascial fibromatosis (04/05/20) Other abnormalities of gait and mobility (04/05/20) Chronic fatigue, unspecified (04/05/20) Physical Therapy Treatment Note PT-OP-A Visit Information Start: 11/07/19 16:21 Freq: Status: Active Protocol: Document 04/05/20 14:30 DCW (Rec: 04/05/20 15:15 DCW [id number]) Out-Patient Physical Therapy Visit Information Visit Information Visit Type Treatment Note Visit Start Time 14:30 Visit Stop Time 15:15 Total Visit Minutes 45 Visit Number 15 Number of RIGGING LOFT REPAIRER Visits 0 Evaluation Information Evaluation Date 11/07/19 Precautions Precautions dialysis, bilateral AFO's PT-OP-B Current Condition Start: 11/07/19 16:21 Freq: Status: Active Protocol: Document 11/07/19 13:45 DCW (Rec: 11/08/19 11:15 DCW [id number]) Current Condition History of Current Condition Onset Date Multi-year history Current Complaints Fatigue, weakness, gait difficulty, balance disorders History of Current Condition Pt is a 39 year old male presenting with a highly complex history, including DM type I, multiple orthopedic injuries (Hx 11 vertebral fractures, pelvic fractues, ankle reconstruction), neuropathy, kidney failure requiring dialysis, and is on the transplant list for both a kidney and a pancreas. Pt reports he has had worsening foot drop over the past few months, causing him to catch his foot during swing phase. This has recently been corrected by bilateral AFOs. Pt describes it as he would bring his foot up, he would be unable to dorsiflex his ankle , but could keep it in neutral during lift-off, but would then suddenly drop into plantarflexion mid-swing phase . Pt reports he had a recent EMG, which showed severely limited nerve conduction below his knees, they believe it is more likely secondary to neuropathy due to his diabetes vs from his previous spinal injuries. Pt admits that although his AFOs make walking easier, his is still very wobbly when standing secondary to blood pressure variations due to dialysis. Pt also notes that lisa broke his fifth metatarsal in his right foot last year, and due to the way his right foot in constantly inverted, he feels like he is always standing directly on the fracture, and that although it did heal, it is still the most painful thing about standing, especially in his AFO. Pt notes that he fatigues when walking more than two minutes, and typically cannot ascend a flight of stairs without needing to stop and take a break. Even if I could walk five minutes without stopping, that'd be so great. Pt has a caregiver and his mother able to assist him with most activities as needed. Pt occasionally uses a walker or wheelchair, but is afraid that was the reason [facility] does not think he is robust enough for his transplant. Treatment Goals Patient/Caregiver Goals Pt's goal is to increase his leg strength and activity tolerance Prior Functional Status Baseline Function- ADL's Needs Assist Baseline Function- Mobility Needs Assist PT-OP-C Subjective Start: 11/07/19 16:21 Freq: Status: Active Protocol: Document 04/05/20 14:30 DCW (Rec: 04/05/20 15:15 DCW [id number]) OP-PT Subjective Patient Comments Patient Comments Pt has recently been ill with peritonitis and an infection following extended use of anti -inflammatories. Admits he is feeling much better, but feels like he has lost some strength and endurance. PT-OP-E Functional Tests Start: 11/07/19 16:21 Freq: Status: Active Protocol: Document 02/23/20 15:16 DCW (Rec: 02/23/20 15:36 DCW [id number]) Functional Tests 2 Minute Walk Test Distance 358' Device Used Bilateral AFO's Comments 2.98 ft/sec PT-OP-G Mobility & Gait Start: 11/07/19 16:21 Freq: Status: Active Protocol: Document 02/23/20 15:16 DCW (Rec: 02/23/20 15:36 DCW [id number]) OP Gait Assessment Gait Gait Assistance Required: Independent Distance (Feet) 358 Able to Maintain Weight Bearing Status Yes During Gait Assistive Devices Assistive Device None Orthotic/Prosthetic Devices or Brace: Yes Gait Deviations General Gait Pattern Within Normal Limits Factors Limiting Gait Function Factors Limiting Gait Function Abnormal Tonal Influences, Decreased Activity Tolerance, Decreased Strength,Limited Range of Motion PT-OP-K Range of Motion Start: 11/07/19 16:21 Freq: Status: Active Protocol: Document 02/23/20 15:16 DCW (Rec: 02/23/20 15:36 DCW [id number]) Ankle and Foot Goniometric Range of Motion Ankle and Foot Left Active Testing Position Sitting Dorsiflexion with Knee Extended 5 Plantarflexion 45 Inversion 20 Eversion 5 Right Active Testing Position Sitting Plantarflexion 40 Inversion 30 Eversion 4 Ankle and Foot ROM Limitations Comments right DF: lacking 5 degrees of dorsiflexion from neutral PT-OP-M Strength Start: 11/07/19 16:21 Freq: Status: Active Protocol: Document 02/23/20 15:16 DCW (Rec: 02/23/20 15:36 DCW [id number]) Ankle/Foot Strength Ankle and Foot Manual Muscle Testing Right Dorsiflexion (L4) 3- Fair- Plantarflexion (S1) 2 Poor Inversion 4+ Good+ Eversion (S1) 3 Fair Left Dorsiflexion (L4) 3- Fair- Plantarflexion (S1) 3 Fair Inversion 4 Good Eversion (S1) 3+ Fair+ PT-OP-Q Treatments Start: 11/07/19 16:21 Freq: Status: Active Protocol: Document 04/05/20 14:30 DCW (Rec: 04/05/20 15:15 DCW [id number]) Cardio Equipment Recumbent Elliptical (Biodex) Duration (Minutes) 5 Resistance 4 Seat Position 11 Other required 1 rest break Gym Equipment Shuttle Recovery Unilateral squat Resistance 25# Shuttle Recovery Platform Stable Reps/Time x10 each Bilateral Squats Resistance 50# Shuttle Recovery Platform Stable Reps/Time x10 Manual Therapy Treatment Soft Tissue Mobilization 1 Body Location Posterior tib Mobilization Type Strumming,Sustained Pressure, Trigger Point Release Intensity/Depth Moderate Body Position Sitting Joint Mobilizations 2 Joint tibiotalar Direction posterior Grade III Body Position Sitting 1 Joint MTP 1-5 Direction dorsal/plantar Grade III Body Position Sitting PT-OP-T Assessment and Plan Start: 11/07/19 16:21 Freq: Status: Active Protocol: Document 04/05/20 14:30 DCW (Rec: 04/05/20 15:15 DCW [id number]) Physical Therapy Assessment Impairments Impairments Activity Tolerance,Balance, Functional Activities, Functional Mobility,Gait,Pain, ROM,Soft Tissue Mobility, Strength Goals Four Impairment R ankle inversion at rest due to substantial tone through posterior tib Extractor Tender Raw Stock Goal (LTG) Pt to demonstrate decreased tone in right posterior tib to enable him to return right foot to neutral at rest.- Improving LTG Duration 04/24/20 Three Impairment Pt ambulates with a gait speed of 1.56 ft/sec during 2 minute walk test Short Term Goal (STG) A gait speed less than 1.97 ft /sec can be indicative of further functional decline in the future. Pt will ambulate > 237' during the 2 MWT -Met STG Duration Met Custodial Goal (LTG) Pt currently unable to tolerate 2 minute walk test without a standing rest break. Pt will be able to tolerate a 6 MWT with only one standing rest break to demonstrate increased activity tolerance LTG Duration 04/24/20 Two Impairment Significant weakness (<3/5) in bilateral ankles Short Term Goal (STG) Pt to demonstrate increased strength an bilateral eversion and inversion to 3/5 STG Duration Met Extractor Tender Raw Stock Goal (LTG) Pt to display MMT of 3/5 or greater in bilateral ankle dorsiflexion LTG Duration 04/24/20 One Impairment Pt does not have an appropriate home exercise program Short Term Goal (STG) Pt to be independent and compliant with an appropriate HEP STG Duration Met Progress Towards Goals Progress Towards Goals Progressing Toward Goals Assessment Summary Assessment Pt had a slight decline in activity tolerance and strength over the last 42 days without PT and with recent hospitalization, but is up walking with no problems and overall still doing well. Physical Therapy Plan Frequency and Duration Frequency of Treatment 2x/Week Duration of Treatment 2 months Plan of Care Start Date 02/23/20 Plan of Care End Date 04/24/20 Therapeutic Interventions Therapeutic Interventions Balance Training,Coordination Training,Gait Training,Home Exercise Program,Joint Mobilizations,Manual Therapy, Neuromuscular Re-education, Orthotic/Prosthetic Management ,Patient/Caregiver Education, Self-Care/Home Management,Soft Tissue Mobilization, Therapeutic Activities, Therapeutic Exercises Modalities Electric Stimulation Next Visit Focus/Plan Next Note Type Treatment Note Next Visit Plan continue strengthening and gait training, increase activity tolerance
--- NOTE | 2020-04-12 16:03 | PT.OTN ---
Current Diagnoses Foot drop, right foot (04/12/20) Other acquired deformities of right foot (04/12/20) Stiffness of right ankle, not elsewhere classified (04/12/20) Stiffness of left ankle, not elsewhere classified (04/12/20) Muscle weakness (generalized) (04/12/20) Plantar fascial fibromatosis (04/12/20) Other abnormalities of gait and mobility (04/12/20) Chronic fatigue, unspecified (04/12/20) Physical Therapy Treatment Note PT-OP-A Visit Information Start: 11/07/19 16:21 Freq: Status: Active Protocol: Document 04/12/20 15:21 DCW (Rec: 04/12/20 16:03 DCW [id number]) Out-Patient Physical Therapy Visit Information Visit Information Visit Type Treatment Note Visit Start Time 15:21 Visit Stop Time 16:00 Total Visit Minutes 39 Visit Number 16 Number of MACHINE 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 SLITTER TECHNICIAN Visits 0 Evaluation Information Evaluation Date 11/07/19 Precautions Precautions dialysis, bilateral AFO's PT-OP-B Current Condition Start: 11/07/19 16:21 Freq: Status: Active Protocol: Document 11/07/19 13:45 DCW (Rec: 11/08/19 11:15 DCW [id number]) Current Condition History of Current Condition Onset Date Multi-year history Current Complaints Fatigue, weakness, gait difficulty, balance disorders History of Current Condition Pt is a 39 year old male presenting with a highly complex history, including DM type I, multiple orthopedic injuries (Hx 11 vertebral fractures, pelvic fractues, ankle reconstruction), neuropathy, kidney failure requiring dialysis, and is on the transplant list for both a kidney and a pancreas. Pt reports he has had worsening foot drop over the past few months, causing him to catch his foot during swing phase. This has recently been corrected by bilateral AFOs. Pt describes it as he would bring his foot up, he would be unable to dorsiflex his ankle , but could keep it in neutral during lift-off, but would then suddenly drop into plantarflexion mid-swing phase . Pt reports he had a recent EMG, which showed severely limited nerve conduction below his knees, they believe it is more likely secondary to neuropathy due to his diabetes vs from his previous spinal injuries. Pt admits that although his AFOs make walking easier, his is still very wobbly when standing secondary to blood pressure variations due to dialysis. Pt also notes that lisa broke his fifth metatarsal in his right foot last year, and due to the way his right foot in constantly inverted, he feels like he is always standing directly on the fracture, and that although it did heal, it is still the most painful thing about standing, especially in his AFO. Pt notes that he fatigues when walking more than two minutes, and typically cannot ascend a flight of stairs without needing to stop and take a break. Even if I could walk five minutes without stopping, that'd be so great. Pt has a caregiver and his mother able to assist him with most activities as needed. Pt occasionally uses a walker or wheelchair, but is afraid that was the reason [facility] does not think he is robust enough for his transplant. Treatment Goals Patient/Caregiver Goals Pt's goal is to increase his leg strength and activity tolerance Prior Functional Status Baseline Function- ADL's Needs Assist Baseline Function- Mobility Needs Assist PT-OP-C Subjective Start: 11/07/19 16:21 Freq: Status: Active Protocol: Document 04/12/20 15:21 DCW (Rec: 04/12/20 16:03 DCW [id number]) OP-PT Subjective Patient Comments Patient Comments Pt feeling a bit better today, although feels like he has just been having difficulty getting up and moving, feels like he is moving slow. PT-OP-E Functional Tests Start: 11/07/19 16:21 Freq: Status: Active Protocol: Document 02/23/20 15:16 DCW (Rec: 02/23/20 15:36 DCW [id number]) Functional Tests 2 Minute Walk Test Distance 358' Device Used Bilateral AFO's Comments 2.98 ft/sec PT-OP-G Mobility & Gait Start: 11/07/19 16:21 Freq: Status: Active Protocol: Document 02/23/20 15:16 DCW (Rec: 02/23/20 15:36 DCW [id number]) OP Gait Assessment Gait Gait Assistance Required: Independent Distance (Feet) 358 Able to Maintain Weight Bearing Status Yes During Gait Assistive Devices Assistive Device None Orthotic/Prosthetic Devices or Brace: Yes Gait Deviations General Gait Pattern Within Normal Limits Factors Limiting Gait Function Factors Limiting Gait Function Abnormal Tonal Influences, Decreased Activity Tolerance, Decreased Strength,Limited Range of Motion PT-OP-K Range of Motion Start: 11/07/19 16:21 Freq: Status: Active Protocol: Document 02/23/20 15:16 DCW (Rec: 02/23/20 15:36 DCW [id number]) Ankle and Foot Goniometric Range of Motion Ankle and Foot Left Active Testing Position Sitting Dorsiflexion with Knee Extended 5 Plantarflexion 45 Inversion 20 Eversion 5 Right Active Testing Position Sitting Plantarflexion 40 Inversion 30 Eversion 4 Ankle and Foot ROM Limitations Comments right DF: lacking 5 degrees of dorsiflexion from neutral PT-OP-M Strength Start: 11/07/19 16:21 Freq: Status: Active Protocol: Document 02/23/20 15:16 DCW (Rec: 02/23/20 15:36 DCW [id number]) Ankle/Foot Strength Ankle and Foot Manual Muscle Testing Right Dorsiflexion (L4) 3- Fair- Plantarflexion (S1) 2 Poor Inversion 4+ Good+ Eversion (S1) 3 Fair Left Dorsiflexion (L4) 3- Fair- Plantarflexion (S1) 3 Fair Inversion 4 Good Eversion (S1) 3+ Fair+ PT-OP-Q Treatments Start: 11/07/19 16:21 Freq: Status: Active Protocol: Document 04/12/20 15:21 DCW (Rec: 04/12/20 16:03 DCW [id number]) Cardio Equipment Recumbent Elliptical (Biodex) Duration (Minutes) 5 Resistance 4 Seat Position 11 Gym Equipment Shuttle Recovery Unilateral squat Resistance 25# Shuttle Recovery Platform Stable Reps/Time x10 each Bilateral Squats Resistance 50# Shuttle Recovery Platform Stable Reps/Time 1x5, 1x10 Manual Therapy Treatment Soft Tissue Mobilization 1 Body Location Posterior tib Mobilization Type Strumming,Sustained Pressure, Trigger Point Release Intensity/Depth Moderate Body Position Sitting Joint Mobilizations 2 Joint tibiotalar Direction posterior Grade III Body Position Sitting 1 Joint MTP 1-5 Direction dorsal/plantar Grade III Body Position Sitting PT-OP-T Assessment and Plan Start: 11/07/19 16:21 Freq: Status: Active Protocol: Document 04/12/20 15:21 DCW (Rec: 04/12/20 16:03 DCW [id number]) Physical Therapy Assessment Impairments Impairments Activity Tolerance,Balance, Functional Activities, Functional Mobility,Gait,Pain, ROM,Soft Tissue Mobility, Strength Goals Four Impairment R ankle inversion at rest due to substantial tone through posterior tib Screen Stretcher Goal (LTG) Pt to demonstrate decreased tone in right posterior tib to enable him to return right foot to neutral at rest.- Improving LTG Duration 04/24/20 Three Impairment Pt ambulates with a gait speed of 1.56 ft/sec during 2 minute walk test Short Term Goal (STG) A gait speed less than 1.97 ft /sec can be indicative of further functional decline in the future. Pt will ambulate > 237' during the 2 MWT -Met STG Duration Met Screen Stretcher Goal (LTG) Pt currently unable to tolerate 2 minute walk test without a standing rest break. Pt will be able to tolerate a 6 MWT with only one standing rest break to demonstrate increased activity tolerance LTG Duration 04/24/20 Two Impairment Significant weakness (<3/5) in bilateral ankles Short Term Goal (STG) Pt to demonstrate increased strength an bilateral eversion and inversion to 3/5 STG Duration Met Shelter Goal (LTG) Pt to display MMT of 3/5 or greater in bilateral ankle dorsiflexion LTG Duration 04/24/20 One Impairment Pt does not have an appropriate home exercise program Short Term Goal (STG) Pt to be independent and compliant with an appropriate HEP STG Duration Met Progress Towards Goals Progress Towards Goals Progressing Toward Goals Assessment Summary Assessment Pt did better today than last week, fewer rest breaks needed , still has severe tone through R calf, potentially slightly worse than it was last week Physical Therapy Plan Frequency and Duration Frequency of Treatment 2x/Week Duration of Treatment 2 months Plan of Care Start Date 02/23/20 Plan of Care End Date 04/24/20 Therapeutic Interventions Therapeutic Interventions Balance Training,Coordination Training,Gait Training,Home Exercise Program,Joint Mobilizations,Manual Therapy, Neuromuscular Re-education, Orthotic/Prosthetic Management ,Patient/Caregiver Education, Self-Care/Home Management,Soft Tissue Mobilization, Therapeutic Activities, Therapeutic Exercises Modalities Electric Stimulation Next Visit Focus/Plan Next Note Type Treatment Note Next Visit Plan continue strengthening and gait training, increase activity tolerance
--- NOTE | 2020-04-17 16:01 | PT.OTN ---
Current Diagnoses Foot drop, right foot (04/17/20) Other acquired deformities of right foot (04/17/20) Stiffness of right ankle, not elsewhere classified (04/17/20) Stiffness of left ankle, not elsewhere classified (04/17/20) Muscle weakness (generalized) (04/17/20) Plantar fascial fibromatosis (04/17/20) Other abnormalities of gait and mobility (04/17/20) Chronic fatigue, unspecified (04/17/20) Physical Therapy Treatment Note PT-OP-A Visit Information Start: 11/07/19 16:21 Freq: Status: Active Protocol: Document 04/17/20 15:15 DCW (Rec: 04/17/20 16:00 DCW [id number]) Out-Patient Physical Therapy Visit Information Visit Information Visit Type Treatment Note Visit Start Time 15:15 Visit Stop Time 16:00 Total Visit Minutes 45 Visit Number 16 Number of DIRECTOR OF DISTRIBUTION Visits 0 Evaluation Information Evaluation Date 11/07/19 Precautions Precautions dialysis, bilateral AFO's PT-OP-B Current Condition Start: 11/07/19 16:21 Freq: Status: Active Protocol: Document 11/07/19 13:45 DCW (Rec: 11/08/19 11:15 DCW [id number]) Current Condition History of Current Condition Onset Date Multi-year history Current Complaints Fatigue, weakness, gait difficulty, balance disorders History of Current Condition Pt is a 39 year old male presenting with a highly complex history, including DM type I, multiple orthopedic injuries (Hx 11 vertebral fractures, pelvic fractues, ankle reconstruction), neuropathy, kidney failure requiring dialysis, and is on the transplant list for both a kidney and a pancreas. Pt reports he has had worsening foot drop over the past few months, causing him to catch his foot during swing phase. This has recently been corrected by bilateral AFOs. Pt describes it as he would bring his foot up, he would be unable to dorsiflex his ankle , but could keep it in neutral during lift-off, but would then suddenly drop into plantarflexion mid-swing phase . Pt reports he had a recent EMG, which showed severely limited nerve conduction below his knees, they believe it is more likely secondary to neuropathy due to his diabetes vs from his previous spinal injuries. Pt admits that although his AFOs make walking easier, his is still very wobbly when standing secondary to blood pressure variations due to dialysis. Pt also notes that lisa broke his fifth metatarsal in his right foot last year, and due to the way his right foot in constantly inverted, he feels like he is always standing directly on the fracture, and that although it did heal, it is still the most painful thing about standing, especially in his AFO. Pt notes that he fatigues when walking more than two minutes, and typically cannot ascend a flight of stairs without needing to stop and take a break. Even if I could walk five minutes without stopping, that'd be so great. Pt has a caregiver and his mother able to assist him with most activities as needed. Pt occasionally uses a walker or wheelchair, but is afraid that was the reason [facility] does not think he is robust enough for his transplant. Treatment Goals Patient/Caregiver Goals Pt's goal is to increase his leg strength and activity tolerance Prior Functional Status Baseline Function- ADL's Needs Assist Baseline Function- Mobility Needs Assist PT-OP-C Subjective Start: 11/07/19 16:21 Freq: Status: Active Protocol: Document 04/17/20 15:15 DCW (Rec: 04/17/20 16:00 DCW [id number]) OP-PT Subjective Patient Comments Patient Comments Pt reports he has been fighting with my blood sugar the past few days. PT-OP-E Functional Tests Start: 11/07/19 16:21 Freq: Status: Active Protocol: Document 02/23/20 15:16 DCW (Rec: 02/23/20 15:36 DCW [id number]) Functional Tests 2 Minute Walk Test Distance 358' Device Used Bilateral AFO's Comments 2.98 ft/sec PT-OP-G Mobility & Gait Start: 11/07/19 16:21 Freq: Status: Active Protocol: Document 02/23/20 15:16 DCW (Rec: 02/23/20 15:36 DCW [id number]) OP Gait Assessment Gait Gait Assistance Required: Independent Distance (Feet) 358 Able to Maintain Weight Bearing Status Yes During Gait Assistive Devices Assistive Device None Orthotic/Prosthetic Devices or Brace: Yes Gait Deviations General Gait Pattern Within Normal Limits Factors Limiting Gait Function Factors Limiting Gait Function Abnormal Tonal Influences, Decreased Activity Tolerance, Decreased Strength,Limited Range of Motion PT-OP-K Range of Motion Start: 11/07/19 16:21 Freq: Status: Active Protocol: Document 02/23/20 15:16 DCW (Rec: 02/23/20 15:36 DCW [id number]) Ankle and Foot Goniometric Range of Motion Ankle and Foot Left Active Testing Position Sitting Dorsiflexion with Knee Extended 5 Plantarflexion 45 Inversion 20 Eversion 5 Right Active Testing Position Sitting Plantarflexion 40 Inversion 30 Eversion 4 Ankle and Foot ROM Limitations Comments right DF: lacking 5 degrees of dorsiflexion from neutral PT-OP-M Strength Start: 11/07/19 16:21 Freq: Status: Active Protocol: Document 02/23/20 15:16 DCW (Rec: 02/23/20 15:36 DCW [id number]) Ankle/Foot Strength Ankle and Foot Manual Muscle Testing Right Dorsiflexion (L4) 3- Fair- Plantarflexion (S1) 2 Poor Inversion 4+ Good+ Eversion (S1) 3 Fair Left Dorsiflexion (L4) 3- Fair- Plantarflexion (S1) 3 Fair Inversion 4 Good Eversion (S1) 3+ Fair+ PT-OP-Q Treatments Start: 11/07/19 16:21 Freq: Status: Active Protocol: Document 04/17/20 15:15 DCW (Rec: 04/17/20 16:00 DCW [id number]) Cardio Equipment Recumbent Elliptical (Biodex) Duration (Minutes) 5 Resistance 4 Seat Position 11 Other required 1 rest break Gym Equipment Shuttle Recovery Unilateral squat Resistance 25# Shuttle Recovery Platform Stable Reps/Time 2x5 each Bilateral Squats Resistance 50# Shuttle Recovery Platform Stable Reps/Time 2x5 Manual Therapy Treatment Soft Tissue Mobilization 1 Body Location Posterior tib Mobilization Type Strumming,Sustained Pressure, Trigger Point Release Intensity/Depth Moderate Body Position Sitting Joint Mobilizations 2 Joint tibiotalar Direction posterior Grade III Body Position Sitting 1 Joint MTP 1-5 Direction dorsal/plantar Grade III Body Position Sitting PT-OP-T Assessment and Plan Start: 11/07/19 16:21 Freq: Status: Active Protocol: Document 04/17/20 15:15 DCW (Rec: 04/17/20 16:00 DCW [id number]) Physical Therapy Assessment Impairments Impairments Activity Tolerance,Balance, Functional Activities, Functional Mobility,Gait,Pain, ROM,Soft Tissue Mobility, Strength Goals Four Impairment R ankle inversion at rest due to substantial tone through posterior tib Ditching Machine Operator Goal (LTG) Pt to demonstrate decreased tone in right posterior tib to enable him to return right foot to neutral at rest.- Improving LTG Duration 04/24/20 Three Impairment Pt ambulates with a gait speed of 1.56 ft/sec during 2 minute walk test Short Term Goal (STG) A gait speed less than 1.97 ft /sec can be indicative of further functional decline in the future. Pt will ambulate > 237' during the 2 MWT -Met STG Duration Met Ditching Machine Operator Goal (LTG) Pt currently unable to tolerate 2 minute walk test without a standing rest break. Pt will be able to tolerate a 6 MWT with only one standing rest break to demonstrate increased activity tolerance LTG Duration 04/24/20 Two Impairment Significant weakness (<3/5) in bilateral ankles Short Term Goal (STG) Pt to demonstrate increased strength an bilateral eversion and inversion to 3/5 STG Duration Met Ditching Machine Operator Goal (LTG) Pt to display MMT of 3/5 or greater in bilateral ankle dorsiflexion LTG Duration 04/24/20 One Impairment Pt does not have an appropriate home exercise program Short Term Goal (STG) Pt to be independent and compliant with an appropriate HEP STG Duration Met Progress Towards Goals Progress Towards Goals Progressing Toward Goals Assessment Summary Assessment Pt clearly had increased fluid retention today, admits his dialysis has been not doing as well getting fluid off, reports he has an extra ~17 pounds of fluid on right now. Overall tone relatively unchanged in calf, but better joint mobility in ankles. Physical Therapy Plan Frequency and Duration Frequency of Treatment 2x/Week Duration of Treatment 2 months Plan of Care Start Date 02/23/20 Plan of Care End Date 04/24/20 Therapeutic Interventions Therapeutic Interventions Balance Training,Coordination Training,Gait Training,Home Exercise Program,Joint Mobilizations,Manual Therapy, Neuromuscular Re-education, Orthotic/Prosthetic Management ,Patient/Caregiver Education, Self-Care/Home Management,Soft Tissue Mobilization, Therapeutic Activities, Therapeutic Exercises Modalities Electric Stimulation Next Visit Focus/Plan Next Note Type Treatment Note Next Visit Plan continue strengthening and gait training, increase activity tolerance
--- NOTE | 2020-04-19 16:02 | PT.OTN ---
Current Diagnoses Foot drop, right foot (04/19/20) Other acquired deformities of right foot (04/19/20) Stiffness of right ankle, not elsewhere classified (04/19/20) Stiffness of left ankle, not elsewhere classified (04/19/20) Muscle weakness (generalized) (04/19/20) Plantar fascial fibromatosis (04/19/20) Other abnormalities of gait and mobility (04/19/20) Chronic fatigue, unspecified (04/19/20) Physical Therapy Treatment Note PT-OP-A Visit Information Start: 11/07/19 16:21 Freq: Status: Active Protocol: Document 04/19/20 15:15 DCW (Rec: 04/19/20 16:01 DCW [id number]) Out-Patient Physical Therapy Visit Information Visit Information Visit Type Treatment Note Visit Start Time 15:15 Visit Stop Time 16:00 Total Visit Minutes 45 Visit Number 18 Number of FIRE SAFETY MANAGER Visits 0 Evaluation Information Evaluation Date 11/07/19 Precautions Precautions dialysis, bilateral AFO's PT-OP-B Current Condition Start: 11/07/19 16:21 Freq: Status: Active Protocol: Document 11/07/19 13:45 DCW (Rec: 11/08/19 11:15 DCW [id number]) Current Condition History of Current Condition Onset Date Multi-year history Current Complaints Fatigue, weakness, gait difficulty, balance disorders History of Current Condition Pt is a 39 year old male presenting with a highly complex history, including DM type I, multiple orthopedic injuries (Hx 11 vertebral fractures, pelvic fractues, ankle reconstruction), neuropathy, kidney failure requiring dialysis, and is on the transplant list for both a kidney and a pancreas. Pt reports he has had worsening foot drop over the past few months, causing him to catch his foot during swing phase. This has recently been corrected by bilateral AFOs. Pt describes it as he would bring his foot up, he would be unable to dorsiflex his ankle , but could keep it in neutral during lift-off, but would then suddenly drop into plantarflexion mid-swing phase . Pt reports he had a recent EMG, which showed severely limited nerve conduction below his knees, they believe it is more likely secondary to neuropathy due to his diabetes vs from his previous spinal injuries. Pt admits that although his AFOs make walking easier, his is still very wobbly when standing secondary to blood pressure variations due to dialysis. Pt also notes that lisa broke his fifth metatarsal in his right foot last year, and due to the way his right foot in constantly inverted, he feels like he is always standing directly on the fracture, and that although it did heal, it is still the most painful thing about standing, especially in his AFO. Pt notes that he fatigues when walking more than two minutes, and typically cannot ascend a flight of stairs without needing to stop and take a break. Even if I could walk five minutes without stopping, that'd be so great. Pt has a caregiver and his mother able to assist him with most activities as needed. Pt occasionally uses a walker or wheelchair, but is afraid that was the reason [facility] does not think he is robust enough for his transplant. Treatment Goals Patient/Caregiver Goals Pt's goal is to increase his leg strength and activity tolerance Prior Functional Status Baseline Function- ADL's Needs Assist Baseline Function- Mobility Needs Assist PT-OP-C Subjective Start: 11/07/19 16:21 Freq: Status: Active Protocol: Document 04/19/20 15:15 DCW (Rec: 04/19/20 16:01 DCW [id number]) OP-PT Subjective Patient Comments Patient Comments Pt reports his blood sugar has stabilized for the most part, but is still a little on the lower side. Pt also notes continued difficulty with increased fluid retention. PT-OP-E Functional Tests Start: 11/07/19 16:21 Freq: Status: Active Protocol: Document 02/23/20 15:16 DCW (Rec: 02/23/20 15:36 DCW [id number]) Functional Tests 2 Minute Walk Test Distance 358' Device Used Bilateral AFO's Comments 2.98 ft/sec PT-OP-G Mobility & Gait Start: 11/07/19 16:21 Freq: Status: Active Protocol: Document 02/23/20 15:16 DCW (Rec: 02/23/20 15:36 DCW [id number]) OP Gait Assessment Gait Gait Assistance Required: Independent Distance (Feet) 358 Able to Maintain Weight Bearing Status Yes During Gait Assistive Devices Assistive Device None Orthotic/Prosthetic Devices or Brace: Yes Gait Deviations General Gait Pattern Within Normal Limits Factors Limiting Gait Function Factors Limiting Gait Function Abnormal Tonal Influences, Decreased Activity Tolerance, Decreased Strength,Limited Range of Motion PT-OP-K Range of Motion Start: 11/07/19 16:21 Freq: Status: Active Protocol: Document 02/23/20 15:16 DCW (Rec: 02/23/20 15:36 DCW [id number]) Ankle and Foot Goniometric Range of Motion Ankle and Foot Left Active Testing Position Sitting Dorsiflexion with Knee Extended 5 Plantarflexion 45 Inversion 20 Eversion 5 Right Active Testing Position Sitting Plantarflexion 40 Inversion 30 Eversion 4 Ankle and Foot ROM Limitations Comments right DF: lacking 5 degrees of dorsiflexion from neutral PT-OP-M Strength Start: 11/07/19 16:21 Freq: Status: Active Protocol: Document 02/23/20 15:16 DCW (Rec: 02/23/20 15:36 DCW [id number]) Ankle/Foot Strength Ankle and Foot Manual Muscle Testing Right Dorsiflexion (L4) 3- Fair- Plantarflexion (S1) 2 Poor Inversion 4+ Good+ Eversion (S1) 3 Fair Left Dorsiflexion (L4) 3- Fair- Plantarflexion (S1) 3 Fair Inversion 4 Good Eversion (S1) 3+ Fair+ PT-OP-Q Treatments Start: 11/07/19 16:21 Freq: Status: Active Protocol: Document 04/19/20 15:15 DCW (Rec: 04/19/20 16:01 DCW [id number]) Cardio Equipment Recumbent Elliptical (Biodex) Duration (Minutes) 5 Resistance 4 Seat Position 10 Gym Equipment Shuttle Recovery Unilateral squat Resistance 25# Shuttle Recovery Platform Stable Reps/Time x10 each Bilateral Squats Resistance 50# Shuttle Recovery Platform Stable Reps/Time x10 Manual Therapy Treatment Soft Tissue Mobilization 1 Body Location Posterior tib Mobilization Type Strumming,Sustained Pressure, Trigger Point Release Intensity/Depth Moderate Body Position Sitting Joint Mobilizations 2 Joint tibiotalar Direction posterior Grade III Body Position Sitting 1 Joint MTP 1-5 Direction dorsal/plantar Grade III Body Position Sitting Neuro Re-Education Treatment Balance Activities semi tandem Details eyes closed Surface firm hurdles Details forward/side stepping hurdles Reps/Duration 2 laps each x20 ft Comments CGA, step to patterning, decreased stabiltiy leading LLE than R. PT-OP-T Assessment and Plan Start: 11/07/19 16:21 Freq: Status: Active Protocol: Document 04/19/20 15:15 DCW (Rec: 04/19/20 16:01 DCW [id number]) Physical Therapy Assessment Impairments Impairments Activity Tolerance,Balance, Functional Activities, Functional Mobility,Gait,Pain, ROM,Soft Tissue Mobility, Strength Goals Four Impairment R ankle inversion at rest due to substantial tone through posterior tib Chain Hoist Operator Goal (LTG) Pt to demonstrate decreased tone in right posterior tib to enable him to return right foot to neutral at rest.- Improving LTG Duration 04/24/20 Three Impairment Pt ambulates with a gait speed of 1.56 ft/sec during 2 minute walk test Short Term Goal (STG) A gait speed less than 1.97 ft /sec can be indicative of further functional decline in the future. Pt will ambulate > 237' during the 2 MWT -Met STG Duration Met Chain Hoist Operator Goal (LTG) Pt currently unable to tolerate 2 minute walk test without a standing rest break. Pt will be able to tolerate a 6 MWT with only one standing rest break to demonstrate increased activity tolerance LTG Duration 04/24/20 Two Impairment Significant weakness (<3/5) in bilateral ankles Short Term Goal (STG) Pt to demonstrate increased strength an bilateral eversion and inversion to 3/5 STG Duration Met Chain Hoist Operator Goal (LTG) Pt to display MMT of 3/5 or greater in bilateral ankle dorsiflexion LTG Duration 04/24/20 One Impairment Pt does not have an appropriate home exercise program Short Term Goal (STG) Pt to be independent and compliant with an appropriate HEP STG Duration Met Progress Towards Goals Progress Towards Goals Progressing Toward Goals Assessment Summary Assessment Pt much better today with activity tolerance, mobility, tone, and LE edema. Able to perform all activities with no rest breaks. Physical Therapy Plan Frequency and Duration Frequency of Treatment 2x/Week Duration of Treatment 2 months Plan of Care Start Date 02/23/20 Plan of Care End Date 04/24/20 Therapeutic Interventions Therapeutic Interventions Balance Training,Coordination Training,Gait Training,Home Exercise Program,Joint Mobilizations,Manual Therapy, Neuromuscular Re-education, Orthotic/Prosthetic Management ,Patient/Caregiver Education, Self-Care/Home Management,Soft Tissue Mobilization, Therapeutic Activities, Therapeutic Exercises Modalities Electric Stimulation Next Visit Focus/Plan Next Note Type Treatment Note Next Visit Plan continue strengthening and gait training, increase activity tolerance
--- NOTE | 2020-04-24 16:00 | PT.OTN ---
Current Diagnoses Foot drop, right foot (04/24/20) Other acquired deformities of right foot (04/24/20) Stiffness of right ankle, not elsewhere classified (04/24/20) Stiffness of left ankle, not elsewhere classified (04/24/20) Muscle weakness (generalized) (04/24/20) Plantar fascial fibromatosis (04/24/20) Other abnormalities of gait and mobility (04/24/20) Chronic fatigue, unspecified (04/24/20) Physical Therapy Treatment Note PT-OP-A Visit Information Start: 11/07/19 16:21 Freq: Status: Active Protocol: Document 04/24/20 15:15 DCW (Rec: 04/24/20 16:00 DCW [id number]) Out-Patient Physical Therapy Visit Information Visit Information Visit Type Progress Note Visit Start Time 15:15 Visit Stop Time 16:00 Total Visit Minutes 45 Visit Number 19 Number of CONCERT PROMOTER Visits 0 Evaluation Information Evaluation Date 11/07/19 Precautions Precautions dialysis, bilateral AFO's PT-OP-B Current Condition Start: 11/07/19 16:21 Freq: Status: Active Protocol: Document 11/07/19 13:45 DCW (Rec: 11/08/19 11:15 DCW [id number]) Current Condition History of Current Condition Onset Date Multi-year history Current Complaints Fatigue, weakness, gait difficulty, balance disorders History of Current Condition Pt is a 39 year old male presenting with a highly complex history, including DM type I, multiple orthopedic injuries (Hx 11 vertebral fractures, pelvic fractues, ankle reconstruction), neuropathy, kidney failure requiring dialysis, and is on the transplant list for both a kidney and a pancreas. Pt reports he has had worsening foot drop over the past few months, causing him to catch his foot during swing phase. This has recently been corrected by bilateral AFOs. Pt describes it as he would bring his foot up, he would be unable to dorsiflex his ankle , but could keep it in neutral during lift-off, but would then suddenly drop into plantarflexion mid-swing phase . Pt reports he had a recent EMG, which showed severely limited nerve conduction below his knees, they believe it is more likely secondary to neuropathy due to his diabetes vs from his previous spinal injuries. Pt admits that although his AFOs make walking easier, his is still very wobbly when standing secondary to blood pressure variations due to dialysis. Pt also notes that lisa broke his fifth metatarsal in his right foot last year, and due to the way his right foot in constantly inverted, he feels like he is always standing directly on the fracture, and that although it did heal, it is still the most painful thing about standing, especially in his AFO. Pt notes that he fatigues when walking more than two minutes, and typically cannot ascend a flight of stairs without needing to stop and take a break. Even if I could walk five minutes without stopping, that'd be so great. Pt has a caregiver and his mother able to assist him with most activities as needed. Pt occasionally uses a walker or wheelchair, but is afraid that was the reason [facility] does not think he is robust enough for his transplant. Treatment Goals Patient/Caregiver Goals Pt's goal is to increase his leg strength and activity tolerance Prior Functional Status Baseline Function- ADL's Needs Assist Baseline Function- Mobility Needs Assist PT-OP-C Subjective Start: 11/07/19 16:21 Freq: Status: Active Protocol: Document 04/24/20 15:15 DCW (Rec: 04/24/20 16:00 DCW [id number]) OP-PT Subjective Patient Comments Patient Comments Pt having some HTN recently. PT-OP-E Functional Tests Start: 11/07/19 16:21 Freq: Status: Active Protocol: Document 04/24/20 15:15 DCW (Rec: 04/24/20 15:31 DCW [id number]) Functional Tests 2 Minute Walk Test Distance 361' Device Used Bilateral AFO's Comments 3.01 ft/sec PT-OP-G Mobility & Gait Start: 11/07/19 16:21 Freq: Status: Active Protocol: Document 04/24/20 15:15 DCW (Rec: 04/24/20 15:31 DCW [id number]) OP Gait Assessment Gait Gait Assistance Required: Independent Distance (Feet) 497 Able to Maintain Weight Bearing Status Yes During Gait Assistive Devices Assistive Device None Orthotic/Prosthetic Devices or Brace: Yes Gait Deviations General Gait Pattern Within Normal Limits Factors Limiting Gait Function Factors Limiting Gait Function Abnormal Tonal Influences, Decreased Activity Tolerance, Decreased Strength,Limited Range of Motion Comments Gait Comments B AFOs PT-OP-K Range of Motion Start: 11/07/19 16:21 Freq: Status: Active Protocol: Document 04/24/20 15:15 DCW (Rec: 04/24/20 15:31 DCW [id number]) Ankle and Foot Goniometric Range of Motion Ankle and Foot Left Active Testing Position Sitting Dorsiflexion with Knee Extended 5 Plantarflexion 42 Inversion 25 Eversion 5 Right Active Testing Position Sitting Dorsiflexion with Knee Extended 0 Plantarflexion 38 Inversion 30 Eversion 2 PT-OP-M Strength Start: 11/07/19 16:21 Freq: Status: Active Protocol: Document 04/24/20 15:15 DCW (Rec: 04/24/20 15:31 DCW [id number]) Ankle/Foot Strength Ankle and Foot Manual Muscle Testing Right Dorsiflexion (L4) 3- Fair- Plantarflexion (S1) 2 Poor Inversion 4+ Good+ Eversion (S1) 3 Fair Left Dorsiflexion (L4) 3- Fair- Plantarflexion (S1) 4- Good- Inversion 4 Good Eversion (S1) 3+ Fair+ PT-OP-Q Treatments Start: 11/07/19 16:21 Freq: Status: Active Protocol: Document 04/24/20 15:15 DCW (Rec: 04/24/20 16:00 DCW [id number]) Manual Therapy Treatment Soft Tissue Mobilization 1 Body Location Posterior tib Mobilization Type Strumming,Sustained Pressure, Trigger Point Release Intensity/Depth Moderate Body Position Sitting Joint Mobilizations 2 Joint tibiotalar Direction posterior Grade III Body Position Sitting 1 Joint MTP 1-5 Direction dorsal/plantar Grade III Body Position Sitting Other Other Manual Treatments Testing, ROM, MMT, 2 MWT PT-OP-T Assessment and Plan Start: 11/07/19 16:21 Freq: Status: Active Protocol: Document 04/24/20 15:15 DCW (Rec: 04/24/20 16:00 DCW [id number]) Physical Therapy Assessment Impairments Impairments Activity Tolerance,Balance, Functional Activities, Functional Mobility,Gait,Pain, ROM,Soft Tissue Mobility, Strength Goals Four Impairment R ankle inversion at rest due to substantial tone through posterior tib Short Term Goal (STG) Pt to demonstrate decreased tone in right posterior tib to enable him to return right foot to neutral at rest. STG Duration Met Cnc Machine Setter Goal (LTG) Pt to increase active R DF to 5 degrees LTG Duration 06/22/20 Three Impairment Pt ambulates with a gait speed of 1.56 ft/sec during 2 minute walk test Short Term Goal (STG) A gait speed less than 1.97 ft /sec can be indicative of further functional decline in the future. Pt will ambulate > 237' during the 2 MWT -Met STG Duration Met Cnc Machine Setter Goal (LTG) Pt currently unable to tolerate 2 minute walk test without a standing rest break. Pt will be able to tolerate a 6 MWT with only one standing rest break to demonstrate increased activity tolerance LTG Duration 06/22/20 Two Impairment Significant weakness (<3/5) in bilateral ankles Short Term Goal (STG) Pt to demonstrate increased strength an bilateral eversion and inversion to 3/5 STG Duration Met Retirement Goal (LTG) Pt to display MMT of 3/5 or greater in bilateral ankle dorsiflexion LTG Duration 06/22/20 One Impairment Pt does not have an appropriate home exercise program Short Term Goal (STG) Pt to be independent and compliant with an appropriate HEP STG Duration Met Progress Towards Goals Progress Towards Goals Progressing Toward Goals Assessment Summary Assessment Pt showing improved activity tolerance, able to ambulate one extra minute after his 2 MWT, working toward completing a 6 MWT. Mild improvements with ankle ROM, however still limited by severe calf/ posterior tib tone. Continued PT recommended to improve activity tolerance, decrease tone, and improve functional mobility. Physical Therapy Plan Frequency and Duration Frequency of Treatment 2x/Week Duration of Treatment 2 months Plan of Care Start Date 04/24/20 Plan of Care End Date 06/22/20 Therapeutic Interventions Therapeutic Interventions Balance Training,Coordination Training,Gait Training,Home Exercise Program,Joint Mobilizations,Manual Therapy, Neuromuscular Re-education, Orthotic/Prosthetic Management ,Patient/Caregiver Education, Self-Care/Home Management,Soft Tissue Mobilization, Therapeutic Activities, Therapeutic Exercises Modalities Electric Stimulation Next Visit Focus/Plan Next Note Type Treatment Note Next Visit Plan continue strengthening and gait training, increase activity tolerance
--- NOTE | 2020-04-24 16:00 | PT.OPPOC ---
Physical, Occupational & Speech Therapy At [facility] Current Diagnoses Foot drop, right foot (04/24/20) Other acquired deformities of right foot (04/24/20) Stiffness of right ankle, not elsewhere classified (04/24/20) Stiffness of left ankle, not elsewhere classified (04/24/20) Muscle weakness (generalized) (04/24/20) Plantar fascial fibromatosis (04/24/20) Other abnormalities of gait and mobility (04/24/20) Chronic fatigue, unspecified (04/24/20) Visit Care Team Role Provider Type Jose Multani MD Primary Care Provider Physician Specialty: Family Practice Address: [address] [place] [address] [place], [address] Email: [email or web address] Attending Provider Physician Referring Provider Specialty: Podiatry Address: [address] [place] [address], [id number] Email: [email or web address] Plan Of Care PT-OP-T Assessment and Plan Start: 11/07/19 16:21 Freq: Status: Active Protocol: Document 04/24/20 15:15 DCW (Rec: 04/24/20 16:00 DCW [id number]) Physical Therapy Assessment Impairments Impairments Activity Tolerance,Balance, Functional Activities, Functional Mobility,Gait,Pain, ROM,Soft Tissue Mobility, Strength Goals Four Impairment R ankle inversion at rest due to substantial tone through posterior tib Short Term Goal (STG) Pt to demonstrate decreased tone in right posterior tib to enable him to return right foot to neutral at rest. STG Duration Met Venture Capital Analyst Goal (LTG) Pt to increase active R DF to 5 degrees LTG Duration 06/22/20 Three Impairment Pt ambulates with a gait speed of 1.56 ft/sec during 2 minute walk test Short Term Goal (STG) A gait speed less than 1.97 ft /sec can be indicative of further functional decline in the future. Pt will ambulate > 237' during the 2 MWT -Met STG Duration Met Venture Capital Analyst Goal (LTG) Pt currently unable to tolerate 2 minute walk test without a standing rest break. Pt will be able to tolerate a 6 MWT with only one standing rest break to demonstrate increased activity tolerance LTG Duration 06/22/20 Two Impairment Significant weakness (<3/5) in bilateral ankles Short Term Goal (STG) Pt to demonstrate increased strength an bilateral eversion and inversion to 3/5 STG Duration Met Mcfp Goal (LTG) Pt to display MMT of 3/5 or greater in bilateral ankle dorsiflexion LTG Duration 06/22/20 One Impairment Pt does not have an appropriate home exercise program Short Term Goal (STG) Pt to be independent and compliant with an appropriate HEP STG Duration Met Progress Towards Goals Progress Towards Goals Progressing Toward Goals Assessment Summary Assessment Pt showing improved activity tolerance, able to ambulate one extra minute after his 2 MWT, working toward completing a 6 MWT. Mild improvements with ankle ROM, however still limited by severe calf/ posterior tib tone. Continued PT recommended to improve activity tolerance, decrease tone, and improve functional mobility. Physical Therapy Plan Frequency and Duration Frequency of Treatment 2x/Week Duration of Treatment 2 months Plan of Care Start Date 04/24/20 Plan of Care End Date 06/22/20 Therapeutic Interventions Therapeutic Interventions Balance Training,Coordination Training,Gait Training,Home Exercise Program,Joint Mobilizations,Manual Therapy, Neuromuscular Re-education, Orthotic/Prosthetic Management ,Patient/Caregiver Education, Self-Care/Home Management,Soft Tissue Mobilization, Therapeutic Activities, Therapeutic Exercises Modalities Electric Stimulation Next Visit Focus/Plan Next Note Type Treatment Note Next Visit Plan continue strengthening and gait training, increase activity tolerance Plan of Care Dates Plan of Care Start Date 04/24/20 Plan of Care End Date 06/22/20 Electronically Signed by: Volodymyr Andrews, PT 04/24/20 1600 Please Sign and Return: I have reviewed this Plan of Care and certify that the skilled therapy services above are required to meet the patient?s needs. Physician Signature Date Printed Name and Credentials Clinical Instructor Signature Printed Name and Credentials
--- NOTE | 2020-05-01 16:01 | PT.OTN ---
Current Diagnoses Foot drop, right foot (05/01/20) Other acquired deformities of right foot (05/01/20) Stiffness of right ankle, not elsewhere classified (05/01/20) Stiffness of left ankle, not elsewhere classified (05/01/20) Muscle weakness (generalized) (05/01/20) Plantar fascial fibromatosis (05/01/20) Other abnormalities of gait and mobility (05/01/20) Chronic fatigue, unspecified (05/01/20) Physical Therapy Treatment Note PT-OP-A Visit Information Start: 11/07/19 16:21 Freq: Status: Active Protocol: Document 05/01/20 15:16 DCW (Rec: 05/01/20 16:01 DCW [id number]) Out-Patient Physical Therapy Visit Information Visit Information Visit Type Treatment Note Visit Start Time 15:16 Visit Stop Time 16:00 Total Visit Minutes 44 Visit Number 20 Number of MATE SHIP Visits 0 Evaluation Information Evaluation Date 11/07/19 Precautions Precautions dialysis, bilateral AFO's PT-OP-B Current Condition Start: 11/07/19 16:21 Freq: Status: Active Protocol: Document 11/07/19 13:45 DCW (Rec: 11/08/19 11:15 DCW [id number]) Current Condition History of Current Condition Onset Date Multi-year history Current Complaints Fatigue, weakness, gait difficulty, balance disorders History of Current Condition Pt is a 39 year old male presenting with a highly complex history, including DM type I, multiple orthopedic injuries (Hx 11 vertebral fractures, pelvic fractues, ankle reconstruction), neuropathy, kidney failure requiring dialysis, and is on the transplant list for both a kidney and a pancreas. Pt reports he has had worsening foot drop over the past few months, causing him to catch his foot during swing phase. This has recently been corrected by bilateral AFOs. Pt describes it as he would bring his foot up, he would be unable to dorsiflex his ankle , but could keep it in neutral during lift-off, but would then suddenly drop into plantarflexion mid-swing phase . Pt reports he had a recent EMG, which showed severely limited nerve conduction below his knees, they believe it is more likely secondary to neuropathy due to his diabetes vs from his previous spinal injuries. Pt admits that although his AFOs make walking easier, his is still very wobbly when standing secondary to blood pressure variations due to dialysis. Pt also notes that lisa broke his fifth metatarsal in his right foot last year, and due to the way his right foot in constantly inverted, he feels like he is always standing directly on the fracture, and that although it did heal, it is still the most painful thing about standing, especially in his AFO. Pt notes that he fatigues when walking more than two minutes, and typically cannot ascend a flight of stairs without needing to stop and take a break. Even if I could walk five minutes without stopping, that'd be so great. Pt has a caregiver and his mother able to assist him with most activities as needed. Pt occasionally uses a walker or wheelchair, but is afraid that was the reason [facility] does not think he is robust enough for his transplant. Treatment Goals Patient/Caregiver Goals Pt's goal is to increase his leg strength and activity tolerance Prior Functional Status Baseline Function- ADL's Needs Assist Baseline Function- Mobility Needs Assist PT-OP-C Subjective Start: 11/07/19 16:21 Freq: Status: Active Protocol: Document 05/01/20 15:16 DCW (Rec: 05/01/20 16:01 DCW [id number]) OP-PT Subjective Patient Comments Patient Comments Pt received a low back injection last week to help decrease pain and swelling, notes he is hopeful that will kick in within the next few days. PT-OP-E Functional Tests Start: 11/07/19 16:21 Freq: Status: Active Protocol: Document 04/24/20 15:15 DCW (Rec: 04/24/20 15:31 DCW [id number]) Functional Tests 2 Minute Walk Test Distance 361' Device Used Bilateral AFO's Comments 3.01 ft/sec PT-OP-G Mobility & Gait Start: 11/07/19 16:21 Freq: Status: Active Protocol: Document 04/24/20 15:15 DCW (Rec: 04/24/20 15:31 DCW [id number]) OP Gait Assessment Gait Gait Assistance Required: Independent Distance (Feet) 497 Able to Maintain Weight Bearing Status Yes During Gait Assistive Devices Assistive Device None Orthotic/Prosthetic Devices or Brace: Yes Gait Deviations General Gait Pattern Within Normal Limits Factors Limiting Gait Function Factors Limiting Gait Function Abnormal Tonal Influences, Decreased Activity Tolerance, Decreased Strength,Limited Range of Motion Comments Gait Comments B AFOs PT-OP-K Range of Motion Start: 11/07/19 16:21 Freq: Status: Active Protocol: Document 04/24/20 15:15 DCW (Rec: 04/24/20 15:31 DCW [id number]) Ankle and Foot Goniometric Range of Motion Ankle and Foot Left Active Testing Position Sitting Dorsiflexion with Knee Extended 5 Plantarflexion 42 Inversion 25 Eversion 5 Right Active Testing Position Sitting Dorsiflexion with Knee Extended 0 Plantarflexion 38 Inversion 30 Eversion 2 PT-OP-M Strength Start: 11/07/19 16:21 Freq: Status: Active Protocol: Document 04/24/20 15:15 DCW (Rec: 04/24/20 15:31 DCW [id number]) Ankle/Foot Strength Ankle and Foot Manual Muscle Testing Right Dorsiflexion (L4) 3- Fair- Plantarflexion (S1) 2 Poor Inversion 4+ Good+ Eversion (S1) 3 Fair Left Dorsiflexion (L4) 3- Fair- Plantarflexion (S1) 4- Good- Inversion 4 Good Eversion (S1) 3+ Fair+ PT-OP-Q Treatments Start: 11/07/19 16:21 Freq: Status: Active Protocol: Document 05/01/20 15:16 DCW (Rec: 05/01/20 16:01 DCW [id number]) Cardio Equipment Recumbent Elliptical (Biodex) Duration (Minutes) 5 Resistance 5->4 Seat Position 10 Gym Equipment Shuttle Recovery Unilateral squat Resistance 25# Shuttle Recovery Platform Stable Reps/Time x10 each Bilateral Squats Resistance 50# Shuttle Recovery Platform Stable Reps/Time 2x5 Manual Therapy Treatment Soft Tissue Mobilization 1 Body Location Posterior tib Mobilization Type Strumming,Sustained Pressure, Trigger Point Release Intensity/Depth Moderate Body Position Sitting Joint Mobilizations 2 Joint tibiotalar Direction posterior Grade III Body Position Sitting 1 Joint MTP 1-5 Direction dorsal/plantar Grade III Body Position Sitting PT-OP-T Assessment and Plan Start: 11/07/19 16:21 Freq: Status: Active Protocol: Document 05/01/20 15:16 DCW (Rec: 05/01/20 16:01 DCW [id number]) Physical Therapy Assessment Impairments Impairments Activity Tolerance,Balance, Functional Activities, Functional Mobility,Gait,Pain, ROM,Soft Tissue Mobility, Strength Goals Four Impairment R ankle inversion at rest due to substantial tone through posterior tib Short Term Goal (STG) Pt to demonstrate decreased tone in right posterior tib to enable him to return right foot to neutral at rest. STG Duration Met Infrastructure Technician Goal (LTG) Pt to increase active R DF to 5 degrees LTG Duration 06/22/20 Three Impairment Pt ambulates with a gait speed of 1.56 ft/sec during 2 minute walk test Short Term Goal (STG) A gait speed less than 1.97 ft /sec can be indicative of further functional decline in the future. Pt will ambulate > 237' during the 2 MWT -Met STG Duration Met Infrastructure Technician Goal (LTG) Pt currently unable to tolerate 2 minute walk test without a standing rest break. Pt will be able to tolerate a 6 MWT with only one standing rest break to demonstrate increased activity tolerance LTG Duration 06/22/20 Two Impairment Significant weakness (<3/5) in bilateral ankles Short Term Goal (STG) Pt to demonstrate increased strength an bilateral eversion and inversion to 3/5 STG Duration Met Senior Care Goal (LTG) Pt to display MMT of 3/5 or greater in bilateral ankle dorsiflexion LTG Duration 06/22/20 One Impairment Pt does not have an appropriate home exercise program Short Term Goal (STG) Pt to be independent and compliant with an appropriate HEP STG Duration Met Progress Towards Goals Progress Towards Goals Progressing Toward Goals Assessment Summary Assessment Pt having substantial improvement with right calf tone today. By far the least tone pt has had since starting therapy by the end of his session. Physical Therapy Plan Frequency and Duration Frequency of Treatment 2x/Week Duration of Treatment 2 months Plan of Care Start Date 04/24/20 Plan of Care End Date 06/22/20 Therapeutic Interventions Therapeutic Interventions Balance Training,Coordination Training,Gait Training,Home Exercise Program,Joint Mobilizations,Manual Therapy, Neuromuscular Re-education, Orthotic/Prosthetic Management ,Patient/Caregiver Education, Self-Care/Home Management,Soft Tissue Mobilization, Therapeutic Activities, Therapeutic Exercises Modalities Electric Stimulation Next Visit Focus/Plan Next Note Type Treatment Note Next Visit Plan continue strengthening and gait training, increase activity tolerance
--- NOTE | 2020-05-03 15:57 | PT.OTN ---
Current Diagnoses Foot drop, right foot (05/03/20) Other acquired deformities of right foot (05/03/20) Stiffness of right ankle, not elsewhere classified (05/03/20) Stiffness of left ankle, not elsewhere classified (05/03/20) Muscle weakness (generalized) (05/03/20) Plantar fascial fibromatosis (05/03/20) Other abnormalities of gait and mobility (05/03/20) Chronic fatigue, unspecified (05/03/20) Physical Therapy Treatment Note PT-OP-A Visit Information Start: 11/07/19 16:21 Freq: Status: Active Protocol: Document 05/03/20 15:15 DCW (Rec: 05/03/20 15:57 DCW [id number]) Out-Patient Physical Therapy Visit Information Visit Information Visit Type Treatment Note Visit Start Time 15:15 Visit Stop Time 16:00 Total Visit Minutes 45 Visit Number 21 Number of IT SECURITY CONSULTANT Visits 0 Evaluation Information Evaluation Date 11/07/19 Precautions Precautions dialysis, bilateral AFO's PT-OP-B Current Condition Start: 11/07/19 16:21 Freq: Status: Active Protocol: Document 11/07/19 13:45 DCW (Rec: 11/08/19 11:15 DCW [id number]) Current Condition History of Current Condition Onset Date Multi-year history Current Complaints Fatigue, weakness, gait difficulty, balance disorders History of Current Condition Pt is a 39 year old male presenting with a highly complex history, including DM type I, multiple orthopedic injuries (Hx 11 vertebral fractures, pelvic fractues, ankle reconstruction), neuropathy, kidney failure requiring dialysis, and is on the transplant list for both a kidney and a pancreas. Pt reports he has had worsening foot drop over the past few months, causing him to catch his foot during swing phase. This has recently been corrected by bilateral AFOs. Pt describes it as he would bring his foot up, he would be unable to dorsiflex his ankle , but could keep it in neutral during lift-off, but would then suddenly drop into plantarflexion mid-swing phase . Pt reports he had a recent EMG, which showed severely limited nerve conduction below his knees, they believe it is more likely secondary to neuropathy due to his diabetes vs from his previous spinal injuries. Pt admits that although his AFOs make walking easier, his is still very wobbly when standing secondary to blood pressure variations due to dialysis. Pt also notes that lisa broke his fifth metatarsal in his right foot last year, and due to the way his right foot in constantly inverted, he feels like he is always standing directly on the fracture, and that although it did heal, it is still the most painful thing about standing, especially in his AFO. Pt notes that he fatigues when walking more than two minutes, and typically cannot ascend a flight of stairs without needing to stop and take a break. Even if I could walk five minutes without stopping, that'd be so great. Pt has a caregiver and his mother able to assist him with most activities as needed. Pt occasionally uses a walker or wheelchair, but is afraid that was the reason [facility] does not think he is robust enough for his transplant. Treatment Goals Patient/Caregiver Goals Pt's goal is to increase his leg strength and activity tolerance Prior Functional Status Baseline Function- ADL's Needs Assist Baseline Function- Mobility Needs Assist PT-OP-C Subjective Start: 11/07/19 16:21 Freq: Status: Active Protocol: Document 05/03/20 15:15 DCW (Rec: 05/03/20 15:57 DCW [id number]) OP-PT Subjective Patient Comments Patient Comments Pt reports he is a little tired, but overall doing well . Notes he has maintained all the calf stretching, so he is hopeful that it has remained loosened up. PT-OP-E Functional Tests Start: 11/07/19 16:21 Freq: Status: Active Protocol: Document 04/24/20 15:15 DCW (Rec: 04/24/20 15:31 DCW [id number]) Functional Tests 2 Minute Walk Test Distance 361' Device Used Bilateral AFO's Comments 3.01 ft/sec PT-OP-G Mobility & Gait Start: 11/07/19 16:21 Freq: Status: Active Protocol: Document 04/24/20 15:15 DCW (Rec: 04/24/20 15:31 DCW [id number]) OP Gait Assessment Gait Gait Assistance Required: Independent Distance (Feet) 497 Able to Maintain Weight Bearing Status Yes During Gait Assistive Devices Assistive Device None Orthotic/Prosthetic Devices or Brace: Yes Gait Deviations General Gait Pattern Within Normal Limits Factors Limiting Gait Function Factors Limiting Gait Function Abnormal Tonal Influences, Decreased Activity Tolerance, Decreased Strength,Limited Range of Motion Comments Gait Comments B AFOs PT-OP-K Range of Motion Start: 11/07/19 16:21 Freq: Status: Active Protocol: Document 04/24/20 15:15 DCW (Rec: 04/24/20 15:31 DCW [id number]) Ankle and Foot Goniometric Range of Motion Ankle and Foot Left Active Testing Position Sitting Dorsiflexion with Knee Extended 5 Plantarflexion 42 Inversion 25 Eversion 5 Right Active Testing Position Sitting Dorsiflexion with Knee Extended 0 Plantarflexion 38 Inversion 30 Eversion 2 PT-OP-M Strength Start: 11/07/19 16:21 Freq: Status: Active Protocol: Document 04/24/20 15:15 DCW (Rec: 04/24/20 15:31 DCW [id number]) Ankle/Foot Strength Ankle and Foot Manual Muscle Testing Right Dorsiflexion (L4) 3- Fair- Plantarflexion (S1) 2 Poor Inversion 4+ Good+ Eversion (S1) 3 Fair Left Dorsiflexion (L4) 3- Fair- Plantarflexion (S1) 4- Good- Inversion 4 Good Eversion (S1) 3+ Fair+ PT-OP-Q Treatments Start: 11/07/19 16:21 Freq: Status: Active Protocol: Document 05/03/20 15:15 DCW (Rec: 05/03/20 15:57 DCW [id number]) Cardio Equipment Recumbent Elliptical (Biodex) Duration (Minutes) 5 Resistance 4 Seat Position 10 Gym Equipment Shuttle Recovery Unilateral squat Resistance 25# Shuttle Recovery Platform Stable Reps/Time x10 each Bilateral Squats Resistance 50# Shuttle Recovery Platform Stable Reps/Time x10 Manual Therapy Treatment Soft Tissue Mobilization 1 Body Location Posterior tib Mobilization Type Strumming,Sustained Pressure, Trigger Point Release Intensity/Depth Moderate Body Position Sitting Joint Mobilizations 2 Joint tibiotalar Direction posterior Grade III Body Position Sitting 1 Joint MTP 1-5 Direction dorsal/plantar Grade III Body Position Sitting PT-OP-T Assessment and Plan Start: 11/07/19 16:21 Freq: Status: Active Protocol: Document 05/03/20 15:15 DCW (Rec: 05/03/20 15:57 DCW [id number]) Physical Therapy Assessment Impairments Impairments Activity Tolerance,Balance, Functional Activities, Functional Mobility,Gait,Pain, ROM,Soft Tissue Mobility, Strength Goals Four Impairment R ankle inversion at rest due to substantial tone through posterior tib Short Term Goal (STG) Pt to demonstrate decreased tone in right posterior tib to enable him to return right foot to neutral at rest. STG Duration Met Residential Goal (LTG) Pt to increase active R DF to 5 degrees LTG Duration 06/22/20 Three Impairment Pt ambulates with a gait speed of 1.56 ft/sec during 2 minute walk test Short Term Goal (STG) A gait speed less than 1.97 ft /sec can be indicative of further functional decline in the future. Pt will ambulate > 237' during the 2 MWT -Met STG Duration Met Racing Driver Goal (LTG) Pt currently unable to tolerate 2 minute walk test without a standing rest break. Pt will be able to tolerate a 6 MWT with only one standing rest break to demonstrate increased activity tolerance LTG Duration 06/22/20 Two Impairment Significant weakness (<3/5) in bilateral ankles Short Term Goal (STG) Pt to demonstrate increased strength an bilateral eversion and inversion to 3/5 STG Duration Met Residential Goal (LTG) Pt to display MMT of 3/5 or greater in bilateral ankle dorsiflexion LTG Duration 06/22/20 One Impairment Pt does not have an appropriate home exercise program Short Term Goal (STG) Pt to be independent and compliant with an appropriate HEP STG Duration Met Progress Towards Goals Progress Towards Goals Progressing Toward Goals Assessment Summary Assessment Both calves doing much better today with decreased tone throughout, pt noticing improved ankle mobility. Physical Therapy Plan Frequency and Duration Frequency of Treatment 2x/Week Duration of Treatment 2 months Plan of Care Start Date 04/24/20 Plan of Care End Date 06/22/20 Therapeutic Interventions Therapeutic Interventions Balance Training,Coordination Training,Gait Training,Home Exercise Program,Joint Mobilizations,Manual Therapy, Neuromuscular Re-education, Orthotic/Prosthetic Management ,Patient/Caregiver Education, Self-Care/Home Management,Soft Tissue Mobilization, Therapeutic Activities, Therapeutic Exercises Modalities Electric Stimulation Next Visit Focus/Plan Next Note Type Treatment Note Next Visit Plan continue strengthening and gait training, increase activity tolerance
--- NOTE | 2020-05-14 15:17 | PT.OTN ---
Current Diagnoses Foot drop, right foot (05/14/20) Other acquired deformities of right foot (05/14/20) Stiffness of right ankle, not elsewhere classified (05/14/20) Stiffness of left ankle, not elsewhere classified (05/14/20) Muscle weakness (generalized) (05/14/20) Plantar fascial fibromatosis (05/14/20) Other abnormalities of gait and mobility (05/14/20) Chronic fatigue, unspecified (05/14/20) Physical Therapy Treatment Note PT-OP-A Visit Information Start: 11/07/19 16:21 Freq: Status: Active Protocol: Document 05/14/20 14:31 DCW (Rec: 05/14/20 15:17 DCW [id number]) Out-Patient Physical Therapy Visit Information Visit Information Visit Type Treatment Note Visit Start Time 14:31 Visit Stop Time 15:15 Total Visit Minutes 44 Visit Number 22 Number of LINUX NETWORK ADMINISTRATOR Visits 0 Evaluation Information Evaluation Date 11/07/19 Precautions Precautions dialysis, bilateral AFO's PT-OP-B Current Condition Start: 11/07/19 16:21 Freq: Status: Active Protocol: Document 11/07/19 13:45 DCW (Rec: 11/08/19 11:15 DCW [id number]) Current Condition History of Current Condition Onset Date Multi-year history Current Complaints Fatigue, weakness, gait difficulty, balance disorders History of Current Condition Pt is a 39 year old male presenting with a highly complex history, including DM type I, multiple orthopedic injuries (Hx 11 vertebral fractures, pelvic fractues, ankle reconstruction), neuropathy, kidney failure requiring dialysis, and is on the transplant list for both a kidney and a pancreas. Pt reports he has had worsening foot drop over the past few months, causing him to catch his foot during swing phase. This has recently been corrected by bilateral AFOs. Pt describes it as he would bring his foot up, he would be unable to dorsiflex his ankle , but could keep it in neutral during lift-off, but would then suddenly drop into plantarflexion mid-swing phase . Pt reports he had a recent EMG, which showed severely limited nerve conduction below his knees, they believe it is more likely secondary to neuropathy due to his diabetes vs from his previous spinal injuries. Pt admits that although his AFOs make walking easier, his is still very wobbly when standing secondary to blood pressure variations due to dialysis. Pt also notes that lisa broke his fifth metatarsal in his right foot last year, and due to the way his right foot in constantly inverted, he feels like he is always standing directly on the fracture, and that although it did heal, it is still the most painful thing about standing, especially in his AFO. Pt notes that he fatigues when walking more than two minutes, and typically cannot ascend a flight of stairs without needing to stop and take a break. Even if I could walk five minutes without stopping, that'd be so great. Pt has a caregiver and his mother able to assist him with most activities as needed. Pt occasionally uses a walker or wheelchair, but is afraid that was the reason [facility] does not think he is robust enough for his transplant. Treatment Goals Patient/Caregiver Goals Pt's goal is to increase his leg strength and activity tolerance Prior Functional Status Baseline Function- ADL's Needs Assist Baseline Function- Mobility Needs Assist PT-OP-C Subjective Start: 11/07/19 16:21 Freq: Status: Active Protocol: Document 05/14/20 14:31 DCW (Rec: 05/14/20 15:17 DCW [id number]) OP-PT Subjective Patient Comments Patient Comments Pt reports he is fatigued, and has felt his balance is a little off after addition of new in-soles in his shoes. PT-OP-E Functional Tests Start: 11/07/19 16:21 Freq: Status: Active Protocol: Document 04/24/20 15:15 DCW (Rec: 04/24/20 15:31 DCW [id number]) Functional Tests 2 Minute Walk Test Distance 361' Device Used Bilateral AFO's Comments 3.01 ft/sec PT-OP-G Mobility & Gait Start: 11/07/19 16:21 Freq: Status: Active Protocol: Document 04/24/20 15:15 DCW (Rec: 04/24/20 15:31 DCW [id number]) OP Gait Assessment Gait Gait Assistance Required: Independent Distance (Feet) 497 Able to Maintain Weight Bearing Status Yes During Gait Assistive Devices Assistive Device None Orthotic/Prosthetic Devices or Brace: Yes Gait Deviations General Gait Pattern Within Normal Limits Factors Limiting Gait Function Factors Limiting Gait Function Abnormal Tonal Influences, Decreased Activity Tolerance, Decreased Strength,Limited Range of Motion Comments Gait Comments B AFOs PT-OP-K Range of Motion Start: 11/07/19 16:21 Freq: Status: Active Protocol: Document 04/24/20 15:15 DCW (Rec: 04/24/20 15:31 DCW [id number]) Ankle and Foot Goniometric Range of Motion Ankle and Foot Left Active Testing Position Sitting Dorsiflexion with Knee Extended 5 Plantarflexion 42 Inversion 25 Eversion 5 Right Active Testing Position Sitting Dorsiflexion with Knee Extended 0 Plantarflexion 38 Inversion 30 Eversion 2 PT-OP-M Strength Start: 11/07/19 16:21 Freq: Status: Active Protocol: Document 04/24/20 15:15 DCW (Rec: 04/24/20 15:31 DCW [id number]) Ankle/Foot Strength Ankle and Foot Manual Muscle Testing Right Dorsiflexion (L4) 3- Fair- Plantarflexion (S1) 2 Poor Inversion 4+ Good+ Eversion (S1) 3 Fair Left Dorsiflexion (L4) 3- Fair- Plantarflexion (S1) 4- Good- Inversion 4 Good Eversion (S1) 3+ Fair+ PT-OP-Q Treatments Start: 11/07/19 16:21 Freq: Status: Active Protocol: Document 05/14/20 14:31 DCW (Rec: 05/14/20 15:17 DCW [id number]) Cardio Equipment Recumbent Elliptical (Biodex) Duration (Minutes) 5 Resistance 5 Seat Position 10 Gym Equipment Shuttle Recovery Unilateral squat Resistance 25# Shuttle Recovery Platform Stable Reps/Time x10 each Bilateral Squats Resistance 50# Shuttle Recovery Platform Stable Reps/Time x10 Shuttle Balance 1 Details Red Comments Wide FRANKIE, Staggered Stance Manual Therapy Treatment Soft Tissue Mobilization 1 Body Location Posterior tib Mobilization Type Strumming,Sustained Pressure, Trigger Point Release Intensity/Depth Moderate Body Position Sitting Joint Mobilizations 2 Joint tibiotalar Direction posterior Grade III Body Position Sitting 1 Joint MTP 1-5 Direction dorsal/plantar Grade III Body Position Sitting Neuro Re-Education Treatment Balance Activities 1 Details Foam stepping stones Surface Various foam PT-OP-T Assessment and Plan Start: 11/07/19 16:21 Freq: Status: Active Protocol: Document 05/14/20 14:31 DCW (Rec: 05/14/20 15:17 DCW [id number]) Physical Therapy Assessment Impairments Impairments Activity Tolerance,Balance, Functional Activities, Functional Mobility,Gait,Pain, ROM,Soft Tissue Mobility, Strength Goals Four Impairment R ankle inversion at rest due to substantial tone through posterior tib Short Term Goal (STG) Pt to demonstrate decreased tone in right posterior tib to enable him to return right foot to neutral at rest. STG Duration Met Long-Term Goal (LTG) Pt to increase active R DF to 5 degrees LTG Duration 06/22/20 Three Impairment Pt ambulates with a gait speed of 1.56 ft/sec during 2 minute walk test Short Term Goal (STG) A gait speed less than 1.97 ft /sec can be indicative of further functional decline in the future. Pt will ambulate > 237' during the 2 MWT -Met STG Duration Met Long-Term Goal (LTG) Pt currently unable to tolerate 2 minute walk test without a standing rest break. Pt will be able to tolerate a 6 MWT with only one standing rest break to demonstrate increased activity tolerance LTG Duration 06/22/20 Two Impairment Significant weakness (<3/5) in bilateral ankles Short Term Goal (STG) Pt to demonstrate increased strength an bilateral eversion and inversion to 3/5 STG Duration Met Line Supply Goal (LTG) Pt to display MMT of 3/5 or greater in bilateral ankle dorsiflexion LTG Duration 06/22/20 One Impairment Pt does not have an appropriate home exercise program Short Term Goal (STG) Pt to be independent and compliant with an appropriate HEP STG Duration Met Progress Towards Goals Progress Towards Goals Progressing Toward Goals Assessment Summary Assessment Pt continues to demonstrate improved tone bilaterally along gastroc/soleus. Pt did well with balance training today. Physical Therapy Plan Frequency and Duration Frequency of Treatment 2x/Week Duration of Treatment 2 months Plan of Care Start Date 04/24/20 Plan of Care End Date 06/22/20 Therapeutic Interventions Therapeutic Interventions Balance Training,Coordination Training,Gait Training,Home Exercise Program,Joint Mobilizations,Manual Therapy, Neuromuscular Re-education, Orthotic/Prosthetic Management ,Patient/Caregiver Education, Self-Care/Home Management,Soft Tissue Mobilization, Therapeutic Activities, Therapeutic Exercises Modalities Electric Stimulation Next Visit Focus/Plan Next Note Type Treatment Note Next Visit Plan continue strengthening and gait training, increase activity tolerance
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
--- NOTE | 2020-05-24 14:35 | PT.OTN ---
Current Diagnoses Foot drop, right foot (05/24/20) Other acquired deformities of right foot (05/24/20) Stiffness of right ankle, not elsewhere classified (05/24/20) Stiffness of left ankle, not elsewhere classified (05/24/20) Muscle weakness (generalized) (05/24/20) Plantar fascial fibromatosis (05/24/20) Other abnormalities of gait and mobility (05/24/20) Chronic fatigue, unspecified (05/24/20) Physical Therapy Treatment Note PT-OP-A Visit Information Start: 11/07/19 16:21 Freq: Status: Active Protocol: Document 05/24/20 13:45 DCW (Rec: 05/24/20 14:35 DCW [id number]) Out-Patient Physical Therapy Visit Information Visit Information Visit Type Treatment Note Visit Start Time 13:45 Visit Stop Time 14:30 Total Visit Minutes 45 Visit Number 24 Number of HEARING SPECIALIST Visits 0 Evaluation Information Evaluation Date 11/07/19 Precautions Precautions dialysis, bilateral AFO's PT-OP-B Current Condition Start: 11/07/19 16:21 Freq: Status: Active Protocol: Document 11/07/19 13:45 DCW (Rec: 11/08/19 11:15 DCW [id number]) Current Condition History of Current Condition Onset Date Multi-year history Current Complaints Fatigue, weakness, gait difficulty, balance disorders History of Current Condition Pt is a 39 year old male presenting with a highly complex history, including DM type I, multiple orthopedic injuries (Hx 11 vertebral fractures, pelvic fractues, ankle reconstruction), neuropathy, kidney failure requiring dialysis, and is on the transplant list for both a kidney and a pancreas. Pt reports he has had worsening foot drop over the past few months, causing him to catch his foot during swing phase. This has recently been corrected by bilateral AFOs. Pt describes it as he would bring his foot up, he would be unable to dorsiflex his ankle , but could keep it in neutral during lift-off, but would then suddenly drop into plantarflexion mid-swing phase . Pt reports he had a recent EMG, which showed severely limited nerve conduction below his knees, they believe it is more likely secondary to neuropathy due to his diabetes vs from his previous spinal injuries. Pt admits that although his AFOs make walking easier, his is still very wobbly when standing secondary to blood pressure variations due to dialysis. Pt also notes that lisa broke his fifth metatarsal in his right foot last year, and due to the way his right foot in constantly inverted, he feels like he is always standing directly on the fracture, and that although it did heal, it is still the most painful thing about standing, especially in his AFO. Pt notes that he fatigues when walking more than two minutes, and typically cannot ascend a flight of stairs without needing to stop and take a break. Even if I could walk five minutes without stopping, that'd be so great. Pt has a caregiver and his mother able to assist him with most activities as needed. Pt occasionally uses a walker or wheelchair, but is afraid that was the reason [facility] does not think he is robust enough for his transplant. Treatment Goals Patient/Caregiver Goals Pt's goal is to increase his leg strength and activity tolerance Prior Functional Status Baseline Function- ADL's Needs Assist Baseline Function- Mobility Needs Assist PT-OP-C Subjective Start: 11/07/19 16:21 Freq: Status: Active Protocol: Document 05/24/20 13:45 DCW (Rec: 05/24/20 14:35 DCW [id number]) OP-PT Subjective Patient Comments Patient Comments Pt notes he was very tired following his last visit, admits he was sore for the next few days. PT-OP-E Functional Tests Start: 11/07/19 16:21 Freq: Status: Active Protocol: Document 04/24/20 15:15 DCW (Rec: 04/24/20 15:31 DCW [id number]) Functional Tests 2 Minute Walk Test Distance 361' Device Used Bilateral AFO's Comments 3.01 ft/sec PT-OP-G Mobility & Gait Start: 11/07/19 16:21 Freq: Status: Active Protocol: Document 04/24/20 15:15 DCW (Rec: 04/24/20 15:31 DCW [id number]) OP Gait Assessment Gait Gait Assistance Required: Independent Distance (Feet) 497 Able to Maintain Weight Bearing Status Yes During Gait Assistive Devices Assistive Device None Orthotic/Prosthetic Devices or Brace: Yes Gait Deviations General Gait Pattern Within Normal Limits Factors Limiting Gait Function Factors Limiting Gait Function Abnormal Tonal Influences, Decreased Activity Tolerance, Decreased Strength,Limited Range of Motion Comments Gait Comments B AFOs PT-OP-K Range of Motion Start: 11/07/19 16:21 Freq: Status: Active Protocol: Document 04/24/20 15:15 DCW (Rec: 04/24/20 15:31 DCW [id number]) Ankle and Foot Goniometric Range of Motion Ankle and Foot Left Active Testing Position Sitting Dorsiflexion with Knee Extended 5 Plantarflexion 42 Inversion 25 Eversion 5 Right Active Testing Position Sitting Dorsiflexion with Knee Extended 0 Plantarflexion 38 Inversion 30 Eversion 2 PT-OP-M Strength Start: 11/07/19 16:21 Freq: Status: Active Protocol: Document 04/24/20 15:15 DCW (Rec: 04/24/20 15:31 DCW [id number]) Ankle/Foot Strength Ankle and Foot Manual Muscle Testing Right Dorsiflexion (L4) 3- Fair- Plantarflexion (S1) 2 Poor Inversion 4+ Good+ Eversion (S1) 3 Fair Left Dorsiflexion (L4) 3- Fair- Plantarflexion (S1) 4- Good- Inversion 4 Good Eversion (S1) 3+ Fair+ PT-OP-Q Treatments Start: 11/07/19 16:21 Freq: Status: Active Protocol: Document 05/24/20 13:45 DCW (Rec: 05/24/20 14:35 DCW [id number]) Cardio Equipment Recumbent Elliptical (Biodex) Duration (Minutes) 3 Resistance 4 Seat Position 11 Other Stopped early d/t leg fatigue Therapeutic Exercises Supine Exercises 2 Supine Exercise Name Hip Flexor stretch Side bilateral Comments leg off table 1 Supine Exercise Name Hamstring stretch Side bilateral Manual Therapy Treatment Soft Tissue Mobilization 1 Body Location Posterior tib Mobilization Type Strumming,Sustained Pressure, Trigger Point Release Intensity/Depth Moderate Body Position Sitting Joint Mobilizations 2 Joint tibiotalar Direction posterior Grade III Body Position Sitting 1 Joint MTP 1-5 Direction dorsal/plantar Grade III Body Position Sitting PT-OP-T Assessment and Plan Start: 11/07/19 16:21 Freq: Status: Active Protocol: Document 05/24/20 13:45 DCW (Rec: 05/24/20 14:35 DCW [id number]) Physical Therapy Assessment Impairments Impairments Activity Tolerance,Balance, Functional Activities, Functional Mobility,Gait,Pain, ROM,Soft Tissue Mobility, Strength Goals Four Impairment R ankle inversion at rest due to substantial tone through posterior tib Short Term Goal (STG) Pt to demonstrate decreased tone in right posterior tib to enable him to return right foot to neutral at rest. STG Duration Met Technical Healthcare Consultant Goal (LTG) Pt to increase active R DF to 5 degrees LTG Duration 06/22/20 Three Impairment Pt ambulates with a gait speed of 1.56 ft/sec during 2 minute walk test Short Term Goal (STG) A gait speed less than 1.97 ft /sec can be indicative of further functional decline in the future. Pt will ambulate > 237' during the 2 MWT -Met STG Duration Met Long-Term Goal (LTG) Pt currently unable to tolerate 2 minute walk test without a standing rest break. Pt will be able to tolerate a 6 MWT with only one standing rest break to demonstrate increased activity tolerance LTG Duration 06/22/20 Two Impairment Significant weakness (<3/5) in bilateral ankles Short Term Goal (STG) Pt to demonstrate increased strength an bilateral eversion and inversion to 3/5 STG Duration Met Long-Term Goal (LTG) Pt to display MMT of 3/5 or greater in bilateral ankle dorsiflexion LTG Duration 06/22/20 One Impairment Pt does not have an appropriate home exercise program Short Term Goal (STG) Pt to be independent and compliant with an appropriate HEP STG Duration Met Progress Towards Goals Progress Towards Goals Progressing Toward Goals Assessment Summary Assessment Pt still pretty tight and sore in his quads and hamstrings today following his appointment Thursday. Physical Therapy Plan Frequency and Duration Frequency of Treatment 2x/Week Duration of Treatment 2 months Plan of Care Start Date 04/24/20 Plan of Care End Date 06/22/20 Therapeutic Interventions Therapeutic Interventions Balance Training,Coordination Training,Gait Training,Home Exercise Program,Joint Mobilizations,Manual Therapy, Neuromuscular Re-education, Orthotic/Prosthetic Management ,Patient/Caregiver Education, Self-Care/Home Management,Soft Tissue Mobilization, Therapeutic Activities, Therapeutic Exercises Modalities Electric Stimulation Next Visit Focus/Plan Next Note Type Treatment Note Next Visit Plan continue strengthening and gait training, increase activity tolerance
--- NOTE | 2020-06-04 11:17 | PT.OPDS ---
Current Diagnoses Foot drop, right foot (05/24/20) Other acquired deformities of right foot (05/24/20) Stiffness of right ankle, not elsewhere classified (05/24/20) Stiffness of left ankle, not elsewhere classified (05/24/20) Muscle weakness (generalized) (05/24/20) Plantar fascial fibromatosis (05/24/20) Other abnormalities of gait and mobility (05/24/20) Chronic fatigue, unspecified (05/24/20) Visit Care Team Role Provider Type Jose Multani MD Primary Care Provider Physician Specialty: Family Practice Address: [address] [place] [address], [facility] [place], [address] Email: [email or web address] Attending Provider Physician Referring Provider Specialty: Podiatry Address: [address] [place] [address], [address] Email: [email or web address] Visit Number Visit Number 24 Discharge Summary PT-OP-B Current Condition Start: 11/07/19 16:21 Freq: Status: Active Protocol: Document 11/07/19 13:45 DCW (Rec: 11/08/19 11:15 DCW [id number]) Current Condition History of Current Condition Onset Date Multi-year history Current Complaints Fatigue, weakness, gait difficulty, balance disorders History of Current Condition Pt is a 39 year old male presenting with a highly complex history, including DM type I, multiple orthopedic injuries (Hx 11 vertebral fractures, pelvic fractues, ankle reconstruction), neuropathy, kidney failure requiring dialysis, and is on the transplant list for both a kidney and a pancreas. Pt reports he has had worsening foot drop over the past few months, causing him to catch his foot during swing phase. This has recently been corrected by bilateral AFOs. Pt describes it as he would bring his foot up, he would be unable to dorsiflex his ankle , but could keep it in neutral during lift-off, but would then suddenly drop into plantarflexion mid-swing phase . Pt reports he had a recent EMG, which showed severely limited nerve conduction below his knees, they believe it is more likely secondary to neuropathy due to his diabetes vs from his previous spinal injuries. Pt admits that although his AFOs make walking easier, his is still very wobbly when standing secondary to blood pressure variations due to dialysis. Pt also notes that lisa broke his fifth metatarsal in his right foot last year, and due to the way his right foot in constantly inverted, he feels like he is always standing directly on the fracture, and that although it did heal, it is still the most painful thing about standing, especially in his AFO. Pt notes that he fatigues when walking more than two minutes, and typically cannot ascend a flight of stairs without needing to stop and take a break. Even if I could walk five minutes without stopping, that'd be so great. Pt has a caregiver and his mother able to assist him with most activities as needed. Pt occasionally uses a walker or wheelchair, but is afraid that was the reason [facility] does not think he is robust enough for his transplant. Treatment Goals Patient/Caregiver Goals Pt's goal is to increase his leg strength and activity tolerance Prior Functional Status Baseline Function- ADL's Needs Assist Baseline Function- Mobility Needs Assist PT-OP-C Subjective Start: 11/07/19 16:21 Freq: Status: Active Protocol: Document 05/24/20 13:45 DCW (Rec: 05/24/20 14:35 DCW [id number]) OP-PT Subjective Patient Comments Patient Comments Pt notes he was very tired following his last visit, admits he was sore for the next few days. PT-OP-E Functional Tests Start: 11/07/19 16:21 Freq: Status: Active Protocol: Document 04/24/20 15:15 DCW (Rec: 04/24/20 15:31 DCW [id number]) Functional Tests 2 Minute Walk Test Distance 361' Device Used Bilateral AFO's Comments 3.01 ft/sec PT-OP-G Mobility & Gait Start: 11/07/19 16:21 Freq: Status: Active Protocol: Document 04/24/20 15:15 DCW (Rec: 04/24/20 15:31 DCW [id number]) OP Gait Assessment Gait Gait Assistance Required: Independent Distance (Feet) 497 Able to Maintain Weight Bearing Status Yes During Gait Assistive Devices Assistive Device None Orthotic/Prosthetic Devices or Brace: Yes Gait Deviations General Gait Pattern Within Normal Limits Factors Limiting Gait Function Factors Limiting Gait Function Abnormal Tonal Influences, Decreased Activity Tolerance, Decreased Strength,Limited Range of Motion Comments Gait Comments B AFOs PT-OP-K Range of Motion Start: 11/07/19 16:21 Freq: Status: Active Protocol: Document 04/24/20 15:15 DCW (Rec: 04/24/20 15:31 DCW [id number]) Ankle and Foot Goniometric Range of Motion Ankle and Foot Left Active Testing Position Sitting Dorsiflexion with Knee Extended 5 Plantarflexion 42 Inversion 25 Eversion 5 Right Active Testing Position Sitting Dorsiflexion with Knee Extended 0 Plantarflexion 38 Inversion 30 Eversion 2 PT-OP-M Strength Start: 11/07/19 16:21 Freq: Status: Active Protocol: Document 04/24/20 15:15 DCW (Rec: 04/24/20 15:31 DCW [id number]) Ankle/Foot Strength Ankle and Foot Manual Muscle Testing Right Dorsiflexion (L4) 3- Fair- Plantarflexion (S1) 2 Poor Inversion 4+ Good+ Eversion (S1) 3 Fair Left Dorsiflexion (L4) 3- Fair- Plantarflexion (S1) 4- Good- Inversion 4 Good Eversion (S1) 3+ Fair+ PT-OP-T Assessment and Plan Start: 11/07/19 16:21 Freq: Status: Active Protocol: Document 06/04/20 11:16 DCW (Rec: 06/04/20 11:17 DCW [id number]) Physical Therapy Assessment Assessment Summary Assessment Pt phoned clinic today to report that he broke his toe over the weekend and to request discharge. Pt will be discharged from skilled therapy at this time, will require a new referral in order to return to skilled therapy if needed. Physical Therapy Plan Discharge Physical Therapy Discharge Reasons Change in Medical Status Next Visit Focus/Plan Next Note Type Discharge Summary
== END 2020-06-08 09:02 ==
LOC: PHYS 13:45
PROVIDERS: PCP Family Medicine; Referring Provider Podiatrist; Visit Provider Podiatrist
DX: M21.371 Foot drop, right foot (principal); M72.2 Plantar fascial fibromatosis; M21.6X1 Other acquired deformities of right foot; M62.81 Muscle weakness (generalized); M25.672 Stiffness of left ankle, not elsewhere classified; M25.671 Stiffness of right ankle, not elsewhere classified; R53.82 Chronic fatigue, unspecified; R26.89 Other abnormalities of gait and mobility
CPT/HCPCS: 97110; 97112; 97116; 97140; 97163; 97530

== ENCOUNTER 2020-06-02 14:38 | Emergency (ER) | payer MEDICARE, MEDICAID, SELFPAY ==
[2020-06-02 14:40] VITALS: BP 139/88; PULSE 64; RESP 16; TEMP 36.6; O2SAT 99; BMI 19.8
--- NOTE | 2020-06-02 14:58 | DI.RAD.S_ITS ---
PROCEDURE: XR TOE LT MIN 2V INDICATIONS: great and 2nd toe injury TECHNIQUE: 3 views of the 1st and 2nd toe(s) acquired. COMPARISON: None. FINDINGS: Bones: There is a fracture at the base of the 1st distal phalanx. The 2nd toe appears intact. No suspicious bony lesions. Soft tissues: No suspicious soft tissue densities. Soft tissue swelling of the great toe. Atherosclerotic calcifications. IMPRESSION: A fracture at the base of the 1st distal phalanx. Dictated by: Cynthia Meier M.D. on 06/02/2020 at 15:52 Approved by: Cynthia Meier M.D. on 06/02/2020 at 15:54
--- NOTE | 2020-06-02 15:04 | ED.GENADULT ---
HPI - General Adult General Chief complaint: Extremity Injury, Lower Stated complaint: possible infection of big toe on left foot Time Seen by Provider: 06/02/20 14:54 Source: patient Mode of arrival: Ambulatory Limitations: no limitations History of Present Illness HPI narrative: Patient is a 40-year-old male. He is a insulin-dependent diabetic. He does have neuropathy. He states that he normally wears braces on his lower extremities in order to help him walk because of the neuropathy because he has problems picking up his feet. He states he was not wearing the brace on his left leg today when he caught his toe on the floor and bent his large toe forward. He sustained a cut to the top of the toe. He is up-to-date on his tetanus. Related Data Home Medications Medication Instructions Recorded Confirmed atorvastatin 10 mg PO DAILY 07/14/18 02/20/20 cetirizine [Zyrtec] 5 - 10 mg PO DAILY 07/14/18 02/20/20 cholecalciferol (vitamin D3) 5,000 unit PO DAILY 07/14/18 02/20/20 [Vitamin D3] ondansetron 4 mg PO TID PRN 07/14/18 02/20/20 cyclobenzaprine 10 mg tablet 10 mg PO TID PRN tab 08/10/19 02/20/20 insulin NPH isoph U-100 human 100 See Rx Instructions SUBCUT DAILY 09/14/19 02/20/20 unit/mL (3 mL) subcutaneous pen insulin lispro 100 unit/mL See Rx Instructions SUBCUT SEE 09/14/19 02/20/20 subcutaneous cartridge INSTRUCTIONS doxylamine succinate 25 mg PO BEDTIME PRN 09/27/19 02/20/20 duloxetine 30 mg PO DAILY 09/27/19 02/20/20 famotidine 20 mg PO BID 09/27/19 02/20/20 promethazine 12.5 mg PO BID PRN 09/27/19 02/20/20 topiramate 75 mg PO BID 09/27/19 02/20/20 clonidine HCl 0.1 mg tablet 0.1 mg PO BID PRN 12/26/19 02/20/20 docusate sodium 100 mg capsule 100 mg PO BID cap 12/26/19 02/20/20 oxycodone 5 mg tablet 10 mg PO TID PRN tab 02/20/20 02/20/20 Previous Rx's Medication Instructions Recorded [place] 0 dev SEE INSTRUCTIONS #100 06/10/16 buspirone 30 mg tablet 30 mg PO BID #60 tab 11/21/19 atomoxetine 80 mg capsule 80 mg PO DAILY #30 cap 12/26/19 mirtazapine 30 mg tablet See Rx Instructions .ROUTE 05/09/20 .COMPLEX #30 tab cephalexin [Keflex] 500 mg PO QID 7 Days #28 cap 06/02/20 Allergies Allergy/AdvReac Type Severity Reaction Status Date / Time insulin detemir Allergy Intermediate causes Verified 06/02/20 15:11 [From LEVEMIR] swelling at injection site nifedipine Allergy Intermediate neck and Verified 06/02/20 15:11 arms swell gentamicin AdvReac Rash at Verified 06/02/20 15:11 site of use Review of Systems Constitutional Constitutional: Denies fever(s) Musculoskeletal Comments: Left big toe pain, left 2nd toe pain Integumentary/Breasts Comments: Cut to the top of the left big toe Neurologic Comments: Neuropathy Hematologic/Lymphatic On Anticoagulants: No Allergic/Immunologic Allergic/Immunologic: Denies urticaria Patient History Medical History ADHD (attention deficit hyperactivity disorder), inattentive type Back pain Depression Dyslexia Headache Hypertension Major depressive disorder, recurrent, severe w/o psychotic behavior Neck pain Renal failure Right ankle sprain Type 1 diabetes mellitus (09/26/15) Type 1 diabetes mellitus Surgical History History of cardiac radiofrequency ablation (RFA) History of cataract removal with insertion of prosthetic lens History of cataract removal with insertion of prosthetic lens History of third molar tooth extraction S/P repair of ligament of ankle Status post appendectomy Family History Father Age: 65 Diabetes mellitus Essential hypertension High cholesterol Social History Smoking Status: Former smoker (quit in 2011 - smoked for 10 years, ) Smoking Status: Former smoker (quit in 2011 - smoked for 10 years, ) alcohol intake frequency: other Substance Use Type: marijuana Exam Initial Vital Signs Initial Vital Signs: Vital Signs Temperature 97.9 F 06/02/20 14:40 Pulse Rate 64 06/02/20 14:40 Respiratory Rate 16 06/02/20 14:40 Blood Pressure 139/88 06/02/20 14:40 Pulse Oximetry 99 06/02/20 14:40 Const General: cooperative and comfortable Limitations: mental status not altered HENKY Head: normal to inspection and normocephalic Cardio Pulses: dorsalis pedis present on the left Skin Other: Patient does have a 3 cm laceration over the dorsum of the left great toe at the base of the toenail and also over the IP joint. Neuro Other: Patient does report sensation to they left foot and is at his baseline. Extrem Other: Tenderness to palpation over the left big toe and left 2nd toe Psych Appearance: grossly normal and well kempt Procedures Laceration Repair Laceration 1: Site: other (Left great toe) Side (If applicable): left Size (cm): 3 Description: irregular Depth: involves muscle layer Local Anesthetic: lidocaine 1% and with bicarb Pre-repair: wound explored and irrigated extensively Skin layer closed with: nylon Size (cm): 4-0 Number of sutures: 5 Technique: simple, interrupted Nerve Block Nerve Block 1: Time out performed: Yes Local Anesthetic: lidocaine 1% and with bicarb Amount of anesthesia used (mL): 14 Side: left Nerve Blocks: digital Procedure Successful: Yes Patient Tolerated Procedure: Well and No complications Orthopedic Splinting/Casting Injury #1: Side: left Lower Extremity Injury Location: foot Lower Extremity Immobilizer: posterior splint Other Orthopedic Equipment: crutches Post splinting neuro exam: no change Post splinting vascular exam: no change Placed by: Nursing Course Orders Ordered: ED Orders 06/02/20 14:58 XR toe LT min 2V Stat Discontinued Medications Bacitracin (Bacitracin Oint 0.9 Gm Pckt) 1 applic TOP NOW ONE Stop: 06/02/20 17:12 Last Admin: 06/02/20 17:27 Dose: 1 applic Documented by: SARAH Cefazolin Sodium/Dextrose (Ancef) 2 gm in 100 mls @ 200 mls/hr IV NOW ONE Stop: 06/02/20 16:03 Last Infusion: 06/02/20 16:50 Dose: 0 mls/hr Documented by: Admin: 06/02/20 16:20 Dose: 200 mls/hr Documented by: SARAH Lidocaine/Sodium Bicarbonate (Lido 1%/Sod Bicarb 8.4% (10ml) 10 Ml Syringe) 10 ml INJ NOW ONE Stop: 06/02/20 15:06 Last Admin: 06/02/20 15:15 Dose: 10 ml Documented by: SARAH Lidocaine/Sodium Bicarbonate (Lido 1%/Sod Bicarb 8.4% (10ml) 10 Ml Syringe) 10 ml INJ NOW ONE Stop: 06/02/20 16:18 Last Admin: 06/02/20 17:06 Dose: 10 ml Documented by: LIZ Vital Signs Vital signs: Vital Signs - 8 hr 06/02/20 14:40 06/02/20 18:20 Temperature 97.9 F Pulse Rate 64 76 Respiratory Rate 16 17 Blood Pressure 139/88 136/76 Pulse Oximetry 99 99 Medical Decision Making Imaging Data Extremity x-ray #1: Radiologist's Impression: [address] [id number] ReportSigned Patient: Thai Carreon [facility]#: [id number]: 1980Acct:[id number]/Sex: 40 / MDate of Service: 06/02/20Loc: EDAccession Number: [id number] Procedure: XR toe LT min 2V Ordering Provider: Jose Ang D.O. PROCEDURE: XR TOE LT MIN 2V INDICATIONS: great and 2nd toe injury TECHNIQUE: 3 views of the 1st and 2nd toe(s) acquired. COMPARISON: None. FINDINGS: Bones: There is a fracture at the base of the 1st distal phalanx. The 2nd toe appears intact. No suspicious bony lesions. Soft tissues: No suspicious soft tissue densities. Soft tissue swelling of the great toe. Atherosclerotic calcifications. IMPRESSION: A fracture at the base of the 1st distal phalanx. Dictated by: Cynthia Meier M.D. on 06/02/2020 at 15:52 Approved by: Cynthia Meier M.D. on 06/02/2020 at 15:[address] [facility] Narrative Medical decision making narrative: He is up-to-date on his tetanus. He is at baseline neurologic status. X-ray does show a fracture of the IP joint to the left great toe in this is under the laceration. This laceration was irrigated extensively. He was given 2 g of Ancef and will send home with a prescription for Keflex that was transmitted to the pharmacy of his choice. He is on a pain contract with the [facility] however I did tell him that he could take a couple extra doses over the next 24-48 hours because of the procedure today. I did need to remove the toenail of the left toe. In order to have tissue in order to close the wound. It was closed as described above. The toenail was placed back under the area as a biologic bandage and also to keep the nail bed open. He does have a psychologists that he sees. Informed him that he needed to contact either his psychologists the beginning of the next week or he can contact the orthopedic group for follow-up but this did need to happen. He is placed in a splint for soft tissue rest. He was given return precautions and follow-up instructions. He expressed understanding and agreement. Discharge Plan Departure Patient Disposition: Home Clinical Impression: Fracture of toe, open Instructions: How to Use Crutches, DI for Toe Fracture, How to Take Care of Your Splint Activity Restrictions/Additional Instructions: A prescription for antibiotics was electronically transmitted to [facility]. Keep the splint on and keep a cleaning keep it dry. I do not walk on your left foot. You can take a few extra pain medicine over the next 48 hours because of the procedures we did here in the ER. I do recommend that you contact your psychologists on Thursday for follow-up. He can also contact the [facility] group at [phone]. Return to the emergency department for any new or worsening symptoms for Prescriptions: New cephalexin [Keflex] 500 mg capsule 500 mg PO QID 7 Days Qty: 28 RF: 0 No Action Humulin N NPH Insulin KwikPen 100 unit/mL (3 mL) insulin pen See Rx Instructions SUBCUT DAILY RF: 0 clonidine HCl 0.1 mg tablet 0.1 mg PO BID PRNRF: 0 buspirone 30 mg tablet 30 mg PO BID Qty: 60 RF: 3 atomoxetine 80 mg capsule 80 mg PO DAILY Qty: 30 RF: 3 [place] 0 dev SEE INSTRUCTIONS Qty: 100 RF: 11 mirtazapine 30 mg tablet See Rx Instructions .ROUTE .COMPLEX Qty: 30 RF: 3 topiramate 25 mg Tablet 75 mg PO BID RF: 0 famotidine 20 mg Tablet 20 mg PO BID RF: 0 promethazine 25 mg Tablet 12.5 mg PO BID PRN (Reason: nausea /vomiting) RF: 0 doxylamine succinate 25 mg Tablet 25 mg PO BEDTIME PRN (Reason: Insomnia) RF: 0 duloxetine 30 mg Capsule,Delayed Release(Dr/Ec) 30 mg PO DAILY RF: 0 docusate sodium [Colace] 100 mg capsule 100 mg PO BID RF: 0 oxycodone 5 mg tablet 10 mg PO TID PRN (Reason: Pain (Scale Score 7-10)) RF: 0 cetirizine [Zyrtec] 10 mg Tablet 5 - 10 mg PO DAILY RF: 0 atorvastatin 10 mg Tablet 10 mg PO DAILY RF: 0 ondansetron 4 mg Tablet,Disintegrating 4 mg PO TID PRN (Reason: Nausea) RF: 0 cholecalciferol (vitamin D3) [Vitamin D3] 5,000 unit Tablet 5,000 unit PO DAILY RF: 0 cyclobenzaprine 10 mg tablet 10 mg PO TID PRN (Reason: Muscle Spasm) RF: 0 Humalog U-100 Insulin 100 unit/mL cartridge See Rx Instructions SUBCUT SEE INSTRUCTIONS RF: 0 Referrals: Jose Cheung MD [Primary Care Provider] -
[2020-06-02] MEDS: LIDO 1%/SOD BICARB 8.4% (10ML) 10 ML SYRINGE INJ ×2 (15:15→17:06)
[2020-06-02] MEDS: CEFAZOLIN 2 GM/100 ML FROZ.PIGGY IV (16:20)
[2020-06-02] MEDS: BACITRACIN OINT 0.9 GM PCKT 1 APPLIC TOP (17:27)
[2020-06-02 18:20] VITALS: BP 136/76; PULSE 76; RESP 17; O2SAT 99
--- NOTE | 2020-06-02 18:22 | PC.NURSE ---
sutures performed by Dr. Ang, wound care performed by Sterling Garber RN
== END 2020-06-02 18:21 | disposition home or self-care (01) ==
PROVIDERS: Emergency Provider Emergency Medicine; PCP Family Medicine
DX: S92.402B Displaced unspecified fracture of left great toe, initial encounter for open fracture (principal); E11.40 Type 2 diabetes mellitus with diabetic neuropathy, unspecified; Z79.4 Long term (current) use of insulin
CPT/HCPCS: 12002; 29515; 36415; 64450; 73660; 96365; 99281; 99283; J0690

== ENCOUNTER → 2020-07-17 13:18 | Outpatient (ROUT) | payer MEDICARE, MEDICAID, SELFPAY ==
[2020-07-17 13:36] LABS: Add Manual Diff / Slide Review NO; Basophils Absolute Auto 200 /uL (0-100); Basophils Percent Auto 2.2 % (0-2); Eosinophils Absolute Auto 200 /uL (0-450); Eosinophils Percent Auto 3.6 % (2-4); Hematocrit 39.1 % (41-53); Hemoglobin 13.1 g/dL (13.5-17.5); Lymphocytes Absolute Auto 1000 /uL (1100-4500); Lymphocytes Percent Auto 14.3 % (25-40); Mean Corpuscular HGB Conc 33.6 % (30-36); Mean Corpuscular Volume 92.5 fL (80-100); Monocytes Absolute Auto 800 /uL (0-900); Neutrophils Absolute Auto 4700 /uL (1500-7000); Neutrophils Percent Auto 68.9 % (50-75); Platelet Count 335 X10^3/uL (150-400); Red Blood Cell Count 4.22 X10^6/uL (4.5-5.9); Red Cell Distribution Width 14.6 % (11.6-14.8); White Blood Cell Count 6.8 X10^3/uL (4.5-11.0)
[2020-07-17 13:45] LABS: Alanine Aminotransferase 10 IU/L (<50); Albumin 3.2 g/dL (3.5-5.0); Albumin Globulin Ratio 1.2 (1.0-2.8); Alkaline Phosphatase 118 U/L (38-126); Aspartate Aminotransferase 22 IU/L (17-59); BUN Creatinine Ratio 2.7 (6-22); Bilirubin Total 0.4 mg/dL (0.2-1.3); Blood Urea Nitrogen 24 mg/dL (9-20); C-Reactive Protein Quant 0.6 mg/dL (<1.0); Calcium 9.7 mg/dL (8.4-10.2); Carbon Dioxide 29 mmol/L (22-32); Chloride 90 mmol/L (98-107); Estimated Glomerular Filt Rate 6.8 mL/min (>60); Globulin 2.6 g/dL (1.7-4.1); Glucose 192 mg/dL (70-100); HEMOLYSIS < 15 (0-50); Potassium 4.3 mmol/L (3.4-5.1); Sodium 131 mmol/L (137-145); Total Protein 5.8 g/dL (6.3-8.2)
[2020-07-17 13:59] LABS: Erythrocyte Sedimentation Rate 43 MM/HR (0-15)
== END ==
PROVIDERS: PCP Family Medicine; Visit Provider Nurse Practitioner Family
DX: M31.6 Other giant cell arteritis (principal)
CPT/HCPCS: 80053; 85025; 85651; 86140

== ENCOUNTER → 2020-09-13 17:26 | Outpatient (CLI) | payer MEDICARE, MEDICAID, SELFPAY ==
--- NOTE | 2020-09-13 | DI.RAD.S_ITS ---
PROCEDURE: XR FOOT RT MIN 3V INDICATIONS: Right foot pain TECHNIQUE: 3 views of the foot were acquired. COMPARISON: [facility], , XR FOOT RT MIN 3V, 10/26/2018, 10:39. FINDINGS: Bones: No fracture or dislocation. Mild hallux valgus. [id number] osteoarthritic changes in the interphalangeal joints including the 1st interphalangeal joint. No significant metatarsophalangeal degenerative changes. Soft tissues: No tibiotalar joint effusion. Achilles tendon appears normal. IMPRESSION: No acute finding. Mild-moderate interphalangeal osteoarthritic changes. Dictated by: Samson Hernández M.D. on 09/14/2020 at 8:08 Approved by: Samson Hernández M.D. on 09/14/2020 at 8:09
== END ==
PROVIDERS: PCP Family Medicine; Referring Provider Family Medicine; Visit Provider Family Medicine
DX: M79.671 Pain in right foot (principal)
CPT/HCPCS: 73630

== ENCOUNTER 2020-12-18 13:45 | Outpatient (RCR) | payer MEDICARE, MEDICAID, SELFPAY ==
--- NOTE | 2020-11-08 15:15 | PT.OPPOC ---
Physical, Occupational & Speech Therapy At [facility] Current Diagnoses Pain in right ankle and joints of right foot (11/08/20) Pain in left ankle and joints of left foot (11/08/20) Stiffness of right ankle, not elsewhere classified (11/08/20) Stiffness of left ankle, not elsewhere classified (11/08/20) Pain in right foot (11/08/20) Pain in left foot (11/08/20) Other abnormalities of gait and mobility (11/08/20) Visit Care Team Role Provider Type Jose Cheung MD Attending Provider Physician Primary Care Provider Referring Provider Specialty: [facility] Address: [address] [place] [address], [facility] Email: [email or web address] Plan Of Care PT-OP-T Assessment and Plan Start: 11/08/20 17:35 Freq: Status: Active Protocol: Document 11/08/20 15:15 DCW (Rec: 11/09/20 08:48 DCW [id number]) Physical Therapy Assessment Rehab Potential Rehabilitation Potential Good Evaluation Complexity Number of Personal Factors/Comorbidities 3 or More Number of Body Systems Impaired 4 or More Clinical Presentation at Evaluation Evolving Impairments Impairments Activity Tolerance,Functional Activities,Functional Mobility ,Gait,Pain,ROM,Sensation,Soft Tissue Mobility,Strength,Tone Goals Two Impairment Decreased activity tolerance since fractured toe limited mobility Chcf Goal (LTG) Pt to ambulate >800' during 6MWT to show appropriate activity tolerance and gait spped for community ambulation LTG Duration 02/08/21 One Impairment Pt unable to stand without braces d/t ankles forcing plantarflexion Chcf Goal (LTG) Pt to tolerate standing without AFO for one minute to improve ability to dress himself in standing. LTG Duration 02/08/21 Assessment Summary Assessment Pt presents with decreased activity tolerance and limited ankle ROM secondary to hypertonia and neuropathy stemming from a multitude of complex medical issues, including multiple orthopedic fracture/injuries, kidney failure, and DM I. Pt is recovering from a recent left great toe fracture, which limited his activity level and caused a decline in activity tolerance compared to when he was attending PT prior to his fracture. Pt has within the last week switched his dialysis from home-based to going to the dialysis clinic, which he reports is much easier, saves him a lot of time, and leaves him feeling much better overall and more relaxed, which may be helpful for his rehab. Pt previously responded very well to stretching and STM, and therapy may also be assisted with upcoming potential Botox injections to help decrease tone. Physical Therapy Plan Frequency and Duration Frequency of Treatment 2x/Week Duration of Treatment Three months Plan of Care Start Date 11/08/20 Plan of Care End Date 02/08/21 Therapeutic Interventions Therapeutic Interventions Balance Training,Coordination Training,Gait Training,Home Exercise Program,Joint Mobilizations,Manual Therapy, Neuromuscular Re-education, Patient/Caregiver Education, Self-Care/Home Management,Soft Tissue Mobilization, Therapeutic Activities, Therapeutic Exercises Next Visit Focus/Plan Next Note Type Treatment Note Next Visit Plan STM, Flexibility, increasing activity tolerance, ankle strengthening Plan of Care Dates Plan of Care Start Date 11/08/20 Plan of Care End Date 02/08/21 Electronically Signed by: Volodymyr Andrews PT 11/09/20 0849 Please Sign and Return: I have reviewed this Plan of Care and certify that the skilled therapy services above are required to meet the patient?s needs. Physician Signature Date Printed Name and Credentials Clinical Instructor Signature Printed Name and Credentials
--- NOTE | 2020-11-08 16:00 | PT.OIE ---
Current Diagnoses Pain in right ankle and joints of right foot (11/08/20) Pain in left ankle and joints of left foot (11/08/20) Stiffness of right ankle, not elsewhere classified (11/08/20) Stiffness of left ankle, not elsewhere classified (11/08/20) Pain in right foot (11/08/20) Pain in left foot (11/08/20) Other abnormalities of gait and mobility (11/08/20) Past Medical History (Last Reviewed 06/02/20 @ 18:44 by Jose Ang DO) ADHD (attention deficit hyperactivity disorder), inattentive type Back pain Depression Dyslexia Headache Hypertension Major depressive disorder, recurrent, severe w/o psychotic behavior Neck pain Renal failure Right ankle sprain S/P repair of ligament of ankle Type 1 diabetes mellitus (09/26/15) Type 1 diabetes mellitus Past Surgical History (Last Reviewed 09/27/19 @ 15:32 by Courtney Mead DO) History of cardiac radiofrequency ablation (RFA) History of cataract removal with insertion of prosthetic lens History of cataract removal with insertion of prosthetic lens History of third molar tooth extraction S/P repair of ligament of ankle Status post appendectomy Visit Care Team Role Provider Type Jose Cheung MD Attending Provider Physician Primary Care Provider Referring Provider Specialty: [facility] Address: [address] [place] [address], [facility] Email: [email or web address] [facility] Initial Evaluation PT-OP-A Visit Information Start: 11/08/20 17:35 Freq: Status: Active Protocol: Document 11/08/20 15:15 DCW (Rec: 11/08/20 17:55 DCW [id number]) Out-Patient Physical Therapy Visit Information Visit Information Visit Type Initial Evaluation Visit Start Time 15:15 Visit Stop Time 16:00 Total Visit Minutes 45 Visit Number 1 Number of HAZMAT TRUCK DRIVER Visits 0 Evaluation Information Evaluation Date 11/08/20 PT-OP-B Current Condition Start: 11/08/20 17:35 Freq: Status: Active Protocol: Document 11/08/20 15:15 DCW (Rec: 11/08/20 17:55 DCW [id number]) Current Condition History of Current Condition Onset Date Multi-year history Current Complaints Ankle stiffness, difficulty walking History of Current Condition Pt is a 40-year old male previously seen at this clinic for his hypertonia in his calfs and difficulty walking. Pt discharged in May after badly fracturing his left great toe, however was recently cleared to return after x-rays showed complete healing of the fracture. Pt has a highly complex history, including DM type I, multiple orthopedic injuries (Hx 11 vertebral fractures, pelvic fractures, ankle reconstruction), neuropathy, kidney failure requiring dialysis, and is on the transplant list for both a kidney and a pancreas. EMG testing showed severely limited nerve conduction below his knees, most likely due to diabetic neuropathy. Prior to his last course of PT, he was severely limited with his activity tolerance, but he made good progress with PT, and is still feeling like he can tolerate a lot more activity. Pt felt he was making great progress with his calf tone prior to his toe fracture, and would like to lease picker where we left off. Pt also notes that he is in the process of hopefully getting Botox injections in his calfs to help decrease tone. PT-OP-C Subjective Start: 11/08/20 17:35 Freq: Status: Active Protocol: Document 11/08/20 15:15 DCW (Rec: 11/08/20 17:55 DCW [id number]) OP-PT Subjective Patient Comments Patient Comments I'm struggling just to stand with my braces now, everything is so tight. Patient Questionnaires Foot & Ankle Ability Measure- ADL and Sports FAAM-ADL Score 45/84 = 53.57% FAAM-ADL Impairment 40 to 59% Impaired (Score 33- 49) FAAM-Sport Score /28 = 3.57% FAAM-Sport Impairment 80 to 99% Impaired (Score 1-5) Lower Extremity Functional Scale LEFS Score 37.5% LEFS Impairment 60 to 79% Impaired (Score 17- 31) OP-PT Pain Assessment Pain Assessment Grid Paper Pain Assessment Grid Completed Yes: See chart PT-OP-F Manual Assessment Start: 11/08/20 17:35 Freq: Status: Active Protocol: Document 11/08/20 15:15 DCW (Rec: 11/09/20 08:48 DCW [id number]) Manual Assessments Soft Tissue Assessment Soft Tissue Mobility Assessment Severe hypertonia along right medial gastroc, posterior tib. Moderate hypertonia along bilateral lateral gastroc. Joint Mobility Assessment Joint Mobility Assessment ankle mobility severely limited with hypertonia PT-OP-G Mobility & Gait Start: 11/08/20 17:35 Freq: Status: Active Protocol: Document 11/08/20 15:15 DCW (Rec: 11/09/20 08:48 DCW [id number]) OP Gait Assessment Gait Gait Assistance Required: Independent Assistive Devices Assistive Device None Orthotic/Prosthetic Devices or Brace: Yes Gait Deviations General Gait Pattern Ataxic,Wide Based Gait Factors Limiting Gait Function Factors Limiting Gait Function Abnormal Tonal Influences, Decreased Activity Tolerance, Decreased Strength,Limited Range of Motion Stair Climbing Evaluation Evaluation Level of Assist On Stairs Independent Devices Stair Climbing Assistive Devices Right Railing Technique/Endurance Stair Climbing Direction Ascend and Descend Stair Climbing Technique Step Over Step PT-OP-K Range of Motion Start: 11/08/20 17:35 Freq: Status: Active Protocol: Document 11/08/20 15:15 DCW (Rec: 11/09/20 08:48 DCW [id number]) Ankle and Foot Goniometric Range of Motion Ankle and Foot Right Passive Ankle/Foot ROM WFL No Testing Position Sitting Plantarflexion 40 Inversion 20 Eversion 15 Comments DF with flexed knee:-20? DF with extended knee: -25? Left Passive Ankle/Foot ROM WFL No Testing Position Sitting Plantarflexion 40 Inversion 20 Eversion 25 Comments DF with flexed knee:-5? DF with extended knee: -15? PT-OP-Q Treatments Start: 11/08/20 17:35 Freq: Status: Active Protocol: Document 11/08/20 15:15 DCW (Rec: 11/09/20 08:48 DCW [id number]) Manual Therapy Treatment Soft Tissue Mobilization 1 Body Location B Posterior tib, gastroc Mobilization Type Strumming,Sustained Pressure, Trigger Point Release Intensity/Depth Moderate Body Position Sitting Joint Mobilizations 2 Joint tibiotalar Direction posterior Grade III Body Position Sitting PT-OP-T Assessment and Plan Start: 11/08/20 17:35 Freq: Status: Active Protocol: Document 11/08/20 15:15 DCW (Rec: 11/09/20 08:48 DCW [id number]) Physical Therapy Assessment Rehab Potential Rehabilitation Potential Good Evaluation Complexity Number of Personal Factors/Comorbidities 3 or More Number of Body Systems Impaired 4 or More Clinical Presentation at Evaluation Evolving Impairments Impairments Activity Tolerance,Functional Activities,Functional Mobility ,Gait,Pain,ROM,Sensation,Soft Tissue Mobility,Strength,Tone Goals Two Impairment Decreased activity tolerance since fractured toe limited mobility Veterinarian Small Animal Goal (LTG) Pt to ambulate >800' during 6MWT to show appropriate activity tolerance and gait spped for community ambulation LTG Duration 02/08/21 One Impairment Pt unable to stand without braces d/t ankles forcing plantarflexion Veterinarian Small Animal Goal (LTG) Pt to tolerate standing without AFO for one minute to improve ability to dress himself in standing. LTG Duration 02/08/21 Assessment Summary Assessment Pt presents with decreased activity tolerance and limited ankle ROM secondary to hypertonia and neuropathy stemming from a multitude of complex medical issues, including multiple orthopedic fracture/injuries, kidney failure, and DM I. Pt is recovering from a recent left great toe fracture, which limited his activity level and caused a decline in activity tolerance compared to when he was attending PT prior to his fracture. Pt has within the last week switched his dialysis from home-based to going to the dialysis clinic, which he reports is much easier, saves him a lot of time, and leaves him feeling much better overall and more relaxed, which may be helpful for his rehab. Pt previously responded very well to stretching and STM, and therapy may also be assisted with upcoming potential Botox injections to help decrease tone. Physical Therapy Plan Frequency and Duration Frequency of Treatment 2x/Week Duration of Treatment Three months Plan of Care Start Date 11/08/20 Plan of Care End Date 02/08/21 Therapeutic Interventions Therapeutic Interventions Balance Training,Coordination Training,Gait Training,Home Exercise Program,Joint Mobilizations,Manual Therapy, Neuromuscular Re-education, Patient/Caregiver Education, Self-Care/Home Management,Soft Tissue Mobilization, Therapeutic Activities, Therapeutic Exercises Next Visit Focus/Plan Next Note Type Treatment Note Next Visit Plan STM, Flexibility, increasing activity tolerance, ankle strengthening
--- NOTE | 2020-11-12 16:01 | PT.OTN ---
Current Diagnoses Pain in right ankle and joints of right foot (11/12/20) Pain in left ankle and joints of left foot (11/12/20) Stiffness of right ankle, not elsewhere classified (11/12/20) Stiffness of left ankle, not elsewhere classified (11/12/20) Pain in right foot (11/12/20) Pain in left foot (11/12/20) Other abnormalities of gait and mobility (11/12/20) Physical Therapy Treatment Note PT-OP-A Visit Information Start: 11/08/20 17:35 Freq: Status: Active Protocol: Document 11/12/20 15:19 DCW (Rec: 11/12/20 16:01 DCW [id number]) Out-Patient Physical Therapy Visit Information Visit Information Visit Type Treatment Note Visit Start Time 15:19 Visit Stop Time 16:00 Total Visit Minutes 41 Visit Number 2 Number of SILK PRINTER Visits 0 Evaluation Information Evaluation Date 11/08/20 PT-OP-B Current Condition Start: 11/08/20 17:35 Freq: Status: Active Protocol: Document 11/08/20 15:15 DCW (Rec: 11/08/20 17:55 DCW [id number]) Current Condition History of Current Condition Onset Date Multi-year history Current Complaints Ankle stiffness, difficulty walking History of Current Condition Pt is a 40-year old male previously seen at this clinic for his hypertonia in his calfs and difficulty walking. Pt discharged in May after badly fracturing his left great toe, however was recently cleared to return after x-rays showed complete healing of the fracture. Pt has a highly complex history, including DM type I, multiple orthopedic injuries (Hx 11 vertebral fractures, pelvic fractures, ankle reconstruction), neuropathy, kidney failure requiring dialysis, and is on the transplant list for both a kidney and a pancreas. EMG testing showed severely limited nerve conduction below his knees, most likely due to diabetic neuropathy. Prior to his last course of PT, he was severely limited with his activity tolerance, but he made good progress with PT, and is still feeling like he can tolerate a lot more activity. Pt felt he was making great progress with his calf tone prior to his toe fracture, and would like to continuous pickling line pickler where we left off. Pt also notes that he is in the process of hopefully getting Botox injections in his calfs to help decrease tone. PT-OP-C Subjective Start: 11/08/20 17:35 Freq: Status: Active Protocol: Document 11/12/20 15:19 DCW (Rec: 11/12/20 16:01 DCW [id number]) OP-PT Subjective Patient Comments Patient Comments I seem to be swollen more than usual today. PT-OP-F Manual Assessment Start: 11/08/20 17:35 Freq: Status: Active Protocol: Document 11/08/20 15:15 DCW (Rec: 11/09/20 08:48 DCW [id number]) Manual Assessments Soft Tissue Assessment Soft Tissue Mobility Assessment Severe hypertonia along right medial gastroc, posterior tib. Moderate hypertonia along bilateral lateral gastroc. Joint Mobility Assessment Joint Mobility Assessment ankle mobility severely limited with hypertonia PT-OP-G Mobility & Gait Start: 11/08/20 17:35 Freq: Status: Active Protocol: Document 11/08/20 15:15 DCW (Rec: 11/09/20 08:48 DCW [id number]) OP Gait Assessment Gait Gait Assistance Required: Independent Assistive Devices Assistive Device None Orthotic/Prosthetic Devices or Brace: Yes Gait Deviations General Gait Pattern Ataxic,Wide Based Gait Factors Limiting Gait Function Factors Limiting Gait Function Abnormal Tonal Influences, Decreased Activity Tolerance, Decreased Strength,Limited Range of Motion Stair Climbing Evaluation Evaluation Level of Assist On Stairs Independent Devices Stair Climbing Assistive Devices Right Railing Technique/Endurance Stair Climbing Direction Ascend and Descend Stair Climbing Technique Step Over Step PT-OP-K Range of Motion Start: 11/08/20 17:35 Freq: Status: Active Protocol: Document 11/08/20 15:15 DCW (Rec: 11/09/20 08:48 DCW [id number]) Ankle and Foot Goniometric Range of Motion Ankle and Foot Right Passive Ankle/Foot ROM WFL No Testing Position Sitting Plantarflexion 40 Inversion 20 Eversion 15 Comments DF with flexed knee:-20? DF with extended knee: -25? Left Passive Ankle/Foot ROM WFL No Testing Position Sitting Plantarflexion 40 Inversion 20 Eversion 25 Comments DF with flexed knee:-5? DF with extended knee: -15? PT-OP-Q Treatments Start: 11/08/20 17:35 Freq: Status: Active Protocol: Document 11/12/20 15:19 DCW (Rec: 11/12/20 16:01 DCW [id number]) Cardio Equipment Recumbent Elliptical (Biodex) Duration (Minutes) 4 Resistance 2 Seat Position 11 Gym Equipment Shuttle Recovery Unilateral squat Resistance 25# Shuttle Recovery Platform Stable Reps/Time x10 each Bilateral Squats Resistance 50# Shuttle Recovery Platform Stable Reps/Time x10 Manual Therapy Treatment Soft Tissue Mobilization 1 Body Location B Posterior tib, gastroc Mobilization Type Strumming,Sustained Pressure, Trigger Point Release Intensity/Depth Moderate Body Position Sitting Joint Mobilizations 2 Joint tibiotalar Direction posterior Grade III Body Position Sitting 1 Joint MTP 1-5 Direction dorsal/plantar Grade III Body Position Sitting PT-OP-T Assessment and Plan Start: 11/08/20 17:35 Freq: Status: Active Protocol: Document 11/12/20 15:19 DCW (Rec: 11/12/20 16:01 DC [id number]) Physical Therapy Assessment Impairments Impairments Activity Tolerance,Functional Activities,Functional Mobility ,Gait,Pain,ROM,Sensation,Soft Tissue Mobility,Strength,Tone Goals Two Impairment Decreased activity tolerance since fractured toe limited mobility Intermediate Designer Goal (LTG) Pt to ambulate >800' during 6MWT to show appropriate activity tolerance and gait spped for community ambulation LTG Duration 02/08/21 One Impairment Pt unable to stand without braces d/t ankles forcing plantarflexion Mcfp Goal (LTG) Pt to tolerate standing without AFO for one minute to improve ability to dress himself in standing. LTG Duration 02/08/21 Assessment Summary Assessment Pt tolerated treatment well today. Did have noticeable edema through LEs, L>R. Pt questioned if it was due to not having dialysis since Thursday night. Physical Therapy Plan Frequency and Duration Frequency of Treatment 2x/Week Duration of Treatment Three months Plan of Care Start Date 11/08/20 Plan of Care End Date 02/08/21 Therapeutic Interventions Therapeutic Interventions Balance Training,Coordination Training,Gait Training,Home Exercise Program,Joint Mobilizations,Manual Therapy, Neuromuscular Re-education, Patient/Caregiver Education, Self-Care/Home Management,Soft Tissue Mobilization, Therapeutic Activities, Therapeutic Exercises Next Visit Focus/Plan Next Note Type Treatment Note Next Visit Plan STM, Flexibility, increasing activity tolerance, ankle strengthening
--- NOTE | 2020-11-20 16:01 | PT.OTN ---
Current Diagnoses Pain in right ankle and joints of right foot (11/20/20) Pain in left ankle and joints of left foot (11/20/20) Stiffness of right ankle, not elsewhere classified (11/20/20) Stiffness of left ankle, not elsewhere classified (11/20/20) Pain in right foot (11/20/20) Pain in left foot (11/20/20) Other abnormalities of gait and mobility (11/20/20) Physical Therapy Treatment Note PT-OP-A Visit Information Start: 11/08/20 17:35 Freq: Status: Active Protocol: Document 11/20/20 15:40 DCW (Rec: 11/20/20 16:01 DCW [id number]) Out-Patient Physical Therapy Visit Information Visit Information Visit Type Treatment Note Visit Note 25 minutes late Visit Start Time 15:40 Visit Stop Time 16:00 Total Visit Minutes 20 Visit Number 3 Number of FRONT END MANAGER Visits 0 Evaluation Information Evaluation Date 11/08/20 PT-OP-B Current Condition Start: 11/08/20 17:35 Freq: Status: Active Protocol: Document 11/08/20 15:15 DCW (Rec: 11/08/20 17:55 DCW [id number]) Current Condition History of Current Condition Onset Date Multi-year history Current Complaints Ankle stiffness, difficulty walking History of Current Condition Pt is a 40-year old male previously seen at this clinic for his hypertonia in his calfs and difficulty walking. Pt discharged in May after badly fracturing his left great toe, however was recently cleared to return after x-rays showed complete healing of the fracture. Pt has a highly complex history, including DM type I, multiple orthopedic injuries (Hx 11 vertebral fractures, pelvic fractures, ankle reconstruction), neuropathy, kidney failure requiring dialysis, and is on the transplant list for both a kidney and a pancreas. EMG testing showed severely limited nerve conduction below his knees, most likely due to diabetic neuropathy. Prior to his last course of PT, he was severely limited with his activity tolerance, but he made good progress with PT, and is still feeling like he can tolerate a lot more activity. Pt felt he was making great progress with his calf tone prior to his toe fracture, and would like to pick up driver where we left off. Pt also notes that he is in the process of hopefully getting Botox injections in his calfs to help decrease tone. PT-OP-C Subjective Start: 11/08/20 17:35 Freq: Status: Active Protocol: Document 11/20/20 15:40 DCW (Rec: 11/20/20 16:01 DCW [id number]) OP-PT Subjective Patient Comments Patient Comments Pt notes he has a few instances of infiltration during dialysis last week PT-OP-F Manual Assessment Start: 11/08/20 17:35 Freq: Status: Active Protocol: Document 11/08/20 15:15 DCW (Rec: 11/09/20 08:48 DCW [id number]) Manual Assessments Soft Tissue Assessment Soft Tissue Mobility Assessment Severe hypertonia along right medial gastroc, posterior tib. Moderate hypertonia along bilateral lateral gastroc. Joint Mobility Assessment Joint Mobility Assessment ankle mobility severely limited with hypertonia PT-OP-G Mobility & Gait Start: 11/08/20 17:35 Freq: Status: Active Protocol: Document 11/08/20 15:15 DCW (Rec: 11/09/20 08:48 DCW [id number]) OP Gait Assessment Gait Gait Assistance Required: Independent Assistive Devices Assistive Device None Orthotic/Prosthetic Devices or Brace: Yes Gait Deviations General Gait Pattern Ataxic,Wide Based Gait Factors Limiting Gait Function Factors Limiting Gait Function Abnormal Tonal Influences, Decreased Activity Tolerance, Decreased Strength,Limited Range of Motion Stair Climbing Evaluation Evaluation Level of Assist On Stairs Independent Devices Stair Climbing Assistive Devices Right Railing Technique/Endurance Stair Climbing Direction Ascend and Descend Stair Climbing Technique Step Over Step PT-OP-K Range of Motion Start: 11/08/20 17:35 Freq: Status: Active Protocol: Document 11/08/20 15:15 DCW (Rec: 11/09/20 08:48 DCW [id number]) Ankle and Foot Goniometric Range of Motion Ankle and Foot Right Passive Ankle/Foot ROM WFL No Testing Position Sitting Plantarflexion 40 Inversion 20 Eversion 15 Comments DF with flexed knee:-20? DF with extended knee: -25? Left Passive Ankle/Foot ROM WFL No Testing Position Sitting Plantarflexion 40 Inversion 20 Eversion 25 Comments DF with flexed knee:-5? DF with extended knee: -15? PT-OP-Q Treatments Start: 11/08/20 17:35 Freq: Status: Active Protocol: Document 11/20/20 15:40 DCW (Rec: 11/20/20 16:01 DCW [id number]) Manual Therapy Treatment Soft Tissue Mobilization 1 Body Location B Posterior tib, gastroc Mobilization Type Strumming,Sustained Pressure, Trigger Point Release Intensity/Depth Moderate Body Position Sitting Joint Mobilizations 2 Joint tibiotalar Direction posterior Grade III Body Position Sitting 1 Joint MTP 1-5 Direction dorsal/plantar Grade III Body Position Sitting PT-OP-T Assessment and Plan Start: 11/08/20 17:35 Freq: Status: Active Protocol: Document 11/20/20 15:40 DCW (Rec: 11/20/20 16:01 DCW [id number]) Physical Therapy Assessment Impairments Impairments Activity Tolerance,Functional Activities,Functional Mobility ,Gait,Pain,ROM,Sensation,Soft Tissue Mobility,Strength,Tone Goals Two Impairment Decreased activity tolerance since fractured toe limited mobility Halfway Goal (LTG) Pt to ambulate >800' during 6MWT to show appropriate activity tolerance and gait spped for community ambulation LTG Duration 02/08/21 One Impairment Pt unable to stand without braces d/t ankles forcing plantarflexion Halfway Goal (LTG) Pt to tolerate standing without AFO for one minute to improve ability to dress himself in standing. LTG Duration 02/08/21 Assessment Summary Assessment Pt tone a little better controlled today, strictly manual therapy with shortened appointment time due to late arrival Physical Therapy Plan Frequency and Duration Frequency of Treatment 2x/Week Duration of Treatment Three months Plan of Care Start Date 11/08/20 Plan of Care End Date 02/08/21 Therapeutic Interventions Therapeutic Interventions Balance Training,Coordination Training,Gait Training,Home Exercise Program,Joint Mobilizations,Manual Therapy, Neuromuscular Re-education, Patient/Caregiver Education, Self-Care/Home Management,Soft Tissue Mobilization, Therapeutic Activities, Therapeutic Exercises Next Visit Focus/Plan Next Note Type Treatment Note Next Visit Plan STM, Flexibility, increasing activity tolerance, ankle strengthening
--- NOTE | 2020-11-23 15:58 | PT.OTN ---
Current Diagnoses Pain in right ankle and joints of right foot (11/23/20) Pain in left ankle and joints of left foot (11/23/20) Stiffness of right ankle, not elsewhere classified (11/23/20) Stiffness of left ankle, not elsewhere classified (11/23/20) Pain in right foot (11/23/20) Pain in left foot (11/23/20) Other abnormalities of gait and mobility (11/23/20) Physical Therapy Treatment Note PT-OP-A Visit Information Start: 11/08/20 17:35 Freq: Status: Active Protocol: Document 11/23/20 15:15 DCW (Rec: 11/23/20 15:58 DCW [id number]) Out-Patient Physical Therapy Visit Information Visit Information Visit Type Treatment Note Visit Start Time 15:15 Visit Stop Time 16:00 Total Visit Minutes 45 Visit Number 4 Number of MARKETING PR INTERN Visits 0 Evaluation Information Evaluation Date 11/08/20 PT-OP-B Current Condition Start: 11/08/20 17:35 Freq: Status: Active Protocol: Document 11/08/20 15:15 DCW (Rec: 11/08/20 17:55 DCW [id number]) Current Condition History of Current Condition Onset Date Multi-year history Current Complaints Ankle stiffness, difficulty walking History of Current Condition Pt is a 40-year old male previously seen at this clinic for his hypertonia in his calfs and difficulty walking. Pt discharged in May after badly fracturing his left great toe, however was recently cleared to return after x-rays showed complete healing of the fracture. Pt has a highly complex history, including DM type I, multiple orthopedic injuries (Hx 11 vertebral fractures, pelvic fractures, ankle reconstruction), neuropathy, kidney failure requiring dialysis, and is on the transplant list for both a kidney and a pancreas. EMG testing showed severely limited nerve conduction below his knees, most likely due to diabetic neuropathy. Prior to his last course of PT, he was severely limited with his activity tolerance, but he made good progress with PT, and is still feeling like he can tolerate a lot more activity. 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 Pt also notes that he is in the process of hopefully getting Botox injections in his calfs to help decrease tone. PT-OP-C Subjective Start: 11/08/20 17:35 Freq: Status: Active Protocol: Document 11/23/20 15:15 DCW (Rec: 11/23/20 15:58 DCW [id number]) OP-PT Subjective Patient Comments Patient Comments Pt reports he worked with his finish patcher this week, and has adjusted to his new dialysis schedule, and is just feeling quite a bit better overall. PT-OP-F Manual Assessment Start: 11/08/20 17:35 Freq: Status: Active Protocol: Document 11/08/20 15:15 DCW (Rec: 11/09/20 08:48 DCW [id number]) Manual Assessments Soft Tissue Assessment Soft Tissue Mobility Assessment Severe hypertonia along right medial gastroc, posterior tib. Moderate hypertonia along bilateral lateral gastroc. Joint Mobility Assessment Joint Mobility Assessment ankle mobility severely limited with hypertonia PT-OP-G Mobility & Gait Start: 11/08/20 17:35 Freq: Status: Active Protocol: Document 11/08/20 15:15 DCW (Rec: 11/09/20 08:48 DCW [id number]) OP Gait Assessment Gait Gait Assistance Required: Independent Assistive Devices Assistive Device None Orthotic/Prosthetic Devices or Brace: Yes Gait Deviations General Gait Pattern Ataxic,Wide Based Gait Factors Limiting Gait Function Factors Limiting Gait Function Abnormal Tonal Influences, Decreased Activity Tolerance, Decreased Strength,Limited Range of Motion Stair Climbing Evaluation Evaluation Level of Assist On Stairs Independent Devices Stair Climbing Assistive Devices Right Railing Technique/Endurance Stair Climbing Direction Ascend and Descend Stair Climbing Technique Step Over Step PT-OP-K Range of Motion Start: 11/08/20 17:35 Freq: Status: Active Protocol: Document 11/08/20 15:15 DCW (Rec: 11/09/20 08:48 DCW [id number]) Ankle and Foot Goniometric Range of Motion Ankle and Foot Right Passive Ankle/Foot ROM WFL No Testing Position Sitting Plantarflexion 40 Inversion 20 Eversion 15 Comments DF with flexed knee:-20? DF with extended knee: -25? Left Passive Ankle/Foot ROM WFL No Testing Position Sitting Plantarflexion 40 Inversion 20 Eversion 25 Comments DF with flexed knee:-5? DF with extended knee: -15? PT-OP-Q Treatments Start: 08/05/21 17:35 Freq: Status: Active Protocol: Document 11/23/20 15:15 DCW (Rec: 11/23/20 15:58 DCW [id number]) Cardio Equipment Recumbent Elliptical (Biodex) Duration (Minutes) 5 Resistance 3 Seat Position 11 Gym Equipment Shuttle Recovery Unilateral squat Resistance 25# Shuttle Recovery Platform Stable Reps/Time x10 each Bilateral Squats Resistance 50# Shuttle Recovery Platform Stable Reps/Time x10 Manual Therapy Treatment Soft Tissue Mobilization 1 Body Location B Posterior tib, gastroc Mobilization Type Strumming,Sustained Pressure, Trigger Point Release Intensity/Depth Moderate Body Position Sitting Joint Mobilizations 2 Joint tibiotalar Direction posterior Grade III Body Position Sitting 1 Joint MTP 1-5 Direction dorsal/plantar Grade III Body Position Sitting PT-OP-T Assessment and Plan Start: 11/08/20 17:35 Freq: Status: Active Protocol: Document 11/23/20 15:15 DCW (Rec: 11/23/20 15:58 DCW [id number]) Physical Therapy Assessment Impairments Impairments Activity Tolerance,Functional Activities,Functional Mobility ,Gait,Pain,ROM,Sensation,Soft Tissue Mobility,Strength,Tone Goals Two Impairment Decreased activity tolerance since fractured toe limited mobility Group Home Goal (LTG) Pt to ambulate >800' during 6MWT to show appropriate activity tolerance and gait spped for community ambulation LTG Duration 02/08/21 One Impairment Pt unable to stand without braces d/t ankles forcing plantarflexion Group Home Goal (LTG) Pt to tolerate standing without AFO for one minute to improve ability to dress himself in standing. LTG Duration 02/08/21 Assessment Summary Assessment Pt doing better today, edema has declined somewhat, still on very restrictive fluid intake. Physical Therapy Plan Frequency and Duration Frequency of Treatment 2x/Week Duration of Treatment Three months Plan of Care Start Date 11/08/20 Plan of Care End Date 02/08/21 Therapeutic Interventions Therapeutic Interventions Balance Training,Coordination Training,Gait Training,Home Exercise Program,Joint Mobilizations,Manual Therapy, Neuromuscular Re-education, Patient/Caregiver Education, Self-Care/Home Management,Soft Tissue Mobilization, Therapeutic Activities, Therapeutic Exercises Next Visit Focus/Plan Next Note Type Treatment Note Next Visit Plan STM, Flexibility, increasing activity tolerance, ankle strengthening
--- NOTE | 2020-11-28 15:58 | PT.OTN ---
Current Diagnoses Pain in right ankle and joints of right foot (11/28/20) Pain in left ankle and joints of left foot (11/28/20) Stiffness of right ankle, not elsewhere classified (11/28/20) Stiffness of left ankle, not elsewhere classified (11/28/20) Pain in right foot (11/28/20) Pain in left foot (11/28/20) Other abnormalities of gait and mobility (11/28/20) Physical Therapy Treatment Note PT-OP-A Visit Information Start: 11/08/20 17:35 Freq: Status: Active Protocol: Document 11/28/20 15:15 DCW (Rec: 11/28/20 15:58 DCW [id number]) Out-Patient Physical Therapy Visit Information Visit Information Visit Type Treatment Note Visit Start Time 15:15 Visit Stop Time 16:00 Total Visit Minutes 45 Visit Number 5 Number of FLIGHT INFORMATION EXPEDITER Visits 0 Evaluation Information Evaluation Date 11/08/20 PT-OP-B Current Condition Start: 11/08/20 17:35 Freq: Status: Active Protocol: Document 11/08/20 15:15 DCW (Rec: 11/08/20 17:55 DCW [id number]) Current Condition History of Current Condition Onset Date Multi-year history Current Complaints Ankle stiffness, difficulty walking History of Current Condition Pt is a 40-year old male previously seen at this clinic for his hypertonia in his calfs and difficulty walking. Pt discharged in May after badly fracturing his left great toe, however was recently cleared to return after x-rays showed complete healing of the fracture. Pt has a highly complex history, including DM type I, multiple orthopedic injuries (Hx 11 vertebral fractures, pelvic fractures, ankle reconstruction), neuropathy, kidney failure requiring dialysis, and is on the transplant list for both a kidney and a pancreas. EMG testing showed severely limited nerve conduction below his knees, most likely due to diabetic neuropathy. Prior to his last course of PT, he was severely limited with his activity tolerance, but he made good progress with PT, and is still feeling like he can tolerate a lot more activity. 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 Pt also notes that he is in the process of hopefully getting Botox injections in his calfs to help decrease tone. PT-OP-C Subjective Start: 11/08/20 17:35 Freq: Status: Active Protocol: Document 11/28/20 15:15 DCW (Rec: 11/28/20 15:58 DCW [id number]) OP-PT Subjective Patient Comments Patient Comments Pt struggling with new dialysis schedule, a lot of excess fluid in his left arm today. PT-OP-F Manual Assessment Start: 11/08/20 17:35 Freq: Status: Active Protocol: Document 11/08/20 15:15 DCW (Rec: 11/09/20 08:48 DCW [id number]) Manual Assessments Soft Tissue Assessment Soft Tissue Mobility Assessment Severe hypertonia along right medial gastroc, posterior tib. Moderate hypertonia along bilateral lateral gastroc. Joint Mobility Assessment Joint Mobility Assessment ankle mobility severely limited with hypertonia PT-OP-G Mobility & Gait Start: 11/08/20 17:35 Freq: Status: Active Protocol: Document 11/08/20 15:15 DCW (Rec: 11/09/20 08:48 DCW [id number]) OP Gait Assessment Gait Gait Assistance Required: Independent Assistive Devices Assistive Device None Orthotic/Prosthetic Devices or Brace: Yes Gait Deviations General Gait Pattern Ataxic,Wide Based Gait Factors Limiting Gait Function Factors Limiting Gait Function Abnormal Tonal Influences, Decreased Activity Tolerance, Decreased Strength,Limited Range of Motion Stair Climbing Evaluation Evaluation Level of Assist On Stairs Independent Devices Stair Climbing Assistive Devices Right Railing Technique/Endurance Stair Climbing Direction Ascend and Descend Stair Climbing Technique Step Over Step PT-OP-K Range of Motion Start: 11/08/20 17:35 Freq: Status: Active Protocol: Document 11/08/20 15:15 DCW (Rec: 11/09/20 08:48 DCW [id number]) Ankle and Foot Goniometric Range of Motion Ankle and Foot Right Passive Ankle/Foot ROM WFL No Testing Position Sitting Plantarflexion 40 Inversion 20 Eversion 15 Comments DF with flexed knee:-20? DF with extended knee: -25? Left Passive Ankle/Foot ROM WFL No Testing Position Sitting Plantarflexion 40 Inversion 20 Eversion 25 Comments DF with flexed knee:-5? DF with extended knee: -15? PT-OP-Q Treatments Start: 11/08/20 17:35 Freq: Status: Active Protocol: Document 11/28/20 15:15 DCW (Rec: 11/28/20 15:58 DCW [id number]) Cardio Equipment Recumbent Stepper (Sci-Fit) Duration (Minutes) 5 Resistance 2.5 Seat Position 12 Gym Equipment Shuttle Recovery Unilateral squat Resistance 25# Shuttle Recovery Platform Stable Reps/Time x10 each Bilateral Squats Resistance 50# Shuttle Recovery Platform Stable Reps/Time x10 Manual Therapy Treatment Soft Tissue Mobilization 1 Body Location B Posterior tib, gastroc Mobilization Type Strumming,Sustained Pressure, Trigger Point Release Intensity/Depth Moderate Body Position Sitting Joint Mobilizations 2 Joint tibiotalar Direction posterior Grade III Body Position Sitting 1 Joint MTP 1-5 Direction dorsal/plantar Grade III Body Position Sitting PT-OP-T Assessment and Plan Start: 11/08/20 17:35 Freq: Status: Active Protocol: Document 11/28/20 15:15 DCW (Rec: 11/28/20 15:58 DCW [id number]) Physical Therapy Assessment Impairments Impairments Activity Tolerance,Functional Activities,Functional Mobility ,Gait,Pain,ROM,Sensation,Soft Tissue Mobility,Strength,Tone Goals Two Impairment Decreased activity tolerance since fractured toe limited mobility Imitation Marble Mechanic Goal (LTG) Pt to ambulate >800' during 6MWT to show appropriate activity tolerance and gait spped for community ambulation LTG Duration 02/08/21 One Impairment Pt unable to stand without braces d/t ankles forcing plantarflexion Longterm Goal (LTG) Pt to tolerate standing without AFO for one minute to improve ability to dress himself in standing. LTG Duration 02/08/21 Assessment Summary Assessment Slight decline with LE edema, but left UE showing severe pitting edema. Tolerating treatment well overall. Physical Therapy Plan Frequency and Duration Frequency of Treatment 2x/Week Duration of Treatment Three months Plan of Care Start Date 11/08/20 Plan of Care End Date 02/08/21 Therapeutic Interventions Therapeutic Interventions Balance Training,Coordination Training,Gait Training,Home Exercise Program,Joint Mobilizations,Manual Therapy, Neuromuscular Re-education, Patient/Caregiver Education, Self-Care/Home Management,Soft Tissue Mobilization, Therapeutic Activities, Therapeutic Exercises Next Visit Focus/Plan Next Note Type Treatment Note Next Visit Plan STM, Flexibility, increasing activity tolerance, ankle strengthening
--- NOTE | 2020-12-07 15:16 | PT.OTN ---
Current Diagnoses Pain in right ankle and joints of right foot (12/07/20) Pain in left ankle and joints of left foot (12/07/20) Stiffness of right ankle, not elsewhere classified (12/07/20) Stiffness of left ankle, not elsewhere classified (12/07/20) Pain in right foot (12/07/20) Pain in left foot (12/07/20) Other abnormalities of gait and mobility (12/07/20) Physical Therapy Treatment Note PT-OP-A Visit Information Start: 11/08/20 17:35 Freq: Status: Active Protocol: Document 12/07/20 14:30 DCW (Rec: 12/07/20 15:16 DCW [id number]) Out-Patient Physical Therapy Visit Information Visit Information Visit Type Treatment Note Visit Start Time 14:30 Visit Stop Time 15:15 Total Visit Minutes 45 Visit Number 6 Number of MIXER ATTENDANT Visits 0 Evaluation Information Evaluation Date 11/08/20 PT-OP-B Current Condition Start: 11/08/20 17:35 Freq: Status: Active Protocol: Document 11/08/20 15:15 DCW (Rec: 11/08/20 17:55 DCW [id number]) Current Condition History of Current Condition Onset Date Multi-year history Current Complaints Ankle stiffness, difficulty walking History of Current Condition Pt is a 40-year old male previously seen at this clinic for his hypertonia in his calfs and difficulty walking. Pt discharged in May after badly fracturing his left great toe, however was recently cleared to return after x-rays showed complete healing of the fracture. Pt has a highly complex history, including DM type I, multiple orthopedic injuries (Hx 11 vertebral fractures, pelvic fractures, ankle reconstruction), neuropathy, kidney failure requiring dialysis, and is on the transplant list for both a kidney and a pancreas. EMG testing showed severely limited nerve conduction below his knees, most likely due to diabetic neuropathy. Prior to his last course of PT, he was severely limited with his activity tolerance, but he made good progress with PT, and is still feeling like he can tolerate a lot more activity. 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 Pt also notes that he is in the process of hopefully getting Botox injections in his calfs to help decrease tone. PT-OP-C Subjective Start: 11/08/20 17:35 Freq: Status: Active Protocol: Document 12/07/20 14:30 DCW (Rec: 12/07/20 15:16 DCW [id number]) OP-PT Subjective Patient Comments Patient Comments Pt doing well, still concerned about his LE edema after cutting back on his fluid intake to 25 oz/day. PT-OP-F Manual Assessment Start: 11/08/20 17:35 Freq: Status: Active Protocol: Document 11/08/20 15:15 DCW (Rec: 11/09/20 08:48 DCW [id number]) Manual Assessments Soft Tissue Assessment Soft Tissue Mobility Assessment Severe hypertonia along right medial gastroc, posterior tib. Moderate hypertonia along bilateral lateral gastroc. Joint Mobility Assessment Joint Mobility Assessment ankle mobility severely limited with hypertonia PT-OP-G Mobility & Gait Start: 11/08/20 17:35 Freq: Status: Active Protocol: Document 11/08/20 15:15 DCW (Rec: 11/09/20 08:48 DCW [id number]) OP Gait Assessment Gait Gait Assistance Required: Independent Assistive Devices Assistive Device None Orthotic/Prosthetic Devices or Brace: Yes Gait Deviations General Gait Pattern Ataxic,Wide Based Gait Factors Limiting Gait Function Factors Limiting Gait Function Abnormal Tonal Influences, Decreased Activity Tolerance, Decreased Strength,Limited Range of Motion Stair Climbing Evaluation Evaluation Level of Assist On Stairs Independent Devices Stair Climbing Assistive Devices Right Railing Technique/Endurance Stair Climbing Direction Ascend and Descend Stair Climbing Technique Step Over Step PT-OP-K Range of Motion Start: 11/08/20 17:35 Freq: Status: Active Protocol: Document 11/08/20 15:15 DCW (Rec: 11/09/20 08:48 DCW [id number]) Ankle and Foot Goniometric Range of Motion Ankle and Foot Right Passive Ankle/Foot ROM WFL No Testing Position Sitting Plantarflexion 40 Inversion 20 Eversion 15 Comments DF with flexed knee:-20? DF with extended knee: -25? Left Passive Ankle/Foot ROM WFL No Testing Position Sitting Plantarflexion 40 Inversion 20 Eversion 25 Comments DF with flexed knee:-5? DF with extended knee: -15? PT-OP-Q Treatments Start: 11/08/20 17:35 Freq: Status: Active Protocol: Document 12/07/20 14:30 DCW (Rec: 12/07/20 15:16 DCW [id number]) Cardio Equipment Recumbent Elliptical (Biodex) Duration (Minutes) 6 Resistance 4 Seat Position 14 Gym Equipment Shuttle Recovery Unilateral squat Resistance 25# Shuttle Recovery Platform Stable Reps/Time x10 each Bilateral Squats Resistance 50# Shuttle Recovery Platform Stable Reps/Time x10 Manual Therapy Treatment Soft Tissue Mobilization 1 Body Location B Posterior tib, gastroc Mobilization Type Strumming,Sustained Pressure, Trigger Point Release Intensity/Depth Moderate Body Position Sitting Joint Mobilizations 2 Joint tibiotalar Direction posterior Grade III Body Position Sitting 1 Joint MTP 1-5 Direction dorsal/plantar Grade III Body Position Sitting PT-OP-T Assessment and Plan Start: 11/08/20 17:35 Freq: Status: Active Protocol: Document 12/07/20 14:30 DCW (Rec: 12/07/20 15:16 DCW [id number]) Physical Therapy Assessment Impairments Impairments Activity Tolerance,Functional Activities,Functional Mobility ,Gait,Pain,ROM,Sensation,Soft Tissue Mobility,Strength,Tone Goals Two Impairment Decreased activity tolerance since fractured toe limited mobility Intermediate Goal (LTG) Pt to ambulate >800' during 6MWT to show appropriate activity tolerance and gait spped for community ambulation LTG Duration 02/08/21 One Impairment Pt unable to stand without braces d/t ankles forcing plantarflexion Intermediate Goal (LTG) Pt to tolerate standing without AFO for one minute to improve ability to dress himself in standing. LTG Duration 02/08/21 Assessment Summary Assessment Pt still struggling with edema in his legs, limiting his mobility and ROM. Physical Therapy Plan Frequency and Duration Frequency of Treatment 2x/Week Duration of Treatment Three months Plan of Care Start Date 11/08/20 Plan of Care End Date 02/08/21 Therapeutic Interventions Therapeutic Interventions Balance Training,Coordination Training,Gait Training,Home Exercise Program,Joint Mobilizations,Manual Therapy, Neuromuscular Re-education, Patient/Caregiver Education, Self-Care/Home Management,Soft Tissue Mobilization, Therapeutic Activities, Therapeutic Exercises Next Visit Focus/Plan Next Note Type Treatment Note Next Visit Plan STM, Flexibility, increasing activity tolerance, ankle strengthening
--- NOTE | 2020-12-12 15:17 | PT.OTN ---
Current Diagnoses Pain in right ankle and joints of right foot (12/12/20) Pain in left ankle and joints of left foot (12/12/20) Stiffness of right ankle, not elsewhere classified (12/12/20) Stiffness of left ankle, not elsewhere classified (12/12/20) Pain in right foot (12/12/20) Pain in left foot (12/12/20) Other abnormalities of gait and mobility (12/12/20) Physical Therapy Treatment Note PT-OP-A Visit Information Start: 11/08/20 17:35 Freq: Status: Active Protocol: Document 12/12/20 14:30 DCW (Rec: 12/12/20 15:17 DCW [id number]) Out-Patient Physical Therapy Visit Information Visit Information Visit Type Treatment Note Visit Start Time 14:30 Visit Stop Time 15:15 Total Visit Minutes 45 Visit Number 7 Number of WAITER/WAITRESS BUFFET Visits 0 Evaluation Information Evaluation Date 11/08/20 PT-OP-B Current Condition Start: 11/08/20 17:35 Freq: Status: Active Protocol: Document 11/08/20 15:15 DCW (Rec: 11/08/20 17:55 DCW [id number]) Current Condition History of Current Condition Onset Date Multi-year history Current Complaints Ankle stiffness, difficulty walking History of Current Condition Pt is a 40-year old male previously seen at this clinic for his hypertonia in his calfs and difficulty walking. Pt discharged in May after badly fracturing his left great toe, however was recently cleared to return after x-rays showed complete healing of the fracture. Pt has a highly complex history, including DM type I, multiple orthopedic injuries (Hx 11 vertebral fractures, pelvic fractures, ankle reconstruction), neuropathy, kidney failure requiring dialysis, and is on the transplant list for both a kidney and a pancreas. EMG testing showed severely limited nerve conduction below his knees, most likely due to diabetic neuropathy. Prior to his last course of PT, he was severely limited with his activity tolerance, but he made good progress with PT, and is still feeling like he can tolerate a lot more activity. Pt felt he was making great progress with his calf tone prior to his toe fracture, and would like to pick up driver where we left off. Pt also notes that he is in the process of hopefully getting Botox injections in his calfs to help decrease tone. PT-OP-C Subjective Start: 11/08/20 17:35 Freq: Status: Active Protocol: Document 12/12/20 14:30 DCW (Rec: 12/12/20 15:17 DCW [id number]) OP-PT Subjective Patient Comments Patient Comments Pt reports he was put on new medication for his gastroparesis, and it has been causing a lot of intestinal cramping, so he has been pretty uncomfortable most of today. PT-OP-F Manual Assessment Start: 11/08/20 17:35 Freq: Status: Active Protocol: Document 11/08/20 15:15 DCW (Rec: 11/09/20 08:48 DCW [id number]) Manual Assessments Soft Tissue Assessment Soft Tissue Mobility Assessment Severe hypertonia along right medial gastroc, posterior tib. Moderate hypertonia along bilateral lateral gastroc. Joint Mobility Assessment Joint Mobility Assessment ankle mobility severely limited with hypertonia PT-OP-G Mobility & Gait Start: 11/08/20 17:35 Freq: Status: Active Protocol: Document 11/08/20 15:15 DCW (Rec: 11/09/20 08:48 DCW [id number]) OP Gait Assessment Gait Gait Assistance Required: Independent Assistive Devices Assistive Device None Orthotic/Prosthetic Devices or Brace: Yes Gait Deviations General Gait Pattern Ataxic,Wide Based Gait Factors Limiting Gait Function Factors Limiting Gait Function Abnormal Tonal Influences, Decreased Activity Tolerance, Decreased Strength,Limited Range of Motion Stair Climbing Evaluation Evaluation Level of Assist On Stairs Independent Devices Stair Climbing Assistive Devices Right Railing Technique/Endurance Stair Climbing Direction Ascend and Descend Stair Climbing Technique Step Over Step PT-OP-K Range of Motion Start: 11/08/20 17:35 Freq: Status: Active Protocol: Document 11/08/20 15:15 DCW (Rec: 11/09/20 08:48 DCW [id number]) Ankle and Foot Goniometric Range of Motion Ankle and Foot Right Passive Ankle/Foot ROM WFL No Testing Position Sitting Plantarflexion 40 Inversion 20 Eversion 15 Comments DF with flexed knee:-20? DF with extended knee: -25? Left Passive Ankle/Foot ROM WFL No Testing Position Sitting Plantarflexion 40 Inversion 20 Eversion 25 Comments DF with flexed knee:-5? DF with extended knee: -15? PT-OP-Q Treatments Start: 11/08/20 17:35 Freq: Status: Active Protocol: Document 12/12/20 14:30 DCW (Rec: 12/12/20 15:17 DCW [id number]) Cardio Equipment Recumbent Elliptical (Biodex) Duration (Minutes) 6 Resistance 4 Seat Position 12 Gym Equipment Shuttle Recovery Unilateral squat Resistance 25# Shuttle Recovery Platform Stable Reps/Time x10 each Bilateral Squats Resistance 50# Shuttle Recovery Platform Stable Reps/Time x10 Manual Therapy Treatment Soft Tissue Mobilization 1 Body Location B Posterior tib, gastroc Mobilization Type Strumming,Sustained Pressure, Trigger Point Release Intensity/Depth Moderate Body Position Sitting Joint Mobilizations 2 Joint tibiotalar Direction posterior Grade III Body Position Sitting 1 Joint MTP 1-5 Direction dorsal/plantar Grade III Body Position Sitting PT-OP-T Assessment and Plan Start: 11/08/20 17:35 Freq: Status: Active Protocol: Document 12/12/20 14:30 DCW (Rec: 12/12/20 15:17 DCW [id number]) Physical Therapy Assessment Impairments Impairments Activity Tolerance,Functional Activities,Functional Mobility ,Gait,Pain,ROM,Sensation,Soft Tissue Mobility,Strength,Tone Goals Two Impairment Decreased activity tolerance since fractured toe limited mobility Shelter Goal (LTG) Pt to ambulate >800' during 6MWT to show appropriate activity tolerance and gait spped for community ambulation LTG Duration 02/08/21 One Impairment Pt unable to stand without braces d/t ankles forcing plantarflexion Plastics Scientist Goal (LTG) Pt to tolerate standing without AFO for one minute to improve ability to dress himself in standing. LTG Duration 02/08/21 Assessment Summary Assessment Improving swelling finally, significantly reduced pitting edema in LEs Physical Therapy Plan Frequency and Duration Frequency of Treatment 2x/Week Duration of Treatment Three months Plan of Care Start Date 11/08/20 Plan of Care End Date 02/08/21 Therapeutic Interventions Therapeutic Interventions Balance Training,Coordination Training,Gait Training,Home Exercise Program,Joint Mobilizations,Manual Therapy, Neuromuscular Re-education, Patient/Caregiver Education, Self-Care/Home Management,Soft Tissue Mobilization, Therapeutic Activities, Therapeutic Exercises Next Visit Focus/Plan Next Note Type Treatment Note Next Visit Plan STM, Flexibility, increasing activity tolerance, ankle strengthening
--- NOTE | 2020-12-18 14:32 | PT.OTN ---
Current Diagnoses Pain in right ankle and joints of right foot (12/18/20) Pain in left ankle and joints of left foot (12/18/20) Stiffness of right ankle, not elsewhere classified (12/18/20) Stiffness of left ankle, not elsewhere classified (12/18/20) Pain in right foot (12/18/20) Pain in left foot (12/18/20) Other abnormalities of gait and mobility (12/18/20) Physical Therapy Treatment Note PT-OP-A Visit Information Start: 11/08/20 17:35 Freq: Status: Active Protocol: Document 12/18/20 13:51 DCW (Rec: 12/18/20 14:31 DCW [id number]) Out-Patient Physical Therapy Visit Information Visit Information Visit Type Treatment Note Visit Start Time 13:51 Visit Stop Time 14:30 Total Visit Minutes 39 Visit Number 8 Number of APPRAISAL SPECIALIST Visits 0 Evaluation Information Evaluation Date 11/08/20 PT-OP-B Current Condition Start: 11/08/20 17:35 Freq: Status: Active Protocol: Document 11/08/20 15:15 DCW (Rec: 11/08/20 17:55 DCW [id number]) Current Condition History of Current Condition Onset Date Multi-year history Current Complaints Ankle stiffness, difficulty walking History of Current Condition Pt is a 40-year old male previously seen at this clinic for his hypertonia in his calfs and difficulty walking. Pt discharged in May after badly fracturing his left great toe, however was recently cleared to return after x-rays showed complete healing of the fracture. Pt has a highly complex history, including DM type I, multiple orthopedic injuries (Hx 11 vertebral fractures, pelvic fractures, ankle reconstruction), neuropathy, kidney failure requiring dialysis, and is on the transplant list for both a kidney and a pancreas. EMG testing showed severely limited nerve conduction below his knees, most likely due to diabetic neuropathy. Prior to his last course of PT, he was severely limited with his activity tolerance, but he made good progress with PT, and is still feeling like he can tolerate a lot more activity. Pt felt he was making great progress with his calf tone prior to his toe fracture, and would like to hop picker where we left off. Pt also notes that he is in the process of hopefully getting Botox injections in his calfs to help decrease tone. PT-OP-C Subjective Start: 11/08/20 17:35 Freq: Status: Active Protocol: Document 12/18/20 13:51 DCW (Rec: 12/18/20 14:31 DCW [id number]) OP-PT Subjective Patient Comments Patient Comments Pt just finished up with AM dialysis, reports he is pretty tired, but otherwise feeling pretty good. PT-OP-F Manual Assessment Start: 11/08/20 17:35 Freq: Status: Active Protocol: Document 11/08/20 15:15 DCW (Rec: 11/09/20 08:48 DCW [id number]) Manual Assessments Soft Tissue Assessment Soft Tissue Mobility Assessment Severe hypertonia along right medial gastroc, posterior tib. Moderate hypertonia along bilateral lateral gastroc. Joint Mobility Assessment Joint Mobility Assessment ankle mobility severely limited with hypertonia PT-OP-G Mobility & Gait Start: 11/08/20 17:35 Freq: Status: Active Protocol: Document 11/08/20 15:15 DCW (Rec: 11/09/20 08:48 DCW [id number]) OP Gait Assessment Gait Gait Assistance Required: Independent Assistive Devices Assistive Device None Orthotic/Prosthetic Devices or Brace: Yes Gait Deviations General Gait Pattern Ataxic,Wide Based Gait Factors Limiting Gait Function Factors Limiting Gait Function Abnormal Tonal Influences, Decreased Activity Tolerance, Decreased Strength,Limited Range of Motion Stair Climbing Evaluation Evaluation Level of Assist On Stairs Independent Devices Stair Climbing Assistive Devices Right Railing Technique/Endurance Stair Climbing Direction Ascend and Descend Stair Climbing Technique Step Over Step PT-OP-K Range of Motion Start: 11/08/20 17:35 Freq: Status: Active Protocol: Document 11/08/20 15:15 DCW (Rec: 11/09/20 08:48 DCW [id number]) Ankle and Foot Goniometric Range of Motion Ankle and Foot Right Passive Ankle/Foot ROM WFL No Testing Position Sitting Plantarflexion 40 Inversion 20 Eversion 15 Comments DF with flexed knee:-20? DF with extended knee: -25? Left Passive Ankle/Foot ROM WFL No Testing Position Sitting Plantarflexion 40 Inversion 20 Eversion 25 Comments DF with flexed knee:-5? DF with extended knee: -15? PT-OP-Q Treatments Start: 11/08/20 17:35 Freq: Status: Active Protocol: Document 12/18/20 13:51 DCW (Rec: 12/18/20 14:31 DCW [id number]) Cardio Equipment Recumbent Elliptical (Biodex) Duration (Minutes) 6 Resistance 4 Seat Position 13 Gym Equipment Shuttle Recovery Unilateral squat Resistance 25# Shuttle Recovery Platform Stable Reps/Time x10 each Bilateral Squats Resistance 50# Shuttle Recovery Platform Stable Reps/Time x10 Manual Therapy Treatment Soft Tissue Mobilization 1 Body Location B Posterior tib, gastroc Mobilization Type Strumming,Sustained Pressure, Trigger Point Release Intensity/Depth Moderate Body Position Sitting Joint Mobilizations 2 Joint tibiotalar Direction posterior Grade III Body Position Sitting 1 Joint MTP 1-5 Direction dorsal/plantar Grade III Body Position Sitting PT-OP-T Assessment and Plan Start: 11/08/20 17:35 Freq: Status: Active Protocol: Document 12/18/20 13:51 DCW (Rec: 12/18/20 14:31 DCW [id number]) Physical Therapy Assessment Impairments Impairments Activity Tolerance,Functional Activities,Functional Mobility ,Gait,Pain,ROM,Sensation,Soft Tissue Mobility,Strength,Tone Goals Two Impairment Decreased activity tolerance since fractured toe limited mobility Science Intern Goal (LTG) Pt to ambulate >800' during 6MWT to show appropriate activity tolerance and gait spped for community ambulation LTG Duration 02/08/21 One Impairment Pt unable to stand without braces d/t ankles forcing plantarflexion Science Intern Goal (LTG) Pt to tolerate standing without AFO for one minute to improve ability to dress himself in standing. LTG Duration 02/08/21 Assessment Summary Assessment Pt tolerated treatment well, substantial improvement with edema today. Physical Therapy Plan Frequency and Duration Frequency of Treatment 2x/Week Duration of Treatment Three months Plan of Care Start Date 11/08/20 Plan of Care End Date 02/08/21 Therapeutic Interventions Therapeutic Interventions Balance Training,Coordination Training,Gait Training,Home Exercise Program,Joint Mobilizations,Manual Therapy, Neuromuscular Re-education, Patient/Caregiver Education, Self-Care/Home Management,Soft Tissue Mobilization, Therapeutic Activities, Therapeutic Exercises Next Visit Focus/Plan Next Note Type Treatment Note Next Visit Plan STM, Flexibility, increasing activity tolerance, ankle strengthening
--- NOTE | 2020-12-24 13:43 | PT-OP ANOTE ---
pt's friend called in at 1305pm to cancel appointment d/t blood sugar drop. Pt has a total of 5 cnx and no show at this point. Will update primary PT to discuss pt's DC planning.
--- NOTE | 2021-06-06 17:46 | PT.OTN ---
Current Diagnoses Pain in right ankle and joints of right foot (12/18/20) Pain in left ankle and joints of left foot (12/18/20) Stiffness of right ankle, not elsewhere classified (12/18/20) Stiffness of left ankle, not elsewhere classified (12/18/20) Pain in right foot (12/18/20) Pain in left foot (12/18/20) Other abnormalities of gait and mobility (12/18/20) Physical Therapy Treatment Note PT-OP-A Visit Information Start: 11/08/20 17:35 Freq: Status: Active Protocol: Document 12/18/20 13:51 DCW (Rec: 12/18/20 14:31 DCW [id number]) Out-Patient Physical Therapy Visit Information Visit Information Visit Type Treatment Note Visit Start Time 13:51 Visit Stop Time 14:30 Total Visit Minutes 39 Visit Number 8 Number of BRASS POLISHER Visits 0 Evaluation Information Evaluation Date 11/08/20 PT-OP-B Current Condition Start: 11/08/20 17:35 Freq: Status: Active Protocol: Document 11/08/20 15:15 DCW (Rec: 11/08/20 17:55 DCW [id number]) Current Condition History of Current Condition Onset Date Multi-year history Current Complaints Ankle stiffness, difficulty walking History of Current Condition Pt is a 40-year old male previously seen at this clinic for his hypertonia in his calfs and difficulty walking. Pt discharged in May after badly fracturing his left great toe, however was recently cleared to return after x-rays showed complete healing of the fracture. Pt has a highly complex history, including DM type I, multiple orthopedic injuries (Hx 11 vertebral fractures, pelvic fractures, ankle reconstruction), neuropathy, kidney failure requiring dialysis, and is on the transplant list for both a kidney and a pancreas. EMG testing showed severely limited nerve conduction below his knees, most likely due to diabetic neuropathy. Prior to his last course of PT, he was severely limited with his activity tolerance, but he made good progress with PT, and is still feeling like he can tolerate a lot more activity. Pt felt he was making great progress with his calf tone prior to his toe fracture, and would like to greens picker where we left off. Pt also notes that he is in the process of hopefully getting Botox injections in his calfs to help decrease tone. PT-OP-C Subjective Start: 11/08/20 17:35 Freq: Status: Active Protocol: Document 12/18/20 13:51 DCW (Rec: 12/18/20 14:31 DCW [id number]) OP-PT Subjective Patient Comments Patient Comments Pt just finished up with AM dialysis, reports he is pretty tired, but otherwise feeling pretty good. PT-OP-F Manual Assessment Start: 11/08/20 17:35 Freq: Status: Active Protocol: Document 11/08/20 15:15 DCW (Rec: 11/09/20 08:48 DCW [id number]) Manual Assessments Soft Tissue Assessment Soft Tissue Mobility Assessment Severe hypertonia along right medial gastroc, posterior tib. Moderate hypertonia along bilateral lateral gastroc. Joint Mobility Assessment Joint Mobility Assessment ankle mobility severely limited with hypertonia PT-OP-G Mobility & Gait Start: 11/08/20 17:35 Freq: Status: Active Protocol: Document 11/08/20 15:15 DCW (Rec: 11/09/20 08:48 DCW [id number]) OP Gait Assessment Gait Gait Assistance Required: Independent Assistive Devices Assistive Device None Orthotic/Prosthetic Devices or Brace: Yes Gait Deviations General Gait Pattern Ataxic,Wide Based Gait Factors Limiting Gait Function Factors Limiting Gait Function Abnormal Tonal Influences, Decreased Activity Tolerance, Decreased Strength,Limited Range of Motion Stair Climbing Evaluation Evaluation Level of Assist On Stairs Independent Devices Stair Climbing Assistive Devices Right Railing Technique/Endurance Stair Climbing Direction Ascend and Descend Stair Climbing Technique Step Over Step PT-OP-K Range of Motion Start: 11/08/20 17:35 Freq: Status: Active Protocol: Document 11/08/20 15:15 DCW (Rec: 11/09/20 08:48 DCW [id number]) Ankle and Foot Goniometric Range of Motion Ankle and Foot Right Passive Ankle/Foot ROM WFL No Testing Position Sitting Plantarflexion 40 Inversion 20 Eversion 15 Comments DF with flexed knee:-20? DF with extended knee: -25? Left Passive Ankle/Foot ROM WFL No Testing Position Sitting Plantarflexion 40 Inversion 20 Eversion 25 Comments DF with flexed knee:-5? DF with extended knee: -15? PT-OP-Q Treatments Start: 11/08/20 17:35 Freq: Status: Active Protocol: Document 12/18/20 13:51 DCW (Rec: 12/18/20 14:31 DCW [id number]) Cardio Equipment Recumbent Elliptical (Biodex) Duration (Minutes) 6 Resistance 4 Seat Position 13 Gym Equipment Shuttle Recovery Unilateral squat Resistance 25# Shuttle Recovery Platform Stable Reps/Time x10 each Bilateral Squats Resistance 50# Shuttle Recovery Platform Stable Reps/Time x10 Manual Therapy Treatment Soft Tissue Mobilization 1 Body Location B Posterior tib, gastroc Mobilization Type Strumming,Sustained Pressure, Trigger Point Release Intensity/Depth Moderate Body Position Sitting Joint Mobilizations 2 Joint tibiotalar Direction posterior Grade III Body Position Sitting 1 Joint MTP 1-5 Direction dorsal/plantar Grade III Body Position Sitting PT-OP-T Assessment and Plan Start: 11/08/20 17:35 Freq: Status: Active Protocol: Document 06/06/21 17:45 DCW (Rec: 06/06/21 17:46 DCW [id number]) Physical Therapy Assessment Assessment Summary Assessment Pt has not been seen in PT in 5 months. Pt will be discharged at this time. Pt will require a new referral in order to return Physical Therapy Plan Discharge Physical Therapy Discharge Reasons No Longer Attending PT Next Visit Focus/Plan Next Note Type Discharge Summary
== END 2021-06-10 10:07 ==
LOC: PHYS 13:45
PROVIDERS: PCP Family Medicine; Referring Provider Family Medicine; Visit Provider Family Medicine
DX: M79.672 Pain in left foot (principal); M79.671 Pain in right foot; M25.672 Stiffness of left ankle, not elsewhere classified; M25.671 Stiffness of right ankle, not elsewhere classified; M25.572 Pain in left ankle and joints of left foot; M25.571 Pain in right ankle and joints of right foot; R26.89 Other abnormalities of gait and mobility
CPT/HCPCS: 97110; 97140; 97162

== ENCOUNTER → 2021-06-12 13:11 | Outpatient (CLI) | payer MEDICARE, MEDICAID, SELFPAY ==
[2021-06-12 14:16] LABS: COVID19 -Nasal RAPID Negative (Negative)
== END ==
PROVIDERS: PCP Family Medicine; Visit Provider Family Medicine Sleep Medicine
DX: Z20.822 Contact with and (suspected) exposure to COVID-19 (principal)
CPT/HCPCS: 87635; C9803

== ENCOUNTER 2021-06-14 06:03 | Day surgery (SDC) | payer MEDICARE, MEDICAID, SELFPAY ==
[2021-06-11 08:12] VITALS: BMI 19.8
[2021-06-14] VITALS (11 sets, daily range): BP systolic 159–194; BP diastolic 85–94; PULSE 82–92; RESP 9–16; TEMP 36.1–36.6; O2SAT 97–99; BMI 21.1
--- NOTE | 2021-06-14 07:34 | PM.PREOP ---
Pre-operative Note COVID-19 COVID-19 status: Negative Interval Note History & Physical reviewed/Exam performed by Physician: Yes Changes to H&P: No
[2021-06-14] MEDS: LACTATED RINGERS 1,000 ML 84 ML IV (07:37)
--- NOTE | 2021-06-14 07:53 | SUR.OPER ---
Prone on padded OR bed, head in foam head support, gel chest rolls, gel pad under knees, pillow under lower legs, toes free of pressure, arms secured on padded arm boards at <90 degrees abduction. Safety belt at thigh.
[2021-06-14] MEDS: CEFAZOLIN 2 GM/20 ML SYRINGE IV (08:24)
[2021-06-14] MEDS: BUPIVACAINE 0.25% (PF) 30 ML, EPINEPHrine 0.15 MG INJ (08:30)
--- NOTE | 2021-06-14 08:51 | P.OP_ITS ---
Operative Date/Time/Diagnoses Date of procedure: 06/14/21 Time of procedure: 08:15 Pre-op diagnosis: 1. Achilles contracture, right 2. End-stage renal disease 3. 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 Metatarsalgia right Post-op diagnosis: same Procedure & Clinicians Procedure: 1. Lengthening Achilles tendon right CPT code 31755 2. Application short-leg weight-bearing cast CPT code 04130-84 Same procedure as scheduled: Yes Indications: Patient is a 41-year-old male with type 1 diabetes end-stage renal disease and a Achilles contracture. He is not able to get his foot plantigrade and has a chronic equinus contracture contributing to metatarsalgia and forefoot pain. He is at risk for wounds due to his peripheral neuropathy diabetes and equinus contracture. He has been trying to use AFOs but he does not have a plantigrade foot and is in an [id number] position. He has been indicated for Achilles lengthening in order to obtain a plantigrade foot to facilitate use of his braces and reduce the risk of ulcer formation infection and reduce the risk of limb loss due to the sequelae. The risks and benefits of the procedure have been discussed with the patient given the opportunity to ask questions. The risks of surgery include but are not limited to infection, recurrence of deformity, persistence of pain, damage to nerves and blood vessels, posttraumatic arthritis, DVT, PE, amputation, cardiopulmonary complications and . The patient expressed a thorough understanding of the risks and benefits of surgery and has elected to proceed. Consent was signed. The patient has chronic pain management and typically takes hydromorphone and Flexeril. Copy of the office notes has been communicated with the pain management doctor we discussed short-term slight increases in his dosages just in the few days perioperatively then should be back on his baseline medications. His Eliquis has been held preoperatively and he will restart on postop day 1 Surgeon: Charlotte Tyler Click Yes if Unassisted: Yes Anesthesia Type: Local Operative Notes Findings: Equinus contracture right and 15? short of neutral with the knee extended. The Achilles tendon was lengthened open in a aiden section technique this provided an excellent audible and visual stretch of the Achilles tendon demonstrating 10? of dorsiflexion. Wounds were closed in a cast was applied to hold the correction and allow early ambulation Closure Type: primary Specimen(s): none sent Estimated Blood Loss (mL): 1 Blood products transfused: none Tourniquet time (min): 3 Procedure in detail: Patient was seen in the preoperative area the site of surgery was marked informed consent confirmed. He was brought back to the operating room by the anesthesia team positioned supine on the stretcher where general anesthetic was administered. He was then rolled into the prone position. All bony prominences well padded. A well-padded thigh tourniquet was placed on the operative extremity. The right lower extremities prepped and draped in the standard sterile fashion formal time-out procedure was performed confirming the patient's side and site of surgery administration of appropriate preoperative antibiotics and presence of informed consent. All were in agreement. Esmarch was used for exsanguination the tourniquet raised on the thigh to 250 mmHg this was inflated for 3 minutes. Achilles tendon lengthening: Attention was turned to the right lower extremity. The intraoperative findings were as dictated the above with the obvious equinus contracture. Three approximately 1 cm incisions were marked out vertically along the Achilles tendon at to 5 and 7 cm above the insertion. This was taken down through the skin and subcutaneous tissue. Aiden sections through the Achilles were completed to the medial side at the most distal and most proximal incisions and to the lateral aiden section in the middle incision. The foot was held in a dorsiflexion stretch position during the aiden sections and an audible and visual stretch of the tendon was completed a demonstrating dorsiflexion improving from -10 degrees to 10? of dorsiflexion. This was appropriate correction. And at this point I had the wounds were irrigated hemostasis was achieved and the wounds were closed with 3-0 nylon suture. 10 cc of 0.25% Marcaine with epinephrine was injected for local anesthetic and a clean dressing was applied with Xeroform gauze and Tegaderm. Short-leg weight-bearing cast application: Then a well-padded short-leg weight- bearing cast was applied and cast shoe. For 3 in fiberglass rolls were utilized as well as stockinette and cast padding. Postoperative shoe brought from clinic was applied. This Held the correction in slight dorsiflexion to reduce the risk of recurrence and allow early mobilization. Patient was awoken from anesthesia and taken to recovery room in good condition there were no immediate complications from the procedure. All counts were correct. Complications: none Post-operative Condition: stable Disposition: PACU Plan for aftercare: Weightbear as tolerated in the weight-bearing cast with cast shoe. Use ambulation devices. Restart Eliquis postop day 1. Has small prescriptions for hydromorphone 4 mg every 4-6 hours. At baseline take this 4 times a day. Discussed can take up to 6 times a day in the 1st few days after surgery then go back to baseline dose. Take cyclobenzaprine 10 mg 3 times a day for 5 days A baseline takes this twice a day. Patient will follow-up in the clinic follow-up appointment is scheduled for July 10. Will maintain the cast clean and dry until that time. If there are problems with swelling or fluid balance due to dialysis cast may be bivalved in clinic for conversion to a boot. It is the plan once he finishes casting he will be returned to his AFO brace
[2021-06-14] MEDS: fentaNYL 250 MCG/5 ML INJ IV ×4 (09:10→09:30)
--- NOTE | 2021-06-14 09:22 | SUR.PHASEI ---
Received to PACU after general anesthesia. Airway patent, self maintained. Report from WAYNE Concepcion and Dr Aguirre.
[2021-06-14] MEDS: HYDROMORPHONE 4 MG TABLET PO (09:32)
[2021-06-14] MEDS: CYCLOBENZAPRINE 10 MG TABLET PO (10:32)
--- NOTE | 2021-06-14 10:40 | SUR.PHASEII ---
Pt c/o 10/13 pain, stated pain not tolerable. Spoke with Dr. Tyler, medicated pt with cyclobenzaprine
--- NOTE | 2021-06-14 11:21 | SUR.PHASEII ---
Pt stated pain tolerable after med given, ride called, available for continuous pickling line pickler, pt ready to go . pt left unit after assisting to dress him, pt left in stable condition.
== END 2021-06-14 11:14 | disposition home or self-care (01) ==
PROVIDERS: PCP Family Medicine; Referring Provider Orthopaedic Surgery Foot and Ankle Surgery; Visit Provider Orthopaedic Surgery Foot and Ankle Surgery
PROC: (CPT 27685; principal; 2021-06-14 07:45)
DX: M67.01 Short Achilles tendon (acquired), right ankle (principal); M77.41 Metatarsalgia, right foot; E11.22 Type 2 diabetes mellitus with diabetic chronic kidney disease; N18.6 End stage renal disease; Z79.4 Long term (current) use of insulin; Z79.01 Long term (current) use of anticoagulants; Z99.2 Dependence on renal dialysis; Z96.41 Presence of insulin pump (external) (internal)
CPT/HCPCS: 27685; J0171; J0360; J0690; J2405; J3010

== ENCOUNTER 2021-10-20 23:11 | Emergency (ER) | payer MEDICARE, MEDICAID, SELFPAY ==
[2021-10-20 23:16] VITALS: BP 213/100; PULSE 88; RESP 18; TEMP 36.6; O2SAT 98; BMI 20.4
[2021-10-20 23:26] VITALS: PULSE 86; O2SAT 98
[2021-10-20 23:27] VITALS: PULSE 86; O2SAT 99
[2021-10-20 23:30] VITALS: BP 200/98; PULSE 86; O2SAT 98
[2021-10-21] VITALS: BP 173/84; PULSE 85; O2SAT 98
[2021-10-21 00:30] VITALS: PULSE 89; O2SAT 99
--- NOTE | 2021-10-21 00:33 | ED_ITS ---
HPI - Extremity Injury (Lower) General Chief Complaint: Extremity Injury, Lower Stated Complaint: GLF Rt knee pain Time Seen by Provider: 10/21/21 00:04 Source: patient and EMS Mode of arrival: EMS History of Present Illness HPI Narrative: 41-year-old gentleman with a history of type 1 diabetes, dialysis patient with left upper extremity fistula and left cubital tunnel surgery recently was walking out of his home stumbled over a stair fell backwards and hyperflexed both knees right greater than the left. Experiencing bilateral knee pain needed help getting up from the floor. He is on chronic pain management and takes up to four 4 mg tablets of hydromorphone from the [facility] pain clinic daily. He states that he has discussed acute injuries an additional pain medications with his doctor at the pain clinic and with documentation this is ?allowed?. Describes no recent fevers cough chills no change to baseline abdominal pain no recent nausea vomiting or diarrhea. Related Data Home Medications Medication Instructions Recorded Confirmed atorvastatin 10 mg tablet 10 mg PO DAILY 07/14/18 06/14/21 cetirizine 10 mg tablet (Zyrtec) 5 - 10 mg PO DAILY 07/14/18 06/14/21 cholecalciferol (vitamin D3) 125 5,000 unit PO DAILY 07/14/18 06/14/21 mcg (5,000 unit) tablet (Vitamin D3) ondansetron 4 mg disintegrating 4 mg PO Q4H PRN Nausea 07/14/18 06/14/21 tablet cyclobenzaprine 10 mg tablet 10 mg PO BID 08/10/19 06/14/21 duloxetine 30 mg capsule,delayed 30 mg PO DAILY 09/27/19 06/14/21 release famotidine 20 mg tablet 20 mg PO BID 09/27/19 06/14/21 promethazine 25 mg tablet 12.5 mg PO BID PRN nausea /vomiting 09/27/19 06/14/21 topiramate 25 mg tablet 100 mg PO BID 09/27/19 06/14/21 clonidine HCl 0.1 mg tablet 0.4 mg PO BID 12/26/19 06/14/21 docusate sodium 100 mg capsule 200 mg PO BID 12/26/19 06/14/21 (Colace) Fioricet mg PO TID 06/14/21 apixaban 2.5 mg tablet (Eliquis) 2.5 mg PO DAILY 06/14/21 06/14/21 erythromycin 250 mg tablet 250 mg PO DAILY 06/14/21 06/14/21 hydralazine 50 mg tablet 50 mg PO TID 06/14/21 06/14/21 hydromorphone 4 mg tablet 4 mg PO QID 06/14/21 06/14/21 insulin lispro 100 unit/mL 0.5 unit SUBCUT Q1H 06/14/21 06/14/21 subcutaneous solution labetalol 300 mg tablet 600 mg PO BID 06/14/21 06/14/21 lactulose 10 gram/15 mL oral 20 ml PO DAILY 06/14/21 06/14/21 solution lisinopril 20 mg tablet 20 mg PO BID 06/14/21 06/14/21 lisinopril 40 mg tablet 40 mg PO DAILY 06/14/21 06/14/21 lorazepam 1 mg tablet 1 mg PO BID PRN Anxiety 06/14/21 06/14/21 mirtazapine 30 mg tablet 15 mg PO DAILY 06/14/21 06/14/21 naloxegol 25 mg tablet (Movantik) 25 mg PO DAILY 06/14/21 06/14/21 sevelamer carbonate 800 mg tablet 800 mg PO TID 06/14/21 06/14/21 Previous Rx's Medication Instructions Recorded atomoxetine 100 mg capsule 100 mg PO DAILY #90 caps 11/26/20 buspirone 30 mg tablet 30 mg PO BID #180 tabs 11/26/20 mirtazapine 30 mg tablet 15 mg PO BEDTIME #45 tabs 11/26/20 cyclobenzaprine 10 mg tablet 10 mg PO TID #15 tabs 06/14/21 hydromorphone 4 mg tablet 4 mg PO Q4-6H PRN pain #15 tabs 06/14/21 hydromorphone 4 mg tablet 4 - 8 mg PO Q6H PRN pain #12 tabs 10/21/21 Allergies Allergy/AdvReac Type Severity Reaction Status Date / Time vancomycin Allergy Severe Vomiting Verified 10/20/21 23:16 insulin detemir Allergy Intermediate causes Verified 10/20/21 23:16 [From [facility]] swelling at injection site nifedipine Allergy Intermediate neck and Verified 10/20/21 23:16 arms swell acetaminophen AdvReac Severe interfers Verified 10/20/21 23:16 with internal glucose pump readings gentamicin AdvReac Rash at Verified 10/20/21 23:16 site of use Review of Systems Review of Systems Narrative: Remainder of complete review of systems is otherwise unremarkable except for that included in the HPI. Patient History Medical History ADHD (attention deficit hyperactivity disorder), inattentive type Back pain Depression Dyslexia Gastroparesis Headache Hypertension Major depressive disorder, recurrent, severe w/o psychotic behavior Neck pain Renal failure Right ankle sprain Type 1 diabetes mellitus (09/26/15) Type 1 diabetes mellitus Surgical History History of cardiac radiofrequency ablation (RFA) History of cataract removal with insertion of prosthetic lens History of cataract removal with insertion of prosthetic lens History of third molar tooth extraction S/P repair of ligament of ankle Status post appendectomy Family History Father Age: 66 Diabetes mellitus Essential hypertension High cholesterol Social History household members: family Smoking Status: Former smoker alcohol intake: never Smoking Status: Former smoker alcohol intake frequency: other Substance Use Type: does not use Exam Initial Vital Signs Initial Vital Signs: Vital Signs Temperature 97.8 F 10/20/21 23:16 Pulse Rate 88 10/20/21 23:16 Respiratory Rate 18 10/20/21 23:16 Blood Pressure 213/100 H 10/20/21 23:16 Pulse Oximetry 98 10/20/21 23:16 Oxygen Delivery Method 10/20/21 23:16 General: Chronically ill-appearing, appropriate interaction, mild distress secondary to pain Respiratory: Able to speak in full sentences, no obvious respiratory distress Skin: No obvious rashes, warm and dry Neurologic: Grossly intact no obvious asymmetries or abnormalities Extremities: Left upper extremity with viable fistula and surgical dressing still in place after cubital tunnel surgery. Left knee with some minor tenderness along the distal patellar tendon without effusion. Does have complete range of motion somewhat painful with complete flexion. The right knee has a minor effusion but no redness or warmth. No obvious tendon deficits. Two tender to completely examine knee mobility and cruciate ligaments. An straighten to 180? and flex completely with significant pain and popping in the joint. Psych: appropriate insight and affect, cooperative Course Orders Ordered: Discontinued Medications Oxycodone HCl (Oxycodone Ir 5 Mg Tablet) 15 mg PO NOW ONE Stop: 10/21/21 00:32 Vital Signs Vital signs: Vital Signs - 8 hr 10/20/21 23:16 10/20/21 23:26 10/20/21 23:27 Temperature 97.8 F Pulse Rate 88 86 86 Respiratory Rate 18 Blood Pressure 213/100 H Pulse Oximetry 98 98 99 Oxygen Delivery Method Room Air 10/20/21 23:30 10/20/21 23:30 10/21/21 00:00 Temperature Pulse Rate 86 Respiratory Rate Blood Pressure 200/98 H 173/84 H Pulse Oximetry 98 Oxygen Delivery Method 10/21/21 00:00 Temperature Pulse Rate 85 Respiratory Rate Blood Pressure Pulse Oximetry 98 Oxygen Delivery Method MDM - Extremity Injury (Lower) MDM Narrative Medical decision making narrative: 41-year-old type 1 diabetic on dialysis falling backward with bilateral hyperflexion injuries to both knees with mild effusion in the right knee. He is able to bear weight with tenderness. There is no significant tenderness along the distal quadriceps to suggest a quadriceps rupture. Will have him increase his hydromorphone from 4 mg for the Hem is a day to 8 mg 4 times a day as needed for the next 2-3 days. He is given ice packs to use for his knees. Will give him a walker to help with stability and walking overall. Crutches are going to be challenging as his left arm is still in a splint from his recent surgery. Will have him follow-up with [facility] approximately a week after the swelling has decreased to see if additional imaging is going to be appropriate. He is otherwise neurovascularly intact below the knees. Questions are answered and he is safe for home discharge Discharge Plan Departure Patient Disposition: Home Clinical Impression: Injury of knee, left Qualifiers: Encounter type: initial encounter Qualified Code(s): S89.92XA - Unspecified injury of left lower leg, initial encounter Right knee injury Qualifiers: Encounter type: initial encounter Qualified Code(s): S89.91XA - Unspecified injury of right lower leg, initial encounter Fall Qualifiers: Encounter type: initial encounter Qualified Code(s): W19.XXXA - Unspecified fall, initial encounter Instructions: DI for Knee Sprain Activity Restrictions/Additional Instructions: Thank you for coming in today You clearly have strained both knees and you may have done some ligamentous damage on the right side. At this point controlling the pain and swelling and making sure that you are mobile as possible is the most appropriate treatment. You will need to follow-up with orthopedic surgery. Once her pain is better controlled and a more complete physical exam can be done of both the knees, it will be easier to decide if advanced imaging is going to be appropriate. In the meantime, for the next 3-4 days you can use up to 8 mg of hydromorphone 4 times a day and additional 16 tablets will be prescribed to supplement the hydromorphone you have from the [facility] pain [facility]. Please make sure you discuss this with your pain clinic doctor with your next visit Prescription was electronically transmitted to [facility] You can use ice to both knees. I have given you a walker to help with stability given your recent left arm surgery. It is okay to bear weight Please continue all of your other medications and scheduled dialysis appointments. Prescriptions: New hydromorphone 4 mg tablet 4 - 8 mg PO Q6H PRN (Reason: pain) Qty: 12 0RF Rx Instructions: in addition to meds from [facility] for 3 days due to acute injury No Action clonidine HCl 0.1 mg tablet 0.4 mg PO BID Label Comments: takes for BP. mirtazapine 30 mg tablet 15 mg PO BEDTIME Qty: 45 3RF buspirone 30 mg tablet 30 mg PO BID Qty: 180 3RF atomoxetine 100 mg capsule 100 mg PO DAILY Qty: 90 3RF topiramate 25 mg Tablet 100 mg PO BID famotidine 20 mg Tablet 20 mg PO BID promethazine 25 mg Tablet 12.5 mg PO BID PRN (Reason: nausea /vomiting) duloxetine 30 mg Capsule,Delayed Release(Dr/Ec) 30 mg PO DAILY docusate sodium [Colace] 100 mg capsule 200 mg PO BID cetirizine [Zyrtec] 10 mg Tablet 5 - 10 mg PO DAILY atorvastatin 10 mg Tablet 10 mg PO DAILY ondansetron 4 mg Tablet,Disintegrating 4 mg PO Q4H PRN (Reason: Nausea) cholecalciferol (vitamin D3) [Vitamin D3] 5,000 unit Tablet 5,000 unit PO DAILY cyclobenzaprine 10 mg tablet 10 mg PO BID lisinopril 20 mg tablet 20 mg PO BID Label Comments: Take one tablet (20 mg total) by mouth 2 (two) times a day erythromycin 250 mg tablet 250 mg PO DAILY Label Comments: TAKE 1/2 TABLET BY MOUTH THREE TIMES DAILY BEFORE MEALS mirtazapine 30 mg tablet 15 mg PO DAILY Label Comments: TAKE 1/2 TABLET BY MOUTH EVERY DAY hydralazine 50 mg tablet 50 mg PO TID Label Comments: Take 1 tablet by mouth 3 times a day. lorazepam 1 mg tablet 1 mg PO BID PRN (Reason: Anxiety) Label Comments: TAKE ONE TABLET BY MOUTH DAILY NEEDED FOR ANXIETY insulin lispro 100 unit/mL solution 0.5 unit SUBCUT Q1H labetalol 300 mg tablet 600 mg PO BID Label Comments: Take 2 tablets by mouth 2 times a day. hydromorphone 4 mg tablet 4 mg PO QID Label Comments: TAKE ONE TABLET EVERY FOUR TO SIX HOURS NEEDED FOR PAIN FOR 28 DAYS. START DATE 06/07/2021 lisinopril 40 mg tablet 40 mg PO DAILY Label Comments: TAKE ONE TABLET BY MOUTH ONE TIME DAILY lactulose 10 gram/15 mL solution 20 ml PO DAILY Label Comments: Take 30 mL (20 g total) by mouth daily as needed (constipation) sevelamer carbonate 800 mg tablet 800 mg PO TID Label Comments: TAKE ONE TABLET BY MOUTH THREE TIMES A DAY WITH MEALS Eliquis 2.5 mg tablet 2.5 mg PO DAILY Label Comments: TAKE ONE TABLET BY MOUTH TWICE DAILY Movantik 25 mg tablet 25 mg PO DAILY Label Comments: TAKE ONE TABLET BY MOUTH ONE TIME DAILY Fioricet PO TID hydromorphone 4 mg tablet 4 mg PO Q4-6H PRN (Reason: pain) Qty: 15 0RF Rx Instructions: postop exempt cyclobenzaprine 10 mg tablet 10 mg PO TID Qty: 15 0RF Referrals: Jose Cheung MD [Primary Care Provider] -
[2021-10-21 00:56] VITALS: PULSE 88; O2SAT 95
[2021-10-21] MEDS: OXYCODONE IR 5 MG TABLET 15 MG PO (00:57)
[2021-10-21 01:00] VITALS: BP 155/72
== END 2021-10-21 01:19 | disposition home or self-care (01) ==
PROVIDERS: Emergency Provider Emergency Medicine; PCP Family Medicine
DX: S89.92XA Unspecified injury of left lower leg, initial encounter (principal); S89.91XA Unspecified injury of right lower leg, initial encounter; W19.XXXA Unspecified fall, initial encounter
CPT/HCPCS: 99283

== ENCOUNTER → 2022-08-07 16:47 | Outpatient (CLI) | payer MEDICARE, MEDICAID, SELFPAY ==
--- NOTE | 2022-08-07 | DI.RAD.S_ITS ---
PROCEDURE: XR HIP W PEL IF DONE LT 2V INDICATIONS: left hip pain TECHNIQUE: AP pelvis with lateral view(s) of the left hip(s). COMPARISON: [facility], CT, CT ABDOMEN PELVIS WITH CONTRAST, 07/25/2022, 19:22. FINDINGS: Bones: No fractures or dislocations. Pelvic ring appears intact. No suspicious bony lesions. Mild degenerative changes of both hips. Soft tissues: The visualized bowel gas pattern is normal. Vascular calcifications are present IMPRESSION: No acute osseous abnormality. If symptoms persist, follow-up radiographs and/or CT or MRI may be helpful for further evaluation. Dictated by: Remberto Travis M.D. on 08/08/2022 at 10:49 Approved by: Remberto Travis M.D. on 08/08/2022 at 11:16
== END ==
PROVIDERS: PCP Family Medicine; Referring Provider Family Medicine; Visit Provider Family Medicine
DX: M25.552 Pain in left hip (principal)
CPT/HCPCS: 73502

== ENCOUNTER 2022-11-21 18:53 | Emergency (ER) | payer MEDICARE, MEDICAID, SELFPAY ==
[2022-11-21] VITALS (17 sets, daily range): BP systolic 138–207; BP diastolic 77–106; PULSE 95–120; RESP 16–19; TEMP 37.7; O2SAT 97–100
--- NOTE | 2022-11-21 18:58 | DI.CT.S_ITS ---
PROCEDURE: CT KIDNEY URETER BLADDER (KUB) INDICATIONS: RLQ pain, recent transplant (3.5wks) TECHNIQUE: Axial sections were acquired from the lung bases to the pubic symphysis. Coronal and sagittal reformats were performed. For radiation dose reduction, the following was used: automated exposure control, adjustment of mA and/or kV according to patient size. COMPARISON: [facility], CT, CT ABDOMEN PELVIS WITH CONTRAST, 08/11/2022, 2:02. FINDINGS: Image quality: Excellent. Lung bases: There is minimal atelectasis. Heart: Heart is normal in size. URINARY: Right Kidney and Ureter: Atrophic in size. No hydronephrosis. There is severe vascular calcification. Left Kidney and Ureter: Atrophic in size. No hydronephrosis. There is severe vascular calcification. Transplant kidney: There is a right lower quadrant transplant kidney. A ureteral stent is demonstrated in the renal pelvis extending into the bladder. No definite hydronephrosis. There is mild nonspecific perinephric fat stranding and fluid. Bladder: Normal wall thickness. No stones. ABDOMEN: Liver: Noncontrast evaluation of the liver demonstrates no discrete mass. Gallbladder: Within normal limits without calcified gallstones. Biliary ducts: No biliary ductal dilatation. Pancreas: Unremarkable. Spleen: Normal in size. Adrenal Glands: No adrenal nodules. Stomach and Bowel: Stomach, small bowel loops, and colon are normal in caliber and wall thickness. The appendix is not discretely well visualized in the absence of intravenous contrast. No definite evidence of appendicitis. Peritoneum: There is a small amount of intraperitoneal free fluid. No free air. Ventral Wall: No hernia. Abdominal Nodes: No retroperitoneal or mesenteric adenopathy by size criteria. Vessels: Aorta and inferior vena cava are normal in size. PELVIS: Pelvic Organs: Unremarkable. Pelvic Nodes: No enlarged lymph nodes. Miscellaneous: No inguinal hernias identified. Bones: There is a moderate compression deformity of the L5 vertebral body as well as mild superior endplate scalloping of the T12 and L2 vertebral bodies which appear similar to the prior study. Visualized osseous structures demonstrate no suspicious focal lesions. IMPRESSION: 1. Perinephric stranding and fluid along the right renal transplant are nonspecific. The differential is broad and includes pyelonephritis, rejection, or renal vein thrombosis among other etiologies. 2. Right ureteral stent in place within the transplant kidney. No definite hydronephrosis. 3. No definite evidence of appendicitis, with evaluation limited in the absence of intravenous contrast. Dictated by: Julio Cesar Bhatti M.D. on 11/21/2022 at 21:31 Approved by: Julio Cesar Bhatti M.D. on 11/21/2022 at 21:37
--- NOTE | 2022-11-21 19:02 | ED_ITS ---
HPI - General Adult <Cal EricksonDO katy - Last Filed: 11/22/22 17:12> General Chief complaint: Abdominal Pain Stated complaint: kidney pain, sp transplant Time Seen by Provider: 11/21/22 18:58 History of Present Illness HPI narrative: 42-year-old male with extensive complications relating to type 1 diabetes including a relatively recent right kidney transplant at 3 weeks ago presents by EMS for evaluation of severe right lower quadrant pain over the past day or 2. He states his pain is worse with motion and improves with rest. He denies any radiation of his pain. He is had no fever or chills. He is not dizzy nor weak or lightheaded. Related Data Home Medications Medication Instructions Recorded Confirmed atorvastatin 10 mg tablet 10 mg PO DAILY 07/14/18 07/31/22 cetirizine 10 mg tablet (Zyrtec) 5 - 10 mg PO DAILY 07/14/18 07/31/22 cholecalciferol (vitamin D3) 125 5,000 unit PO DAILY 07/14/18 07/31/22 mcg (5,000 unit) tablet (Vitamin D3) ondansetron 4 mg disintegrating 4 mg PO Q4H PRN Nausea 07/14/18 07/31/22 tablet cyclobenzaprine 10 mg tablet 10 mg PO BID 08/10/19 07/31/22 famotidine 20 mg tablet 20 mg PO BID 09/27/19 07/31/22 promethazine 25 mg tablet 12.5 mg PO BID PRN nausea /vomiting 09/27/19 07/31/22 topiramate 25 mg tablet 100 mg PO BID 09/27/19 07/31/22 clonidine HCl 0.1 mg tablet 0.4 mg PO BID 12/26/19 07/31/22 docusate sodium 100 mg capsule 200 mg PO BID 12/26/19 07/31/22 (Colace) Fioricet mg PO TID 06/14/21 07/31/22 apixaban 2.5 mg tablet (Eliquis) 2.5 mg PO DAILY 06/14/21 07/31/22 erythromycin 250 mg tablet 250 mg PO DAILY 06/14/21 07/31/22 hydralazine 50 mg tablet 50 mg PO TID 06/14/21 07/31/22 hydromorphone 4 mg tablet 4 mg PO QID 06/14/21 07/31/22 insulin lispro 100 unit/mL 0.5 unit SUBCUT Q1H 06/14/21 07/31/22 subcutaneous solution labetalol 300 mg tablet 600 mg PO BID 06/14/21 07/31/22 lactulose 10 gram/15 mL oral 20 ml PO DAILY 06/14/21 07/31/22 solution lisinopril 20 mg tablet 20 mg PO BID 06/14/21 07/31/22 lisinopril 40 mg tablet 40 mg PO DAILY 06/14/21 07/31/22 naloxegol 25 mg tablet (Movantik) 25 mg PO DAILY 06/14/21 07/31/22 sevelamer carbonate 800 mg tablet 800 mg PO TID 06/14/21 07/31/22 Previous Rx's Medication Instructions Recorded cyclobenzaprine 10 mg tablet 10 mg PO TID #15 tabs 06/14/21 hydromorphone 4 mg tablet 4 mg PO Q4-6H PRN pain #15 tabs 06/14/21 hydromorphone 4 mg tablet 4 - 8 mg PO Q6H PRN pain #12 tabs 10/21/21 atomoxetine 100 mg capsule 100 mg PO DAILY #90 caps 03/24/22 buspirone 30 mg tablet 30 mg PO BID #180 tabs 03/24/22 mirtazapine 30 mg tablet 15 mg PO BEDTIME #45 tabs 06/19/22 duloxetine 30 mg capsule,delayed 30 mg PO BID #60 caps 09/18/22 release lorazepam 1 mg tablet 1 mg PO BID PRN Anxiety #60 tabs 09/18/22 Allergies Allergy/AdvReac Type Severity Reaction Status Date / Time vancomycin Allergy Severe Vomiting Verified 11/21/22 19:05 insulin detemir Allergy Intermediate causes Verified 11/21/22 19:05 [From [facility]] swelling at injection site nifedipine Allergy Intermediate neck and Verified 11/21/22 19:05 arms swell acetaminophen AdvReac Severe interfers Verified 11/21/22 19:05 with internal glucose pump readings gentamicin AdvReac Rash at Verified 11/21/22 19:05 site of use Review of Systems <Cal Hernandez, DO - Last Filed: 11/22/22 17:12> Review of Systems Narrative: GENERAL: Denies chills, fatigue, malaise, fever, sweats. HEENT: Denies sinus pain, ear pain, sore throat, difficulty swallowing, dizziness. RESPIRATORY: Denies dyspnea, cough, wheezing, hemoptysis, sputum. CARDIOVASCULAR: Denies chest pain, palpitations, orthopnea, edema, GASTROINTESTINAL: See HPI : Denies dysuria, frequency, incontinence, hematuria, urinary retention. MUSCULOSKELETAL: denies weakness, joint pain, or bony pain SKIN: Denies rash, skin lesions, or other NEUROLOGIC: Denies weakness, headache, numbness, change in speech, confusion, seizures, incoordination. PSYCHIATRIC: No concerning psychosocial issues. 12 point review of systems is negative except for those stated above Patient History <Cal Hernandez DO - Last Filed: 11/22/22 17:12> Medical History ADHD (attention deficit hyperactivity disorder), inattentive type Back pain Depression Dyslexia Gastroparesis Headache Hypertension Major depressive disorder, recurrent, severe w/o psychotic behavior Neck pain Renal failure Right ankle sprain Type 1 diabetes mellitus (09/26/15) Type 1 diabetes mellitus Surgical History History of cardiac radiofrequency ablation (RFA) History of cataract removal with insertion of prosthetic lens History of cataract removal with insertion of prosthetic lens History of third molar tooth extraction S/P repair of ligament of ankle Status post appendectomy Family History Father Age: 67 Diabetes mellitus Essential hypertension High cholesterol Social History household members: family Smoking Status: Former smoker alcohol intake: never Smoking Status: Former smoker alcohol intake frequency: other Substance Use Type: does not use Exam <Cal Hernandez DO - Last Filed: 11/22/22 17:12> Narrative Exam Narrative: GENERAL: [42] year old patient appears stated age. Well-developed patient, in mild distress. HEAD: Atraumatic. Normocephalic. EYES: Pupils equal round and reactive. Extraocular motions intact. No scleral icterus. No injection or drainage. ENT: Nose without bleeding, purulent drainage. Throat without erythema, tonsillar hypertrophy or exudate. Airway patent. NECK: Trachea midline. Non tender CARDIOVASCULAR: Tachycardic but regular rhythm without murmurs, gallops, or rubs. RESPIRATORY: Clear to auscultation. Breath sounds equal bilaterally. No wheezes, rales, or rhonchi. GASTROINTESTINAL: Abdomen soft, tender in the right lower quadrant, incision is clean, dry and intact, no dehiscence, drainage, fluctuance, induration or erythema, nondistended. EXTREMITIES: No edema or joint tenderness. BACK: Nontender without deformity or crepitance. No flank tenderness. NEURO: AOx3. SKIN: No rash or erythema of visible areas Initial Vital Signs Initial Vital Signs: Vital Signs Pulse Rate 120 H 11/21/22 18:59 Pulse Oximetry 100 11/21/22 18:59 <Courtney Mead DO - Last Filed: 11/22/22 18:45> Initial Vital Signs Initial Vital Signs: Vital Signs Pulse Rate 120 H 11/21/22 18:59 Pulse Oximetry 100 11/21/22 18:59 Course <Cal Hernandez DO - Last Filed: 11/22/22 17:12> Orders Ordered: ED Orders 11/22/22 12:35 Venous Blood Gas Stat 11/22/22 12:39 Urine Culture Stat 11/22/22 15:15 BMP [Basic Metabolic Panel] Stat Discontinued Medications Amlodipine Besylate (Amlodipine 5 Mg Tablet) 10 mg PO NOW ONE Stop: 11/22/22 06:54 Last Admin: 11/22/22 08:00 Dose: 10 mg Documented By: Clonidine HCl (Clonidine 0.1 Mg Tablet) 0.2 mg PO NOW ONE Stop: 11/21/22 21:16 Last Admin: 11/21/22 21:21 Dose: 0.2 mg Documented By: TON Dextrose (Dextrose 50 % In Water 25 Gm/50 Ml Syringe) 25 gm IV PRN PRN; Protocol PRN Reason: Hypoglycemia Dextrose (Dextrose 50 % In Water 25 Gm/50 Ml Syringe) 25 gm IV PRN PRN; Protocol PRN Reason: Hypoglycemia Hydromorphone HCl (Hydromorphone 0.5 Mg Inj) 0.5 mg IV NOW ONE Stop: 11/21/22 18:59 Last Admin: 11/21/22 19:37 Dose: 0.5 mg Documented By: TON Hydromorphone HCl (Hydromorphone 1 Mg Inj) 1 mg IV NOW ONE Stop: 11/21/22 20:46 Last Admin: 11/21/22 20:51 Dose: 1 mg Documented By: TON Hydromorphone HCl (Hydromorphone 1 Mg Inj) 1 mg IV NOW ONE Stop: 11/22/22 01:13 Last Admin: 11/22/22 02:04 Dose: 1 mg Documented By: TON Hydromorphone HCl (Hydromorphone 1 Mg Inj) 1 mg IV NOW ONE Stop: 11/22/22 07:34 Last Admin: 11/22/22 07:54 Dose: 1 mg Documented By: Hydromorphone HCl (Hydromorphone 1 Mg Inj) 1 mg IV NOW ONE Stop: 11/22/22 13:06 Last Admin: 11/22/22 13:43 Dose: 1 mg Documented By: Sodium Chloride (Normal Saline 0.9%) 1,000 mls @ 1,000 mls/hr IV BOLUS ONE Stop: 11/21/22 19:57 Last Infusion: 11/21/22 21:00 Dose: 0 mls/hr Documented By: Admin: 11/21/22 19:37 Dose: 1,000 mls/hr Documented By: TON Insulin Human Lispro (Insulin Lispro 100 Unit/Ml 3ml Vial) 5 unit SUBCUT NOW ONE Stop: 11/22/22 10:44 Last Admin: 11/22/22 12:32 Dose: 5 unit Documented By: Co-signed By: SANDIE Insulin Human Lispro (Insulin Lispro 100 Unit/Ml 3ml Vial) 5 unit SUBCUT NOW ONE Stop: 11/22/22 13:41 Last Admin: 11/22/22 13:40 Dose: 5 unit Documented By: Co-signed By: SANDIE Insulin Human NPH (Insulin Nph 100 Unit/Ml 10ml Vial) 26 unit SUBCUT NOW ONE Stop: 11/22/22 10:43 Last Admin: 11/22/22 12:30 Dose: 26 unit Documented By: Co-signed By: ASNDIE Insulin Human Regular (Insulin Regular 100 Unit/Ml 3 Ml Vial) 5 unit SUBCUT NOW ONE Stop: 11/22/22 13:06 Labetalol HCl (Labetalol 100 Mg Tablet) 600 mg PO NOW ONE Stop: 11/21/22 21:16 Last Admin: 11/21/22 21:55 Dose: 600 mg Documented By: SANDIE Labetalol HCl (Labetalol 100 Mg Tablet) 600 mg PO NOW ONE Stop: 11/22/22 06:54 Last Admin: 11/22/22 16:17 Dose: Not Given Documented By: Ondansetron HCl (Ondansetron 4 Mg/2 Ml Inj) 4 mg IV NOW ONE Stop: 11/22/22 06:54 Last Admin: 11/22/22 07:52 Dose: 4 mg Documented By: Ondansetron HCl (Ondansetron 4 Mg/2 Ml Inj) 4 mg IV NOW ONE Stop: 11/22/22 12:11 Last Admin: 11/22/22 12:27 Dose: 4 mg Documented By: Consultations Consultation #1: discussed with Dr. Jamison (Transplant Fellow)\ recommends admission, following cultures. NO ABX for now. Vital Signs Vital signs: Vital Signs - 8 hr 11/22/22 11:00 11/22/22 11:00 11/22/22 11:30 Temperature Pulse Rate 82 Respiratory Rate 7 L Blood Pressure 172/89 H 172/86 H Pulse Oximetry 100 Oxygen Delivery Method 11/22/22 11:30 11/22/22 12:00 11/22/22 12:00 Temperature Pulse Rate 83 87 Respiratory Rate 7 L 14 Blood Pressure 131/90 Pulse Oximetry 100 Oxygen Delivery Method 11/22/22 12:30 11/22/22 12:31 11/22/22 12:31 Temperature Pulse Rate 86 89 Respiratory Rate 13 20 Blood Pressure 141/85 H Pulse Oximetry 100 100 Oxygen Delivery Method 11/22/22 13:00 11/22/22 13:30 11/22/22 14:10 Temperature Pulse Rate 91 H 89 85 Respiratory Rate 29 H 7 L 38 H Blood Pressure Pulse Oximetry 100 100 91 Oxygen Delivery Method 11/22/22 14:30 11/22/22 15:00 11/22/22 15:30 Temperature Pulse Rate 85 86 80 Respiratory Rate 7 L 8 L 7 L Blood Pressure Pulse Oximetry 100 100 100 Oxygen Delivery Method 11/22/22 15:56 11/22/22 15:56 11/22/22 16:00 Temperature Pulse Rate 83 Respiratory Rate 7 L Blood Pressure 171/81 H 161/84 H Pulse Oximetry 100 Oxygen Delivery Method 11/22/22 16:00 11/22/22 16:15 11/22/22 16:45 Temperature 97.8 F Pulse Rate 82 72 72 Respiratory Rate 6 L 12 12 Blood Pressure 160/72 H 160/72 H Pulse Oximetry 100 99 Oxygen Delivery Method Room Air Room Air <Courtney Mead DO - Last Filed: 11/22/22 18:45> Orders Ordered: ED Orders 11/22/22 12:35 Venous Blood Gas Stat 11/22/22 12:39 Urine Culture Stat 11/22/22 15:15 BMP [Basic Metabolic Panel] Stat Discontinued Medications Amlodipine Besylate (Amlodipine 5 Mg Tablet) 10 mg PO NOW ONE Stop: 11/22/22 06:54 Last Admin: 11/22/22 08:00 Dose: 10 mg Documented By: ST Clonidine HCl (Clonidine 0.1 Mg Tablet) 0.2 mg PO NOW ONE Stop: 11/21/22 21:16 Last Admin: 11/21/22 21:21 Dose: 0.2 mg Documented By: TON Dextrose (Dextrose 50 % In Water 25 Gm/50 Ml Syringe) 25 gm IV PRN PRN; Protocol PRN Reason: Hypoglycemia Dextrose (Dextrose 50 % In Water 25 Gm/50 Ml Syringe) 25 gm IV PRN PRN; Protocol PRN Reason: Hypoglycemia Hydromorphone HCl (Hydromorphone 0.5 Mg Inj) 0.5 mg IV NOW ONE Stop: 11/21/22 18:59 Last Admin: 11/21/22 19:37 Dose: 0.5 mg Documented By: TON Hydromorphone HCl (Hydromorphone 1 Mg Inj) 1 mg IV NOW ONE Stop: 11/21/22 20:46 Last Admin: 11/21/22 20:51 Dose: 1 mg Documented By: TON Hydromorphone HCl (Hydromorphone 1 Mg Inj) 1 mg IV NOW ONE Stop: 11/22/22 01:13 Last Admin: 11/22/22 02:04 Dose: 1 mg Documented By: TON Hydromorphone HCl (Hydromorphone 1 Mg Inj) 1 mg IV NOW ONE Stop: 11/22/22 07:34 Last Admin: 11/22/22 07:54 Dose: 1 mg Documented By: ST Hydromorphone HCl (Hydromorphone 1 Mg Inj) 1 mg IV NOW ONE Stop: 11/22/22 13:06 Last Admin: 11/22/22 13:43 Dose: 1 mg Documented By: Sodium Chloride (Normal Saline 0.9%) 1,000 mls @ 1,000 mls/hr IV BOLUS ONE Stop: 11/21/22 19:57 Last Infusion: 11/21/22 21:00 Dose: 0 mls/hr Documented By: Admin: 11/21/22 19:37 Dose: 1,000 mls/hr Documented By: TON Insulin Human Lispro (Insulin Lispro 100 Unit/Ml 3ml Vial) 5 unit SUBCUT NOW ONE Stop: 11/22/22 10:44 Last Admin: 11/22/22 12:32 Dose: 5 unit Documented By: Co-signed By: SANDIE Insulin Human Lispro (Insulin Lispro 100 Unit/Ml 3ml Vial) 5 unit SUBCUT NOW ONE Stop: 11/22/22 13:41 Last Admin: 11/22/22 13:40 Dose: 5 unit Documented By: Co-signed By: SANDIE Insulin Human NPH (Insulin Nph 100 Unit/Ml 10ml Vial) 26 unit SUBCUT NOW ONE Stop: 11/22/22 10:43 Last Admin: 11/22/22 12:30 Dose: 26 unit Documented By: Co-signed By: SANDIE Insulin Human Regular (Insulin Regular 100 Unit/Ml 3 Ml Vial) 5 unit SUBCUT NOW ONE Stop: 11/22/22 13:06 Labetalol HCl (Labetalol 100 Mg Tablet) 600 mg PO NOW ONE Stop: 11/21/22 21:16 Last Admin: 11/21/22 21:55 Dose: 600 mg Documented By: SANDIE Labetalol HCl (Labetalol 100 Mg Tablet) 600 mg PO NOW ONE Stop: 11/22/22 06:54 Last Admin: 11/22/22 16:17 Dose: Not Given Documented By: Ondansetron HCl (Ondansetron 4 Mg/2 Ml Inj) 4 mg IV NOW ONE Stop: 11/22/22 06:54 Last Admin: 11/22/22 07:52 Dose: 4 mg Documented By: Ondansetron HCl (Ondansetron 4 Mg/2 Ml Inj) 4 mg IV NOW ONE Stop: 11/22/22 12:11 Last Admin: 11/22/22 12:27 Dose: 4 mg Documented By: ST Vital Signs Vital signs: Vital Signs - 8 hr 11/22/22 11:00 11/22/22 11:00 11/22/22 11:30 Temperature Pulse Rate 82 Respiratory Rate 7 L Blood Pressure 172/89 H 172/86 H Pulse Oximetry 100 Oxygen Delivery Method 11/22/22 11:30 11/22/22 12:00 11/22/22 12:00 Temperature Pulse Rate 83 87 Respiratory Rate 7 L 14 Blood Pressure 131/90 Pulse Oximetry 100 Oxygen Delivery Method 11/22/22 12:30 11/22/22 12:31 11/22/22 12:31 Temperature Pulse Rate 86 89 Respiratory Rate 13 20 Blood Pressure 141/85 H Pulse Oximetry 100 100 Oxygen Delivery Method 11/22/22 13:00 11/22/22 13:30 11/22/22 14:10 Temperature Pulse Rate 91 H 89 85 Respiratory Rate 29 H 7 L 38 H Blood Pressure Pulse Oximetry 100 100 91 Oxygen Delivery Method 11/22/22 14:30 11/22/22 15:00 11/22/22 15:30 Temperature Pulse Rate 85 86 80 Respiratory Rate 7 L 8 L 7 L Blood Pressure Pulse Oximetry 100 100 100 Oxygen Delivery Method 11/22/22 15:56 11/22/22 15:56 11/22/22 16:00 Temperature Pulse Rate 83 Respiratory Rate 7 L Blood Pressure 171/81 H 161/84 H Pulse Oximetry 100 Oxygen Delivery Method 11/22/22 16:00 11/22/22 16:15 11/22/22 16:45 Temperature 97.8 F Pulse Rate 82 72 72 Respiratory Rate 6 L 12 12 Blood Pressure 160/72 H 160/72 H Pulse Oximetry 100 99 Oxygen Delivery Method Room Air Room Air Medical Decision Making <Cal Hernandez, DO - Last Filed: 11/22/22 17:12> Lab Data 11/22/22 08:55 11/22/22 15:15 Labs: Lab Results 11/21/22 11/21/22 11/21/22 Range/Units 18:53 18:53 18:53 WBC 9.7 (4.5-11.0) X10^3/uL RBC 4.09 L (4.5-5.9) X10^6/uL Hgb 12.5 L (13.5-17.5) g/dL Hct 38.2 L (41-53) % MCV 93.5 (80-100) fL MCH 30.7 (26-34) PG MCHC 32.8 (30-36) % RDW 14.6 (11.6-14.8) % Plt Count 304 (150-400) X10^3/uL Neut % (Auto) 92.0 H (50-75) % Lymph % (Auto) 2.8 L (25-40) % [place] % (Auto) 2.6 L (3-14) % Eos % (Auto) 0.4 L (2-4) % Baso % (Auto) 2.2 H (0-2) % Neut # (Auto) 8900 H (7882-6814) /uL Lymph # (Auto) 300 L (4283-3295) /uL [place] # (Auto) 200 (0-900) /uL Eos # (Auto) 0 (0-450) /uL Baso # (Auto) 200 H (0-100) /uL VBG pH (7.33-7.43) VBG pCO2 (45-50) mmHg VBG pO2 (35-45) mmHg VBG HCO3 (24-28) mmol/L VBG Total CO2 (24-29) mmol/L VBG O2 Saturation (70-75) % VBG Base Excess (0-4) mmol/L FiO2 Sodium 137 (137-145) mmol/L Potassium 5.6 H (3.4-5.1) mmol/L Chloride 106 (98-107) mmol/L Carbon Dioxide 18 L (22-32) mmol/L BUN 78 H (9-20) mg/dL Creatinine 1.71 H (0.66-1.25) mg/dL Estimated GFR 51 L (>60) mL/min BUN/Creatinine Ratio 45.6 H (6-22) Glucose 196 H (70-100) mg/dL Lactate 1.1 (0.7-2.1) mmol/L Calcium 10.9 H (8.4-10.2) mg/dL Magnesium 2.6 H (1.6-2.3) mg/dL Total Bilirubin 0.6 (0.2-1.3) mg/dL AST 44 (17-59) IU/L ALT 93 H (<50) IU/L Alkaline Phosphatase 174 H (38-126) U/L C-Reactive Protein < 0.5 (<1.0) mg/dL Total Protein 8.9 H (6.3-8.2) g/dL Albumin 5.1 H (3.5-5.0) g/dL Globulin 3.8 (1.7-4.1) g/dL Albumin/Globulin Ratio 1.3 (1.0-2.8) Lipase 16 L (23-300) U/L Ketones (<0.27) mmol/L 11/22/22 11/22/22 11/22/22 Range/Units 08:55 08:55 08:55 WBC 4.8 D (4.5-11.0) X10^3/uL RBC 3.12 L (4.5-5.9) X10^6/uL Hgb 9.6 L (13.5-17.5) g/dL Hct 29.0 L (41-53) % MCV 93.2 (80-100) fL MCH 30.9 (26-34) PG MCHC 33.2 (30-36) % RDW 14.6 (11.6-14.8) % Plt Count 216 (150-400) X10^3/uL Neut % (Auto) 73.3 (50-75) % Lymph % (Auto) 13.7 L (25-40) % [place] % (Auto) 7.5 (3-14) % Eos % (Auto) 1.0 L (2-4) % Baso % (Auto) 4.5 H (0-2) % Neut # (Auto) 3500 (1625-5598) /uL Lymph # (Auto) 700 L (1406-7561) /uL [place] # (Auto) 400 (0-900) /uL Eos # (Auto) 0 (0-450) /uL Baso # (Auto) 200 H (0-100) /uL VBG pH (7.33-7.43) VBG pCO2 (45-50) mmHg VBG pO2 (35-45) mmHg VBG HCO3 (24-28) mmol/L VBG Total CO2 (24-29) mmol/L VBG O2 Saturation (70-75) % VBG Base Excess (0-4) mmol/L FiO2 Sodium 136 L (137-145) mmol/L Potassium 5.3 H (3.4-5.1) mmol/L Chloride 113 H (98-107) mmol/L Carbon Dioxide 16 L (22-32) mmol/L BUN 63 H (9-20) mg/dL Creatinine 1.70 H (0.66-1.25) mg/dL Estimated GFR 51 L (>60) mL/min BUN/Creatinine Ratio 37.1 H (6-22) Glucose 192 H (70-100) mg/dL Lactate (0.7-2.1) mmol/L Calcium 9.8 (8.4-10.2) mg/dL Magnesium (1.6-2.3) mg/dL Total Bilirubin 0.2 (0.2-1.3) mg/dL AST 43 (17-59) IU/L ALT 74 H (<50) IU/L Alkaline Phosphatase 132 H (38-126) U/L C-Reactive Protein (<1.0) mg/dL Total Protein 6.5 (6.3-8.2) g/dL Albumin 3.8 (3.5-5.0) g/dL Globulin 2.7 (1.7-4.1) g/dL Albumin/Globulin Ratio 1.4 (1.0-2.8) Lipase (23-300) U/L Ketones 0.39 H (<0.27) mmol/L 11/22/22 11/22/22 Range/Units 12:35 15:15 WBC (4.5-11.0) X10^3/uL RBC (4.5-5.9) X10^6/uL Hgb (13.5-17.5) g/dL Hct (41-53) % MCV (80-100) fL MCH (26-34) PG MCHC (30-36) % RDW (11.6-14.8) % Plt Count (150-400) X10^3/uL Neut % (Auto) (50-75) % Lymph % (Auto) (25-40) % [place] % (Auto) (3-14) % Eos % (Auto) (2-4) % Baso % (Auto) (0-2) % Neut # (Auto) (0231-7498) /uL Lymph # (Auto) (9890-2906) /uL [place] # (Auto) (0-900) /uL Eos # (Auto) (0-450) /uL Baso # (Auto) (0-100) /uL VBG pH 7.24 L (7.33-7.43) VBG pCO2 40.5 L (45-50) mmHg VBG pO2 15 L (35-45) mmHg VBG HCO3 18 L (24-28) mmol/L VBG Total CO2 19 L (24-29) mmol/L VBG O2 Saturation 15 L (70-75) % VBG Base Excess -10.0 L (0-4) mmol/L FiO2 21 Sodium 136 L (137-145) mmol/L Potassium 5.7 H (3.4-5.1) mmol/L Chloride 112 H (98-107) mmol/L Carbon Dioxide 19 L (22-32) mmol/L BUN 62 H (9-20) mg/dL Creatinine 1.70 H (0.66-1.25) mg/dL Estimated GFR 51 L (>60) mL/min BUN/Creatinine Ratio 36.5 H (6-22) Glucose 227 H (70-100) mg/dL Lactate (0.7-2.1) mmol/L Calcium 9.7 (8.4-10.2) mg/dL Magnesium (1.6-2.3) mg/dL Total Bilirubin (0.2-1.3) mg/dL AST (17-59) IU/L ALT (<50) IU/L Alkaline Phosphatase (38-126) U/L C-Reactive Protein (<1.0) mg/dL Total Protein (6.3-8.2) g/dL Albumin (3.5-5.0) g/dL Globulin (1.7-4.1) g/dL Albumin/Globulin Ratio (1.0-2.8) Lipase (23-300) U/L Ketones (<0.27) mmol/L Urine Dip Bedside Urine Glucose 100 mg/dl Bedside Urine Bilirubin - Negative Bedside Urine Ketone - Negative Urine Specific [place] 1.01 Bedside Urine Occult Blood +/- Bedside Urine pH 6 Bedside Urine Protein - Negative Bedside Urine Urobilinogen - Negative Bedside Urine Nitrite - Negative Bedside Urine Leukocytes - Negative Esterase Point of care testing: Urine Dip Bedside Urine Glucose 100 mg/dl Bedside Urine Bilirubin - Negative Bedside Urine Ketone - Negative Urine Specific [place] 1.01 Bedside Urine Occult Blood +/- Bedside Urine pH 6 Bedside Urine Protein - Negative Bedside Urine Urobilinogen - Negative Bedside Urine Nitrite - Negative Bedside Urine Leukocytes - Negative Esterase MDM Narrative Medical decision making narrative: 42-year-old male with recent kidney transplant presents with severe right lower quadrant pain. Denies fever or shaking chills, nausea or vomiting but complains of significant pain, this is controlled with above-stated therapies, no elevated white blood cell count or signs of sepsis, imaging shows some nonspecific inflammatory change, urine shows no obvious sign of infection. Initial discussion with transplant fellow at [facility] who recommends pat ient be admitted until blood cultures <Courtney Mead DO - Last Filed: 11/22/22 18:45> Lab Data Labs: Lab Results 11/21/22 11/21/22 11/21/22 Range/Units 18:53 18:53 18:53 WBC 9.7 (4.5-11.0) X10^3/uL RBC 4.09 L (4.5-5.9) X10^6/uL Hgb 12.5 L (13.5-17.5) g/dL Hct 38.2 L (41-53) % MCV 93.5 (80-100) fL MCH 30.7 (26-34) PG MCHC 32.8 (30-36) % RDW 14.6 (11.6-14.8) % Plt Count 304 (150-400) X10^3/uL Neut % (Auto) 92.0 H (50-75) % Lymph % (Auto) 2.8 L (25-40) % [place] % (Auto) 2.6 L (3-14) % Eos % (Auto) 0.4 L (2-4) % Baso % (Auto) 2.2 H (0-2) % Neut # (Auto) 8900 H (5350-3500) /uL Lymph # (Auto) 300 L (0039-6527) /uL [place] # (Auto) 200 (0-900) /uL Eos # (Auto) 0 (0-450) /uL Baso # (Auto) 200 H (0-100) /uL VBG pH (7.33-7.43) VBG pCO2 (45-50) mmHg VBG pO2 (35-45) mmHg VBG HCO3 (24-28) mmol/L VBG Total CO2 (24-29) mmol/L VBG O2 Saturation (70-75) % VBG Base Excess (0-4) mmol/L FiO2 Sodium 137 (137-145) mmol/L Potassium 5.6 H (3.4-5.1) mmol/L Chloride 106 (98-107) mmol/L Carbon Dioxide 18 L (22-32) mmol/L BUN 78 H (9-20) mg/dL Creatinine 1.71 H (0.66-1.25) mg/dL Estimated GFR 51 L (>60) mL/min BUN/Creatinine Ratio 45.6 H (6-22) Glucose 196 H (70-100) mg/dL Lactate 1.1 (0.7-2.1) mmol/L Calcium 10.9 H (8.4-10.2) mg/dL Magnesium 2.6 H (1.6-2.3) mg/dL Total Bilirubin 0.6 (0.2-1.3) mg/dL AST 44 (17-59) IU/L ALT 93 H (<50) IU/L Alkaline Phosphatase 174 H (38-126) U/L C-Reactive Protein < 0.5 (<1.0) mg/dL Total Protein 8.9 H (6.3-8.2) g/dL Albumin 5.1 H (3.5-5.0) g/dL Globulin 3.8 (1.7-4.1) g/dL Albumin/Globulin Ratio 1.3 (1.0-2.8) Lipase 16 L (23-300) U/L Ketones (<0.27) mmol/L 11/22/22 11/22/22 11/22/22 Range/Units 08:55 08:55 08:55 WBC 4.8 D (4.5-11.0) X10^3/uL RBC 3.12 L (4.5-5.9) X10^6/uL Hgb 9.6 L (13.5-17.5) g/dL Hct 29.0 L (41-53) % MCV 93.2 (80-100) fL MCH 30.9 (26-34) PG MCHC 33.2 (30-36) % RDW 14.6 (11.6-14.8) % Plt Count 216 (150-400) X10^3/uL Neut % (Auto) 73.3 (50-75) % Lymph % (Auto) 13.7 L (25-40) % [place] % (Auto) 7.5 (3-14) % Eos % (Auto) 1.0 L (2-4) % Baso % (Auto) 4.5 H (0-2) % Neut # (Auto) 3500 (4917-8223) /uL Lymph # (Auto) 700 L (7478-9198) /uL [place] # (Auto) 400 (0-900) /uL Eos # (Auto) 0 (0-450) /uL Baso # (Auto) 200 H (0-100) /uL VBG pH (7.33-7.43) VBG pCO2 (45-50) mmHg VBG pO2 (35-45) mmHg VBG HCO3 (24-28) mmol/L VBG Total CO2 (24-29) mmol/L VBG O2 Saturation (70-75) % VBG Base Excess (0-4) mmol/L FiO2 Sodium 136 L (137-145) mmol/L Potassium 5.3 H (3.4-5.1) mmol/L Chloride 113 H (98-107) mmol/L Carbon Dioxide 16 L (22-32) mmol/L BUN 63 H (9-20) mg/dL Creatinine 1.70 H (0.66-1.25) mg/dL Estimated GFR 51 L (>60) mL/min BUN/Creatinine Ratio 37.1 H (6-22) Glucose 192 H (70-100) mg/dL Lactate (0.7-2.1) mmol/L Calcium 9.8 (8.4-10.2) mg/dL Magnesium (1.6-2.3) mg/dL Total Bilirubin 0.2 (0.2-1.3) mg/dL AST 43 (17-59) IU/L ALT 74 H (<50) IU/L Alkaline Phosphatase 132 H (38-126) U/L C-Reactive Protein (<1.0) mg/dL Total Protein 6.5 (6.3-8.2) g/dL Albumin 3.8 (3.5-5.0) g/dL Globulin 2.7 (1.7-4.1) g/dL Albumin/Globulin Ratio 1.4 (1.0-2.8) Lipase (23-300) U/L Ketones 0.39 H (<0.27) mmol/L 11/22/22 11/22/22 Range/Units 12:35 15:15 WBC (4.5-11.0) X10^3/uL RBC (4.5-5.9) X10^6/uL Hgb (13.5-17.5) g/dL Hct (41-53) % MCV (80-100) fL MCH (26-34) PG MCHC (30-36) % RDW (11.6-14.8) % Plt Count (150-400) X10^3/uL Neut % (Auto) (50-75) % Lymph % (Auto) (25-40) % [place] % (Auto) (3-14) % Eos % (Auto) (2-4) % Baso % (Auto) (0-2) % Neut # (Auto) (7552-6501) /uL Lymph # (Auto) (2047-6132) /uL [place] # (Auto) (0-900) /uL Eos # (Auto) (0-450) /uL Baso # (Auto) (0-100) /uL VBG pH 7.24 L (7.33-7.43) VBG pCO2 40.5 L (45-50) mmHg VBG pO2 15 L (35-45) mmHg VBG HCO3 18 L (24-28) mmol/L VBG Total CO2 19 L (24-29) mmol/L VBG O2 Saturation 15 L (70-75) % VBG Base Excess -10.0 L (0-4) mmol/L FiO2 21 Sodium 136 L (137-145) mmol/L Potassium 5.7 H (3.4-5.1) mmol/L Chloride 112 H (98-107) mmol/L Carbon Dioxide 19 L (22-32) mmol/L BUN 62 H (9-20) mg/dL Creatinine 1.70 H (0.66-1.25) mg/dL Estimated GFR 51 L (>60) mL/min BUN/Creatinine Ratio 36.5 H (6-22) Glucose 227 H (70-100) mg/dL Lactate (0.7-2.1) mmol/L Calcium 9.7 (8.4-10.2) mg/dL Magnesium (1.6-2.3) mg/dL Total Bilirubin (0.2-1.3) mg/dL AST (17-59) IU/L ALT (<50) IU/L Alkaline Phosphatase (38-126) U/L C-Reactive Protein (<1.0) mg/dL Total Protein (6.3-8.2) g/dL Albumin (3.5-5.0) g/dL Globulin (1.7-4.1) g/dL Albumin/Globulin Ratio (1.0-2.8) Lipase (23-300) U/L Ketones (<0.27) mmol/L Urine Dip Bedside Urine Glucose 100 mg/dl Bedside Urine Bilirubin - Negative Bedside Urine Ketone - Negative Urine Specific [place] 1.01 Bedside Urine Occult Blood +/- Bedside Urine pH 6 Bedside Urine Protein - Negative Bedside Urine Urobilinogen - Negative Bedside Urine Nitrite - Negative Bedside Urine Leukocytes - Negative Esterase Point of care testing: Urine Dip Bedside Urine Glucose 100 mg/dl Bedside Urine Bilirubin - Negative Bedside Urine Ketone - Negative Urine Specific [place] 1.01 Bedside Urine Occult Blood +/- Bedside Urine pH 6 Bedside Urine Protein - Negative Bedside Urine Urobilinogen - Negative Bedside Urine Nitrite - Negative Bedside Urine Leukocytes - Negative Esterase Imaging Data CT scan - abdomen/pelvis: Radiologist's Impression: PROCEDURE:? CT KIDNEY URETER BLADDER (KUB) ? INDICATIONS:? RLQ pain, recent transplant (3.5wks) ? TECHNIQUE:? Axial sections were acquired from the lung bases to the pubic symphysis.? Coronal and sagittal reformats were performed.? For radiation dose reduction, the following was used: ?automated exposure control, adjustment of mA and/or kV according to patient size.? ? COMPARISON:? [facility], CT, CT ABDOMEN PELVIS WITH CONTRAST, 08/11/2022, 2:02. ? FINDINGS:? Image quality:? Excellent.? ? Lung bases:? There is minimal atelectasis.? ? Heart:? Heart is normal in size. ? URINARY: Right Kidney and Ureter: ? Atrophic in size.? No hydronephrosis.? There is severe vascular calcification. ? Left Kidney and Ureter: ? Atrophic in size.? No hydronephrosis.? There is severe vascular calcification. ? Transplant kidney:? There is a right lower quadrant transplant kidney.? A ureteral stent is demonstrated in the renal pelvis extending into the bladder.? No definite hydronephrosis.? There is mild nonspecific perinephric fat stranding and fluid. ? Bladder:? Normal wall thickness. No stones. ? ? ? ABDOMEN: Liver:? Noncontrast evaluation of the liver demonstrates no discrete? mass. Gallbladder:? Within normal limits without calcified gallstones.? ? Biliary ducts:? No biliary ductal dilatation.? ? Pancreas:? Unremarkable.? ? Spleen:? Normal in size.? ? Adrenal Glands:? No adrenal nodules.? ? ? Stomach and Bowel:? Stomach, small bowel loops, and colon are normal in caliber and wall thickness.? The appendix is not discretely well visualized in the absence of intravenous contrast.? No definite evidence of appendicitis. Peritoneum:? There is a small amount of intraperitoneal free fluid.? No free air.? ? Ventral Wall: ? No hernia.? Abdominal Nodes:? No retroperitoneal or mesenteric adenopathy by size criteria.? Vessels:? Aorta and inferior vena cava are normal in size.? ? PELVIS: Pelvic Organs:? Unremarkable.? ? Pelvic Nodes: No enlarged lymph nodes.? Miscellaneous: No inguinal hernias identified. ? ? ? Bones:? There is a moderate compression deformity of the L5 vertebral body as well as mild superior endplate scalloping of the T12 and L2 vertebral bodies which appear similar to the prior study.? Visualized osseous structures demonstrate no suspicious focal lesions. IMPRESSION:? ? 1. Perinephric stranding and fluid along the right renal transplant are nonspecific.? The differential is broad and includes pyelonephritis, rejection, or renal vein thrombosis? among other etiologies. ? 2.? Right ureteral stent in place within the transplant kidney.? No definite hydronephrosis. ? 3. No definite evidence of appendicitis, with evaluation limited in the absence of intravenous contrast.? ? Dictated by: Julio Cesar Bhatti M.D. on 11/21/2022 at 21:31 ? ? [facility] Narrative Medical decision making narrative: 42-year-old male with recent kidney transplant presents with severe right lower quadrant pain. Denies fever or shaking chills, nausea or vomiting but complains of significant pain, this is controlled with above-stated therapies, no elevated white blood cell count or signs of sepsis, imaging shows some nonspecific inflammatory change, urine shows no obvious sign of infection. Initial discussion with transplant fellow at [facility] who recommends patient be admitted until blood cultures Dr. Mead-patient signed out to me by Dr. Hernandez of seen and evaluated patient myself. He reports he stay weeks postop kidney transplant secondary to diabetes and complications. He is not had any fever blood work is overall reassuring. He has pretty intense pain just lateral to his incision site. He reports being constipated straining quite a bit and pain intensified. He is required multiple doses of Dilaudid. CT shows perinephric stranding and fluid along right renal transplant which are nonspecific. There is a right ureteral stent in place no hydronephrosis. [facility] transplant team contacted. 10:15 Dr. Milian-updated patient's symptoms test results. Agrees with cultures pending. Reports that patient has had multiple social factors. At this time no need for transferring patient. No need for antibiotics blood culture pending. Reports that perinephric stranding is likely postoperative. bicarb 16, glucose 192. Patient's bicarb he is noticed decreased from 18-16 pH is 7.2 concerning for mild DKA. He is not received his insulin throughout the night. He is no nausea vomiting or abdominal pain. In fact he is able to eat breakfast. He requests the insulin that seems appropriate. Repeat blood work shows an improvement bicarb from 16-19. Initial anion gap is 7, mild elevated ketones. At this time no need for transfer no need for admission overall feeling better. Discharge Plan Departure Patient Disposition: Home Clinical Impression: Post-operative pain Instructions: DI for Postoperative Pain, Diabetic Ketoacidosis Activity Restrictions/Additional Instructions: *You have been diagnosed with postoperative pain *What to do: At this time please follow-up with your transplant team. At this time no need for antibiotics or transfer. Please be sure to check your sugars at home. You had mild case of DKA. *Continue to take medications as directed *Follow up with your primary care provider in 2-3 days or call [phone] *Return to ER if you should have fever greater than 100.4 [or] any new, worsening or concerning symptoms Prescriptions: No Action clonidine HCl 0.1 mg tablet 0.4 mg PO BID Patient Comments: takes for BP. atomoxetine 100 mg capsule 100 mg PO DAILY Qty: 90 3RF buspirone 30 mg tablet 30 mg PO BID Qty: 180 3RF Rx Instructions: Take one tablet by mouth twice daily mirtazapine 30 mg tablet 15 mg PO BEDTIME Qty: 45 3RF duloxetine 30 mg capsule,delayed release(DR/EC) 30 mg PO BID Qty: 60 3RF lorazepam 1 mg tablet 1 mg PO BID PRN (Reason: Anxiety) Qty: 60 0RF topiramate 25 mg Tablet 100 mg PO BID famotidine 20 mg Tablet 20 mg PO BID promethazine 25 mg Tablet 12.5 mg PO BID PRN (Reason: nausea /vomiting) docusate sodium [Colace] 100 mg capsule 200 mg PO BID hydromorphone 4 mg tablet 4 - 8 mg PO Q6H PRN (Reason: pain) Qty: 12 0RF Rx Instructions: in addition to meds from [facility] for 3 days due to acute injury cetirizine [Zyrtec] 10 mg Tablet 5 - 10 mg PO DAILY atorvastatin 10 mg Tablet 10 mg PO DAILY ondansetron 4 mg Tablet,Disintegrating 4 mg PO Q4H PRN (Reason: Nausea) cholecalciferol (vitamin D3) [Vitamin D3] 5,000 unit Tablet 5,000 unit PO DAILY cyclobenzaprine 10 mg tablet 10 mg PO BID lisinopril 20 mg tablet 20 mg PO BID Patient Comments: Take one tablet (20 mg total) by mouth 2 (two) times a day erythromycin 250 mg tablet 250 mg PO DAILY Patient Comments: TAKE 1/2 TABLET BY MOUTH THREE TIMES DAILY BEFORE MEALS hydralazine 50 mg tablet 50 mg PO TID Patient Comments: Take 1 tablet by mouth 3 times a day. insulin lispro 100 unit/mL solution 0.5 unit SUBCUT Q1H labetalol 300 mg tablet 600 mg PO BID Patient Comments: Take 2 tablets by mouth 2 times a day. hydromorphone 4 mg tablet 4 mg PO QID Patient Comments: TAKE ONE TABLET EVERY FOUR TO SIX HOURS NEEDED FOR PAIN FOR 28 DAYS. START DATE 06/07/2021 lisinopril 40 mg tablet 40 mg PO DAILY Patient Comments: TAKE ONE TABLET BY MOUTH ONE TIME DAILY lactulose 10 gram/15 mL solution 20 ml PO DAILY Patient Comments: Take 30 mL (20 g total) by mouth daily as needed (constipation) sevelamer carbonate 800 mg tablet 800 mg PO TID Patient Comments: TAKE ONE TABLET BY MOUTH THREE TIMES A DAY WITH MEALS Eliquis 2.5 mg tablet 2.5 mg PO DAILY Patient Comments: TAKE ONE TABLET BY MOUTH TWICE DAILY Movantik 25 mg tablet 25 mg PO DAILY Patient Comments: TAKE ONE TABLET BY MOUTH ONE TIME DAILY Fioricet PO TID hydromorphone 4 mg tablet 4 mg PO Q4-6H PRN (Reason: pain) Qty: 15 0RF Rx Instructions: postop exempt cyclobenzaprine 10 mg tablet 10 mg PO TID Qty: 15 0RF Referrals: Jose Cheung MD [Primary Care Provider] - Stand Alone Forms: Patient Portal/API
[2022-11-21 19:13] LABS: Add Manual Diff / Slide Review NO; Basophils Absolute Auto 200 /uL (0-100); Basophils Percent Auto 2.2 % (0-2); Eosinophils Absolute Auto 0 /uL (0-450); Eosinophils Percent Auto 0.4 % (2-4); Hematocrit 38.2 % (41-53); Hemoglobin 12.5 g/dL (13.5-17.5); Lymphocytes Absolute Auto 300 /uL (1100-4500); Lymphocytes Percent Auto 2.8 % (25-40); Mean Corpuscular HGB Conc 32.8 % (30-36); Mean Corpuscular Hemoglobin 30.7 PG (26-34); Mean Corpuscular Volume 93.5 fL (80-100); Monocytes Absolute Auto 200 /uL (0-900); Monocytes Percent Auto 2.6 % (3-14); Neutrophils Absolute Auto 8900 /uL (1500-7000); Platelet Count 304 X10^3/uL (150-400); Red Blood Cell Count 4.09 X10^6/uL (4.5-5.9); Red Cell Distribution Width 14.6 % (11.6-14.8); White Blood Cell Count 9.7 X10^3/uL (4.5-11.0)
[2022-11-21 19:30] LABS: Lactate (Lactic Acid) 1.1 mmol/L (0.7-2.1)
[2022-11-21 19:35] LABS: Alanine Aminotransferase 93 IU/L (<50); Albumin 5.1 g/dL (3.5-5.0); Albumin Globulin Ratio 1.3 (1.0-2.8); Alkaline Phosphatase 174 U/L (38-126); Aspartate Aminotransferase 44 IU/L (17-59); BUN Creatinine Ratio 45.6 (6-22); Bilirubin Total 0.6 mg/dL (0.2-1.3); Blood Urea Nitrogen 78 mg/dL (9-20); C-Reactive Protein Quant < 0.5 mg/dL (<1.0); Calcium 10.9 mg/dL (8.4-10.2); Carbon Dioxide 18 mmol/L (22-32); Chloride 106 mmol/L (98-107); Estimated Glomerular Filt Rate 51 mL/min (>60); Globulin 3.8 g/dL (1.7-4.1); Glucose 196 mg/dL (70-100); HEMOLYSIS 48 (0-50); Lipase 16 U/L (23-300); Magnesium 2.6 mg/dL (1.6-2.3); Sodium 137 mmol/L (137-145); Total Protein 8.9 g/dL (6.3-8.2)
[2022-11-21] MEDS: HYDROMORPHONE 0.5 MG INJ IV (19:37)
[2022-11-21] MEDS: SODIUM CHLORIDE 0.9% 1,000 ML 1000 ML IV (19:37)
[2022-11-21 19:48] LABS: Potassium 5.6 mmol/L (3.4-5.1)
[2022-11-21] MEDS: HYDROMORPHONE 1 MG INJ IV (20:51)
[2022-11-21] MEDS: cloNIDine 0.1 MG TABLET 0.2 MG PO (21:21)
[2022-11-21] MEDS: LABETALOL 100 MG TABLET 600 MG PO (21:55)
[2022-11-22] VITALS (41 sets, daily range): BP systolic 98–207; BP diastolic 54–105; PULSE 72–92; RESP 6–38; TEMP 36.6; O2SAT 91–100
[2022-11-22] MEDS: HYDROMORPHONE 1 MG INJ IV ×3 (02:04→13:43)
[2022-11-22] MEDS: ONDANSETRON 4 MG/2 ML INJ IV ×2 (07:52→12:27)
[2022-11-22] MEDS: AMLODIPINE 5 MG TABLET 10 MG PO (08:00)
[2022-11-22 09:07] LABS: Add Manual Diff / Slide Review NO; Basophils Absolute Auto 200 /uL (0-100); Basophils Percent Auto 4.5 % (0-2); Eosinophils Absolute Auto 0 /uL (0-450); Hemoglobin 9.6 g/dL (13.5-17.5); Lymphocytes Absolute Auto 700 /uL (1100-4500); Lymphocytes Percent Auto 13.7 % (25-40); Mean Corpuscular HGB Conc 33.2 % (30-36); Mean Corpuscular Hemoglobin 30.9 PG (26-34); Mean Corpuscular Volume 93.2 fL (80-100); Monocytes Absolute Auto 400 /uL (0-900); Monocytes Percent Auto 7.5 % (3-14); Neutrophils Absolute Auto 3500 /uL (1500-7000); Neutrophils Percent Auto 73.3 % (50-75); Platelet Count 216 X10^3/uL (150-400); Red Blood Cell Count 3.12 X10^6/uL (4.5-5.9); Red Cell Distribution Width 14.6 % (11.6-14.8); White Blood Cell Count 4.8 X10^3/uL (4.5-11.0)
[2022-11-22 09:19] LABS: Alanine Aminotransferase 74 IU/L (<50); Albumin 3.8 g/dL (3.5-5.0); Albumin Globulin Ratio 1.4 (1.0-2.8); Alkaline Phosphatase 132 U/L (38-126); Aspartate Aminotransferase 43 IU/L (17-59); BUN Creatinine Ratio 37.1 (6-22); Bilirubin Total 0.2 mg/dL (0.2-1.3); Blood Urea Nitrogen 63 mg/dL (9-20); Calcium 9.8 mg/dL (8.4-10.2); Carbon Dioxide 16 mmol/L (22-32); Chloride 113 mmol/L (98-107); Estimated Glomerular Filt Rate 51 mL/min (>60); Globulin 2.7 g/dL (1.7-4.1); Glucose 192 mg/dL (70-100); HEMOLYSIS < 15 (0-50); Potassium 5.3 mmol/L (3.4-5.1); Sodium 136 mmol/L (137-145); Total Protein 6.5 g/dL (6.3-8.2)
[2022-11-22 11:38] LABS: Ketones (Beta-Hydroxybutyrate) 0.39 mmol/L (<0.27)
[2022-11-22] MEDS: INSULIN NPH 100 UNIT/ML 10ML VIAL 26 UNIT SUBCUT (12:30)
[2022-11-22] MEDS: INSULIN LISPRO 100 UNIT/ML 3ML VIAL SUBCUT ×2 (12:32→13:40)
[2022-11-22 12:47] LABS: HCO3 VBG 18 mmol/L (24-28); PCO2 VBG 40.5 mmHg (45-50); PO2 VBG 15 mmHg (35-45); pH VBG 7.24 (7.33-7.43)
[2022-11-22 12:48] LABS: Fractionated Inspired Oxygen 21; Oxygen Saturation VBG 15 % (70-75); Total CO2 VBG 19 mmol/L (24-29)
[2022-11-22 15:33] LABS: BUN Creatinine Ratio 36.5 (6-22); Blood Urea Nitrogen 62 mg/dL (9-20); Calcium 9.7 mg/dL (8.4-10.2); Carbon Dioxide 19 mmol/L (22-32); Chloride 112 mmol/L (98-107); Estimated Glomerular Filt Rate 51 mL/min (>60); Glucose 227 mg/dL (70-100); HEMOLYSIS 48 (0-50); Sodium 136 mmol/L (137-145)
[2022-11-22 15:41] LABS: Potassium 5.7 mmol/L (3.4-5.1)
== END 2022-11-22 16:45 | disposition home or self-care (01) ==
PROVIDERS: Emergency Medicine; Emergency Provider Emergency Medicine; PCP Family Medicine
DX: G89.18 Other acute postprocedural pain (principal); R10.31 Right lower quadrant pain; Z79.01 Long term (current) use of anticoagulants; Z79.899 Other long term (current) drug therapy
CPT/HCPCS: 36415; 74176; 80048; 80053; 81003; 82009; 82805; 83605; 83690; 83735; 85025; 86140; 87040; 87086; 93005; 96361; 96372; 96374; 96375; 96376; 99284; J1170; J1815; J2405